=== PATIENT | female | born 1950 | race Caucasian/White ===

== ENCOUNTER → 2020-10-30 14:01 | Outpatient (BNVA) | payer MEDICARE, OTHER, SELFPAY | PROVIDERS: Visit Provider Internal Medicine | DX: R06.00 Dyspnea, unspecified (principal); J84.10 Pulmonary fibrosis, unspecified; J98.4 Other disorders of lung | CPT/HCPCS: 99212 ==

== ENCOUNTER 2020-11-07 09:49 | Outpatient (REF) | payer MEDICARE, OTHER, SELFPAY ==
[2020-11-07 10:28] LABS: MANUAL DIFF FLAG NO
[2020-11-07 10:44] LABS: Basophils Absolute Auto 0.1 X10*3/uL (0.0-0.2); Basophils Percent Auto 0.6 % (0-2); Eosinophils Absolute Auto 0.2 X10*3/uL (0.0-0.4); Eosinophils Percent Auto 2.1 % (0-4); Hematocrit 37.5 % (37-47); Hemoglobin 12.1 g/dl (12.0-16.0); Imm Gran Abs Auto 0.02 X10*3/uL (0.00-0.03); Imm Gran Pct Auto 0.3 % (0.0-0.4); Lymphocytes Absolute Auto 1.6 X10*3/uL (1.2-4.9); Lymphocytes Percent Auto 20.5 % (20-40); Mean Corpuscular HGB Conc 32.3 g/dl (31.0-35.0); Mean Corpuscular Hemoglobin 27.5 pg (27.0-33.0); Mean Corpuscular Volume 85.2 fL (80-98); Mean Platelet Volume 10.4 fL (9.4-12.3); Monocytes Absolute Auto 0.5 X10*3/uL (0.1-1.2); Neutrophils Absolute Auto 5.4 X10*3/uL (2.0-8.3); Neutrophils Percent Auto 69.5 % (45-73); Platelet Count 369 X10*3/uL (160-400); Red Cell Distribution Width 13.4 % (11.0-16.0); White Blood Count 7.8 X10*3/uL (4.8-10.8)
[2020-11-07 11:05] LABS: Estimated Average Glucose 137 mg/dL; Hemoglobin A1C 150.9302 umol/L; Hemoglobin A1c % 6.4 %
[2020-11-07 11:10] LABS: Alanine Aminotransferase 15 U/L (0-31); Albumin Level 4.3 g/dL (3.5-5.0); Alkaline Phosphatase 83 U/L (39-117); Anion Gap 18 (12-20); Aspartate Amino Transferase 23 U/L (5-31); Bilirubin Direct 0.3 mg/dL (0.0-0.5); Bilirubin Total 0.9 mg/dL (0.0-1.0); Blood Urea Nitrogen 11 mg/dL (9-16); Calcium 9.2 mg/dL (8.4-10.2); Carbon Dioxide 28 mmol/L (22-29); Chloride 98 mmol/L (96-108); Cholesterol 164 mg/dL; Estimated Glomerular Filt Rate 58; Glucose Fasting 177 mg/dL (60-99); HDL Cholesterol 41 mg/dL; LDL Cholesterol Calculated 92 mg/dl; Magnesium 1.7 mg/dL (1.6-2.6); Potassium 3.6 mmol/l (3.3-5.1); Sodium 140 mmol/L (135-145); Total Protein 7.9 g/dL (6.5-8.0); Triglycerides 155 mg/dL
[2020-11-07 11:20] LABS: Vitamin D 25-OH Total 31.3 ng/mL (>30)
== END 2020-11-07 09:50 | disposition home or self-care (01) ==
LOC: HO.LAB 09:49
DX: J44.9 Chronic obstructive pulmonary disease, unspecified (principal); I10 Essential (primary) hypertension; E11.9 Type 2 diabetes mellitus without complications; E78.5 Hyperlipidemia, unspecified
CPT/HCPCS: 36415; 80053; 80061; 80076; 82306; 83036; 83735; 85025

== ENCOUNTER 2021-04-22 13:05 | Outpatient (REF) | payer MEDICARE, OTHER, SELFPAY ==
--- NOTE | ~2021-04-22 | MM_ITS ---
EXAMINATION: BONE DENSITOMETRY CLINICAL INDICATION: Type 2 diabetes mellitus with hyperglycemia. Screening for osteoporosis. COMPARISON: Baseline BD dated 09/12/2009. CT chest 01/16/2020. TECHNIQUE: Using a [employer] DXA System (software version: 13.1) manufactured by [employer], dual-energy x-ray absorptiometry was performed of the lumbar spine and left hip. The images are of good technical quality. Summary results are attached. FINDINGS: AP SPINE L2-L4 (excluding L1): The data of L1-L4 has been changed to exclude the L1 vertebral body, because density from vertebral augmentation at this level may cause overestimation of lumbar spine density. Current: BMD 1.417 g/cm2, Z-score 2.6, T-score 1.8, normal, 18.9% increase from baseline (<5% change is not significant). Baseline: BMD 1.192 g/cm2. LEFT FEMUR, NECK: Current: BMD 0.856 g/cm2, Z-score -0.1, T-score -1.3, osteopenia. Baseline: BMD 0.891 g/cm2. LEFT FEMUR, TOTAL: Current: BMD 1.026 g/cm2, Z-score 1.1, T-score 0.1, normal, 2.1% decrease from baseline (<5% change is not significant). Baseline: BMD 1.048 g/cm2. IDENTIFIED RISK FACTORS: Height loss, history of fracture (adult), menopause. HISTORY OF FRACTURE: Spine, prior L1 vertebral augmentation. MEDICATIONS: None listed. MM/XR DEXA axial skeleton IMPRESSION: 1. DIAGNOSIS: Osteopenia based on the lowest T-score value of -1.3 in the femoral neck applying World Health Organization criteria. 2. 10-YEAR FRACTURE RISK PREDICTION, FRAX: Major osteoporotic fracture (clinical spine, forearm, hip or shoulder) 14.7%. Hip fracture 2.1%. 3. Treatment Recommendations: NOF guidelines recommend consideration for treatment in postmenopausal women and men age 50 and older presenting with the following: -A hip or vertebral (clinical or morphometric) fracture. -T-score less than or equal to -2.5 at the femoral neck or spine after appropriate evaluation to exclude secondary causes. -Low bone mass at the hip or spine and a 10-year fracture probability by FRAX of greater than or equal to 3% for hip fracture or greater than or equal to 20% for major osteoporotic fracture based on the [place] adapted WHO algorithm. 4. Other Recommendations: All treatment decisions require clinical judgment and consideration of individual patient factors, including patient preferences, comorbidities, previous drug use, risk factors not captured in the FRAX model (e.g. frailty, falls, vitamin D deficiency, increased bone turnover, interval significant decline in bone density) and possible under or overestimation of fracture risk by FRAX. Additional medical evaluation for secondary cause of low bone mineral density may be appropriate. FUTURE SCAN RECOMMENDATION: People with diagnosed cases of osteoporosis or at high risk for fracture should have regular bone mineral density tests. For patients eligible for Medicare, routine testing is allowed once every 2 years. The testing frequency can be increased to one year for patients who have rapidly progressing disease, those who are receiving or discontinuing medical therapy to restore bone mass, or have additional risk factors.
== END 2021-04-22 13:06 | disposition home or self-care (01) ==
LOC: HO.MAMMO 13:05
PROVIDERS: PCP Internal Medicine; Visit Provider Internal Medicine
DX: Z13.820 Encounter for screening for osteoporosis (principal); M81.0 Age-related osteoporosis without current pathological fracture; Z78.0 Asymptomatic menopausal state; Z87.81 Personal history of (healed) traumatic fracture
CPT/HCPCS: 77080

== ENCOUNTER 2021-06-11 07:17 | Outpatient (REF) | payer MEDICARE, OTHER, SELFPAY ==
[2021-06-11 07:53] LABS: MANUAL DIFF FLAG NO
[2021-06-11 07:56] LABS: Basophils Absolute Auto 0.1 X10*3/uL (0.0-0.2); Basophils Percent Auto 1.3 % (0-2); Eosinophils Absolute Auto 0.4 X10*3/uL (0.0-0.4); Eosinophils Percent Auto 5.7 % (0-4); Hematocrit 33.1 % (37-47); Hemoglobin 10.5 g/dl (12.0-16.0); Imm Gran Abs Auto 0.02 X10*3/uL (0.00-0.03); Imm Gran Pct Auto 0.3 % (0.0-0.4); Lymphocytes Percent Auto 25.9 % (20-40); Mean Corpuscular HGB Conc 31.7 g/dl (31.0-35.0); Mean Corpuscular Hemoglobin 26.3 pg (27.0-33.0); Monocytes Absolute Auto 0.7 X10*3/uL (0.1-1.2); Neutrophils Absolute Auto 4.3 X10*3/uL (2.0-8.3); Neutrophils Percent Auto 57.8 % (45-73); Platelet Count 336 X10*3/uL (160-400); Red Blood Count 3.99 X10*6/uL (4.20-5.50); White Blood Count 7.5 X10*3/uL (4.8-10.8)
[2021-06-11 08:15] LABS: Alanine Aminotransferase 9 U/L (0-31); Albumin Level 4.1 g/dL (3.5-5.0); Alkaline Phosphatase 79 U/L (39-117); Anion Gap 16 (12-20); Aspartate Amino Transferase 24 U/L (5-31); Bilirubin Total 0.6 mg/dL (0.0-1.0); Blood Urea Nitrogen 16 mg/dL (9-16); Calcium 8.7 mg/dL (8.4-10.2); Carbon Dioxide 28 mmol/L (22-29); Chloride 101 mmol/L (96-108); Estimated Glomerular Filt Rate 52; Glucose Random 114 mg/dL (60-115); Potassium 3.3 mmol/L (3.3-5.1); Sodium 142 mmol/L (135-145); Total Protein 7.6 g/dL (6.5-8.0)
[2021-06-11 08:36] LABS: Free T4 (Free Thyroxine) 0.92 ng/dL (0.71-1.85); Thyroid Stimulating Hormone 3.81 uIU/mL (0.32-4.0)
[2021-06-11 08:52] LABS: B Type Natriuretic Peptide 25 pg/mL (<100)
[2021-06-11 09:10] LABS: Microalbum/Creatinine Ratio Ur 9.8 ug/mg cr
== END 2021-06-11 07:18 | disposition home or self-care (01) ==
LOC: HO.LAB 07:17
PROVIDERS: PCP Internal Medicine; Visit Provider Internal Medicine
DX: D64.9 Anemia, unspecified (principal); E11.65 Type 2 diabetes mellitus with hyperglycemia
CPT/HCPCS: 36415; 80053; 82043; 83880; 84439; 84443; 85025

== ENCOUNTER 2021-06-16 09:36 | Day surgery (SDC) | payer MEDICARE, OTHER, SELFPAY ==
[2021-06-10 12:45] VITALS: BMI 33.1
--- NOTE | 2021-06-15 09:43 | HO.ANESPROP2 ---
Documented by User: Catina Toscano 06/15/21 09:45 HPI - Anesthesia Eval Consult details Narrative: 71yo F for Colonoscopy PMFSH Active Problems Active Problems: All Active Problems (Updated 06/11/21 @ 13:19 by Rocky Roman MD) Anemia (Acute) Osteopenia (Acute) Medicare annual wellness visit, initial (Acute) Anxiety and depression (Acute) Breast cancer screening by mammogram (Acute) Colon cancer screening (Acute) Hypercholesterolemia (Acute) Obesity (Acute) Type 2 diabetes mellitus with hyperglycemia (Acute) Restrictive lung disease (Acute) Pulmonary fibrosis (Acute) Dyspnea on exertion (Acute) Past Medical History Medical History Breast implant in situ Cataract Cholelithiasis Dyspnea on exertion Fatty liver Hypercholesterolemia Obesity Pelvic fracture Pulmonary fibrosis Restrictive lung disease Type 2 diabetes mellitus with hyperglycemia Family History Family History Mother Lung cancer Father Respiratory failure Sister Lung disease Brother Respiratory failure Son No problems noted. Surgical History Surgical History H/O left wrist surgery History of ankle surgery Social History Social History Alcohol intake: current Alcohol intake frequency: a few times a month Patient Tobacco Use Status: Former Tobacco user Years Smoked: stopped 48 years old Use of substances other than those prescribed or required for medical reasons: No Are you DNR?: No Advance Directives: No Advance Directives Information Provided: Yes Meds Allergies Allergy/AdvReac Type Severity Reaction Status Date / Time bacitracin [BACITRACIN] Allergy Intermediate RASH Verified 06/11/21 12:43 latex [LATEX] Allergy Intermediate FACIAL Verified 06/11/21 12:43 SWELLING; RASH nickel [NICKEL] Allergy Intermediate RASH Verified 06/11/21 12:43 Home Medications Medication Instructions Recorded Confirmed Last Taken Type fluoxetine 40 mg capsule 40 mg PO DAILY 10/30/20 06/11/21 Unknown History lorazepam 1 mg tablet 1 mg PO BEDTIME PRN 10/30/20 06/11/21 Unknown History naproxen sodium 220 mg capsule 220 mg PO BID PRN 03/05/21 06/11/21 Unknown History Exam Exam Date and Time: June 15, 2021 0943 Height,Weight and Vital Signs: Height 5 ft 5 in Weight 90.265 kg Pertinent Lab Results Pertinent Lab Results: Laboratory Tests 06/11/21 06/11/21 07:30 07:30 WBC 7.5 Hgb 10.5 L Hct 33.1 L Plt Count 336 Sodium 142 Potassium 3.3 Chloride 101 Carbon Dioxide 28 BUN 16 Creatinine 1.04 Assessment and Plan Assessment Anesthesia Assessment: Chart Reviewed Documented by User: Elena Mohan 06/16/21 10:17 [facility] Past Medical History Medical History Breast implant in situ Cataract Cholelithiasis Dyspnea on exertion Fatty liver Hypercholesterolemia Obesity Pelvic fracture Pulmonary fibrosis Restrictive lung disease Type 2 diabetes mellitus with hyperglycemia Family History Family History Mother Lung cancer Father Respiratory failure Sister Lung disease Brother Respiratory failure Son No problems noted. Surgical History Surgical History H/O left wrist surgery History of ankle surgery Social History Social History Alcohol intake: current Alcohol intake frequency: a few times a month Patient Tobacco Use Status: Former Tobacco user Years Smoked: stopped 48 years old Use of substances other than those prescribed or required for medical reasons: No Are you DNR?: No Advance Directives: No Advance Directives Information Provided: Yes Meds Allergies Allergy/AdvReac Type Severity Reaction Status Date / Time bacitracin [BACITRACIN] Allergy Intermediate RASH Verified 06/11/21 12:43 latex [LATEX] Allergy Intermediate FACIAL Verified 06/11/21 12:43 SWELLING; RASH nickel [NICKEL] Allergy Intermediate RASH Verified 06/11/21 12:43 Home Medications Medication Instructions Recorded Confirmed Last Taken Type fluoxetine 40 mg capsule 40 mg PO DAILY 10/30/20 06/11/21 Unknown History lorazepam 1 mg tablet 1 mg PO BEDTIME PRN 10/30/20 06/11/21 Unknown History naproxen sodium 220 mg capsule 220 mg PO BID PRN 03/05/21 06/11/21 Unknown History Exam Airway Mallampati Class: III TM Dist: >3cm Neck ROM: Full Loose/Missing/Broken Teeth: No Heart: RRR Lungs: CTA Assessment and Plan Assessment Anesthesia Assessment: Anesthesia Plan Discussed and Chart Reviewed Final Anesthetic Review NPO: Yes ASA Class: III Final Preanesthetic Review: Meds/Allgs Chart Reviewed, Consent Obtained/Reviewed and Anes Risks/Benef Reviewed Patient Risk: Intermediate Procedure Risk: Low Anesthetic Plan Anesthetic Plan: MAC: Disposition: Standard PACU
[2021-06-16 09:59] VITALS: BP 147/50; PULSE 85; RESP 16; TEMP 36.1; O2SAT 95
[2021-06-16 10:07] LABS: Glucose, Whole Blood 185 mg/dL (60-115)
[2021-06-16] MEDS: Sodium Phosphate,Mono-Dibasic 133 ML ENEMA PR (10:14)
--- NOTE | 2021-06-16 10:18 | MHC.SHP ---
Pre-Procedural Eval Section A Date of Service: 06/16/21 The patient is an INPATIENT: No Changes since office visit: No Cold of Flu in the past 2 weeks, No New Medical Problems, No Changes in Medication and No Patient answered all questions The History & Physical has been completed within 30 days and I have reviewed it.: Yes Section B Chief Complaint: Screening Allergies: Allergies Allergy/AdvReac Type Severity Reaction Status Date / Time bacitracin [BACITRACIN] Allergy Intermediate RASH Verified 06/11/21 12:43 latex [LATEX] Allergy Intermediate FACIAL Verified 06/11/21 12:43 SWELLING; RASH nickel [NICKEL] Allergy Intermediate RASH Verified 06/11/21 12:43 Plan I have reviewed the history and physical and performed a pertinent physical examination on my patient. No changes have occurred unless specified.
[2021-06-16] MEDS: Lactated Ringers 1,000 ML 100 ML IVCONT (10:20)
[2021-06-16 10:51] VITALS: BP 111/49; PULSE 74; RESP 18; TEMP 36.2; O2SAT 99
--- NOTE | 2021-06-16 10:58 | PM.OP ---
Brief Operative Note Date of Service: 06/16/21 Pre-op diagnosis: screening Procedure: colonoscopy Surgeon: Chandan Newberry Anesthesia: MAC Was an Chinese Instructor used for this Procedure?: No Estimated blood loss (mL): 2 Pathology: other (bx's 50 cm) Condition: stable Disposition: PACU
[2021-06-16 11:06] VITALS: BP 127/56; PULSE 74; RESP 18; O2SAT 99
--- NOTE | 2021-06-16 11:11 | OP_ITS ---
SURGEON: Chandan Newberry MD INDICATIONS: Colon cancer screening. PREOPERATIVE DIAGNOSIS: POSTOPERATIVE DIAGNOSIS: PROCEDURE PERFORMED: Colonoscopy to the terminal ileum with biopsy. ESTIMATED BLOOD LOSS: COMPLICATIONS: ANESTHESIA: ASSISTANTS: SPECIMENS: MEDICATIONS: Monitored anesthesia care. DESCRIPTION OF PROCEDURE: History and physical performed. The risks and benefits of the procedure were explained to the patient. Informed consent was obtained. The patient was placed in a left lateral decubitus position. A digital rectal exam was performed and was found to be normal. The Olympus pediatric video colonoscope was introduced into the rectum and advanced to the cecum without difficulty. The cecum was identified by transillumination, palpation, and identification of ileocecal valve. Examination was performed and the scope was removed. She tolerated the procedure well and was taken to recovery area in stable condition. FINDINGS: The terminal ileum was briefly examined and appeared normal. The visualized colonic mucosa was within normal limits without evidence of masses or ulcers. There appeared to be approximately 2 cm lipoma at 50 cm. This did show a pillow sign and biopsies were obtained from the mucosa. There was scattered diverticulosis in the sigmoid with a few diverticula throughout the remainder of the colon. Retroflexed examination showed internal hemorrhoids. IMPRESSION: 1. Diverticulosis. 2. Colonic lipoma. RECOMMENDATIONS: 1. Follow up the biopsy results. 2. Further colonoscopy screening is optional based on age. 10 year f/u exam is recommended. MD NISA Sprague/NICOLAS / [id number] MTDD
== END 2021-06-16 11:39 | disposition home or self-care (01) ==
PROVIDERS: PCP Internal Medicine; Visit Provider Internal Medicine Gastroenterology
PROC: 0DJD8ZZ Inspection of Lower Intestinal Tract, Via Natural or Artificial Opening Endoscopic (ICD-10-PCS; CPT 45378; principal; 2021-06-16 10:30)
DX: Z12.11 Encounter for screening for malignant neoplasm of colon (principal); K57.30 Diverticulosis of large intestine without perforation or abscess without bleeding; E11.65 Type 2 diabetes mellitus with hyperglycemia; J84.10 Pulmonary fibrosis, unspecified; J98.4 Other disorders of lung; Z79.84 Long term (current) use of oral hypoglycemic drugs; Z79.899 Other long term (current) drug therapy; Z91.040 Latex allergy status; Z88.1 Allergy status to other antibiotic agents; Z87.891 Personal history of nicotine dependence
CPT/HCPCS: 45380; 82947; 88305

== ENCOUNTER 2021-07-13 07:59 | Outpatient (REF) | payer MEDICARE, OTHER, SELFPAY ==
--- NOTE | ~2021-07-13 | MM_ITS ---
EXAMINATION: MM SCREENING DIGITAL BREAST TOMOSYNTHESIS, BILATERAL CLINICAL INFORMATION: Screening. Asymptomatic. The lifetime risk of breast cancer based on the Tyrer-Cuzick Model is 3%. COMPARISON: Mammography: 12/01/2018, 10/28/2017, 07/04/2015 TECHNIQUE: Digital mammography is performed in craniocaudal and mediolateral oblique views along with computer-aided detection (CAD). Digital breast tomosynthesis is performed in implant-displaced craniocaudal and implant-displaced mediolateral oblique views along with computer-aided detection (CAD). Synthesized 2D images are generated from the tomosynthesis. FINDINGS: There are scattered areas of fibroglandular density (ACR BI-RADS breast composition Category b). There are bilateral implants. The implant contours are similar to prior studies. The breast parenchymal pattern is similar to prior exams. There is no interval mass or architectural abnormality. No developing density or abnormal calcifications. No significant changes. MM/MM tomosynthesis screen imp BI IMPRESSION: No mammographic evidence of malignancy. ASSESSMENT: BI-RADS 1: Negative RECOMMENDATION: Routine annual mammography screening. This patient's information was entered into a reminder system with a target due date for their next mammogram.
== END 2021-07-13 08:00 | disposition home or self-care (01) ==
LOC: HO.MAMMO 07:59
PROVIDERS: Visit Provider Internal Medicine
DX: Z12.31 Encounter for screening mammogram for malignant neoplasm of breast (principal)
CPT/HCPCS: 77063; 77067

== ENCOUNTER 2021-09-03 08:42 | Emergency (ER) | payer MEDICARE, OTHER, SELFPAY ==
--- NOTE | 2021-09-03 08:49 | ED.PSYCH ---
HPI - Psych General Chief Complaint: Anxiety Stated Complaint: ANXIETY,PANIC ATTACK,RAN OUT OF MEDS Time Seen by Provider: 09/03/21 08:49 Source: patient and EMS Mode of arrival: EMS Limitations: no limitations History of Present Illness MD complaint: anxiety Onset (ago): day(s) (few days ago due to the sister having a stroke) Duration: getting worse History of same: Yes Relieving factors: medication Exacerbating factors: other (stress) Context: significant life stressor and other (ran out of her ativan 1mg should have refill now usually given 30 day suppy) Associated psychiatric symptoms: none Associated symptoms: denies other symptoms and other (did note she pulled her back while cleaning the house recently ) Treatments prior to arrival: none Related Data Home Medications Medication Instructions Recorded Confirmed fluoxetine 40 mg capsule 40 mg PO DAILY 10/30/20 09/03/21 lorazepam 1 mg tablet 1 mg PO BEDTIME PRN 10/30/20 09/03/21 naproxen sodium 220 mg capsule 220 mg PO BID PRN 03/05/21 09/03/21 (Aleve) ketorolac 0.5 % eye drops 1 drp QID 09/03/21 09/03/21 Previous Rx's Medication Instructions Recorded amlodipine 5 mg tablet 5 mg PO DAILY #90 tab 01/09/21 bumetanide 2 mg tablet 2 mg PO DAILY #90 tab 01/09/21 diabetic shoes #1 ea 03/05/21 glipizide 10 mg tablet 10 mg PO DAILY 90 Days #90 tab 04/15/21 atorvastatin 40 mg tablet 40 mg PO BEDTIME #90 cap 06/04/21 metoprolol succinate 50 mg 50 mg PO DAILY #90 tab 06/04/21 tablet,extended release 24 hr metformin 1,000 mg tablet 1,000 mg PO BID #180 cap 08/06/21 hydrocodone 5 mg-acetaminophen 325 1 tab PO Q6H PRN #8 tab 09/03/21 mg tablet lidocaine 4 % topical patch 1 patch TOPICAL DAILY PRN #10 ea 09/03/21 Allergies Allergy/AdvReac Type Severity Reaction Status Date / Time bacitracin [BACITRACIN] Allergy Intermediate RASH Verified 08/18/21 10:00 latex [LATEX] Allergy Intermediate FACIAL Verified 08/18/21 10:00 SWELLING; RASH nickel [NICKEL] Allergy Intermediate RASH Verified 08/18/21 10:00 Review of Systems Review of Systems: Constitutional : No Weight loss, No Fever, No Chills, ENT/Mouth : No Hearing loss, No Ear Pain, No Nasal Congestion, No Sinus Pain, No Hoarseness, No sore throat, No Rhinorrhea, No Swallowing Difficulty Cardiovascular : No Chest Pain, No SOB Respiratory : No Cough, No Dyspnea Gastrointestinal : No Nausea, No Vomiting, No Diarrhea, No abdominal Pain, No Hematochezia, No Melena Genitourinary : No Dysuria, No Urinary Frequency, No Hematuria, No Urinary Incontinence, Musculoskeletal : positive back pain Skin : No Skin Lesions, No rash Neuro : No Weakness, No Numbness, No Paresthesias, no loss of bowel or bladder incontinence, no saddle anesthesia Psych: pos anxiety, no SI/HI All other systems reviewed and are negative PMFSH Past Medical History Attestation statement: The following information was validated with the patient. Medical History Benign essential hypertension Breast implant in situ Cataract Cholelithiasis Dyspnea on exertion Fatty liver Hypercholesterolemia Normal colonoscopy (~06/16/21) Obesity Obesity (BMI 30-39.9) Pelvic fracture Pulmonary fibrosis Restrictive lung disease Type 2 diabetes mellitus with hyperglycemia Surgical History H/O left wrist surgery History of ankle surgery Family History Family History Mother Lung cancer Father Respiratory failure Sister Lung disease Brother Respiratory failure Son No problems noted. Other Mental health problem Social History Social History Housing: House Alcohol intake: current Alcohol intake frequency: a few times a month Patient Tobacco Use Status: Former Tobacco user Years Smoked: stopped 48 years old Second Hand Smoke Exposure: Yes Advance Directives: Yes Advance Directives Information Provided: No Advance Directives on File: No service: No Current occupational status: retired Physical Exam Vital Signs: Vital Signs: Last Vital Signs Temp 98.2 F 09/03/21 09:01 Pulse 66 09/03/21 12:17 Resp 18 09/03/21 09:01 BP 146/64 H 09/03/21 12:17 Pulse Ox 97 09/03/21 12:17 Body Mass Index 33.6 Appearance: Alert. Oriented X3. No acute distress. Eyes: Pupils equal, round and reactive to light. ENT: Pharynx normal. Neck: Normal inspection. Neck supple. CVS: Normal heart rate and rhythm. Pulses normal. Respiratory: No respiratory distress. Breath sounds normal. Abdomen: Soft and nontender. Back: some mild lower lateral ttp no step offs Skin: Skin warm and dry. Normal skin color. Normal skin turgor. Extremities: No lower extremity edema. No calf ttp Neuro: Oriented X 3. No motor deficit. No sensory deficit. Psych: pos anxiety, no SI/HI Course Course Course Narrative: I offered rehab but she refuses, PRN pain medications Patient placed in physician observation at 1130am . The indication for observation is that the patient needs more time for PT/CM for back pain and anxiet now notes she cannot care for herself. At this time the patient is well developed well nourished, lungs clear, CV RRR, abd nontender, neuro is intact. Physician observation ended at 1233pm. Patient refusing treatment or rehab now. Plan is to follow up as outpatient NAD, lungs clear, CV RRR, Abd nontender, Neuro intact. Disposition is for home. MDM - Psych MDM Narrative Medical decision making narrative: 71 yo female with hx of HTN, anemia, pulm fibrosis here with anxiety due to sister being ill - ran out of her ativan will give 1mg dose here no SI. She also c/o low back pain after cleaning her house no b/b incontinence, no saddle anesthesia no red flags - tylenol and lidocaine. anticipate DC home once she is feeling better Discharge Plan Discharge Clinical Impression: Anxiety Low back strain Qualifiers: Encounter type: initial encounter Qualified Code(s): S39.012A - Strain of muscle, fascia and tendon of lower back, initial encounter Patient Disposition: Home, Self-Care Instructions: Acute Low Back Pain (ED), Anxiety (ED) Additional Instructions: return to ED for any worsening symptoms or concerns Prescriptions: New lidocaine 4 % adhesive patch,medicated 1 patch topical DAILY PRN (Reason: pain) Qty: 10 RF: 0 hydrocodone-acetaminophen 5-325 mg tablet 1 tab PO Q6H PRN (Reason: pain) Qty: 8 RF: 0 No Action bumetanide 2 mg tablet 2 mg PO DAILY Qty: 90 RF: 1 amlodipine 5 mg tablet 5 mg PO DAILY Qty: 90 RF: 1 glipizide 10 mg tablet 10 mg PO DAILY 90 Days Qty: 90 RF: 1 metoprolol succinate 50 mg tablet extended release 24 hr 50 mg PO DAILY Qty: 90 RF: 1 atorvastatin 40 mg tablet 40 mg PO BEDTIME Qty: 90 RF: 1 metformin 1,000 mg tablet 1,000 mg PO BID Qty: 180 RF: 2 ketorolac 0.5 % drops 1 drp QID RF: 0 (DME) diabetic shoes See Rx Instructions .Route .MEDSUPPLY Qty: 1 RF: 0 naproxen sodium [Aleve] 220 mg capsule 220 mg PO BID PRN (Reason: Pain) RF: 0 fluoxetine 40 mg capsule 40 mg PO DAILY RF: 0 lorazepam 1 mg tablet 1 mg PO BEDTIME PRN (Reason: Anxiety) RF: 0 Referrals: Po,Rocky Okeefe MD [Primary Care Provider] - 2 days (if not better)
[2021-09-03 09:01] VITALS: BP 146/64; PULSE 66; RESP 18; TEMP 36.8; O2SAT 97; BMI 33.6
[2021-09-03] MEDS: LORazepam 1 MG TABLET PO (09:09)
[2021-09-03] MEDS: Lidocaine 4 % Patch ADH..PATCH 1 PATCH TRANSDERMA (09:09)
[2021-09-03] MEDS: Acetaminophen 325 MG TABLET 650 MG PO (09:09)
[2021-09-03] MEDS: oxyCODONE HCl Immed Release 5 MG TABLET PO (11:09)
--- NOTE | 2021-09-03 12:08 | PC.NURSE ---
UNABLE TO GET AHOLD OF PTS SON TO PICK HER UP, PT PROVIDED WITH TRANSPORTATION VOUCHER, PT INSISTED SHE WANTED TO CALL [facility], TO KNOCK ON THE DOOR TO WAKE HER SON UP. PT PROVIDED WITH A PHONE TO MAKE PHONE CALLS AND GIVEN THE NUMBER FOR [facility], PT NOW STATES SHE IS UNSURE IF HER SON CAN TAKE CARE OF HER OFFERED REHAB BY DR SWIFT
[2021-09-03 12:17] VITALS: BP 146/64; PULSE 66; O2SAT 97
--- NOTE | 2021-09-03 12:20 | PHA.MEDREC ---
Pharmacy Consult ? Medication Reconciliation Pharmacy has completed the medication reconciliation. There are no remarkable issues for provider's attention. Dana Leger, JohnnyD
--- NOTE | 2021-09-03 12:40 | MHC.CM.ED ---
Patient d/c'd home before she could be seen by case management.
[2021-09-03 12:54] LABS: COVID-19 Test Negative (Negative); IDNOW Serial# 08D9AD1C
== END 2021-09-03 12:38 | disposition home or self-care (01) ==
PROVIDERS: Emergency Provider Emergency Medicine; PCP Internal Medicine
DX: F41.9 Anxiety disorder, unspecified (principal); S39.012A Strain of muscle, fascia and tendon of lower back, initial encounter; I10 Essential (primary) hypertension; E11.9 Type 2 diabetes mellitus without complications; X58.XXXA Exposure to other specified factors, initial encounter; Y93.9 Activity, unspecified; Y92.9 Unspecified place or not applicable; Y99.9 Unspecified external cause status; Z20.822 Contact with and (suspected) exposure to COVID-19
CPT/HCPCS: 36415; 87635; 97161; 99283; 99284

== ENCOUNTER 2022-03-18 07:35 | Outpatient (REF) | payer MEDICARE, OTHER, SELFPAY ==
[2022-03-18 08:05] LABS: MANUAL DIFF FLAG NO
[2022-03-18 08:38] LABS: Basophils Absolute Auto 0.1 X10*3/uL (0.0-0.2); Basophils Percent Auto 0.7 % (0-2); Eosinophils Absolute Auto 0.6 X10*3/uL (0.0-0.4); Eosinophils Percent Auto 7.3 % (0-4); Hemoglobin 9.9 g/dl (12.0-16.0); Imm Gran Abs Auto 0.01 X10*3/uL (0.00-0.03); Imm Gran Pct Auto 0.1 % (0.0-0.4); Immature Retic Fraction 27.5 % (3.0-15.9); Lymphocytes Absolute Auto 1.6 X10*3/uL (1.2-4.9); Lymphocytes Percent Auto 21.5 % (20-40); Mean Corpuscular HGB Conc 30.9 g/dl (31.0-35.0); Mean Corpuscular Hemoglobin 25.3 pg (27.0-33.0); Mean Corpuscular Volume 81.6 fL (80.0-98.0); Monocytes Absolute Auto 0.6 X10*3/uL (0.1-1.2); Monocytes Percent Auto 8.3 % (2-11); Neutrophils Absolute Auto 4.7 x10*3/uL (2.0-8.3); Neutrophils Percent Auto 62.1 % (45-73); Platelet Count 318 X10*3/uL (160-400); Red Blood Count 3.92 X10*6/uL (4.20-5.50); Red Cell Distribution Width 14.9 % (11.0-16.0); Retic HGB Equivalent 26.8 pg (30.0-35.0); Reticulocyte Percent 1.5 % (0.5-1.8); White Blood Count 7.5 X10*3/uL (4.8-10.8)
[2022-03-18 08:54] LABS: Estimated Average Glucose 171 mg/dL; Hemoglobin A1c % 7.6 %
[2022-03-18 09:16] LABS: Alanine Aminotransferase 13 U/L (0-31); Albumin Level 3.8 g/dL (3.5-5.0); Alkaline Phosphatase 75 U/L (39-117); Anion Gap 15 (12-20); Aspartate Amino Transferase 20 U/L (5-31); Bilirubin Total 0.3 mg/dL (0.0-1.0); Blood Urea Nitrogen 15 mg/dL (9-16); Calcium 8.9 mg/dL (8.4-10.2); Carbon Dioxide 24 mmol/L (22-29); Chloride 103 mmol/L (96-108); Estimated Glomerular Filt Rate 54; Glucose Random 208 mg/dL (60-115); Iron 36 mcg/dL (30-160); Percent Iron Saturation 9 % (15-50); Potassium 4.6 mmol/L (3.3-5.1); Sodium 137 mmol/L (135-145); Total Iron Binding Capacity 388 mcg/dL (228-428); Total Protein 7.1 g/dL (6.5-8.0); Unsaturated Iron Binding 352 ug/dL
[2022-03-18 09:26] LABS: Ferritin 13 ng/mL (10-250); Free T4 (Free Thyroxine) 0.93 ng/dL (0.71-1.85); Thyroid Stimulating Hormone 2.27 uIU/mL (0.32-4.0)
[2022-03-18 10:06] LABS: Folate 8.7 ng/mL (> or = 4.0); Vitamin B12 431 pg/mL (200-900)
== END 2022-03-18 07:36 | disposition home or self-care (01) ==
LOC: HO.LAB 07:35
PROVIDERS: PCP Internal Medicine; Visit Provider Internal Medicine
DX: E11.65 Type 2 diabetes mellitus with hyperglycemia (principal); D64.9 Anemia, unspecified
CPT/HCPCS: 36415; 80053; 82607; 82728; 82746; 83036; 83540; 84439; 84443; 85025; 85045

== ENCOUNTER → 2022-03-25 14:08 | Outpatient (BNV) | payer MEDICARE, OTHER, SELFPAY | PROVIDERS: PCP Internal Medicine; Visit Provider Internal Medicine Medical Oncology | DX: D64.9 Anemia, unspecified (principal); D05.12 Intraductal carcinoma in situ of left breast | CPT/HCPCS: 99203; 99212; 99213; 99214 ==

== ENCOUNTER 2022-04-07 13:32 | Outpatient (REF) | payer MEDICARE, OTHER, SELFPAY | END 2022-04-07 13:33 | disposition home or self-care (01) | LOC: HO.MDS 13:32 | PROVIDERS: PCP Internal Medicine; Visit Provider Internal Medicine Medical Oncology | DX: D50.9 Iron deficiency anemia, unspecified (principal) | CPT/HCPCS: 96365; J2916 ==

== ENCOUNTER 2022-04-12 11:44 | Outpatient (REF) | payer MEDICARE, OTHER, SELFPAY | END 2022-04-12 11:45 | disposition home or self-care (01) | LOC: HO.MDS 11:44 | PROVIDERS: PCP Internal Medicine; Visit Provider Internal Medicine Medical Oncology | DX: D50.9 Iron deficiency anemia, unspecified (principal) | CPT/HCPCS: 96365; J2916 ==

== ENCOUNTER 2022-04-20 12:57 | Outpatient (REF) | payer MEDICARE, OTHER, SELFPAY | END 2022-04-20 12:58 | disposition home or self-care (01) | LOC: HO.MDS 12:57 | PROVIDERS: PCP Internal Medicine; Visit Provider Internal Medicine Medical Oncology | DX: D50.9 Iron deficiency anemia, unspecified (principal) | CPT/HCPCS: 96365; J2916 ==

== ENCOUNTER 2022-04-28 12:21 | Outpatient (REF) | payer MEDICARE, OTHER, SELFPAY ==
[2022-04-28 12:55] LABS: MANUAL DIFF FLAG NO
[2022-04-28 13:05] LABS: Basophils Absolute Auto 0.1 X10*3/uL (0.0-0.2); Basophils Percent Auto 0.8 % (0-2); Eosinophils Absolute Auto 0.4 X10*3/uL (0.0-0.4); Eosinophils Percent Auto 5.6 % (0-4); Hematocrit 32.9 % (37.0-47.0); Hemoglobin 10.2 g/dl (12.0-16.0); Imm Gran Abs Auto 0.02 X10*3/uL (0.00-0.03); Imm Gran Pct Auto 0.3 % (0.0-0.4); Lymphocytes Absolute Auto 1.4 X10*3/uL (1.2-4.9); Lymphocytes Percent Auto 21.5 % (20-40); Mean Corpuscular Hemoglobin 26.4 pg (27.0-33.0); Mean Corpuscular Volume 85.2 fL (80.0-98.0); Mean Platelet Volume 10.1 fL (9.4-12.3); Monocytes Absolute Auto 0.7 X10*3/uL (0.1-1.2); Monocytes Percent Auto 10.1 % (2-11); Neutrophils Absolute Auto 4.1 x10*3/uL (2.0-8.3); Neutrophils Percent Auto 61.7 % (45-73); Platelet Count 267 X10*3/uL (160-400); Red Blood Count 3.86 X10*6/uL (4.20-5.50); Red Cell Distribution Width 16.3 % (11.0-16.0); White Blood Count 6.7 X10*3/uL (4.8-10.8)
== END 2022-04-28 12:22 | disposition home or self-care (01) ==
LOC: HO.MDS 12:21
PROVIDERS: PCP Internal Medicine; Visit Provider Internal Medicine Medical Oncology
DX: D50.9 Iron deficiency anemia, unspecified (principal)
CPT/HCPCS: 36415; 85025; 96365; J2916

== ENCOUNTER 2022-05-03 10:21 | Outpatient (REF) | payer MEDICARE, OTHER, SELFPAY | END 2022-05-03 10:22 | disposition home or self-care (01) | LOC: HO.MDS 10:21 | PROVIDERS: PCP Internal Medicine; Visit Provider Internal Medicine Medical Oncology | DX: D50.9 Iron deficiency anemia, unspecified (principal) | CPT/HCPCS: 96365; J2916 ==

== ENCOUNTER 2022-05-10 09:53 | Outpatient (REF) | payer MEDICARE, OTHER, SELFPAY | END 2022-05-10 09:54 | disposition home or self-care (01) | LOC: HO.MDS 09:53 | PROVIDERS: PCP Internal Medicine; Visit Provider Internal Medicine Medical Oncology | DX: D50.9 Iron deficiency anemia, unspecified (principal) | CPT/HCPCS: 96365; J2916 ==

== ENCOUNTER 2022-05-18 11:56 | Outpatient (REF) | payer MEDICARE, OTHER, SELFPAY | END 2022-05-18 11:57 | disposition home or self-care (01) | LOC: HO.MDS 11:56 | PROVIDERS: PCP Internal Medicine; Visit Provider Internal Medicine Medical Oncology | DX: D50.9 Iron deficiency anemia, unspecified (principal) | CPT/HCPCS: 96365; J2916 ==

== ENCOUNTER 2022-06-04 16:59 | Emergency (ER) | payer MEDICARE, OTHER, SELFPAY ==
[2022-06-04 17:13] VITALS: BP 154/66; PULSE 70; RESP 18; TEMP 36.4; O2SAT 97; BMI 33.3
--- NOTE | 2022-06-04 17:41 | ED_ITS ---
HPI - Anxiety General Chief Complaint: Anxiety Stated Complaint: anxiety Time Seen by Provider: 06/04/22 17:36 History of Present Illness HPI narrative: Patient who takes Ativan as needed for anxiety is out of Ativan and feels like she has been having frequent anxiety attacks, she has no chest pain no shortness of breath no vomiting no dizziness no fainting but does feel tingling and anxious typical of many prior anxiety attacks, all symptoms are chronic for her She did call her doctor for a refill but he was not able to do it today and she will contact her doctor tomorrow Related Data Home Medications Medication Instructions Recorded Confirmed naproxen sodium 220 mg capsule 220 mg PO BID PRN Pain 03/05/21 03/25/22 (Aleve) diphenhydramine HCl 25 mg capsule 25 mg PO BEDTIME PRN Nasal 03/25/22 03/25/22 (Benadryl) Congestion Previous Rx's Medication Instructions Recorded diabetic shoes #1 ea 03/05/21 metformin 1,000 mg tablet 1,000 mg PO BID #180 caps 08/06/21 atorvastatin 40 mg tablet 40 mg PO BEDTIME #90 caps 10/02/21 metoprolol succinate 50 mg 50 mg PO DAILY #90 tabs 10/02/21 tablet,extended release 24 hr fluoxetine 40 mg capsule 40 mg PO DAILY 90 days #90 caps 10/05/21 blood sugar diagnostic (FreeStyle #100 ea 11/12/21 Lite Strips) amlodipine 5 mg tablet 5 mg PO DAILY #90 tabs 02/18/22 lorazepam 1 mg tablet 1 mg PO BEDTIME PRN Anxiety 30 05/17/22 days #30 tabs lorazepam 1 mg tablet 1 mg PO BEDTIME PRN Anxiety 30 06/04/22 days #30 tabs lorazepam 1 mg tablet (Ativan) 1 mg PO BID PRN anxiety #6 tabs 06/04/22 Allergies Allergy/AdvReac Type Severity Reaction Status Date / Time bacitracin [BACITRACIN] Allergy Intermediate RASH Verified 03/25/22 14:36 latex [LATEX] Allergy Intermediate FACIAL Verified 03/25/22 14:36 SWELLING; RASH nickel [NICKEL] Allergy Intermediate RASH Verified 03/25/22 14:36 adhesive tape AdvReac Irritable Verified 03/25/22 14:36 Review of Systems Review of Systems: Positive for anxiety Negatives are no fever no chills no dizziness or weakness no fainting no feeling faint no headache no neck pain no chest pain no shortness of breath no palpitations no abdominal pain no nausea or vomiting no numbness or weakness no loss of balance no confusion Yes all other systems are reviewed and are negative [facility] Past Medical History Source: nursing notes reviewed Medical History (Updated 06/05/22 @ 00:02 by Fortunato Lilly) Benign essential hypertension Breast cancer screening by mammogram Breast implant in situ Cataract Cholelithiasis Colon cancer screening Fatty liver Hypercholesterolemia Normal colonoscopy (~06/16/21) Obesity (BMI 30-39.9) Pelvic fracture Pulmonary fibrosis Restrictive lung disease Type 2 diabetes mellitus with hyperglycemia Surgical History (Updated 03/25/22 @ 16:28 by Ebonie Barbour MD) H/O left wrist surgery History of ankle surgery History of cataract surgery History of colonoscopy History of surgery on lower extremity Family History Family History Mother Lung cancer Father Respiratory failure Sister Lung disease Brother Respiratory failure Son No problems noted. 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 Do you presently have visiting nurse or other home services: No Alcohol intake: current Alcohol intake frequency: a few times a month Patient Tobacco Use Status: Never used Tobacco Years Smoked: stopped 48 years old e-Cigarette/Vaping Use: Never Used Second Hand Smoke Exposure: Yes Advance Directives: No Advance Directives Information Provided: No service: No Current occupational status: retired Cognitive needs: No Hearing needs: No Vision needs: Yes Physical Exam Vital Signs: Vital Signs: Last Vital Signs Temp 97.6 F 06/04/22 17:13 Pulse 70 06/04/22 17:13 Resp 18 06/04/22 17:13 BP 154/66 H 06/04/22 17:13 Pulse Ox 97 06/04/22 17:13 O2 Del Method 06/04/22 17:13 BMI result Body Mass Index 33.3 General appearance no acute distress comfortable cooperative Head is normocephalic atraumatic Pupils equal round reactive to light extraocular motions are intact Neck is supple Respiratory no distress Chest clear to auscultation bilateral Heart murmur Extremities full range of motion x4 Neuro gait and balance are normal, expression and comprehension are normal, motor is 5/5 x4 Course Course Course Narrative: Patient's only complaint is she feels like she has had anxiety attacks over the last 24 hours, typical for her and tried to call her doctor as she is out of Ativan and could not reach him so today I wrote her for 6 Ativan tablets and she will follow with her doctor Discharge Plan Discharge Clinical Impression: Anxiety Patient Disposition: Home, Self-Care Additional Instructions: I did couple a days worth of Ativan but you need to follow with your doctor for regular prescriptions Return any concerns Prescriptions: New lorazepam [Ativan] 1 mg tablet 1 mg PO BID PRN (Reason: anxiety) Qty: 6 0RF No Action metformin 1,000 mg tablet 1,000 mg PO BID Qty: 180 2RF metoprolol succinate 50 mg tablet extended release 24 hr 50 mg PO DAILY Qty: 90 2RF atorvastatin 40 mg tablet 40 mg PO BEDTIME Qty: 90 2RF fluoxetine 40 mg capsule 40 mg PO DAILY 90 Days Qty: 90 2RF (DME) FreeStyle Lite Strips Strip See Rx Instructions .ROUTE .MEDSUPPLY Qty: 100 3RF Rx Instructions: As directed check the BS QD amlodipine 5 mg tablet 5 mg PO DAILY Qty: 90 1RF lorazepam 1 mg tablet 1 mg PO BEDTIME PRN (Reason: Anxiety) 30 Days Qty: 30 1RF lorazepam 1 mg tablet 1 mg PO BEDTIME PRN (Reason: Anxiety) 30 Days Qty: 30 1RF diphenhydramine HCl [Benadryl] 25 mg Capsule 25 mg PO BEDTIME PRN (Reason: Nasal Congestion) (DME) diabetic shoes See Rx Instructions .Route .MEDSUPPLY Qty: 1 0RF Rx Instructions: As directed naproxen sodium [Aleve] 220 mg capsule 220 mg PO BID PRN (Reason: Pain) Interventions: ED Discharge Assessment Last Done: 06/04/22 18:06 Discharge Date/Time: 06/04/22 18:06
== END 2022-06-04 18:06 | disposition home or self-care (01) ==
PROVIDERS: Emergency Provider Internal Medicine; PCP Internal Medicine
DX: F41.9 Anxiety disorder, unspecified (principal); E11.9 Type 2 diabetes mellitus without complications; I10 Essential (primary) hypertension
CPT/HCPCS: 99282; 99283

== ENCOUNTER 2022-06-11 09:59 | Emergency (ER) | payer MEDICARE, OTHER, SELFPAY ==
--- NOTE | ~2022-06-11 | XR_ITS ---
EXAMINATION: XR TIBIA AND FIBULA, RIGHT CLINICAL INFORMATION: Right lower leg pain COMPARISON: Right ankle 02/20/2019 TECHNIQUE: AP and lateral views of the right tibia and fibula were obtained. FINDINGS: There is a lateral fibular plate and screws for an old healed fibular fracture. There are 2 medial malleolar screws through the old healed medial malleoli. There is loss of ankle mortise and subtalar joint space. No bony erosive changes. No visible acute fracture or dislocation. The soft tissues are normal. XR/XR tibia fibula RT 2V IMPRESSION: Old healed distal fibular and medial malleolar fractures with hardware in place. The hardware is unchanged to the previous exam from 3 05/23/2019. No recurrent fracture seen. Suspect mild secondary degenerative changes of the ankle mortise and subtalar joints
--- NOTE | ~2022-06-11 | US_ITS ---
EXAMINATION: US VENOUS ULTRASOUND WITH DOPPLER LOWER EXTREMITY, RIGHT CLINICAL INFORMATION: Atraumatic right lower extremity pain and swelling. COMPARISON: Right lower extremity venous ultrasound 12/08/2019 TECHNIQUE: Ultrasound of the deep veins is performed from the hip to the calf with compression sonography and color and pulse Doppler assessment. Spectral analysis with color-flow imaging is performed. FINDINGS: There is normal venous compression and respiratory variation and augmented flow. The visualized common femoral vein, superficial femoral vein, profunda femoral vein, popliteal vein, and the trifurcation region shows no evidence of deep venous thrombosis. US/US venous duplex LE RT IMPRESSION: No DVT demonstrated in the right lower extremity.
[2022-06-11 10:40] VITALS: BP 147/60; PULSE 61; RESP 18; TEMP 36.6; O2SAT 95; BMI 33.3
[2022-06-11 11:06] VITALS: BP 133/54; PULSE 59; RESP 16; TEMP 35.7; O2SAT 99
[2022-06-11] MEDS: oxyCODONE HCl Immed Release 5 MG TABLET PO (12:58)
--- NOTE | 2022-06-11 13:25 | ED_ITS ---
HPI - Extremity Problem General Chief complaint: Extremity Problem Stated complaint: R leg pain Time Seen by Provider: 06/11/22 10:51 Source: patient Mode of arrival: ambulatory Limitations: no limitations History of Present Illness HPI Narrative: 72-year-old female with a past medical history of hypertension, hypercholesterolemia, obesity, pulmonary fibrosis, restrictive lung disease and type 2 diabetes presenting to the ED with complaints of right lower leg pain radiating to her right ankle/foot since yesterday worse today. Reports that she has had surgery to the right ankle years ago. Reports that she recently went on a long walk with her family member and she believes it might be related to that. She denies any dizziness, headaches, change in vision, chest pain or shortness of breath, dyspnea on exertion, orthopnea, palpitations, paresthesias, abdominal pain, abdominal distension, weight gain, lower extremity edema, recent travel or sick contacts or recent immobilization or surgery, hx of DVT/PE. MD Complaint: extremity pain and extremity swelling Onset (ago): day(s) (2) Pain Consistency: constant Location: right and lower extremity Quality: aching Radiation: distal Relieving factors: elevation Exacerbating factors: range of motion, weight bearing, walking and palpation Associated symptoms: denies other symptoms Related Data Home Medications Medication Instructions Recorded Confirmed naproxen sodium 220 mg capsule 220 mg PO BID PRN Pain 03/05/21 03/25/22 (Aleve) diphenhydramine HCl 25 mg capsule 25 mg PO BEDTIME PRN Nasal 03/25/22 03/25/22 (Benadryl) Congestion Previous Rx's Medication Instructions Recorded diabetic shoes #1 ea 03/05/21 metformin 1,000 mg tablet 1,000 mg PO BID #180 caps 08/06/21 atorvastatin 40 mg tablet 40 mg PO BEDTIME #90 caps 10/02/21 metoprolol succinate 50 mg 50 mg PO DAILY #90 tabs 10/02/21 tablet,extended release 24 hr fluoxetine 40 mg capsule 40 mg PO DAILY 90 days #90 caps 10/05/21 blood sugar diagnostic (FreeStyle #100 ea 11/12/21 Lite Strips) amlodipine 5 mg tablet 5 mg PO DAILY #90 tabs 02/18/22 lorazepam 1 mg tablet 1 mg PO BEDTIME PRN Anxiety 30 05/17/22 days #30 tabs lorazepam 1 mg tablet 1 mg PO BEDTIME PRN Anxiety 30 06/04/22 days #30 tabs lorazepam 1 mg tablet (Ativan) 1 mg PO BID PRN anxiety #6 tabs 06/04/22 cyclobenzaprine 10 mg tablet 10 mg PO Q8H PRN Muscle spasm #8 06/11/22 tabs naproxen 500 mg tablet 500 mg PO BID PRN pain #8 tabs 06/11/22 oxycodone 5 mg tablet 5 mg PO Q6H PRN pain #8 tabs 06/11/22 Allergies Allergy/AdvReac Type Severity Reaction Status Date / Time bacitracin [BACITRACIN] Allergy Intermediate RASH Verified 06/11/22 10:44 latex [LATEX] Allergy Intermediate FACIAL Verified 06/11/22 10:44 SWELLING; RASH nickel [NICKEL] Allergy Intermediate RASH Verified 06/11/22 10:44 adhesive tape AdvReac Irritable Verified 06/11/22 10:44 Review of Systems Review of Systems: Constitutional : No Weight loss, No Fever, No Chills, No Night Sweats, No Fatigue, No Malaise ENT/Mouth : No Hearing loss, No Ear Pain, No Nasal Congestion, No Sinus Pain, No Hoarseness, No sore throat, No Rhinorrhea, No Swallowing Difficulty Eyes: No Eye Pain, No Swelling, No Redness, No Foreign Body, No Discharge, No Vision Changes Cardiovascular : No Chest Pain, No SOB, No Dyspnea on Exertion, No Orthopnea, No Edema, No Palpitations Respiratory : No Cough, No Sputum, No Wheezing, No Smoke Exposure, No Dyspnea Gastrointestinal : No Nausea, No Vomiting, No Diarrhea, No Constipation, No abdominal Pain, No Hematochezia, No Melena Genitourinary : no irregular bleeding, No Dysuria, No Urinary Frequency, No Hematuria, No Urinary Incontinence, No Urgency, No Flank Pain, No Urinary Flow Changes, No Hesitancy Musculoskeletal : + right lower extremity pain, No Myalgias, No Joint Swelling Skin : No Skin Lesions, No rash Neuro : No Weakness, No Numbness, No Paresthesias, No Loss of Consciousness, No Dizziness, No Headache Psych : No Anxiety/Panic, No Depression, No SI/HI/AH/VH, No Social Issues, Heme/Lymph: No Bruising, No Bleeding,No Lymphadenopathy Endocrine : No Polyuria, No Polydipsia, No Temperature Intolerance Yes all other systems are reviewed and are negative [facility] Past Medical History Attestation statement: The following information was validated with the patient. Source: old records reviewed and nursing notes reviewed Medical History Benign essential hypertension Breast cancer screening by mammogram Breast implant in situ Cataract Cholelithiasis Colon cancer screening Fatty liver Hypercholesterolemia Normal colonoscopy (~06/16/21) Obesity (BMI 30-39.9) Pelvic fracture Pulmonary fibrosis Restrictive lung disease Type 2 diabetes mellitus with hyperglycemia Surgical History H/O left wrist surgery History of ankle surgery History of cataract surgery History of colonoscopy History of surgery on lower extremity Family History Family History Mother Lung cancer Father Respiratory failure Sister Lung disease Brother Respiratory failure Son No problems noted. 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 Do you presently have visiting nurse or other home services: No Alcohol intake: current Alcohol intake frequency: a few times a month Patient Tobacco Use Status: Never used Tobacco Years Smoked: stopped 48 years old e-Cigarette/Vaping Use: Never Used Second Hand Smoke Exposure: Yes Advance Directives: Yes Advance Directives Information Provided: Yes Advance Directives on File: No service: No Current occupational status: retired Cognitive needs: No Hearing needs: No Vision needs: Yes Physical Exam Vital Signs: Vital Signs: Last Vital Signs Temp 96.2 F L 06/11/22 11:06 Pulse 59 06/11/22 11:06 Resp 16 06/11/22 11:06 BP 133/54 L 06/11/22 11:06 Pulse Ox 99 06/11/22 11:06 O2 Del Method 06/11/22 11:06 BMI result Body Mass Index 33.3 vital signs have been reviewed as normal and appeared to be correct. Blood pressure 147/60. Heart rate normal. Respiration rate normal. Temperature normal. Oxygen saturation normal. Appearance: Alert. Oriented X3. No acute distress. Head: Normal external exam. Normocephalic. Atraumatic. Eyes: PERRLA. EOMI. Conjunctiva and sclera normal. Eyelids normal. ENT: Pharynx normal. Uvula midline. Moist mucous membranes. No lesions/ulcerations or masses noted on the tongue. Normal voice. No trismus noted. No drooling noted. No muffled voice noted. Neck: Normal inspection. Neck supple. FROM. No adenopathy. Thyroid Normal. No meningeal signs. CVS: Normal heart rate and rhythm. Heart sound normal. Pulses normal throughout. No murmurs/rales/gallops. Respiratory: No respiratory distress. Painless inspiration. Breath sounds normal. No wheezes/rales/rhonchi noted. No accessory muscle usage noted or decreased air movement noted. Back: Full range of motion noted. Skin: Skin warm and dry. Normal skin color. Normal skin turgor. No rashes/lesions/lacerations noted. Extremities: + 1 lower extremity edema and right sided claf tenderness noted. No LLE edema or calf tenderness noted. Extremities exhibit normal range of motion and nontender. Neuro: Oriented X 3. No motor deficit. No sensory deficit. Reflexes normal. Normal steady gait. No focal neuro deficits noted. CN's II-XII intact bilat erally? Vascular: + radial pulses/+ 2 distal pedal pulses/+2 dorsalis pedis b/l. Normal cap refill. No cyanosis noted to upper extremity nails and lower extremity toes nails. Course Course Course Narrative: 12pm - 72-year-old female with a past medical history of hypertension, hypercholesterolemia, obesity, pulmonary fibrosis, restrictive lung disease and type 2 diabetes presenting to the ED with complaints of right lower leg pain radiating to her right ankle/foot since yesterday worse today. Reports that she has had surgery to the right ankle years ago. Reports that she recently went on a long walk with her family member and she believes it might be related to that. Plan: X-ray was ordered while the patient was in the waiting room. Will obtain ultrasound of right lower extremity provide naproxen and I explained to the patient MDM - Extremity (Nontraumatic) Medical Records Attestation: I reviewed the patient's medical records. Lab Data Attestation: I reviewed the patient's lab results. Imaging Data X-ray of right tibia/fibula: Attestation: I personally reviewed and interpreted this imaging study as follows: Radiologist's impression: FINDINGS: There is a lateral fibular plate and screws for an old healed fibular fracture. There are 2 medial malleolar screws through the old healed medial malleoli. There is loss of ankle mortise and subtalar joint space. No bony erosive changes. No visible acute fracture or dislocation. The soft tissues are normal.? XR/XR tibia fibula RT 2V IMPRESSION: Old healed distal fibular and medial malleolar fractures with hardware in place. The hardware is unchanged to the previous exam from 3 05/23/2019. No recurrent fracture seen. ? Suspect mild secondary degenerative changes of the ankle mortise and subtalar joints A venous duplex ultrasound of right lower extremity: Attestation: I personally reviewed and interpreted this imaging study as follows: Radiologist's impression: FINDINGS: There is normal venous compression and respiratory variation and augmented flow. The visualized common femoral vein, superficial femoral vein, profunda femoral vein, popliteal vein, and the trifurcation region shows no evidence of deep venous thrombosis. US/US venous duplex LE RT IMPRESSION: No DVT demonstrated in the right lower extremity. Discharge Plan Discharge Clinical Impression: Muscle strain of right lower extremity Patient Disposition: Home, Self-Care Instructions: Muscle Strain (ED) Additional Instructions: Your ultrasound is still pending we will call you if there is any abnormality such as a blood clot. Return if any new or worsening symptoms. Follow up with her primary care provider. Please do not drink and drive with any of the muscle relaxers or the oxycodone that you were given today. Prescriptions: New naproxen 500 mg tablet 500 mg PO BID PRN (Reason: pain) Qty: 8 0RF oxycodone 5 mg tablet 5 mg PO Q6H PRN (Reason: pain) Qty: 8 0RF Rx Instructions: Partial Fill upon patient request. cyclobenzaprine 10 mg tablet 10 mg PO Q8H PRN (Reason: Muscle spasm) Qty: 8 0RF No Action metformin 1,000 mg tablet 1,000 mg PO BID Qty: 180 2RF metoprolol succinate 50 mg tablet extended release 24 hr 50 mg PO DAILY Qty: 90 2RF atorvastatin 40 mg tablet 40 mg PO BEDTIME Qty: 90 2RF fluoxetine 40 mg capsule 40 mg PO DAILY 90 Days Qty: 90 2RF (DME) FreeStyle Lite Strips Strip See Rx Instructions .ROUTE .MEDSUPPLY Qty: 100 3RF Rx Instructions: As directed check the BS QD amlodipine 5 mg tablet 5 mg PO DAILY Qty: 90 1RF lorazepam 1 mg tablet 1 mg PO BEDTIME PRN (Reason: Anxiety) 30 Days Qty: 30 1RF lorazepam 1 mg tablet 1 mg PO BEDTIME PRN (Reason: Anxiety) 30 Days Qty: 30 1RF diphenhydramine HCl [Benadryl] 25 mg Capsule 25 mg PO BEDTIME PRN (Reason: Nasal Congestion) lorazepam [Ativan] 1 mg tablet 1 mg PO BID PRN (Reason: anxiety) Qty: 6 0RF (DME) diabetic shoes See Rx Instructions .Route .MEDSUPPLY Qty: 1 0RF Rx Instructions: As directed naproxen sodium [Aleve] 220 mg capsule 220 mg PO BID PRN (Reason: Pain) Referrals: Po,Rocky Okeefe MD [Primary Care Provider] - 1 week Interventions: ED Discharge Assessment Last Done: 06/11/22 14:13 Discharge Date/Time: 06/11/22 14:13
--- NOTE | 2022-06-11 14:12 | PC.NURSE ---
pt unable to wait for results of us. pt left with ride home from son. plan is for provider to call patient when results come back.
== END 2022-06-11 14:13 | disposition home or self-care (01) ==
PROVIDERS: Emergency Provider Emergency Medicine; PCP Internal Medicine
DX: S86.911A Strain of unspecified muscle(s) and tendon(s) at lower leg level, right leg, initial encounter (principal); X50.9XXA Other and unspecified overexertion or strenuous movements or postures, initial encounter; M79.604 Pain in right leg; I10 Essential (primary) hypertension; E78.00 Pure hypercholesterolemia, unspecified; E11.9 Type 2 diabetes mellitus without complications; E66.9 Obesity, unspecified; Z68.33 Body mass index [BMI] 33.0-33.9, adult; Y93.01 Activity, walking, marching and hiking; Y92.480 Sidewalk as the place of occurrence of the external cause; Y99.9 Unspecified external cause status
CPT/HCPCS: 73590; 93971; 99284

== ENCOUNTER 2023-01-24 07:00 | Outpatient (REF) | payer MEDICARE, OTHER, SELFPAY ==
[2023-01-24 07:48] LABS: Hemoglobin 12.9 g/dl (12.0-16.0); Mean Corpuscular HGB Conc 32.3 g/dl (31.0-35.0); Mean Corpuscular Hemoglobin 28.4 pg (27.0-33.0); Mean Corpuscular Volume 87.9 fL (80.0-98.0); Mean Platelet Volume 9.8 fL (9.4-12.3); Platelet Count 242 X10*3/uL (160-400); Red Blood Count 4.55 X10*6/uL (4.20-5.50); Red Cell Distribution Width 13.1 % (11.0-16.0); White Blood Count 6.6 X10*3/uL (4.8-10.8)
[2023-01-24 08:15] LABS: Creatinine Urine 218.61 mg/dL; Microalbum/Creatinine Ratio Ur 35.2 ug/mg cr
[2023-01-24 08:22] LABS: Alanine Aminotransferase 18 U/L (0-31); Albumin Level 4.1 g/dL (3.5-5.0); Alkaline Phosphatase 75 U/L (39-117); Anion Gap 14 (12-20); Aspartate Amino Transferase 25 U/L (5-31); Blood Urea Nitrogen 14 mg/dL (9-16); Calcium 9.2 mg/dL (8.4-10.2); Carbon Dioxide 27 mmol/L (22-29); Chloride 104 mmol/L (96-108); Cholesterol 155 mg/dL; Estimated Glomerular Filt Rate 55; Glucose Fasting 155 mg/dL (60-99); HDL Cholesterol 33 mg/dL; LDL Cholesterol Calculated 80 mg/dl; Potassium 4.6 mmol/L (3.3-5.1); Sodium 140 mmol/L (135-145); Total Protein 7.4 g/dL (6.5-8.0); Triglycerides 212 mg/dL
[2023-01-24 08:43] LABS: TSH reflex Free T4 2.87 uIU/mL (0.32-4.0)
== END 2023-01-24 07:01 | disposition home or self-care (01) ==
LOC: HO.LAB 07:00
PROVIDERS: PCP Internal Medicine; Visit Provider Nurse Practitioner Family
DX: D64.9 Anemia, unspecified (principal); E11.65 Type 2 diabetes mellitus with hyperglycemia; E78.00 Pure hypercholesterolemia, unspecified
CPT/HCPCS: 36415; 80053; 80061; 82043; 84443; 85027

== ENCOUNTER 2023-03-11 13:06 | Outpatient (REF) | payer MEDICARE, OTHER, SELFPAY ==
--- NOTE | ~2023-03-11 | MM_ITS ---
EXAMINATION: MM SCREENING DIGITAL BREAST TOMOSYNTHESIS, BILATERAL CLINICAL INFORMATION: Screening. Asymptomatic. The lifetime risk of breast cancer based on the Tyrer-Cuzick Model is 7%. COMPARISON: Mammography: 07/13/2021 and studies dating back to 09/12/2009. TECHNIQUE: Digital mammography is performed in craniocaudal and mediolateral oblique views along with computer-aided detection (CAD). Digital breast tomosynthesis is performed in implant-displaced craniocaudal and implant-displaced mediolateral oblique views along with computer-aided detection (CAD). Synthesized 2D images are generated from the tomosynthesis. FINDINGS: There are scattered areas of fibroglandular density (ACR BI-RADS breast composition Category b). Implant contours are smooth and unchanged. Within the medial aspect of the left breast there is a 4 x 3 mm circumscribed density not definitely seen previously for which spot compression view and possible ultrasound is recommended. About the deep lateral aspect of the right breast there is a 3 mm circumscribed density not seen previously measuring up to approximately 6.5 cm from the nipple. Spot compression view and possible ultrasound recommended. MM/MM tomosynthesis screen imp BI IMPRESSION: Bilateral densities for further evaluation. ASSESSMENT: BI-RADS 0: Incomplete - Need Additional Imaging Evaluation RECOMMENDATION: 1. Additional views of the bilateral breasts. 2. Targeted ultrasound if warranted after review of the additional views. 3. Radiology department staff will contact the patient for additional imaging.
== END 2023-03-11 13:07 | disposition home or self-care (01) ==
LOC: HO.MAMMO 13:06
PROVIDERS: PCP Internal Medicine; Visit Provider Nurse Practitioner Family
DX: Z12.31 Encounter for screening mammogram for malignant neoplasm of breast (principal)
CPT/HCPCS: 77063; 77067

== ENCOUNTER 2023-04-05 10:56 | Outpatient (REF) | payer MEDICARE, OTHER, SELFPAY ==
--- NOTE | ~2023-04-05 | MM_ITS ---
EXAMINATION: MM DIAGNOSTIC DIGITAL BREAST TOMOSYNTHESIS, BILATERAL US DIAGNOSTIC ULTRASOUND BREAST, BILATERAL CLINICAL INFORMATION: Recall from screening for tiny oval nodular asymmetry anterior medial left breast and posterior lateral right breast, on CC views. COMPARISON: Prior mammography exams, most recent 03/11/2023. TECHNIQUE: Digital breast tomosynthesis is performed. 2D images are generated from the tomosynthesis. The following views are obtained: Implant displaced spot left CC, implant displaced spot right CC x2. Ultrasound bilateral breasts is targeted to the areas of interest using grayscale imaging and color Doppler without and with harmonics. FINDINGS: There are scattered areas of fibroglandular density (ACR BI-RADS breast composition Category b). There is a tiny nodular asymmetry anterior medial left breast with circumscribed margins measuring under 5 mm. There is a tiny nodular asymmetry lateral right breast with circumscribed margins measuring under 5 mm. Ultrasound demonstrates a probable cyst 8:00 position left breast 2 cm from nipple measuring 3 mm in length. There is no associated color flow or solid component. There is no appreciable increased or decreased through transmission of sound, possibly due to the small size and proximity to underlying implant. Ultrasound demonstrates a probable cyst 9:00 position right breast 4 cm from nipple measuring 4 mm in length. There is no associated color flow or solid component. There is no appreciable increased or decreased through transmission of sound, possibly due to the small size and proximity to underlying implant. Results are discussed with the patient at time of visit. The bilateral benign-appearing tiny nodularity likely is related to tiny cysts. MM/MM tomosynthesis added view BI IMPRESSION: Probable bilateral tiny cyst corresponding to recent screening mammography. No well visualized increased through transmission of sound on ultrasound perhaps related to the small size and underlying implants. ASSESSMENT: BI-RADS 3: Probably Benign RECOMMENDATION: Diagnostic bilateral mammography in 6 months. This patient's information was entered into a reminder system with a target due date for their next mammogram.
== END 2023-04-05 10:57 | disposition home or self-care (01) ==
LOC: HO.MAMMO 10:56
PROVIDERS: PCP Nurse Practitioner Family; Visit Provider Nurse Practitioner Family
DX: R92.2 Inconclusive mammogram (principal)
CPT/HCPCS: 76642; 77062; 77066

== ENCOUNTER 2023-07-07 08:46 | Emergency (ER) | payer MEDICARE, OTHER, SELFPAY ==
--- NOTE | ~2023-07-07 | XR_ITS ---
EXAMINATION: XR LUMBOSACRAL SPINE CLINICAL INFORMATION: Worsening back pain COMPARISON: Lumbar spine CT 06/08/2012 TECHNIQUE: 3 films of the lumbosacral spine FINDINGS: Again seen are kyphoplasty changes with cement in the L1 vertebral body. There is a mild scoliosis convex to the right which has increased since 2012. Mild degenerative changes are seen at L1-L2 and L2-L3 which have increased slightly when compared to 2012. No acute fractures or bony destructive lesions. XR/XR lumbar spine 2-3V IMPRESSION: Mild scoliosis and degenerative changes, as described above. No acute finding.
[2023-07-07 08:56] VITALS: BP 154/55; PULSE 89; RESP 20; TEMP 36.4; O2SAT 98; BMI 31.6
--- OUTSIDE RECORDS SUMMARY | 2023-07-07 09:23 | XMS_ITS ---
Author Name Chandan Newberry Jr Address [address] [place] [address] Organization [facility] Address [address] [place] [address] Care Team Providers Care Sales Representative Aircraft Name Role Phone Rohith Stokes Chandan Unavailable PROBLEMS Type Condition ICD9-CM Code [id number] Code Onset Dates Condition Status SNOMED Code Problem Colon cancer screening Z12.11 Active [id number] Problem Diarrhea, unspecified type R19.7 Active [id number] ALLERGIES No Known Allergies ENCOUNTERS Encounter Location Date Diagnosis [facility] [address] [facility] [address] [place] [phone] May, [facility] [address]patient [address] [place], [place] [id number] May, Colon cancer screening Z12.11 [facility] [address] [facility] [address] [place] [phone] Apr, Colon cancer screening Z12.11 and Diarrhea, unspecified type R19.7 IMMUNIZATIONS Vaccine Route Administration Date Status Influenza Unknown Jul 29, 2020 Administered SOCIAL HISTORY Qualifiers Date Former Smoker REASON FOR REFERRAL FUNCTIONAL STATUS PLAN OF CARE Activity Details VITAL SIGNS Weight 206 lbs 2021-05-25 Height 62 in 2021-05-25 BMI 37.67 kg/m2 2021-05-25 Temperature 97.1 degrees Fahrenheit Blood pressure systolic 000 mm Hg Blood pressure diastolic 00 mm Hg 2021-04 MEDICATIONS Medication Instructions Dosage Frequency Start Date End Date Duration Status metFORMIN HCl 1000 MG TAKE ONE TABLET BY MOUTH TWICE A DAY 30 Active Prevacid Active Atorvastatin Calcium 40 MG TAKE ONE TABLET BY MOUTH AT BEDTIME 90 Active MiraLax (colon prep) 8.3 ounce ((238) grams orally begin at 5:00 p.m. the day before the procedure mixed with Gatorade or Crystal Light Apr, 1 day Active glipiZIDE 10 MG TAKE ONE TABLET BY MOUTH EVERY DAY 90 Active amLODIPine Besylate 5 MG TAKE 1 TABLET BY MOUTH DAILY 30 Active LORazepam 1 MG TAKE ONE TABLET BY MOUTH EVERY DAY NEEDED 30 Active FLUoxetine HCl 40 MG TAKE ONE CAPSULE BY MOUTH EVERY MORNING 30 Active Metoprolol Succinate ER 50 MG TAKE ONE TABLET BY MOUTH ONCE DAILY 90 Active Bumetanide 2 MG TAKE 1 TABLET BY MOUTH DAILY 30 Active Naproxen 220 MG Orally every 12 hrs 1 tablet with food or milk as needed 12h Active PROCEDURES Procedure Date Ordered Result Body Site DOC RSN FOR NOT SCREEN/REC F/U HBP May 25, 2021 Pt scrn tbco id as non user May 25, 2021 RCMND FLW-UP 10 YRS DOCD June 16, 2021 COLORECTAL CA SCREEN DOC REV May 25, 2021 INTRVL 3+YRS PTS CLNSCP DOCD June 16, 2021 COLONOSCOPY AND BIOPSY June 16, 2021 RESULTS Name Result Date Reference Range Glucose, Whole Blood 2021-06-16 Glucose, Whole Blood 185 60-115 Pathology 2021-06-16 REASON FOR VISIT pathology, screening, patient presents today for SCREENING COLON Insurance Providers Health Insurance Type Health Plan Insurance Address Health Plan Insurance Phone Health Plan Insurance Name Health Plan Coverage Dates Member ID Patient Relationship to Subscriber Patient Address Patient Phone Patient Name Patient Date of Subscriber ID Subscriber Name Subscriber Date of Group No MEDICARE OF [place] [address] [facility] [phone] [place] self SAMI FOX [id number] [facility]ONWEAL TH INDEMNITY [address] [facility] [phone] [facility] COMMONWEAL TH INDEMNITY self SAMI FOX [id number]
--- NOTE | 2023-07-07 10:05 | ED_ITS ---
HPI - General Adult General Chief complaint: Back Pain/Injury Stated complaint: lower back pain Time Seen by Provider: 07/07/23 10:05 Source: patient Mode of arrival: ambulatory Limitations: no limitations History of Present Illness HPI narrative: Patient is a 73 year old assigned female at with a history of chronic back and neck pain, PARTHA, DM, and HTN presenting to the emergency department today with back pain. Patient states that she usually has low back pain that radiates up and into her neck and tylenol helps but over the last couple of days, Tylenol has not helped. Patient denies any dizziness, lightheadedness, abdominal pain, nausea, vomiting, fever, chills, blurry vision, double vision, loss of vision, chest pain, difficulty breathing, shortness of breath, night sweats, pain with urination, increased urinary frequency, increased urinary urgency, blood in her urine or stool, syncope or a near syncopal episode, recent trauma or falls, bowel incontinence, bladder incontinence, bowel retention, bladder retention, or any other complaints at this time. Onset (ago): day(s) Location: neck and back Severity: mild Severity scale (1-10): 3 Quality: aching Pain Consistency: constant Relieving factors: none Exacerbating factors: none Associated symptoms: denies other symptoms Treatments prior to arrival: other (tylenol) Related Data Home Medications Medication Instructions Recorded Confirmed diphenhydramine HCl 25 mg capsule 25 mg PO BEDTIME PRN Nasal 03/25/22 05/03/23 (Benadryl) Congestion Previous Rx's Medication Instructions Recorded diabetic shoes #1 ea 03/05/21 blood sugar diagnostic (FreeStyle #100 ea 10/20/22 Lite Strips) blood-glucose meter (FreeStyle #1 ea 10/20/22 Lite Meter kit) amlodipine 5 mg tablet 5 mg PO DAILY #90 tabs 11/15/22 metformin 1,000 mg tablet 1,000 mg PO BID #180 caps 01/14/23 lisinopril 5 mg tablet 5 mg PO DAILY #30 tabs 01/24/23 meloxicam 7.5 mg tablet 7.5 mg PO DAILY #90 tabs 05/20/23 cyclobenzaprine 5 mg tablet 5 mg PO BEDTIME PRN muscle spasm 05/25/23 #20 tabs atorvastatin 40 mg tablet 40 mg PO BEDTIME #90 caps 06/13/23 fluoxetine 40 mg capsule 40 mg PO DAILY 90 days #90 caps 06/13/23 lorazepam 1 mg tablet 1 mg PO BEDTIME PRN Anxiety 30 06/13/23 days #30 tabs prednisone 20 mg tablet 20 mg PO DAILY 7 days #7 tabs 07/07/23 Allergies Allergy/AdvReac Type Severity Reaction Status Date / Time bacitracin [BACITRACIN] Allergy Intermediate RASH Verified 07/07/23 09:02 latex [LATEX] Allergy Intermediate FACIAL Verified 07/07/23 09:02 SWELLING; RASH nickel [NICKEL] Allergy Intermediate RASH Verified 07/07/23 09:02 adhesive tape AdvReac Irritable Verified 07/07/23 09:02 Review of Systems Constitutional: Constitutional: Reports no additional constitutional complaints, Denies chills, Denies fever(s) and Denies night sweats Eyes: Eyes: Reports no additional eye complaints, Denies blurry vision, Denies change in vision, Denies diplopia, Denies eye discharge, Denies loss of vision and Denies eye pain ENT: Denies dizziness Cardiovascular: Cardiovascular: Reports no additional cardiovascular complaints, Denies chest pain, Denies lightheadedness, Denies Loss of Consciousness and Denies dyspnea Respiratory: Respiratory: Reports no additional respiratory complaints and Denies dyspnea Gastrointestinal: Gastrointestinal: Reports no additional gastrointestinal complaints, Denies abdominal pain, Denies melena, Denies hematochezia, Denies change in bowel habits and Denies change in stool character Genitourinary: Genitourinary: Denies hematuria, Denies urinary frequency, Denies dysuria, Denies urinary incontinence, Denies urinary hesitancy and Denies urinary urgency Musculoskeletal: Musculoskeletal: Reports no additional musculoskeletal complaints, Denies numbness and Denies tingling Comments: back and neck pain Neurologic: Denies dizziness, Denies loss of vision, Denies numbness and Denies tingling Psychiatric: Psychiatric: Reports no additional psychiatric complaints Endocrine: Endocrine: Reports no additional endocrine complaints Hematologic/Lymphatic: Hematologic/Lymphatic: Reports no additional hematol ogic/lymphatic complaints Allergic/Immunologic: Allergic/Immunologic: Reports no additional allergic/immunologic complaints PMFSH Past Medical History Attestation statement: The following information was validated with the patient. Source: old records reviewed and nursing notes reviewed Medical History Benign essential hypertension Breast cancer screening by mammogram Breast implant in situ Cataract Cholelithiasis Colon cancer screening Fatty liver Hypercholesterolemia Medicare annual wellness visit, initial Normal colonoscopy (~06/16/21) Obesity (BMI 30-39.9) Pelvic fracture Pulmonary fibrosis Restrictive lung disease Right leg pain Type 2 diabetes mellitus with hyperglycemia Surgical History H/O left wrist surgery History of ankle surgery History of cataract surgery History of colonoscopy History of surgery on lower extremity Family History Family History Mother Lung cancer Father Respiratory failure Sister Lung disease Brother Respiratory failure Son No problems noted. 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 hearing healthcare practitioner to a significant other at home: Yes Do you presently have visiting nurse or other home services: No Alcohol intake: current Alcohol intake frequency: a few times a month Patient Tobacco Use Status: Never used Tobacco Years Smoked: stopped 48 years old e-Cigarette/Vaping Use: Never Used Second Hand Smoke Exposure: Yes Advance Directives: No Advance Directives Information Provided: Yes service: No Current occupational status: retired Cognitive needs: No Hearing needs: No Vision needs: Yes Physical Exam ED Vital Signs: Vital Signs - 24 hr 07/07/23 08:56 07/07/23 11:24 Temperature 97.6 F Pulse Rate 89 70 Respiratory Rate 20 16 Blood Pressure 154/55 H 138/55 L Pulse Oximetry 98 100 Oxygen Delivery Method Room Air Room Air BMI result Body Mass Index 31.6 Const General: cooperative, no acute distress, alert and awake Nutritional Appearance: well nourished Orientation/consciousness: patient oriented x3 Limitations: no limitations HENMT Head: Yes normal to inspection and Yes atraumatic Ears: hearing grossly normal bilaterally and external ears normal General nose exam: Normal external nose present, no nasal discharge noted and no epistaxis Face and sinus: Yes normal facial exam, No abrasion and No laceration Mouth: Normal oral and palatal mucosa present, no drooling and no muffled voice Eyes General: appearance normal, both eyes and all related structures Periorbital: periorbital findings normal Eyelids: Yes eyelids normal Conjunctivae: conjunctivae normal Pupils: Equal, round and reactive pupils present EOM: EOMs intact bilaterally Neck Neck: Yes normal visual inspection, Yes full ROM and Yes no lymphadenopathy Chest Chest palpation & inspection: normal inspection of the chest Resp Effort & Inspection: normal respiratory effort and able to speak in complete sentences GI Inspection: Yes normal to inspection General: Yes no CVA tenderness Back/Spine/Pelvis Back: no CVA tenderness Cervical Spine: normal cervical lordosis and cervical ROM normal Thoracic/Lumbar Spine: thoracic and lumbar spine normal to inspection and thoraco-lumbar ROM normal Pelvis: no pain with anterior-posterior compression Neuro General: patient oriented x3 and moves all extremities Cranial nerves: Yes Equal, round and reactive pupils present Cognition (Neuro): normal cognition Motor exam (neuro): 5/5 motor strength present throughout Sensory Exam: Normal double simultaneous stimulation for sensation Coordination: [id number] test normal Extrem General: Yes normal to inspection, Yes full ROM and Yes capillary refill normal Psych Appearance: grossly normal Mental Status: mental status grossly normal Affect: normal affect Attitude: cooperative Thought process: Normal thought process present Thought content: Normal thought content present Insight: Good insight present (Psych) Medications Administered Discontinued Medications Generic Name Dose Route Start Last Admin Trade Name Freq PRN Reason Stop Dose Admin Ketorolac Tromethamine 15 mg 07/07/23 11:17 07/07/23 11:24 Ketorolac Tromethamine 15 Mg/Ml Vial IM 07/07/23 11:18 15 mg ONCE ONE Administration Lorazepam 1 mg 07/07/23 13:10 07/07/23 13:17 Lorazepam 1 Mg Tablet PO 07/07/23 13:11 1 mg ONCE ONE Administration Oxycodone HCl 10 mg 07/07/23 12:19 07/07/23 12:27 Oxycodone Hcl Immed Release 5 Mg Tablet PO 07/07/23 12:20 10 mg ONCE ONE Administration Prednisone 20 mg 07/07/23 11:17 07/07/23 11:26 Prednisone 20 Mg Tablet PO 07/07/23 11:18 20 mg ONCE ONE Administration Medical Decision Making Medical Decision Making [facility] Narrative: Patient is a 73 year old assigned female at with a history of neck pain, back pain, HTN, and DM presenting to the emergency department today with back pain. Patient's physical exam was unremarkable. Patient's lumbar spine x-ray showed no acute process. I explained my physical exam findings as well as all test results to the patient. I answered all questions asked by the patient. Patient received IM Toradol, PO Prednisone, PO Oxycodone, and PO Ativan which she stated helped her pain significantly. I stressed the importance of the patie nt taking her medication as prescribed. I stressed the importance of the patient following up with her primary care provider and a visitor services specialist. I stressed the importance of the patient returning to the emergency department immediately if her symptoms were to worsen or if she were to develop any dizziness, shortness of breath, difficulty breathing, chest pain, blurry vision, loss of vision, nausea, vomiting, abdominal pain, fever, chills, back pain, or any other complaints. Patient verbalized agreement and understanding with this treatment plan and discharge. Differential Diagnosis Differential Diagnoses: The differential diagnosis associated with the presentation includes Chronic neck pain Chronic back pain Independent Interpretation I performed an independent interpretation of an: Plain X-Ray Interpretation: My interpretation is in agreement with the radiologist's impression of this imaging study. EXAMINATION: XR LUMBOSACRAL SPINE CLINICAL INFORMATION: Worsening back pain COMPARISON: Lumbar spine CT 06/08/2012 TECHNIQUE: 3 films of the lumbosacral spine FINDINGS: Again seen are kyphoplasty changes with cement in the L1 vertebral body. There is a mild scoliosis convex to the right which has increased since 2012. Mild degenerative changes are seen at L1-L2 and L2-L3 which have increased slightly when compared to 2012.? No acute fractures or bony destructive lesions. XR/XR lumbar spine 2-3V IMPRESSION: Mild scoliosis and degenerative changes, as described above. No acute finding. Dictated By: Naif Luong MD Signed By: Electronically signed by Naif Luong MD 07/07/23 1058 Radiology Impression Discussion of test interpretation with radiology: I have reviewed the radiologist's reading. Prescription Management I considered prescription management with: Other (patient prescribed an oral corticosteroid) Chronic Conditions Patient?s care impacted by: Diabetes and Hypertension Discharge Plan Discharge Clinical Impression: Chronic back pain Patient Disposition: Home, Self-Care Instructions: Back Pain (ED) Additional Instructions: Follow up with your primary care provider and a visitor services specialist. Return to the emergency department immediately if your symptoms worsen or if you develop any dizziness, shortness of breath, difficulty breathing, chest pain, blurry vision, loss of vision, nausea, vomiting, abdominal pain, fever, chills, back pain, or any other complaints. Prescriptions: New prednisone 20 mg tablet 20 mg PO DAILY 7 Days Qty: 7 0RF No Action amlodipine 5 mg tablet 5 mg PO DAILY Qty: 90 2RF metformin 1,000 mg tablet 1,000 mg PO BID Qty: 180 2RF meloxicam 7.5 mg tablet 7.5 mg PO DAILY Qty: 90 0RF cyclobenzaprine 5 mg tablet 5 mg PO BEDTIME PRN (Reason: muscle spasm) Qty: 20 0RF lorazepam 1 mg tablet 1 mg PO BEDTIME PRN (Reason: Anxiety) 30 Days Qty: 30 1RF atorvastatin 40 mg tablet 40 mg PO BEDTIME Qty: 90 2RF fluoxetine 40 mg capsule 40 mg PO DAILY 90 Days Qty: 90 2RF diphenhydramine HCl [Benadryl] 25 mg Capsule 25 mg PO BEDTIME PRN (Reason: Nasal Congestion) (DME) diabetic shoes See Rx Instructions .Route .MEDSUPPLY Qty: 1 0RF Rx Instructions: As directed (DME) FreeStyle Lite Strips Strip See Rx Instructions .ROUTE .MEDSUPPLY Qty: 100 3RF Rx Instructions: As directed check the BS QD (DME) blood-glucose meter [FreeStyle Lite Meter] Kit See Rx Instructions .ROUTE .MEDSUPPLY Qty: 1 0RF Rx Instructions: test daily lisinopril 5 mg tablet 5 mg PO DAILY Qty: 30 9RF Referrals: [facility] [Provider Group] (Call to establish and follow up with a visitor services specialist.) Rocky Roman MD [Primary Care Provider] - Print Language: Kyrgyz
[2023-07-07 11:24] VITALS: BP 138/55; PULSE 70; RESP 16; O2SAT 100
[2023-07-07] MEDS: Ketorolac Tromethamine 15 MG/ML VIAL IM (11:24)
[2023-07-07] MEDS: predniSONE 20 MG TABLET PO (11:26)
[2023-07-07] MEDS: oxyCODONE HCl Immed Release 5 MG TABLET 10 MG PO (12:27)
--- NOTE | 2023-07-07 12:28 | PC.NURSE ---
pt medicated per JAN for 09/06 neck/back pain
[2023-07-07] MEDS: LORazepam 1 MG TABLET PO (13:17)
--- NOTE | 2023-07-07 13:18 | PC.NURSE ---
patient medicated with ativan per MAR/provider for anxiety
== END 2023-07-07 15:55 | disposition home or self-care (01) ==
PROVIDERS: Emergency Provider Student in an Organized Health Care Education/Training Program; PCP Internal Medicine
DX: M54.50 Low back pain, unspecified (principal); M54.2 Cervicalgia; I10 Essential (primary) hypertension; Z79.899 Other long term (current) drug therapy
CPT/HCPCS: 72100; 96372; 99284; J1885

== ENCOUNTER 2023-08-12 13:17 | Outpatient (AMB) | payer MEDICARE, OTHER, SELFPAY ==
[2023-08-12 13:18] VITALS: BP 142/68; PULSE 103; O2SAT 97; BMI 31.5
--- NOTE | 2023-08-12 13:18 | A.OFFPC_ITS ---
Vital Signs 08/12/23 13:18 Height 5 ft 6 in Weight 195 lb BMI 31.5 BP 142/68 H Blood Pressure Location Lt brachial Position Sitting Pulse 103 H Pulse Source Pulse Oximeter Temp Source Skin Pulse Oximetry (%) 97 Oxygen Delivery Method Room Air Intake Visit Reasons: [facility] [place] 07/07 abd pain and hip joint pain Intake Note: Patient is here to follow-up after a visit the emergency department at [facility] [place] [facility] on 07/07 for abdominal pain and hip joint pain. Coding Compliance Auditor Required: No Allergies bacitracin [BACITRACIN] Allergy (Intermediate, Verified 08/12/23 13:33) RASH latex [LATEX] Allergy (Intermediate, Verified 08/12/23 13:33) FACIAL SWELLING; RASH nickel [NICKEL] Allergy (Intermediate, Verified 08/12/23 13:33) RASH adhesive tape Adverse Reaction (Verified 08/12/23 13:33) Irritable Medication List - Last Reconciled 08/12/23 by MARYBETH Wheeler amlodipine 5 mg PO DAILY atorvastatin 40 mg PO BEDTIME blood sugar diagnostic (FreeStyle Lite Strips) As directed check the QD blood-glucose meter (FreeStyle Lite Meter kit) test daily cyclobenzaprine 5 mg PO BEDTIME PRN [diabetic shoes As directed] diphenhydramine HCl (Benadryl) 25 mg PO BEDTIME PRN fluoxetine 40 mg PO DAILY 90 days lisinopril 5 mg PO DAILY lorazepam 1 mg PO BEDTIME PRN 30 days meloxicam 7.5 mg PO DAILY metformin 1,000 mg PO BID Tobacco use date assessed: 08/12/23 Fall risk assessment: No Falls in past year Last assessed Fall Risk: 08/12/23 Dental Screening Dental Screen Date: 08/12/23 Did you have a dental visit in the last 12 months?: No Did you have a dental problem in the last 6 months where you did not have access to dental care?: No Was dental information given to patient?: Patient has dentist HPI [facility] [place] 07/07 abd pain and hip joint pain HPI Details Patient is a 73-year-old female who presents today to follow-up after [facility] visit 07/07/2023 due to low back pain. Patient of Dr. Aguilar Per ED notes: Patient is a 73 year old assigned female at with a history of chronic back and neck pain, PARTHA, DM, and HTN presenting to the emergency department today with back pain. Patient states that she usually has low back pain that radiates up and into her neck and tylenol helps but over the last couple of days, Tylenol has not helped. Patient denies any dizziness, lightheadedness, abdominal pain, nausea, vomiting, fever, chills, blurry vision, double vision, loss of vision, chest pain, difficulty breathing, shortness of breath, night sweats, pain with urination, increased urinary frequency, increased urinary urgency, blood in her urine or stool, syncope or a near syncopal episode, recent trauma or falls, bowel incontinence, bladder incontinence, bowel retention, bladder retention, or any other complaints at this time. Patient is a 73 year old assigned female at with a history of neck pain, back pain, HTN, and DM presenting to the emergency department today with back pain. Patient's physical exam was unremarkable. Patient's lumbar spine x-ray showed no acute process. I explained my physical exam findings as well as all test results to the patient. I answered all questions asked by the patient. Patient received IM Toradol, PO Prednisone, PO Oxycodone, and PO Ativan which she stated helped her pain significantly. I stressed the importance of the patient taking her medication as prescribed. I stressed the importance of the patient following up with her primary care provider and a display specialist. I stressed the importance of the patient returning to the emergency department immediately if her symptoms were to worsen or if she were to develop any dizziness, shortness of breath, difficulty breathing, chest pain, blurry vision, loss of vision, nausea, vomiting, abdominal pain, fever, chills, back pain, or any other complaints. Patient verbalized agreement and understanding with this treatment plan and discharge. Today, patient reports that she has finished prednisone, when she was on prednisone her pain was better. She reports low back pain which is chronic for her, usually constant, currently 7/10 scale, pain is worse with prolonged standing, slightly better with sitting down. Pain sometimes radiate to bilateral shins areas and upper neck. She denies any injury. Reports that Flexeril slightly helps her. Meloxicam with no much help. Reports taking Tylenol with no much improvement as well. Reports chronic intermittent numbness and tingling in her arms. Denies changes in bladder. Reports intermittent diarrhea after certain foods. No shortness of breath or chest pain. Patient declined physical therapy referral. EXAMINATION: XR LUMBOSACRAL SPINE CLINICAL INFORMATION: Worsening back pain COMPARISON: Lumbar spine CT 06/08/2012 TECHNIQUE: 3 films of the lumbosacral spine FINDINGS: Again seen are kyphoplasty changes with cement in the L1 vertebral body. There is a mild scoliosis convex to the right which has increased since 2012. Mild degenerative changes are seen at L1-L2 and L2-L3 which have increased slightly when compared to 2012. No acute fractures or bony destructive lesions. XR/XR lumbar spine 2-3V IMPRESSION: Mild scoliosis and degenerative changes, as described above. No acute finding. [facility] Medical History Right leg pain Obesity (BMI 30-39.9) Benign essential hypertension Normal colonoscopy (~06/16/21) Medicare annual wellness visit, initial Breast implant in situ Breast cancer screening by mammogram Cataract Cholelithiasis Pelvic fracture Fatty liver Colon cancer screening Hypercholesterolemia Type 2 diabetes mellitus with hyperglycemia Restrictive lung disease Pulmonary fibrosis Surgical History History of colonoscopy History of cataract surgery History of surgery on lower extremity H/O left wrist surgery History of ankle surgery Family History Mother Lung cancer Father Respiratory failure Sister Lung disease Brother Respiratory failure Son No problems noted. 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 health care specialist to a significant other at home: Yes Do you presently have visiting nurse or other home services: No Alcohol intake: current Alcohol intake frequency: a few times a month Patient Tobacco Use Status: Never used Tobacco Years Smoked: stopped 48 years old e-Cigarette/Vaping Use: Never Used Second Hand Smoke Exposure: Yes service: No Current occupational status: retired Cognitive needs: No Hearing needs: No Vision needs: Yes Questionnaire Thrive Questionnaire Date Thrive assessed: 01/24/23 AUDIT C Alcohol Use Questionnaire (AUDIT-C) 1. How often do you have a drink containing alcohol?: Never Total Score: 0 Score Reviewed/Action Taken: No PARTHA-7 AMB Questionnaire PARTHA-7 Date PARTHA - 7 assessed: 01/24/23 Source: Developed by Drs. Angus Roe, Kelly Cade, Robe Hawley and colleagues, with an educational juliana from [employer]. Review of Systems Const Denies body aches, Denies chills, Denies fever(s) and Denies headache(s) Eyes Denies change in vision ENT Denies dizziness, Denies otalgia, Denies headache(s), Denies nasal discharge, Denies sinus pain and Denies sore throat Card Denies chest pain, Denies edema, Denies lightheadedness and Denies dyspnea Resp Denies cough, Denies dyspnea and Denies wheezing GI Denies abdominal pain, Denies constipation, Reports diarrhea (Intermittent), Denies nausea and Denies vomiting Denies dysuria Musc Reports as per HPI, Reports back pain, Denies myalgias, Reports numbness and Reports tingling Skin/Breast Denies rash Neuro Denies dizziness, Denies headache(s), Reports numbness and Reports tingling Aller/Immun Denies wheezing Physical exam (Primary Care) Vital Signs: Last Vital Signs Pulse 103 H 08/12/23 13:18 BP 142/68 H 08/12/23 13:18 Pulse Ox 97 08/12/23 13:18 Oxygen Delivery Method Room Air 08/12/23 13:18 BMI result Body Mass Index 31.5 Tobacco/Smoking Status: Tobacco use Status Tobacco use date assessed 08/12/23 08/12/23 13:23 Patient Tobacco Use Status Never used Tobacco 08/12/23 13:23 e-Cigarette/Vaping Use Never Used 08/12/23 13:23 Thrive Assessment: Date of Thrive Assessment Date Thrive assessed 01/24/23 08/12/23 13:23 Const General: cooperative and no acute distress Orientation/consciousness: patient oriented x3 HENMT Head: Yes normocephalic and Yes atraumatic Mouth: oropharynx normal and moist mucous membranes Throat: Yes posterior oropharynx normal Eyes General: appearance normal, both eyes and all related structures Neck Neck: Yes normal visual inspection, Yes full ROM and Yes no lymphadenopathy Resp Effort & Inspection: normal respiratory effort and able to speak in complete sentences Auscultation: clear to auscultation bilaterally, no crackles, no rales, no rhonchi and no wheezes Cardio Rate: regular rate Rhythm: regular rhythm Heart sounds: S1 normal heart sound present and S2 normal heart sound present GI Palpation (GI): Soft to palpation, not firm, nontender, no guarding, not rigid and no hepatosplenomegaly Auscultation: normal bowel sounds General: No CVA tenderness Back/Spine/Pelvis Back: No CVA tenderness Thoracic/Lumbar Spine: thoraco-lumbar ROM normal, No paraspinal muscle tenderness, No thoracic spinal tenderness and No lumbar spinal tenderness Skin General skin exam: no rashes or lesions noted Neuro General: patient oriented x3 Gait exam (Neuro): Normal gait present Extrem General: Yes full ROM and No edema Assessment and Plan Assessment & Plan (1) Low back pain: Code(s): M54.50 - Low back pain, unspecified Plan: See HPI for details. Physical exam with no acute findings. Patient declined physical therapy referral. Continue meloxicam daily, continue cyclobenzaprine at bedtime p.r.n., continue Tylenol 650 mg every 6 hours as needed. Start prednisone 20 mg daily for 5 days. Encouraged heat/cold packs p.r.n.. Patient declined prescription for lidocaine patch or diclofenac cream. Pain management referral for an evaluation and treatment. Signs and symptoms reviewed when to notify provider go to the emergency department. Patient agreed with the plan. Keep appointment with PCP as scheduled or follow-up sooner as needed. Orders: Referrals Pain Management Referral M54.50 - Low back pain, unspecified Medications: New prednisone 20 mg PO DAILY 5 tabs 0RF M54.50 - Low back pain, unspecified Refilled blood-glucose meter (FreeStyle Lite Meter kit) test daily 1 ea 0RF E11.65 - Type 2 diabetes mellitus with hyperglycemia Coding Level of Care Code Est Pt Level 3 (13415) Diagnoses Low back pain M54.50
== END 2023-08-12 14:27 | disposition home or self-care (01) ==
PROVIDERS: PCP Internal Medicine; Visit Provider Nurse Practitioner Family
DX: M54.50 Low back pain, unspecified (principal)
CPT/HCPCS: 99213

== ENCOUNTER 2023-08-17 14:58 | Outpatient (AMB) | payer MEDICARE, OTHER, SELFPAY ==
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
[2023-08-17 15:10] VITALS: BP 144/66; PULSE 105; RESP 16; O2SAT 95; BMI 31.3
== END 2023-08-17 15:49 | disposition home or self-care (01) ==
PROVIDERS: PCP Internal Medicine; Visit Provider Registered Nurse Emergency
DX: G89.29 Other chronic pain (principal); M54.6 Pain in thoracic spine; Z87.311 Personal history of (healed) other pathological fracture; M47.816 Spondylosis without myelopathy or radiculopathy, lumbar region
CPT/HCPCS: 99204

== ENCOUNTER → 2023-08-17 14:58 | Outpatient (BNVA) | payer MEDICARE, OTHER, SELFPAY | PROVIDERS: PCP Internal Medicine; Visit Provider Registered Nurse Emergency ==

== ENCOUNTER 2023-10-04 15:27 | Outpatient (AMB) | payer MEDICARE, OTHER, SELFPAY ==
--- NOTE | 2023-10-04 15:29 | A.OFFPC_ITS ---
Vital Signs 10/04/23 15:32 Height 5 ft 6 in Weight 192 lb 8 oz BMI 31.1 BP 140/62 H Blood Pressure Location Lt brachial Position Sitting Pulse 103 H Pulse Source Pulse Oximeter Pulse Oximetry (%) 97 Oxygen Delivery Method Room Air Intake Visit Reasons: pain in mouth Intake Note: Patient is here today for pain in mouth Truck Leasing Manager Required: No Military Personnel Specialist: Not Required per policy Accompanied by: Self / Same As Patient Allergies bacitracin [BACITRACIN] Allergy (Intermediate, Verified 10/04/23 15:42) RASH latex [LATEX] Allergy (Intermediate, Verified 10/04/23 15:42) FACIAL SWELLING; RASH nickel [NICKEL] Allergy (Intermediate, Verified 10/04/23 15:42) RASH adhesive tape Adverse Reaction (Verified 10/04/23 15:42) Irritable Medication List - Last Reconciled 10/04/23 by MARYBETH Wheeler amlodipine 5 mg PO DAILY atorvastatin 40 mg PO BEDTIME blood sugar diagnostic (FreeStyle Lite Strips) As directed check the QD blood-glucose meter (FreeStyle Lite Meter kit) test daily cyclobenzaprine 5 mg PO BEDTIME PRN [diabetic shoes As directed] diphenhydramine HCl (Benadryl) 25 mg PO BEDTIME PRN fluoxetine 40 mg PO DAILY 90 days lisinopril 5 mg PO DAILY lorazepam 1 mg PO BEDTIME PRN 30 days meloxicam 7.5 mg PO DAILY PRN metformin 1,000 mg PO BID Tobacco use date assessed: 10/04/23 Fall risk assessment: No Falls in past year Last assessed Fall Risk: 10/04/23 Dental Screening Dental Screen Date: 10/04/23 Did you have a dental visit in the last 12 months?: Yes Did you have a dental problem in the last 6 months where you did not have access to dental care?: No Was dental information given to patient?: Patient has dentist HPI pain in mouth HPI Details Patient is a 73-year-old female presents today for the same day visit due to pain in her mouth for the past couple days. Patient of Dr. Roman. Patient reports that her mouth and inside of gums feel irritated. Also reports mild sore throat which is not bad. Reports taking Aleve with no improvement. Denies this in the past. Reports drinking 4 cups of tea per day, does not drink water. [facility] Medical History Right leg pain Obesity (BMI 30-39.9) Benign essential hypertension Normal colonoscopy (~06/16/21) Medicare annual wellness visit, initial Breast implant in situ Breast cancer screening by mammogram Cataract Cholelithiasis Pelvic fracture Fatty liver Colon cancer screening Hypercholesterolemia Type 2 diabetes mellitus with hyperglycemia Restrictive lung disease Pulmonary fibrosis Surgical History History of colonoscopy History of cataract surgery History of surgery on lower extremity H/O left wrist surgery History of ankle surgery Family History Mother Lung cancer Father Respiratory failure Sister Lung disease Brother Respiratory failure Son No problems noted. 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 Angus Roe, Kelly Cade, Robe Hawley and colleagues, with an educational juliana from [employer]. Review of Systems Const Reports no additional complaints Eyes Reports no additional complaints ENT Reports as per HPI Card Reports no additional complaints Resp Reports no additional complaints GI Reports no additional complaints Skin/Breast Denies rash Physical exam (Primary Care) Vital Signs: Last Vital Signs Pulse 103 H 10/04/23 15:32 BP 140/62 H 10/04/23 15:32 Pulse Ox 97 10/04/23 15:32 Oxygen Delivery Method Room Air 10/04/23 15:32 BMI result Body Mass Index 31.1 Tobacco/Smoking Status: Tobacco use Status Tobacco use date assessed 10/04/23 10/04/23 15:39 Patient Tobacco Use Status Never used Tobacco 10/04/23 15:39 e-Cigarette/Vaping Use Never Used 10/04/23 15:39 Thrive Assessment: Date of Thrive Assessment Date Thrive assessed 01/24/23 10/04/23 15:39 Const General: cooperative and no acute distress Orientation/consciousness: patient oriented x3 HENMT Other: Oral mucosa seems to be dry, no lesions or open areas noted Head: Yes normocephalic and Yes atraumatic Mouth: oropharynx normal Throat: Yes posterior oropharynx normal Eyes General: appearance normal, both eyes and all related structures Neck Neck: Yes normal visual inspection, Yes full ROM and Yes no lymphadenopathy Resp Effort & Inspection: normal respiratory effort and able to speak in complete sentences Auscultation: clear to auscultation bilaterally, no crackles, no rales, no rhonchi and no wheezes Cardio Rate: regular rate Rhythm: regular rhythm Heart sounds: S1 normal heart sound present and S2 normal heart sound present GI Auscultation: normal bowel sounds Skin General skin exam: no rashes or lesions noted Neuro General: patient oriented x3 Extrem General: Yes full ROM Assessment and Plan Assessment & Plan (1) Irritation of oral cavity: Code(s): 

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
[2023-10-04 15:32] VITALS: BP 140/62; PULSE 103; O2SAT 97; BMI 31.1
== END 2023-10-04 15:54 | disposition home or self-care (01) ==
LOC: HO.HMGH 15:27
PROVIDERS: PCP Internal Medicine; Visit Provider Nurse Practitioner Family
DX: K13.6 Irritative hyperplasia of oral mucosa (principal)
CPT/HCPCS: 99213

== ENCOUNTER 2023-11-06 13:30 | Emergency (ER) | payer MEDICARE, OTHER, SELFPAY ==
--- NOTE | ~2023-11-06 | CT_ITS ---
EXAMINATION: CT SOFT TISSUE NECK WITH CONTRAST CLINICAL INFORMATION: Lymphadenopathy. Purulent drainage from the gums. COMPARISON: CT cervical spine from 01/02/2019. TECHNIQUE: Multidetector helical imaging was performed in the axial plane following the administration of 60 mL of Omnipaque 350 intravenous contrast. Multiple axial reformats and coronal/sagittal reconstructions were created the technologist workstation for review. This CT examination was performed using dose optimization techniques as appropriate, variously including the following: *Automated exposure control. *Adjustment of mA and/or kV according to patient size (this includes techniques or standardized protocols for targeted exams where dose is matched to indication/reason for exam; i.e. extremities or head). *Use of iterative reconstruction technique. DLP: 369 mGy-cm FINDINGS: There is extensive erosive change of the symphyseal and right greater than left parasymphyseal regions of the mandible with significant loss of the outer cortical table. There is extensive decay of the mandibular right 1st premolar. Lucency surrounding multiple mandibular teeth. Moderate soft tissue thickening surrounding the symphyseal and right greater than left parasymphyseal regions of the mandible. There is a 1.2 cm nodule in the left intrinsic tissues of the tongue. No additional focal lesion or abnormal enhancement within the intrinsic tissues of the tongue or floor of mouth. Left level Ib lymph nodes measure up to 1.1 cm. Bilateral level IIa lymph nodes measure up to 1.1 cm. No significant cutaneous thickening or subcutaneous inflammation. No discrete fluid collection within the deep tissues of the neck. The premaxillary, retromaxillary, pterygopalatine fossa, orbital apical, parapharyngeal, and prelaryngeal adipose tissue is maintained. Normal appearance of the parotid, submandibular, and thyroid glands. Scattered subcentimeter lymph nodes bilaterally, none of which are pathologically enlarged or abnormally enhancing. Normal mucosal contours of the pharynx and larynx without abnormal enhancement. Normal appearance of the hyoid bone, thyroid cartilage, or cartilaginous trachea. The airways remains widely patent. No radiopaque foreign bodies. The atlantooccipital and atlantoaxial articulations remain well aligned. Straightening of the normal cervical lordosis. Otherwise, there is anatomic alignment of the vertebral bodies and posterior elements. No evidence of acute fracture or subluxation of the cervical spine. The vertebral body heights are maintained. Moderate degenerative disc disease from C3-T1. Facet and uncovertebral joint arthropathy leads to osseous encroachment on the neural foramina from C3-C7. No evidence of epidural collection. There is no prevertebral soft tissue swelling. Normal opacification of the cervical arterial and venous structures. The visualized portion of the skull base is without significant abnormalities. Mild mucosal thickening of the paranasal sinuses. The mastoid air cells and middle ear cavities are clear. CT Upper Chest: The visualized lung apices and upper mediastinum are within normal limits. CT/CT soft tissue neck w IV con IMPRESSION: 1. Extensive erosive change of the symphyseal and right greater than left parasymphyseal regions of the mandible with significant loss of the outer cortical table. There is extensive decay of the mandibular right 1st premolar. Moderate soft tissue thickening surrounding the symphyseal and right greater than left parasymphyseal regions of the mandible. Findings are suggestive of extensive sequela of odontogenic infection (although other underlying lesions are not fully excluded). 2. There is a 1.2 cm nodule in the left intrinsic tissues of the tongue, suggestive of a lingual lymph node. Additional mildly prominent upper cervical chain lymphadenopathy, likely reactive in nature. 3. Moderate multilevel degenerative spondyloarthropathy of the cervical spine.
--- NOTE | 2023-11-06 14:06 | ED.GENADULT ---
HPI - General Adult General Chief complaint: Dental/Oral Stated complaint: mouth swelling Time Seen by Provider: 11/06/23 15:49 Source: patient Mode of arrival: ambulatory Limitations: no limitations History of Present Illness HPI narrative: Patient is a 73-year-old female with history of PARTHA, DM, HTN, chronic back/neck pain, depression presenting to the emergency department with complaint of purulent drainage from lower gums. States that she lose a tooth from her lower jaw but unable to specify when. States that she saw her primary care provider for similar symptoms but was not prescribed antibiotics, was given mouthwash. Unable to state specifically how long symptoms have been ongoing but estimates weeks. She denies fevers. She does complain of some neck pain. States that the swelling was more significant previously and has resolved but is still having drainage. Denies any difficulty swallowing. States she has not contacted her dentist. MD complaint: Jaw pain Onset (ago): week(s) Location: mouth Severity: moderate Quality: aching Pain Consistency: constant Relieving factors: none Exacerbating factors: none Associated symptoms: other (Purulence drainage) Treatments prior to arrival: none Related Data Home Medications Medication Instructions Recorded Confirmed diphenhydramine HCl 25 mg capsule 25 mg PO BEDTIME PRN Nasal 03/25/22 10/04/23 (Benadryl) Congestion Previous Rx's Medication Instructions Recorded diabetic shoes #1 ea 03/05/21 blood sugar diagnostic (FreeStyle #100 ea 10/20/22 Lite Strips) amlodipine 5 mg tablet 5 mg PO DAILY #90 tabs 11/15/22 metformin 1,000 mg tablet 1,000 mg PO BID #180 caps 01/14/23 lisinopril 5 mg tablet 5 mg PO DAILY #30 tabs 01/24/23 atorvastatin 40 mg tablet 40 mg PO BEDTIME #90 caps 06/13/23 fluoxetine 40 mg capsule 40 mg PO DAILY 90 days #90 caps 06/13/23 lorazepam 1 mg tablet 1 mg PO BEDTIME PRN Anxiety 30 08/03/23 days #30 tabs cyclobenzaprine 5 mg tablet 5 mg PO BEDTIME PRN muscle spasm 08/04/23 #20 tabs blood-glucose meter (FreeStyle #1 ea 08/12/23 Lite Meter kit) meloxicam 7.5 mg tablet 7.5 mg PO DAILY PRN pain #90 tabs 08/17/23 Magic Mouthwash 5 ml PO TID 14 days #240 mL 10/04/23 Diphen/Lido/Antacid 1:1:1 240 mL suspension clindamycin HCl 300 mg capsule 300 mg PO Q8H 7 days #21 caps 11/06/23 Allergies Allergy/AdvReac Type Severity Reaction Status Date / Time bacitracin [BACITRACIN] Allergy Intermediate RASH Verified 10/04/23 15:42 latex [LATEX] Allergy Intermediate FACIAL Verified 10/04/23 15:42 SWELLING; RASH nickel [NICKEL] Allergy Intermediate RASH Verified 10/04/23 15:42 adhesive tape AdvReac Irritable Verified 10/04/23 15:42 Review of Systems Review of Systems: As per HPI. Yes all other systems are reviewed and are negative Constitutional: Constitutional: Reports as per HPI PMFSH Past Medical History Medical History Right leg pain Obesity (BMI 30-39.9) Benign essential hypertension Normal colonoscopy (~06/16/21) Medicare annual wellness visit, initial Breast implant in situ Breast cancer screening by mammogram Cataract Cholelithiasis Pelvic fracture Fatty liver Colon cancer screening Hypercholesterolemia Type 2 diabetes mellitus with hyperglycemia Restrictive lung disease Pulmonary fibrosis Surgical History History of colonoscopy History of cataract surgery History of surgery on lower extremity H/O left wrist surgery History of ankle surgery Family History Family History Mother Lung cancer Father Respiratory failure Sister Lung disease Brother Respiratory failure Son No problems noted. 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 care team assistant to a significant other at home: Yes Do you presently have visiting nurse or other home services: No Alcohol intake: current Alcohol intake frequency: a few times a month Patient Tobacco Use Status: Never used Tobacco Years Smoked: stopped 48 years old e-Cigarette/Vaping Use: Never Used Second Hand Smoke Exposure: No Advance Directives: No Advance Directives Information Provided: No service: No Current occupational status: retired Cognitive needs: No Hearing needs: No Vision needs: Yes Physical Exam ED Vital Signs: Vital Signs - 24 hr 11/06/23 14:08 11/06/23 17:44 Temperature 98.8 F Pulse Rate 99 84 Respiratory Rate 20 16 Blood Pressure 106/58 L 128/55 L Pulse Oximetry 96 100 Oxygen Delivery Method Room Air Room Air BMI result Body Mass Index 28.9 Vital signs have been reviewed and appear to be correct. Blood pressure normal. Heart rate normal. Respiratory rate normal. Temperature normal. Oxygen saturation normal. Const General: cooperative and no acute distress Nutritional Appearance: average body habitus Orientation/consciousness: oriented to person, oriented to place, oriented to time and patient oriented x3 Limitations: no limitations HENMT Head: Yes normocephalic and Yes atraumatic Ears: external ears normal General nose exam: Normal external nose present Face and sinus: Yes face symmetric Mouth: oropharynx normal, moist mucous membranes and no trismus Teeth and gingiva: abnormal tooth and associated gingiva lower right with associated gingival edema, caries, multiple restorations and poor dentition Teeth image: 1. tooth missing, purulent drainage Throat: Yes posterior oropharynx normal, Yes uvula midline and No uvular edema Eyes Pupils: Equal, round and reactive pupils present Neck Neck: Yes normal visual inspection and Yes supple Lymphatic: lymphadenopathy bilateral submandibular Resp Effort & Inspection: normal respiratory effort and able to speak in complete sentences Auscultation: clear to auscultation bilaterally Cardio Rate: regular rate Rhythm: regular rhythm Heart sounds: S1 normal heart sound present and S2 normal heart sound present GI Palpation (GI): Soft to palpation and nontender Auscultation: normoactive bowel sounds General: Yes no CVA tenderness Back/Spine/Pelvis Back: no CVA tenderness Skin General skin exam: elasticity normal and turgor normal Neuro General: oriented to person, oriented to place, oriented to time, patient oriented x3, moves all extremities, no focal motor deficits and CN's II-XI intact bilaterally Cranial nerves: Yes Equal, round and reactive pupils present Cognition (Neuro): normal cognition Extrem General: Yes full ROM, Yes no pedal edema and Yes no calf tenderness Psych Mental Status: mental status grossly normal Affect: normal affect Thought process: Normal thought process present Course Course Course Narrative: This is a rapid medical exam. Deferred additional HPI, ROS, PE to primary provider. 73 yo female with history of PARTHA, DM, HTN, chronic back/neck pain, depression here with complaints of dental pain/oral pain for weeks, feeling generally weak/tired, decreased PO intake with weight loss. Has not seen the dentist. Patient has extensive caries on exam, purulence from lower gum line bilaterally, lymphadenopathy. Will need labs. May need advanced imaging. VSS Reevaluation(s) Reevaluation #1: 2100-Sign out to FARIBA ROD pending CT facial bones. This patient was signed out to me at [address] completion Reevaluation #2: Received sign-out with the patient in stable condition and CT pending. Likely discharge home with antibiotics. Time: 21:00 Reevaluation #3: CT results returned, extensive erosive changes of the mandible. This was reviewed with the patient who acknowledges that she is aware of her poor gingival disease. Upon reassessment, patient speaks full clear sentences. There is some left mandibular mild soft tissue swelling. There is no tongue elevation or edema. She is able to tolerate her secretions. Dose of clindamycin now, discharge home with home at follow-up. Reviewed imaging findings and plan with Dr. Kimball who agrees. Time: 22:14 Medications Administered Discontinued Medications Generic Name Dose Route Start Last Admin Trade Name Freq PRN Reason Stop Dose Admin Clindamycin HCl 300 mg 11/06/23 22:07 11/06/23 22:27 Clindamycin Hcl 300 Mg Capsule PO 11/06/23 22:08 300 mg ONCE ONE Administration Iohexol 100 ml 11/06/23 19:30 11/06/23 19:30 Iohexol 350 Mg/Ml 100 Ml Infus..Btl IV 11/06/23 19:31 60 ml ONCE ONE Administration Medical Decision Making Medical Decision Making [facility] Narrative: Patient is a 73-year-old female with history of PARTHA, DM, HTN, chronic back/neck pain, depression presenting to the emergency department with complaint of purulent drainage from lower gums. On exam patient is awake, A+Ox3, VS WNL, afebrile, normal neurological exam without focal deficits, physical exam findings as above. Given reported symptoms and physical exam findings, initial differential includes dental infection, dental abscess, submental or submandibular infection, osteomyelitis of jaw. Labs notable for no leukocytosis. Do not suspect sepsis. Patient signed out to JACKSON Shelton pending CT results. Differential Diagnosis Differential Diagnoses: The differential diagnosis associated with the presentation includes As per [facility]. Admission/Observation Consideration of admission/observation: Escalation of care including admission/observation considered Lab Data [facility] Lab Attestation statement: I reviewed the patient's lab results. As per [facility] 11/06/23 14:28 11/06/23 14:28 Labs: Lab Results 11/06/23 Range/Units 14:28 WBC 8.1 (4.8-10.8) X10*3/uL RBC 3.91 L (4.20-5.50) X10*6/uL Hgb 10.9 L (12.0-16.0) g/dl Hct 33.4 L (37.0-47.0) % MCV 85.4 (80.0-98.0) fL MCH 27.9 (27.0-33.0) pg MCHC 32.6 (31.0-35.0) g/dl RDW 13.4 (11.0-16.0) % Plt Count 484 H D (160-400) X10*3/uL MPV 8.6 L (9.4-12.3) fL Immature Gran % (Auto) 0.2 (0.0-0.4) % Neut % (Auto) 63.8 (45-73) % Lymph % (Auto) 21.2 (20-40) % [place] % (Auto) 9.9 (2-11) % Eos % (Auto) 4.4 H (0-4) % Baso % (Auto) 0.5 (0-2) % Lymph # (Auto) 1.7 (1.2-4.9) X10*3/uL [place] # (Auto) 0.8 (0.1-1.2) X10*3/uL Eos # (Auto) 0.4 (0.0-0.4) X10*3/uL Baso # (Auto) 0.0 (0.0-0.2) X10*3/uL Abs Immat Gran (auto) 0.02 (0.00-0.03) X10*3/uL Absolute Neuts (auto) 5.2 (2.0-8.3) x10*3/uL Absolute Nucleated RBC 0.000 (0.0-0.012) X10*3/uL Nucleated RBC % (auto) 0.0 (0.0-0.2) /100WBC Sodium 137 (135-145) mmol/L Potassium 4.0 (3.3-5.1) mmol/L Chloride 102 (96-108) mmol/L Carbon Dioxide 23 (22-29) mmol/L Anion Gap 16 (12-20) BUN 21 H (9-16) mg/dL Creatinine 1.28 (0.5-1.4) mg/dL Estim Creat Clear Calc 40.8 Estimated GFR 41 Random Glucose 131 H (60-115) mg/dL Calcium 9.9 D (8.4-10.2) mg/dL External Record Review External record reviewed: Inpatient record, Office record and Outpatient record Discharge Plan Discharge Clinical Impression: Dental infection Patient Disposition: Home, Self-Care Instructions: Dental Abscess (ED), Gingivostomatitis (ED) Additional Instructions: Clindamycin as directed. Finish all antibiotics. Follow-up with Aayush inman, oral surgeon. Follow-up with your primary care provider. Call this week to schedule a follow-up appointment. Return to the emergency department if you have any worsening of symptoms, or any concerns. Get well soon! Prescriptions: New clindamycin HCl 300 mg capsule 300 mg PO Q8H 7 Days Qty: 21 0RF No Action amlodipine 5 mg tablet 5 mg PO DAILY Qty: 90 2RF metformin 1,000 mg tablet 1,000 mg PO BID Qty: 180 2RF atorvastatin 40 mg tablet 40 mg PO BEDTIME Qty: 90 2RF fluoxetine 40 mg capsule 40 mg PO DAILY 90 Days Qty: 90 2RF lorazepam 1 mg tablet 1 mg PO BEDTIME PRN (Reason: Anxiety) 30 Days Qty: 30 1RF cyclobenzaprine 5 mg tablet 5 mg PO BEDTIME PRN (Reason: muscle spasm) Qty: 20 0RF diphenhydramine HCl [Benadryl] 25 mg Capsule 25 mg PO BEDTIME PRN (Reason: Nasal Congestion) (DME) diabetic shoes See Rx Instructions .Route .MEDSUPPLY Qty: 1 0RF Rx Instructions: As directed (DME) blood-glucose meter [FreeStyle Lite Meter] Kit See Rx Instructions .ROUTE .MEDSUPPLY Qty: 1 0RF Rx Instructions: test daily Magic Mouthwash Diphen/Lido/Antacid 1:1:1 240 mL suspension 5 ml PO TID 14 Days Qty: 240 0RF Rx Instructions: Lidocaine Viscous 2 % 80mL; diphenhydramine 12.5 mg/5 mL 80mL; aluminum-mag hydrox-simeth 325ar-[id number]/5mL 80mL swish and spit out (DME) FreeStyle Lite Strips Strip See Rx Instructions .ROUTE .MEDSUPPLY Qty: 100 3RF Rx Instructions: As directed check the BS QD lisinopril 5 mg tablet 5 mg PO DAILY Qty: 30 9RF meloxicam 7.5 mg tablet 7.5 mg PO DAILY PRN (Reason: pain) Qty: 90 0RF Referrals: Aayush Murphy [Provider Group] - 1 week Interventions: ED Discharge Assessment Last Done: 11/06/23 22:32 Discharge Date/Time: 11/06/23 22:32
[2023-11-06 14:08] VITALS: BP 106/58; PULSE 99; RESP 20; O2SAT 96; BMI 28.9
[2023-11-06 14:32] LABS: MANUAL DIFF FLAG NO
[2023-11-06 14:33] LABS: Basophils Percent Auto 0.5 % (0-2); Eosinophils Absolute Auto 0.4 X10*3/uL (0.0-0.4); Eosinophils Percent Auto 4.4 % (0-4); Hematocrit 33.4 % (37.0-47.0); Hemoglobin 10.9 g/dl (12.0-16.0); Imm Gran Abs Auto 0.02 X10*3/uL (0.00-0.03); Imm Gran Pct Auto 0.2 % (0.0-0.4); Lymphocytes Absolute Auto 1.7 X10*3/uL (1.2-4.9); Lymphocytes Percent Auto 21.2 % (20-40); Mean Corpuscular HGB Conc 32.6 g/dl (31.0-35.0); Mean Corpuscular Hemoglobin 27.9 pg (27.0-33.0); Mean Corpuscular Volume 85.4 fL (80.0-98.0); Mean Platelet Volume 8.6 fL (9.4-12.3); Monocytes Absolute Auto 0.8 X10*3/uL (0.1-1.2); Monocytes Percent Auto 9.9 % (2-11); Neutrophils Absolute Auto 5.2 x10*3/uL (2.0-8.3); Neutrophils Percent Auto 63.8 % (45-73); Platelet Count 484 X10*3/uL (160-400); Red Blood Count 3.91 X10*6/uL (4.20-5.50); Red Cell Distribution Width 13.4 % (11.0-16.0); White Blood Count 8.1 X10*3/uL (4.8-10.8)
[2023-11-06 14:47] LABS: Anion Gap 16 (12-20); Blood Urea Nitrogen 21 mg/dL (9-16); Calcium 9.9 mg/dL (8.4-10.2); Carbon Dioxide 23 mmol/L (22-29); Chloride 102 mmol/L (96-108); Creatinine Clr Calc Pharmacy 40.8; Estimated Glomerular Filt Rate 41; Glucose Random 131 mg/dL (60-115); Sodium 137 mmol/L (135-145)
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
[2023-11-06 17:44] VITALS: BP 128/55; PULSE 84; RESP 16; TEMP 37.1; O2SAT 100
--- NOTE | 2023-11-06 18:16 | PC.NURSE ---
this RN with multiple IV attempts, difficult stick.
[2023-11-06] MEDS: iohexoL 350 MG/ML 100 ML INFUS..BTL IV (19:30)
[2023-11-06] MEDS: Clindamycin HCL 300 MG CAPSULE PO (22:27)
[2023-11-06 22:30] VITALS: BP 140/60; PULSE 95; RESP 18; O2SAT 95
== END 2023-11-06 22:32 | disposition home or self-care (01) ==
PROVIDERS: Nurse Practitioner Family; Emergency Provider Emergency Medicine; PCP Nurse Practitioner Family
DX: K04.7 Periapical abscess without sinus (principal); R59.1 Generalized enlarged lymph nodes; E11.9 Type 2 diabetes mellitus without complications; I10 Essential (primary) hypertension; E78.00 Pure hypercholesterolemia, unspecified; Z87.891 Personal history of nicotine dependence; Z79.84 Long term (current) use of oral hypoglycemic drugs; Z79.02 Long term (current) use of antithrombotics/antiplatelets; Z79.899 Other long term (current) drug therapy
CPT/HCPCS: 36415; 70491; 80048; 85025; 99284; Q9967

== ENCOUNTER → 2023-12-22 11:30 | Outpatient (BNV) | payer MEDICARE, OTHER, SELFPAY | PROVIDERS: PCP Internal Medicine; Visit Provider Radiology Diagnostic Radiology | DX: N63.25 Unspecified lump in the left breast, overlapping quadrants (principal) | CPT/HCPCS: 76642; 77062; 77066 ==

== ENCOUNTER 2023-12-22 11:31 | Outpatient (REF) | payer MEDICARE, OTHER, SELFPAY ==
--- NOTE | ~2023-12-22 | US_ITS ---
EXAMINATION: MM DIAGNOSTIC DIGITAL BREAST TOMOSYNTHESIS, BILATERAL US BREAST LIMITED, LEFT CLINICAL INFORMATION: 6 month follow-up bilateral small subcentimeter cysts. Patient complaining of palpable abnormality in the left breast at the approximate 6:00 axis left breast. Patient has bilateral saline implants in place, x30 years. Patient also due for bilateral screening. COMPARISON: Mammography: 04/05/2023, 03/11/2023, 03/13/2021, and studies dating back to 2010. TECHNIQUE: Digital mammography is performed in craniocaudal and mediolateral oblique views. Digital breast tomosynthesis is performed in implant-displaced craniocaudal and implant-displaced mediolateral oblique views. Synthesized 2D images are generated from the tomosynthesis. Computer-aided detection (CAD) is performed for this exam. FINDINGS: There are scattered areas of fibroglandular density (ACR BI-RADS breast composition Category b). The tiny right breast 4 mm cyst is unchanged at the 9:00 axis, and benign. The tiny 3 mm cyst in the left breast at the 8:00 axis is unchanged, and benign. No further follow-up of either of these benign findings. In the 6:00 axis of the left breast, directly abutting the margin of the implant, there is a subtle distortion with a triangular focus of density, not definitively seen previously but may represent scarring. This will be interrogated by ultrasound. This appears to correlate with the palpable focus. Air bubbles are present within the left implant, suggesting implant rupture. Abnormal contour to the right implant suggests intracapsular rupture. These are saline implants. ULTRASOUND: CLINICAL INFORMATION: Evaluate palpable abnormality 6:00 axis left breast. COMPARISON: 04/05/2023 bilateral breast ultrasound, although no 6:00 imaging was performed at that time. TECHNIQUE: Targeted sonographic evaluation was performed using a high frequency linear transducer. Attention was given to the 6:00 axis left breast in the region of palpable concern. Selected archived documentation. FINDINGS: LEFT BREAST: -Within the 6:00 axis of the left breast, 3 cm from the nipple, directly abutting the capsule of the saline implant is an irregular mass lesion which is hypoechoic, with good through transmission, partially cystic, and partially solid. The solid portions have robust vascular flow on color Doppler interrogation. This measures in total 1.9 x 0.7 x 1.7 cm. It is surrounded by hyperechoic fat. Finding is indeterminate and suspicious. Ultrasound-guided biopsy is recommended. Findings and recommendations were discussed with the patient in detail, who is in agreement with the overall plan. US/US breast LT limited mamm only IMPRESSION: Suspicious partially cystic and solid mass in the 6:00 axis of the left breast as detailed above, for which ultrasound-guided biopsy is recommended. Findings consistent with bilateral intracapsular saline implant rupture. The small 4 mm and 3 mm cysts previously interrogated are stable, and benign. No further follow-up recommended. OVERALL ASSESSMENT: Mammography: BI-RADS 4 - Suspicious finding Ultrasound: BI-RADS 4 - Suspicious finding RECOMMENDATION: Biopsy recommended This patient's information was entered into a reminder system with a target due date for their next mammogram.
== END 2023-12-22 11:32 | disposition home or self-care (01) ==
LOC: HO.MAMMO 11:31
PROVIDERS: PCP Internal Medicine; Visit Provider Nurse Practitioner Family
DX: R92.2 Inconclusive mammogram (principal); N60.02 Solitary cyst of left breast; T85.49XA Other mechanical complication of breast prosthesis and implant, initial encounter; Z98.82 Breast implant status
CPT/HCPCS: 76642; 77062; 77066

== ENCOUNTER 2023-12-26 08:24 | Outpatient (AMB) | payer MEDICARE, OTHER, SELFPAY ==
--- NOTE | 2023-12-26 08:26 | MHC.OFFVIS ---
Intake Vital Signs 12/26/23 08:31 Height 5 ft 6 in Weight 179 lb BMI 28.9 BP 154/72 H Blood Pressure Location Rt brachial Position Sitting Pulse 100 Intake Visit Reasons: Lt breast U/S biopsy for 6 o'clock mass Intake Note: Patient referred for US guided Lt breast bx. Recent mammo and Lt breast US done on 12-22-23. Patient c/o: new growths on Lt breast. 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 Patient has palpated this for few months time. She is undergone surveillance and on recent follow-up mammogram ultrasound, current recommendation is for ultrasound-guided biopsy. Patient has no other breast issues or complaints. She denies any other skin changes, masses, or discharge. Her energy, weight, appetite are all stable. He has no constitutional symptoms. Family history question of mother for either breast or lung cancer. Patient is Chart was reviewed patient evaluated. [facility] Medical History Right leg pain Obesity (BMI 30-39.9) Benign essential hypertension Normal colonoscopy (~06/16/21) Medicare annual wellness visit, initial Breast implant in situ Breast cancer screening by mammogram Cataract Cholelithiasis Pelvic fracture Fatty liver Colon cancer screening Hypercholesterolemia Type 2 diabetes mellitus with hyperglycemia Restrictive lung disease Pulmonary fibrosis Surgical History History of colonoscopy History of cataract surgery History of surgery on lower extremity H/O left wrist surgery History of ankle surgery Family History Mother Lung cancer Father Respiratory failure Sister Lung disease Brother Respiratory failure Son No problems noted. 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 other at home: Yes Do you presently have visiting nurse or other home services: No Alcohol intake: current Alcohol intake frequency: a few times a month Patient Tobacco Use Status: Never used Tobacco Years Smoked: stopped 48 years old e-Cigarette/Vaping Use: Never Used Second Hand Smoke Exposure: No service: No Current occupational status: retired Cognitive needs: No Hearing needs: No Vision needs: Yes Physical Exam Vital Signs: Last Vital Signs Pulse 100 12/26/23 08:31 BP 154/72 H 12/26/23 08:31 BMI result Body Mass Index 28.9 Chest Other: No cervical, periclavicular, or axillary adenopathy bilaterally. Right breast exam negative. No mass, discharge, skin changes. Left breast demonstrates approximately 2 x 2 cm 6 o'clock position sub areola mass. Nontender. Well-circumscribed. No other skin changes or discharge demonstrated. Assessment & Plan Assessment & Plan (1) Left breast mass: Code(s): N63.20 - Unspecified lump in the left breast, unspecified quadrant Plan Patient is scheduled for ultrasound-guided biopsy of this left breast lesion. She will see me after the study or p.r.n.. All questions answered. Coding Level of Care Code New Pt Level 4 (88105) Diagnoses Left breast mass N63.20
[2023-12-26 08:31] VITALS: BP 154/72; PULSE 100; BMI 28.9
== END 2023-12-26 08:48 | disposition home or self-care (01) ==
PROVIDERS: PCP Internal Medicine; Visit Provider Surgery
DX: N63.20 Unspecified lump in the left breast, unspecified quadrant (principal)
CPT/HCPCS: 99204

== ENCOUNTER 2023-12-26 09:55 | Outpatient (REF) | payer MEDICARE, OTHER, SELFPAY ==
--- NOTE | ~2023-12-26 | MM_ITS ---
PROCEDURE: US GUIDED BREAST BIOPSY, LEFT CLINICAL INFORMATION: Irregular palpable mass 6:00 axis left breast, abutting inferior left saline implant, recommended for biopsy. COMPARISON: 12/22/2023 mammography and ultrasound. PROCEDURAL DETAILS: The details of the procedure, as well as the risks, benefits, and alternatives to the procedure were explained to the patient in detail and all of her questions were answered, after which written informed consent was obtained. Site and side were confirmed. Prior to the procedure, sonography revealed the partially cystic irregular 1.7 x 1.9 x 0.7 cm hypoechoic mass in the left breast at the 6:00 axis, and immediately abutting the inferior margin of the left saline implant. It should be noted, the left implant demonstrated both intra and extracapsular rupture prior to this procedure. A time-out was performed, the lesion intended for biopsy was targeted, and the skin of the left breast was then marked, prepped and draped in the usual sterile fashion. Using sonographic guidance, sterile technique, and 1% lidocaine without epinephrine for local anesthesia, multiple core biopsies were obtained through the targeted area with a 14G spring loaded [employer] core biopsy device. There was real-time confirmation of appropriate needle passage. Sampling was documented. At the completion of tissue sampling, a single barrel shaped metallic clip was deposited at the biopsy site. There was no evidence of immediate complication. SPECIMEN: 4 well formed core samples were obtained DIGITAL POST-PROCEDURE MAMMOGRAPHY: Breast density: The tissue contains scattered areas of fibroglandular density. BI-RADS version 5, category B. There are no new mammographic findings demonstrated. The postprocedure 2-view direct digital mammogram cannot visualize the biopsy clip in either the CC or ML post biopsy views, in either implant displaced or nondisplaced projections. The implant is obscuring both the mass and the clip. Localization will have to be done under ultrasound guidance. No hematoma or complication evident. The patient tolerated the procedure well and, after assuring adequate hemostasis, was discharged in good condition after reviewing postbiopsy breast care instructions. Final pathology results are pending. MM/MM tomosynthesis diag imp LT IMPRESSION: 1. No immediate complication from ultrasound-guided percutaneous biopsy left breast. 2. Ultrasound was used to localize and guide marker clip placement. 3. The 2-view direct digital postprocedure mammogram cannot visualize the biopsy clip in either projection, in either implant displaced or nondisplaced views. The implants is obscuring both the mass and the clip. Clip appears well placed and positioned under ultrasound. Localization will have to be performed under ultrasound guidance. 4. Final pathology results are pending. A separate report with final recommendations will be issued once these results are made available.
[2023-12-26] MEDS: Lidocaine HCl 1 % 20 ML VIAL 8 ML SUBCUT (11:22)
[2023-12-26] MEDS: Sodium Bicarbonate 8.4% 50 MEQ/50 ML VIAL SUBCUT (11:31)
== END 2023-12-26 09:56 | disposition home or self-care (01) ==
LOC: HO.MAMMO 09:55
PROVIDERS: PCP Internal Medicine; Visit Provider Internal Medicine
DX: C50.812 Malignant neoplasm of overlapping sites of left female breast (principal)
CPT/HCPCS: 19083; 77061; 77065; 88305; 88341; 88342; 88360; 99202; A4648; C1894

== ENCOUNTER → 2023-12-26 10:00 | Outpatient (BNV) | payer MEDICARE, OTHER, SELFPAY | PROVIDERS: PCP Internal Medicine; Visit Provider Radiology Diagnostic Radiology | DX: N63.25 Unspecified lump in the left breast, overlapping quadrants (principal) | CPT/HCPCS: 19083; 77065 ==

== ENCOUNTER 2024-01-03 14:39 | Outpatient (AMB) | payer MEDICARE, OTHER, SELFPAY ==
[2024-01-03 14:43] VITALS: BP 128/62; PULSE 110; BMI 27.9
--- NOTE | 2024-01-03 14:43 | A.OFFVIS_ITS ---
Intake Vital Signs 01/03/24 14:43 Height 5 ft 6 in Weight 173 lb BMI 27.9 BP 128/62 Blood Pressure Location Rt brachial Position Sitting Pulse 110 H Intake Visit Reasons: S/p Lt breast U/S biopsy for 6 o'clock mass Intake Note: Patient is seen in office for ultrasound biopsy results left breast 6 o'clock mass. Pt c/o: tenderness. Denies bleeding, itch. Manager [place] Required: No Accompanied by: Self / Same As Patient Allergies bacitracin [BACITRACIN] Allergy (Intermediate, Verified 01/03/24 14:45) RASH latex [LATEX] Allergy (Intermediate, Verified 01/03/24 14:45) FACIAL SWELLING; RASH nickel [NICKEL] Allergy (Intermediate, Verified 01/03/24 14:45) RASH adhesive tape Adverse Reaction (Verified 01/03/24 14:45) Irritable HPI HPI Comments History of Present Illness Details Patient presents for follow-up status post left breast biopsy. 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 Patient also has this process abutting her left breast implant. [facility] Medical History Right leg pain Obesity (BMI 30-39.9) Benign essential hypertension Normal colonoscopy (~06/16/21) Medicare annual wellness visit, initial Breast implant in situ Breast cancer screening by mammogram Cataract Cholelithiasis Pelvic fracture Fatty liver Colon cancer screening Hypercholesterolemia Type 2 diabetes mellitus with hyperglycemia Restrictive lung disease Pulmonary fibrosis Surgical History History of colonoscopy History of cataract surgery History of surgery on lower extremity H/O left wrist surgery History of ankle surgery Family History Mother Lung cancer Father Respiratory failure Sister Lung disease Brother Respiratory failure Son No problems noted. 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 home: Yes Do you presently have visiting nurse or other home services: No Alcohol intake: current Alcohol intake frequency: a few times a month Patient Tobacco Use Status: Never used Tobacco Years Smoked: stopped 48 years old e-Cigarette/Vaping Use: Never Used Second Hand Smoke Exposure: No service: No Current occupational status: retired Cognitive needs: No Hearing needs: No Vision needs: Yes Physical Exam Vital Signs: Last Vital Signs Pulse 110 H 01/03/24 14:43 BP 128/62 01/03/24 14:43 BMI result Body Mass Index 27.9 Chest Other: Left breast biopsy site clean dry and intact with resolving ecchymosis. Assessment & Plan Assessment & Plan (1) Breast cancer, left: Comment: Novemberreast, 6 o'clock, biopsy: Invasive ductal carcinoma, MSBR grade 2 Code(s): C50.912 - Malignant neoplasm of unspecified site of left female breast Plan Discussed the pathology results and therapeutic options with the patient. My current recommendations for lumpectomy and sentinel lymph node biopsy. Patient in the meantime will have an MRI of her left breast to help delineate whether a lumpectomy or lumpectomy with implant will be required. Risks, benefits, alternatives of the procedure include but not limited to bleeding, infection, recurrence, numbness, pain, scarring the patient wished to proceed. All questions answered. Arrangements will be made for the above. Patient will also need a localizer placement prior to the lumpectomy. Coding Level of Care Code Est Pt Level 5 (54066) Diagnoses Breast cancer, left C50.912
== END 2024-01-03 14:57 | disposition home or self-care (01) ==
PROVIDERS: PCP Internal Medicine; Visit Provider Surgery
DX: C50.912 Malignant neoplasm of unspecified site of left female breast (principal)
CPT/HCPCS: 99214

== ENCOUNTER → 2024-01-03 14:39 | Outpatient (BNVA) | payer MEDICARE, OTHER, SELFPAY | PROVIDERS: PCP Internal Medicine; Visit Provider Surgery | DX: C50.812 Malignant neoplasm of overlapping sites of left female breast (principal) | CPT/HCPCS: 99212 ==

== ENCOUNTER 2024-01-12 13:00 | Outpatient (REF) | payer MEDICARE, OTHER, SELFPAY ==
[2024-01-12 14:04] LABS: Appearance Urine Cloudy; Color Urine Yellow; Glucose Urine UA Negative (Negative); Leukocyte Esterase Urine Trace (Negative); Nitrite Urine Negative (Negative); Specific Gravity - Urine 1.025 (1.005-1.025); UMIC TRIGGER UACC YES; Urine Blood Negative (Negative); Urine Ketones Trace mg/dL (Negative); Urine Protein 30 (1+) mg/dL (Neg-Trace)
[2024-01-12 14:13] LABS: Bacteria Urine None Seen (None Seen); RBC Urine 0-2 /HPF (0-2); WBC Urine 0-5 /HPF (0-5)
== END 2024-01-12 13:01 | disposition home or self-care (01) ==
LOC: HO.LAB 13:00
PROVIDERS: Visit Provider Internal Medicine
DX: R30.0 Dysuria (principal); R41.89 Other symptoms and signs involving cognitive functions and awareness
CPT/HCPCS: 81001; 81003

== ENCOUNTER 2024-01-18 12:29 | Outpatient (AMB) | payer MEDICARE, OTHER, SELFPAY ==
[2024-01-18 12:36] VITALS: BP 170/90; PULSE 92; O2SAT 97; BMI 27.8
--- NOTE | 2024-01-18 12:36 | A.OFFPC_ITS ---
Vital Signs 01/18/24 12:36 Height 5 ft 6 in Weight 172 lb BMI 27.8 BP 170/90 H Blood Pressure Location Lt brachial Position Sitting Pulse 92 Pulse Source Pulse Oximeter Pulse Oximetry (%) 97 Oxygen Delivery Method Room Air Intake Visit Reasons: Clearance Allergies bacitracin [BACITRACIN] Allergy (Intermediate, Verified 01/18/24 12:36) RASH latex [LATEX] Allergy (Intermediate, Verified 01/18/24 12:36) FACIAL SWELLING; RASH nickel [NICKEL] Allergy (Intermediate, Verified 01/18/24 12:36) RASH adhesive tape Adverse Reaction (Verified 01/18/24 12:36) Irritable Medication List - Last Reconciled 01/18/24 by Rocky Roman MD amlodipine 5 mg PO DAILY atorvastatin 40 mg PO BEDTIME blood sugar diagnostic (FreeStyle Lite Strips) As directed check the QD blood-glucose meter (FreeStyle Lite Meter kit) test daily cyclobenzaprine 5 mg PO BEDTIME PRN [diabetic shoes As directed] diphenhydramine HCl (Benadryl) 25 mg PO BEDTIME PRN fluoxetine 40 mg PO DAILY 90 days lisinopril 5 mg PO DAILY lorazepam 1 mg PO BEDTIME PRN 30 days meloxicam 7.5 mg PO DAILY PRN metformin 1,000 mg PO BID Tobacco use date assessed: 01/18/24 Fall risk assessment: 1 Fall in past year Last assessed Fall Risk: 01/18/24 Dental Screening Dental Screen Date: 01/18/24 Did you have a dental visit in the last 12 months?: Yes Did you have a dental problem in the last 6 months where you did not have access to dental care?: No Was dental information given to patient?: Patient has dentist HPI Clearance HPI Details 73-year-old overweight female with diabe cullen mellitus hypertension hypercholesterolemia generalized anxiety disorder and left breast cancer last seen April 2023. Patient is here for preop evaluation. Noted ER visit for dental pain with swelling of the right chin CT scan done showing severe bony destruction of the mandible with soft tissue collection with a nondisplaced pathologic fracture of the right anterior mandible. Patient was referred to the maxillofacial surgeon in [facility] states osteomyelitis unlikely as the patient does not have any symptoms discharged on antibiotics. Patient has been follow-up with the surgeon for the left breast mass with the findings of ductal carcinoma abutting her left breast implant. Advised to have lumpectomy done and sentinel node biopsy. Patient was also seen by the nurse practitioner in September 2023 for mouth pain has complained about gums feeling irritated.. Also follows up with pain management for the back pain history of kyphoplasty at L1 diagnosis of lumbar spondylosis had an ER visit also in June 2023 and x-ray done showing mild scoliosis and degenerative changes lumbar. depressed, cONCERN ABOUT CONFUSION [facility] spoke to the surgeon lumpectomy will proceed. Will have to get the results of the biopsy done on the jaw. [facility] Medical History (Updated 01/18/24 @ 12:50 by Rocky Roman MD) Right leg pain Obesity (BMI 30-39.9) Benign essential hypertension Normal colonoscopy (~06/16/21) Medicare annual wellness visit, initial Breast implant in situ Breast cancer screening by mammogram Cataract Cholelithiasis Pelvic fracture Fatty liver Colon cancer screening Hypercholesterolemia Type 2 diabetes mellitus with hyperglycemia Restrictive lung disease Pulmonary fibrosis Surgical History (Updated 01/18/24 @ 12:47 by Rocky Roman MD) Left breast mass History of colonoscopy History of cataract surgery History of surgery on lower extremity H/O left wrist surgery History of ankle surgery Family History Mother Lung cancer Father Respiratory failure Sister Lung disease Brother Respiratory failure Son No problems noted. Other Mental health problem Social History (Updated 01/18/24 @ 13:14 by Rocky Roman MD) Household Members: Family Housing: House Are you a primary client care consultant to a significant other at home: Yes Do you presently have visiting nurse or other home services: No Alcohol intake: current Alcohol intake frequency: a few times a month Comment: once a year 1 glass Patient Tobacco Use Status: Never used Tobacco Years Smoked: stopped 48 years old e-Cigarette/Vaping Use: Never Used Second Hand Smoke Exposure: No service: No Current occupational status: retired Cognitive needs: Yes Hearing needs: No Vision needs: Yes Questionnaire PHQ-9 Over the last 2 weeks, how often have you been bothered by any of the following problems? 1. Little interest or pleasure in doing things: nearly every day 2. Feeling down, depressed, or hopeless: nearly every day 3. Trouble falling or staying asleep, or sleeping too much: several days 4. Feeling tired or having little energy: several days 5. Poor appetite or overeating: several days 6. Feeling bad about yourself - or that you are a failure or have let yourself or your family down: several days 7. Trouble concentrating on things, such as reading the newspaper or watching television: not at all 8. Moving or speaking so slowly that other people could have noticed. Or the opposite - being so fidgety or restless that you have been moving around a lot more than usual: not at all 9. Thoughts that you would be better off or of hurting yourself in some way: not at all Total score: 10 Depression Screening Interpretation: Positive Depression Screening Done: Yes 31522 - PHQ-9 Billing: Yes Source: Developed by Drs. Angus Roe, Kelly Cade, Robe Hawley and colleagues, with an educational juliana from [employer]. Thrive Questionnaire Date Thrive assessed: 01/18/24 I am a: Patient What is your living situation today?: I have a steady place to live Within the past 12 months, did the food you bought not last and you didn't have the money to get more?: Never true Within the past 12 months, did you worry whether your food would run out before you got money to buy more?: Never true Do you have trouble paying for medicines?: No Do you have trouble getting transportation to medical appointments?: No Do you have trouble paying your heating and electricity bill?: No Do you have trouble taking care of your child, family member or friend?: No Do you have trouble with day-to-day activities such as bathing, preparing meals, shopping, managing finances, etc.?: No Are you currently unemployed and looking for a job?: No Are you interested in more education?: No Currently or been in a relationship where the following occur: no concerns reported THRIVE Score: 0 AUDIT C Alcohol Use Questionnaire (AUDIT-C) 1. How often do you have a drink containing alcohol?: Never 3. How often do you have six or more drinks on one occasion?: Never Total Score: 0 PARTHA-7 AMB Questionnaire PARTHA-7 Date PARTHA - 7 assessed: 01/18/24 Feeling nervous, anxious, or on edge: 1 = Several days Not being able to stop or control worryin = Several days Worrying too much about different things: 1 = Several days Trouble relaxin = Not at all Being so restless that it is hard to sit still: 0 = Not at all Becoming easily annoyed or irritable: 1 = Several days Feeling afraid as if something awful might happen: 1 = Several days Total PARTHA-7 score (0-4 normal; 5-9 mild; 10-14 moderate; 15-21 severe): 5 Source: Developed by Drs. Angus Roe, Kelly Cade, Robe Hawley and colleagues, with an educational juliana from [employer]. PARTHA-7 Assessment Billing PARTHA-7 Assessment Tool: PARTHA-7 Assessment 84211 Review of Systems Const Denies poor appetite and Denies weakness Eyes Denies no additional complaints ENT Reports Normal hearing present, Denies dizziness, Denies nasal congestion, Denies tinnitus and Denies sore throat Card Denies chest pain, Denies syncope, Denies rapid heart rate and Denies dyspnea Resp Denies cough and Denies dyspnea GI Denies change in stool character, Reports constipation, Denies diarrhea, Denies nausea and Denies vomiting Denies urinary frequency, Denies difficulty voiding and Denies dysuria Neuro Reports Normal hearing present, Denies confusion, Denies dizziness, Denies syncope and Denies weakness Psych Denies confusion Physical exam (Primary Care) Vital Signs: Last Vital Signs Pulse 92 01/18/24 12:36 BP 170/90 H 01/18/24 12:36 Pulse Ox 97 01/18/24 12:36 Oxygen Delivery Method Room Air 01/18/24 12:36 BMI result Body Mass Index 27.8 Tobacco/Smoking Status: Tobacco use Status Tobacco use date assessed 01/18/24 01/18/24 12:38 Patient Tobacco Use Status Never used Tobacco 01/18/24 13:14 e-Cigarette/Vaping Use Never Used 01/18/24 13:14 PHQ-9: PHQ-9 Score PHQ-9: Total score 10 01/18/24 12:52 [place] mild swelling with Band-Aid over the right angle. Depression Screening Interpretation: Positive Thrive Assessment: Date of Thrive Assessment Date Thrive assessed 01/18/24 01/18/24 12:38 Currently or been in a relationship where the following occur: no concerns reported Const General: No confusion Orientation/consciousness: No confusion Eyes Conjunctivae: conjunctivae normal Resp Auscultation: clear to auscultation bilaterally Cardio Rate: regular rate Rhythm: regular rhythm GI Inspection: Yes normal to inspection Neuro General: No confusion Cranial nerves: Yes Normal hearing present Extrem General: Yes normal to inspection and No edema Results AMB Hemoglobin A1c AMB Hemoglobin A1c 6.1 % Last Edit by Daniella Olivera CMA on 01/18/24 12 :53 Results Reviewed Results Reviewed: Laboratory Last Values Hgb A1c (Clinic) 6.1 % (4.0-6.0) H 01/18/24 12:38 Assessment and Plan Assessment & Plan (1) Preop exam for internal medicine: Code(s): Z01.818 - Encounter for other preprocedural examination Plan: Blood work and EKG and chest x-ray requested. Discussed about aspirin and anti- inflammatories that are advised to be discontinued 1 week before the procedure as they can thin the blood. (2) Breast cancer, left: Comment: [place], 6 o'clock, biopsy: Invasive ductal carcinoma, MSBR grade 2 Code(s): C50.912 - Malignant neoplasm of unspecified site of left female breast Plan: Patient has a planned left breast lumpectomy with sentinel node biopsyMArch 2023 Dr. Barnes (3) Lumbar spondylosis: Code(s): M47.816 - Spondylosis without myelopathy or radiculopathy, lumbar region Plan: Patient follows up with pain management on muscle relaxants and anti- inflammatory (4) Type 2 diabetes mellitus with hyperglycemia: Comment: Dr. Wiggins Code(s): E11.65 - Type 2 diabetes mellitus with hyperglycemia Qualifiers: Diabetes mellitus senior living insulin use: without long term care phlebotomist use Qualified Code(s): E11.65 - Type 2 diabetes mellitus with hyperglycemia Plan: Decrease the amount of carbohydrate intake, pasta, bread, rice and potatoes are all sugar and that is aside from all the sweet stuff, remember that fruits are good but they are Sweet also. Hemoglobin A1c goal of less than 7.0 patient is on metformin a 1000 mg twice a day (5) Benign essential hypertension: Code(s): I10 - Essential (primary) hypertension Plan: Continue with blood pressure medication. Decrease salt intake and exercise amlodipine 5 mg once a day and lisinopril 5 mg once a day. Patient admits to have not taken the blood pressure medication today and concern that if the blood pressure is high the surgery is not going to proceed. Advised to follow-up in 1 week and check blood pressure (6) Hypercholesterolemia: Code(s): E78.00 - Pure hypercholesterolemia, unspecified Plan: Avoid fried foods, chicken skin, eggs, butter margarine, pastries and meat. Be it pork or beef they have a lot of cholesterol LDL goal of less than 100 and triglyceride of less than 150 on atorvastatin 40 mg once a day (7) Generalized anxiety disorder: Comment: CHD counseling weekly Code(s): F41.1 - Generalized anxiety disorder Plan: Continue with counseling and therapy (8) Anemia: Code(s): D64.9 - Anemia, unspecified Plan: Chronic and stable (9) Fracture of right mandibular angle: Code(s): S02.651A - Fracture of angle of right mandible, initial encounter for closed fracture Orders: Orders XR chest 2V Today C50.912 - Malignant neoplasm of unspecified site of left female breast AMB Hemoglobin A1c Today Z13.9 - Encounter for screening, unspecified ECG 12 lead EKG Today Z01.818 - Encounter for other preprocedural examination Complete Blood Count Auto Diff Today Z01.818 - Encounter for other preprocedural examination Comprehensive Met. Panel Today Z01.818 - Encounter for other preprocedural examination Medications: Refilled lorazepam 1 mg PO BEDTIME 30 days PRN 30 tabs 1RF Anxiety Coding Level of Care Code Est Pt Level 4 (85410) Diagnoses Preop exam for internal medicine Z01.818 Breast cancer, left C50.912 Lumbar spondylosis M47.816 Type 2 diabetes mellitus with hyperglycemia, without long-term current use of insulin E11.65 Diabetes mellitus long term care phlebotomist insulin use: without senior living use Benign essential hypertension I10 Hypercholesterolemia E78.00 Generalized anxiety disorder F41.1 Anemia D64.9 Fracture of right mandibular angle S02.651A Additional Codes PARTHA-7 Assessment Billing - PARTHA-7 Assessment Tool: PARTHA-7 Assessment 83221 ([id number])
== END 2024-01-18 13:38 | disposition home or self-care (01) ==
PROVIDERS: PCP Internal Medicine; Visit Provider Internal Medicine
DX: E11.65 Type 2 diabetes mellitus with hyperglycemia (principal); C50.912 Malignant neoplasm of unspecified site of left female breast; S02.651A Fracture of angle of right mandible, initial encounter for closed fracture; Z01.818 Encounter for other preprocedural examination; M47.816 Spondylosis without myelopathy or radiculopathy, lumbar region; I10 Essential (primary) hypertension; E78.00 Pure hypercholesterolemia, unspecified; F41.1 Generalized anxiety disorder; D64.9 Anemia, unspecified
CPT/HCPCS: 83036; 99214

== ENCOUNTER → 2024-01-19 11:41 | Outpatient (BNV) | payer MEDICARE, OTHER, SELFPAY | PROVIDERS: PCP Internal Medicine; Visit Provider Internal Medicine Cardiovascular Disease | DX: Z01.818 Encounter for other preprocedural examination (principal); C50.912 Malignant neoplasm of unspecified site of left female breast | CPT/HCPCS: 93010 ==

== ENCOUNTER 2024-01-19 12:11 | Outpatient (REF) | payer MEDICARE, OTHER, SELFPAY ==
--- NOTE | ~2024-01-19 | XR_ITS ---
EXAMINATION: XR CHEST CLINICAL INFORMATION: Malignant neoplasm of unspecified site of left female breast. COMPARISON: 01/16/2020 CT chest and 07/26/2019 chest radiograph. TECHNIQUE: 2 views of the chest were obtained. FINDINGS: S-shaped thoracolumbar scoliosis with multilevel degenerative changes. Cardiac silhouette enlarged. Redemonstration of vertebroplasty imaged upper lumbar vertebral body. Interval increase of diffuse interstitial opacities with [id number] lung airspace opacities, left greater than right. There is no gross pneumothorax. No gross pleural effusion. XR/XR chest 2V IMPRESSION: Interval increase of diffuse interstitial opacities with [id number] lung airspace opacities, left greater than right. Differential considerations include infectious/inflammatory process, edema and/or chronic lung process. Correlation with clinical exam recommended to determine further management. Recommend follow up imaging in 4-6 weeks to confirm resolution and exclude underlying pathology. This study was presented today January 24, 2024 for interpretation. PSA staff will provide results to referring provider at this time.
== END 2024-01-19 12:12 | disposition home or self-care (01) ==
LOC: HO.XRAY 12:11
PROVIDERS: PCP Internal Medicine; Visit Provider Internal Medicine
DX: C50.912 Malignant neoplasm of unspecified site of left female breast (principal)
CPT/HCPCS: 71046

== ENCOUNTER 2024-01-25 07:57 | Outpatient (REF) | payer MEDICARE, OTHER, SELFPAY ==
--- NOTE | ~2024-01-25 | US_ITS ---
PROCEDURE: US GUIDED RFID LOCALIZATION, LEFT CLINICAL INFORMATION: Localization of mass with pathology yielding invasive ductal carcinoma in the left breast at the 6:00 axis with RFID chip. COMPARISON: 12/26/2023 ultrasound core biopsy left breast, 12/22/2023 diagnostic left breast ultrasound, and diagnostic bilateral mammography. TECHNIQUE/FINDINGS: After the details of the procedure, as well as the risks, benefits and alternatives to the procedure, were explained to the patient in detail, and all of her questions were answered, informed written consent was obtained and preprocedure sonography of the left breast 6:00 axis was performed. The targeted hypoechoic mass was identified at the 6:00 axis, with estimated size by ultrasound of 1.7 x 1.9 x 0.7 cm. It again directly abuts the left implant capsule. The skin of the overlying left breast was then marked, prepped and draped in the usual sterile fashion. Using sonographic guidance, sterile technique and 1% lidocaine for local anesthesia, a tiny 1 mm skin nuria was made with a #11 scalpel, and a 7 cm RFID needle was advanced into the breast into the targeted lesion. The RFID chip was deployed. Adequate placement was confirmed in the sagittal and transverse planes. RFID #[id number] A postprocedure mammogram was not performed, as previously, the biopsy clip within the lesion was obscured by the flaccid implant in both CC and ML projections. RF tag placement appears in adequate position directly abutting the mass and barrel-shaped biopsy clip under direct ultrasound visualization. Refer to the final image of the localization (US 1, image 4/). Patient tolerated the procedure well, with no immediate complication. [place] node is planned. US/US breast needle loc LT IMPRESSION: Uncomplicated sonographically guided preoperative RFID localization of the mass in the 6:00 left breast. RFID Chip placement appears adequate by ultrasound verification. Specimen radiography will be reported separately at the time of surgery.
[2024-01-25] MEDS: Lidocaine HCl 1 % 20 ML VIAL 9 ML SUBCUT (09:25)
[2024-01-25] MEDS: Sodium Bicarbonate 8.4% 50 MEQ/50 ML VIAL SUBCUT (09:26)
== END 2024-01-25 07:58 | disposition home or self-care (01) ==
LOC: HO.MAMMO 07:57
PROVIDERS: PCP Internal Medicine; Visit Provider Surgery
DX: C50.812 Malignant neoplasm of overlapping sites of left female breast (principal)
CPT/HCPCS: 19285; C1819

== ENCOUNTER → 2024-01-25 08:00 | Outpatient (BNV) | payer MEDICARE, OTHER, SELFPAY | PROVIDERS: PCP Internal Medicine; Visit Provider Radiology Diagnostic Radiology | DX: C50.912 Malignant neoplasm of unspecified site of left female breast (principal) | CPT/HCPCS: 19285 ==

== ENCOUNTER → 2024-02-01 13:35 | Outpatient (REF) | payer MEDICARE, OTHER, SELFPAY ==
--- NOTE | ~2024-02-01 | NM_ITS ---
EXAMINATION: NM LYMPH SCINTIGRAPHY CLINICAL INFORMATION: Left breast IDC 6:00 axis. COMPARISON: None available. TECHNIQUE: 0.25 mCi technetium 99m sulfur colloid injected subcutaneously surrounding the nipple at the 12:00, 3:00, 6:00, and 9:00 axes (total dose 1.0 mCi technetium 99m sulfur colloid). Images taken at 20 minutes and 60 minutes. FINDINGS: 20 minute images demonstrate expected activity surrounding the nipple. 60 minute images demonstrate faint uptake in the left axilla suggesting the sentinel node best visualized on the KHMER projection. NM/NM sentinel node w imaging IMPRESSION: 60 minute images demonstrate activity within the left sentinel node in the KHMER position.
== END ==
LOC: HO.NUCMED 13:35
PROVIDERS: PCP Internal Medicine; Visit Provider Surgery
DX: C50.912 Malignant neoplasm of unspecified site of left female breast (principal)
CPT/HCPCS: 78195; A9541

== ENCOUNTER 2024-02-02 09:36 | Day surgery (SDC) | payer MEDICARE, OTHER, SELFPAY ==
--- NOTE | 2024-01-19 11:41 | ECG_ITS ---
Test Reason : Z01.818 PreOp Blood Pressure : / mmHG Vent. Rate : 095 BPM Atrial Rate : 095 BPM P-R Int : 168 ms QRS Dur : 070 ms QT Int : 344 ms P-R-T Axes : 024 016 033 degrees QTc Int : 432 ms Normal sinus rhythm Normal ECG When compared with ECG of 26-JUL-2019 13:50, No significant change was found Referred By: Rocky Roman Electronically Signed By:CHANO CAMPO MD
[2024-01-19 11:58] LABS: MANUAL DIFF FLAG NO
[2024-01-19 12:25] LABS: Basophils Absolute Auto 0.1 X10*3/uL (0.0-0.2); Basophils Percent Auto 0.6 % (0-2); Eosinophils Absolute Auto 0.2 X10*3/uL (0.0-0.4); Eosinophils Percent Auto 1.8 % (0-4); Hematocrit 37.3 % (37.0-47.0); Hemoglobin 11.8 g/dl (12.0-16.0); Imm Gran Abs Auto 0.04 X10*3/uL (0.00-0.03); Imm Gran Pct Auto 0.5 % (0.0-0.4); Lymphocytes Absolute Auto 1.4 X10*3/uL (1.2-4.9); Mean Corpuscular HGB Conc 31.6 g/dl (31.0-35.0); Mean Corpuscular Hemoglobin 27.1 pg (27.0-33.0); Mean Corpuscular Volume 85.6 fL (80.0-98.0); Mean Platelet Volume 9.1 fL (9.4-12.3); Monocytes Absolute Auto 0.5 X10*3/uL (0.1-1.2); Monocytes Percent Auto 6.1 % (2-11); Neutrophils Absolute Auto 6.6 x10*3/uL (2.0-8.3); Platelet Count 441 X10*3/uL (160-400); Red Blood Count 4.36 X10*6/uL (4.20-5.50); Red Cell Distribution Width 14.1 % (11.0-16.0); White Blood Count 8.8 X10*3/uL (4.8-10.8)
[2024-01-19 12:41] LABS: Alanine Aminotransferase 9 U/L (0-31); Albumin Level 4.2 g/dL (3.5-5.0); Alkaline Phosphatase 84 U/L (39-117); Anion Gap 16 (12-20); Aspartate Amino Transferase 18 U/L (5-31); Bilirubin Total 0.5 mg/dL (0.0-1.0); Blood Urea Nitrogen 12 mg/dL (9-16); Calcium 9.6 mg/dL (8.4-10.2); Carbon Dioxide 25 mmol/L (22-29); Chloride 104 mmol/L (96-108); Estimated Glomerular Filt Rate 60; Glucose Random 97 mg/dL (60-115); Potassium 3.7 mmol/L (3.3-5.1); Sodium 141 mmol/L (135-145); Total Protein 8.5 g/dL (6.5-8.0)
[2024-01-19 13:38] LABS: Appearance Urine Cloudy; Color Urine Yellow; Glucose Urine UA Negative (Negative); Leukocyte Esterase Urine Moderate (2+) (Negative); Nitrite Urine Negative (Negative); Specific Gravity - Urine 1.015 (1.005-1.025); UMIC TRIGGER UACC YES; Urine Blood Negative (Negative); Urine Ketones Negative (Negative); Urine Protein Negative (Neg-Trace)
[2024-01-19 13:46] LABS: Bacteria Urine Trace (None Seen); RBC Urine 0-2 /HPF (0-2); UACC Culture Trigger YES; WBC Urine 21-50 /HPF (0-5)
[2024-01-31 09:29] VITALS: BMI 27.9
--- NOTE | 2024-01-31 12:08 | HO.ANESPROP2 ---
Documented by User: Catina Toscano NP 01/31/24 12:09 HPI - Anesthesia Eval Consult details Narrative: 73yo F for Left Breast Lumpectomy w/LOCalizer,Magtrace Medically cleared by PCP RLD/Pulmonary fibrosis PMFSH Active Problems Active Problems: All Active Problems (Updated 01/18/24 @ 12:50 by Rocky Roman MD) Fracture of right mandibular angle (Acute) Preop exam for internal medicine (Acute) Cognitive changes (Acute) Breast cancer, left (Acute) Irritation of oral cavity (Acute) Lumbar facet arthropathy (Acute) Lumbar spondylosis (Acute) H/O kyphoplasty (Acute) Thoracic back pain (Chronic) Cholelithiasis (Acute) Fatty liver (Acute) Neck pain (Acute) Diabetic nephropathy (Acute) Osteopenia (Acute) Anemia (Acute) Cataract, left eye (Acute) Generalized anxiety disorder (Acute) Low back pain (Acute) Benign essential hypertension (Acute) Hypercholesterolemia (Acute) Type 2 diabetes mellitus with hyperglycemia (Acute) Restrictive lung disease (Acute) Pulmonary fibrosis (Acute) Past Medical History Medical History Arrhythmia Right leg pain Obesity (BMI 30-39.9) Benign essential hypertension Normal colonoscopy (~06/16/21) Medicare annual wellness visit, initial Breast implant in situ Breast cancer screening by mammogram Cataract Cholelithiasis Pelvic fracture Fatty liver Colon cancer screening Hypercholesterolemia Type 2 diabetes mellitus with hyperglycemia Restrictive lung disease Pulmonary fibrosis Family History Family History Mother Lung cancer Father Respiratory failure Sister Lung disease Brother Respiratory failure Son No problems noted. Other Mental health problem Surgical History Surgical History Left breast mass History of colonoscopy History of cataract surgery History of surgery on lower extremity H/O left wrist surgery History of ankle surgery Social History Social History Household Members: Family Housing: House Are you a primary director of healthcare systems to a significant other at home: Yes Do you presently have visiting nurse or other home services: No Alcohol intake: current Alcohol intake frequency: holidays/special occasions only Comment: once a year 1 glass Patient Tobacco Use Status: Former Tobacco user Years Smoked: stopped 48 years old e-Cigarette/Vaping Use: Never Used Second Hand Smoke Exposure: No Use of substances other than those prescribed or required for medical reasons: No Are you DNR?: No Advance Directives: No Advance Directives Information Provided: Yes Advance Directives Date on File: 02/01/24 service: No Current occupational status: retired Cognitive needs: Yes Hearing needs: No Vision needs: Yes Meds Allergies Allergy/AdvReac Type Severity Reaction Status Date / Time bacitracin [BACITRACIN] Allergy Intermediate RASH Verified 01/18/24 12:36 latex [LATEX] Allergy Intermediate FACIAL Verified 01/18/24 12:36 SWELLING; RASH nickel [NICKEL] Allergy Intermediate RASH Verified 01/18/24 12:36 adhesive tape AdvReac Irritable Verified 01/18/24 12:36 Home Medications Medication Instructions Recorded Confirmed Last Taken Type diphenhydramine HCl 25 mg capsule 25 mg PO BEDTIME PRN Nasal 03/25/22 02/02/24 Unknown History (Benadryl) Congestion Exam Height,Weight and Vital Signs: Height 5 ft 6 in Weight 78.471 kg Pertinent Lab Results Pertinent Lab Results: Laboratory Tests 01/19/24 01/19/24 11:50 11:57 WBC 8.8 RBC 4.36 Hgb 11.8 L Hct 37.3 MCV 85.6 MCH 27.1 MCHC 31.6 RDW 14.1 Plt Count 441 H MPV 9.1 L Immature Gran % (Auto) 0.5 H Neut % (Auto) 75.0 H Lymph % (Auto) 16.0 L [place] % (Auto) 6.1 Eos % (Auto) 1.8 Baso % (Auto) 0.6 Lymph # (Auto) 1.4 [place] # (Auto) 0.5 Eos # (Auto) 0.2 Baso # (Auto) 0.1 Abs Immat Gran (auto) 0.04 H Absolute Neuts (auto) 6.6 Absolute Nucleated RBC 0.000 Nucleated RBC % (auto) 0.0 Sodium 141 Potassium 3.7 Chloride 104 Carbon Dioxide 25 Anion Gap 16 BUN 12 Creatinine 0.92 Estim Creat Clear Calc TNP Estimated GFR 60 Random Glucose 97 Calcium 9.6 Total Bilirubin 0.5 AST 18 ALT 9 Alkaline Phosphatase 84 Total Protein 8.5 H Albumin 4.2 Urine Color Yellow Urine Appearance Cloudy Urine pH 5.0 Ur Specific [place] 1.015 Urine Protein Negative Urine Glucose (UA) Negative Urine Ketones Negative Urine Blood Negative Urine Nitrite Negative Ur Leukocyte Esterase Moderate (2+) H Urine RBC 0-2 Urine WBC 21-50 H Ur Squamous Epith Cells 11-20 Urine Bacteria Trace Hyaline Casts 3-5 Narrative Narrative: EKG 12/2023 Vent. Rate : 095 BPM Atrial Rate : 095 BPM P-R Int : 168 ms QRS Dur : 070 ms QT Int : 344 ms P-R-T Axes : 024 016 033 degrees QTc Int : 432 ms Normal sinus rhythm Normal ECG When compared with ECG of 26-JUL-2019 13:50, No significant change was found Assessment and Plan Assessment Anesthesia Assessment: Chart Reviewed Documented by User: Lori Bettencourt MD 02/02/24 10:53 PMFSH Past Medical History Medical History Arrhythmia Right leg pain Obesity (BMI 30-39.9) Benign essential hypertension Normal colonoscopy (~06/16/21) Medicare annual wellness visit, initial Breast implant in situ Breast cancer screening by mammogram Cataract Cholelithiasis Pelvic fracture Fatty liver Colon cancer screening Hypercholesterolemia Type 2 diabetes mellitus with hyperglycemia Restrictive lung disease Pulmonary fibrosis Family History Family History Mother Lung cancer Father Respiratory failure Sister Lung disease Brother Respiratory failure Son No problems noted. Other Mental health problem Family history of problems with anesthesia: No Surgical History Surgical History Left breast mass History of colonoscopy History of cataract surgery History of surgery on lower extremity H/O left wrist surgery History of ankle surgery History of Problems with Anesthesia: Yes Social History Social History Household Members: Family Housing: House Are you a primary director of healthcare systems to a significant other at home: Yes Do you presently have visiting nurse or other home services: No Alcohol intake: current Alcohol intake frequency: holidays/special occasions only Comment: once a year 1 glass Patient Tobacco Use Status: Former Tobacco user Years Smoked: stopped 48 years old e-Cigarette/Vaping Use: Never Used Second Hand Smoke Exposure: No Use of substances other than those prescribed or required for medical reasons: No Are you DNR?: No Advance Directives: No Advance Directives Information Provided: Yes Advance Directives Date on File: 02/01/24 service: No Current occupational status: retired Cognitive needs: Yes Hearing needs: No Vision needs: Yes Meds Allergies Allergy/AdvReac Type Severity Reaction Status Date / Time bacitracin [BACITRACIN] Allergy Intermediate RASH Verified 01/18/24 12:36 latex [LATEX] Allergy Intermediate FACIAL Verified 01/18/24 12:36 SWELLING; RASH nickel [NICKEL] Allergy Intermediate RASH Verified 01/18/24 12:36 adhesive tape AdvReac Irritable Verified 01/18/24 12:36 Home Medications Medication Instructions Recorded Confirmed Last Taken Type diphenhydramine HCl 25 mg capsule 25 mg PO BEDTIME PRN Nasal 03/25/22 02/02/24 Unknown History (Benadryl) Congestion Exam Airway Mallampati Class: II TM Dist: >3cm Neck ROM: Limited (rash around lower lip and chin) Heart: rrr Lungs: cta Assessment and Plan Assessment Anesthesia Assessment: Anesthesia Plan Discussed Final Anesthetic Review Family History of Problems with Anesthesia: No History of Problems with Anesthesia: Yes NPO: Yes ASA Class: III Final Preanesthetic Review: No Changes in Pt Med Stat, Meds/Allgs Chart Reviewed, Consent Obtained/Reviewed and Anes Risks/Benef Reviewed Patient Risk: Intermediate Procedure Risk: Intermediate Anesthetic Plan Anesthetic Plan: GA Disposition: Standard PACU
--- NOTE | 2024-02-01 10:43 | MHC.SHP ---
Pre-Procedural Eval Section A - 24 Hr Update-Section A only Date of Service: 02/01/24 The patient is an INPATIENT: No Changes since office visit: No Cold of Flu in the past 2 weeks, No New Medical Problems, No Changes in Medication and No Patient answered all questions The patient has been examined within 24 hours of the surgical procedure. The History & Physical has been completed within 30 days and I have reviewed it.: Yes Section B - Complete if H&P > 30 days Chief Complaint: Malignant neoplasm of unspecified site of left fem Allergies: Allergies Allergy/AdvReac Type Severity Reaction Status Date / Time bacitracin [BACITRACIN] Allergy Intermediate RASH Verified 01/18/24 12:36 latex [LATEX] Allergy Intermediate FACIAL Verified 01/18/24 12:36 SWELLING; RASH nickel [NICKEL] Allergy Intermediate RASH Verified 01/18/24 12:36 adhesive tape AdvReac Irritable Verified 01/18/24 12:36 Plan I have reviewed the history and physical and performed a pertinent physical examination on my patient. No changes have occurred unless specified. Time Spent With Patient Time: Total time managing care of this patient today ____ minutes.
[2024-02-02] VITALS (7 sets, daily range): BP systolic 125–149; BP diastolic 57–73; PULSE 79–86; RESP 16–17; TEMP 36.1–36.6; O2SAT 94–100; BMI 30.2
--- NOTE | ~2024-02-02 | MM_ITS ---
EXAMINATION: RFID LOCALIZATION SPECIMEN FROM THE LEFT BREAST CLINICAL INFORMATION: IDC, 6:00 axis, abutting inferior aspect of breast implant. COMPARISON: 05/03/2024 similar amount, 01/25/2024 localization left breast, 12/26/2023 left breast ultrasound and clip placement with post ultrasound diagnostic mammography. Diagnostic left breast ultrasound 04/05/2023. TECHNIQUE: Single view of the surgical specimen was obtained. FINDINGS: The radiograph of the excised surgical specimen demonstrates the presence of the barrel-shaped biopsy clip, RF ID chip, and the mass with several residual central calcifications located centrally within the specimen. As per phone conversation, the left implant was also removed, which has been compromised for quite some time. Axillary sentinel node specimen radiograph was not provided. MM/MM surgical specimen IMPRESSION: Satisfactory excision of the targeted lesion, clip, and RFID chip. These findings were communicated to the surgeon in the OR at the time of specimen radiography.
[2024-02-02 10:35] LABS: Glucose, Whole Blood 100 mg/dL (60-115)
[2024-02-02] MEDS: Lactated Ringers 1,000 ML 100 ML IVCONT (10:38)
--- NOTE | 2024-02-02 13:11 | P.CONAN_ITS ---
HPI - Anesthesia Eval Consult details Narrative: 73 yo female patient for Left breast lumpectomy with LOCalizer, Left axilla sentinel node biopsy PMFSH Active Problems Active Problems: All Active Problems (Updated 02/02/24 @ 13:14 by Federica Oconnell MD) Fracture of right mandibular angle (Acute) Preop exam for internal medicine (Acute) Cognitive changes (Acute) Breast cancer, left (Acute) Irritation of oral cavity (Acute) Lumbar facet arthropathy (Acute) Lumbar spondylosis (Acute) H/O kyphoplasty (Acute) Thoracic back pain (Chronic) Neck pain (Acute) Diabetic nephropathy (Acute) Low back pain (Acute) Generalized anxiety disorder (Acute) Cataract, left eye (Acute) Anemia (Acute) Osteopenia (Acute) Cholelithiasis (Acute) Fatty liver (Acute) Benign essential hypertension (Acute) Hypercholesterolemia (Acute) Type 2 diabetes mellitus with hyperglycemia (Acute) Restrictive lung disease (Acute) Pulmonary fibrosis (Acute) Past Medical History Medical History Arrhythmia Right leg pain Obesity (BMI 30-39.9) Benign essential hypertension Normal colonoscopy (~06/16/21) Medicare annual wellness visit, initial Breast implant in situ Breast cancer screening by mammogram Cataract Cholelithiasis Pelvic fracture Fatty liver Colon cancer screening Hypercholesterolemia Type 2 diabetes mellitus with hyperglycemia Restrictive lung disease Pulmonary fibrosis Family History Family History Mother Lung cancer Father Respiratory failure Sister Lung disease Brother Respiratory failure Son No problems noted. Other Mental health problem Family history of problems with anesthesia: No Surgical History Surgical History Left breast mass History of colonoscopy History of cataract surgery History of surgery on lower extremity H/O left wrist surgery History of ankle surgery History of Problems with Anesthesia: Yes Social History Social History Household Members: Family Housing: House Are you a primary critical care cns to a significant other at home: Yes Do you presently have visiting nurse or other home services: No Alcohol intake: current Alcohol intake frequency: holidays/special occasions only Comment: once a year 1 glass Patient Tobacco Use Status: Former Tobacco user Years Smoked: stopped 48 years old e-Cigarette/Vaping Use: Never Used Second Hand Smoke Exposure: No Use of substances other than those prescribed or required for medical reasons: No Are you DNR?: No Advance Directives: No Advance Directives Information Provided: Yes Advance Directives Date on File: 02/01/24 service: No Current occupational status: retired Cognitive needs: Yes Hearing needs: No Vision needs: Yes Meds Allergies Allergy/AdvReac Type Severity Reaction Status Date / Time bacitracin [BACITRACIN] Allergy Intermediate RASH Verified 01/18/24 12:36 latex [LATEX] Allergy Intermediate FACIAL Verified 01/18/24 12:36 SWELLING; RASH nickel [NICKEL] Allergy Intermediate RASH Verified 01/18/24 12:36 adhesive tape AdvReac Irritable Verified 01/18/24 12:36 Active Medications: Current Medications Fentanyl (Fentanyl Citrate/Pf 100 Mcg/2 Ml Vial) 25 mcg IVPUSH Q5M PRN; Protocol PRN Reason: Pain, Moderate(Pain Scale 4-6) Lactated Ringer's (Lr) 1,000 mls @ 100 mls/hr IVCONT .Q10H ZAID Last Admin: 02/02/24 10:38 Dose: 100 mls/hr Ondansetron HCl (Ondansetron Hcl 4 Mg/2 Ml Vial) 4 mg IVPUSH ONCE PRN PRN Reason: Nausea and Vomiting Home Medications Medication Instructions Recorded Confirmed Last Taken Type diphenhydramine HCl 25 mg capsule 25 mg PO BEDTIME PRN Nasal 03/25/22 02/02/24 Unknown History (Benadryl) Congestion Exam Height,Weight and Vital Signs: Height 5 ft 4 in Weight 79.946 kg Last Vital Signs Temp 97.8 F 02/02/24 10:25 Pulse 79 02/02/24 10:25 Resp 16 02/02/24 10:25 BP 125/64 02/02/24 10:25 Pulse Ox 95 02/02/24 10:25 O2 Del Method Room Air 02/02/24 10:25 Pertinent Lab Results Pertinent Lab Results: Laboratory Tests 01/19/24 01/19/24 02/02/24 11:50 11:57 10:32 WBC 8.8 RBC 4.36 Hgb 11.8 L Hct 37.3 MCV 85.6 MCH 27.1 MCHC 31.6 RDW 14.1 Plt Count 441 H MPV 9.1 L Immature Gran % (Auto) 0.5 H Neut % (Auto) 75.0 H Lymph % (Auto) 16.0 L [place] % (Auto) 6.1 Eos % (Auto) 1.8 Baso % (Auto) 0.6 Lymph # (Auto) 1.4 [place] # (Auto) 0.5 Eos # (Auto) 0.2 Baso # (Auto) 0.1 Abs Immat Gran (auto) 0.04 H Absolute Neuts (auto) 6.6 Absolute Nucleated RBC 0.000 Nucleated RBC % (auto) 0.0 Sodium 141 Potassium 3.7 Chloride 104 Carbon Dioxide 25 Anion Gap 16 BUN 12 Creatinine 0.92 Estim Creat Clear Calc TNP Estimated GFR 60 POC Glucose 100 Random Glucose 97 Calcium 9.6 Total Bilirubin 0.5 AST 18 ALT 9 Alkaline Phosphatase 84 Total Protein 8.5 H Albumin 4.2 Urine Color Yellow Urine Appearance Cloudy Urine pH 5.0 Ur Specific [place] 1.015 Urine Protein Negative Urine Glucose (UA) Negative Urine Ketones Negative Urine Blood Negative Urine Nitrite Negative Ur Leukocyte Esterase Moderate (2+) H Urine RBC 0-2 Urine WBC 21-50 H Ur Squamous Epith Cells 11-20 Urine Bacteria Trace Hyaline Casts 3-5 Airway Mallampati Class: III TM Dist: >3cm Neck ROM: Limited Loose/Missing/Broken Teeth: Yes (Many missing. 1 tooth bottom front loose. Only few teeth in mouth) Heart: RRR Lungs: CTAB Assessment and Plan Assessment Anesthesia Assessment: Anesthesia Plan Discussed and Chart Reviewed Final Anesthetic Review Family History of Problems with Anesthesia: No History of Problems with Anesthesia: Yes NPO: Yes ASA Class: III Final Preanesthetic Review: No Changes in Pt Med Stat, Meds/Allgs Chart Reviewed, Consent Obtained/Reviewed and Anes Risks/Benef Reviewed Patient Risk: Intermediate Procedure Risk: Intermediate Assessment/Block/Sedation in SS: Assess/Block/Sedation-SS Anesthetic Plan Anesthetic Plan: GA Disposition: Standard PACU
[2024-02-02 13:49] LABS: Glucose, Whole Blood 84 mg/dL (60-115)
--- NOTE | 2024-02-02 14:10 | PC.NURSE ---
called son twice to let him know his mothers plan of care. just called jay her son to let him know she is going into surgery shortly.
--- NOTE | 2024-02-02 15:37 | P.OP_ITS ---
Operative Note Operative Note Date of Service: 02/02/24 Narrative: preoperative diagnosis: [] Left breast carcinoma Postop diagnosis; same Procedure; left breast lumpectomy with localizer, sentinel lymph node with IV dye and isotope Surgeon: [] Cameron Line Haul Owner Operator: [] Ko Type of Anesthesia: [] General Indication for surgery: [] Patient has a 6 o'clock position left breast carcinoma very close to if not adherent to her underlying breast implant. Patient understood the in order to get clear margins, this implant may need to be entered and removed. This was is exactly the case go to get clear margins. Patient also had nuclear study as well as methylene blue to help identify sentinel lymph nodes left axilla. Findings: [] Patient brought to the operating room, placed on the operating table in supine position, axillary roll was placed, and after an adequate level of general anesthesia was induced, the patient's left breast and axilla were prepped and draped in usual sterile fashion. Using localized device in conjunction with the patient's preoperative radiographic studies, a curvilinear incision was made in the 6 o'clock position and carried down through skin, subcutaneous tissue, were superior and inferior skin flaps were developed using Bovie. Using localizer device, the area in question was dissected right down to the breast implant capsule and the specimen was undermined along the capsule of the implant. Specimen was tagged sent to pathology as specimen taken. Implant was entered and this was uneventfully removed. The specimen was confirmed radiographically. Wound was irrigated, secured hemostasis, and closed using interrupted inverted dermal 3-0 Vicryl sutures followed by Steri-Strips and sterile dressings. Next axilla was approached using a in for axillary curvilinear incision and carried down through skin, subcutaneous tissue, where superior and inferior skin flaps were developed and using combination of [place] counter probe and methylene blue, several axillary lymph nodes were identified uneventfully excised using combination of blunt, sharp, and Bovie dissection. Specimen sent to pathology. Wound was irrigated, secured hemostasis, and closed using interrupted inverted dermal 3-0 Vicryl sutures followed by Steri-Strips and sterile dressings. Wound was were infiltrated at the beginning and at the end of the case with 0.5% Marcaine/1% lidocaine. Sponge, needle, and instrument counts reported correct. Patient tolerated the procedure well and emerged from anesthesia stable condition. EBL minimal
--- NOTE | 2024-02-06 13:34 | P.OP_ITS ---
Operative Note Operative Note Date of Service: 02/02/24 Breast [place] Node Biopsy Substrate(s) used for sentinel node biopsy in the non-neoadjuvant setting: Dye and Radiotracer Substrate(s) used for sentinel node biopsy in the neoadjuvant setting: Dye and Radiotracer All colored nodes or non-colored nodes present at the end of a dye filled lymphatic channel were removed, if dye was used as the substrate for localization: Yes All significantly radioactive nodes were removed, if radionuclide was used as the substrate for localization: Yes All palpably suspicious nodes were removed, if present: N/A If clips were placed in pathology-involved nodes, those nodes were identified and removed: N/A General Surg. - Synoptic Notes Breast [place] Node Biopsy Substrate(s) used for sentinel node biopsy in the non-neoadjuvant setting: Dye and Radiotracer Substrate(s) used for sentinel node biopsy in the neoadjuvant setting: Dye and Radiotracer All colored nodes or non-colored nodes present at the end of a dye filled lymphatic channel were removed, if dye was used as the substrate for localization: Yes All significantly radioactive nodes were removed, if radionuclide was used as the substrate for localization: Yes All palpably suspicious nodes were removed, if present: N/A If clips were placed in pathology-involved nodes, those nodes were identified and removed: N/A
== END 2024-02-02 17:04 | disposition home or self-care (01) ==
PROVIDERS: PCP Internal Medicine; Visit Provider Surgery
PROC: (CPT 19301; principal; 2024-02-02 11:50)
PROC: (CPT 19301; 2024-02-02 11:50)
DX: C50.812 Malignant neoplasm of overlapping sites of left female breast (principal); Z98.82 Breast implant status; I10 Essential (primary) hypertension; E78.00 Pure hypercholesterolemia, unspecified; J84.10 Pulmonary fibrosis, unspecified; Z87.891 Personal history of nicotine dependence; K76.0 Fatty (change of) liver, not elsewhere classified; E11.65 Type 2 diabetes mellitus with hyperglycemia; Z79.84 Long term (current) use of oral hypoglycemic drugs; Z79.899 Other long term (current) drug therapy; Z91.040 Latex allergy status; Z88.1 Allergy status to other antibiotic agents; L23.1 Allergic contact dermatitis due to adhesives; Z98.890 Other specified postprocedural states
CPT/HCPCS: 19301; 38525; 38900; 38792; 36415; 80053; 81001; 82947; 85025; 87086; 88307; 88329; 88341; 88342; 88360; 93005; J0690; J1100; J2405; J2704; J2795; J3010; Q9968

== ENCOUNTER → 2024-02-02 09:36 | Outpatient (BNV) | payer MEDICARE, OTHER, SELFPAY | PROVIDERS: PCP Internal Medicine; Visit Provider Surgery | DX: C50.912 Malignant neoplasm of unspecified site of left female breast (principal) | CPT/HCPCS: 19301; 38525; 38900 ==

== ENCOUNTER 2024-02-13 09:53 | Outpatient (AMB) | payer MEDICARE, OTHER, SELFPAY ==
[2024-02-13 09:59] VITALS: BP 125/60; PULSE 99
--- NOTE | 2024-02-13 09:59 | A.OFFVIS_ITS ---
Intake Vital Signs 02/13/24 09:59 Weight 170 lb BP 125/60 Blood Pressure Location Rt brachial Position Sitting Pulse 99 Intake Visit Reasons: S/P Lt. breast lumpectomy w/localizer Intake Note: Patient here s/p Lt br lumpectomy. Reports incisions healing well. Patient c/o: redness, mild itch. SX: 02-02-24. Top Cleaner Required: No Accompanied by: Son Allergies bacitracin [BACITRACIN] Allergy (Intermediate, Verified 02/13/24 10:00) RASH latex [LATEX] Allergy (Intermediate, Verified 02/13/24 10:00) FACIAL SWELLING; RASH nickel [NICKEL] Allergy (Intermediate, Verified 02/13/24 10:00) RASH adhesive tape Adverse Reaction (Verified 02/13/24 10:00) Irritable HPI HPI Comments History of Present Illness0 Details Patient presents with her son. She has no wound or incisional issues or complaints. Pathology results were extensively reviewed. Patient will require oncologic follow-up. COUNT INCLUDES THE [facility] Medical History Arrhythmia Right leg pain Obesity (BMI 30-39.9) Benign essential hypertension Normal colonoscopy (~06/16/21) Medicare annual wellness visit, initial Breast implant in situ Breast cancer screening by mammogram Cataract Cholelithiasis Pelvic fracture Fatty liver Colon cancer screening Hypercholesterolemia Type 2 diabetes mellitus with hyperglycemia Restrictive lung disease Pulmonary fibrosis Surgical History History of lumpectomy of left breast (02/02/24) Left breast mass History of colonoscopy History of cataract surgery History of surgery on lower extremity H/O left wrist surgery History of ankle surgery Family History Mother Lung cancer Father Respiratory failure Sister Lung disease Brother Respiratory failure Son No problems noted. 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 career coordinator to a significant other at home: Yes Do you presently have visiting nurse or other home services: No Alcohol intake: current Alcohol intake frequency: holidays/special occasions only Comment: COUNTS CORRECT Patient Tobacco Use Status: Former Tobacco user Years Smoked: stopped 48 years old e-Cigarette/Vaping Use: Never Used Second Hand Smoke Exposure: No Advance Directives Date on File: 02/01/24 service: No Current occupational status: retired Cognitive needs: Yes Hearing needs: No Vision needs: Yes Physical Exam Vital Signs: Last Vital Signs Pulse 99 02/13/24 09:59 BP 125/60 02/13/24 09:59 Chest Other: Both lumpectomy and sentinel lymph node incisions were clean dry and intact healing very well. Assessment & Plan Assessment & Plan (1) Breast cancer, left: Comment: Novemberreast, 6 o'clock, biopsy: Invasive ductal carcinoma, MSBR grade 2 Code(s): C50.912 - Malignant neoplasm of unspecified site of left female breast (2) Status post left breast lumpectomy: Code(s): Z98.890 - Other specified postprocedural states Plan Current plan is to arrange for oncologic follow-up/consult regarding adjuvant therapy . Once her surgical wounds have healed in 5-6 more weeks, she will also require radiation therapy to her breast. This all reviewed with the patient and her son. Arrangements were made for the above. Patient otherwise follow-up p.r.n.. Once she has completed the above- mentioned, patient will require continued surveillance mammograms. Coding Level of Care Code Global (08522) Diagnoses Breast cancer, left C50.912 Status post left breast lumpectomy Z98.890
== END 2024-02-13 10:07 | disposition home or self-care (01) ==
PROVIDERS: PCP Internal Medicine; Visit Provider Surgery
DX: C50.912 Malignant neoplasm of unspecified site of left female breast (principal); Z98.890 Other specified postprocedural states
CPT/HCPCS: 99024

== ENCOUNTER → 2024-02-13 09:53 | Outpatient (BNVA) | payer MEDICARE, OTHER, SELFPAY | PROVIDERS: PCP Internal Medicine; Visit Provider Surgery | DX: C50.912 Malignant neoplasm of unspecified site of left female breast (principal); Z98.890 Other specified postprocedural states | CPT/HCPCS: 99212 ==

== ENCOUNTER 2024-02-21 11:13 | Outpatient (AMB) | payer MEDICARE, OTHER, SELFPAY ==
--- NOTE | 2024-02-21 11:14 | A.OFFVIS_ITS ---
Intake Vital Signs 02/21/24 11:24 Height 5 ft 4 in Weight 168 lb BMI 28.8 BP 140/65 H Blood Pressure Location Rt brachial Position Sitting Pulse 84 Intake Visit Reasons: Follow up visit Intake Note: Patient last office visit 02-13-24. Dx: Lt br invasive ductal carcinoma. Lt br lumpectomy on 02-02-24. Patient c/o: Lt axilla pain ? seroma. Seen by Dr. Barbour on 02-16-24. Individualized Education Plan Aide Required: No Accompanied by: Son Allergies bacitracin [BACITRACIN] Allergy (Intermediate, Verified 02/21/24 11:25) RASH latex [LATEX] Allergy (Intermediate, Verified 02/21/24 11:25) FACIAL SWELLING; RASH nickel [NICKEL] Allergy (Intermediate, Verified 02/21/24 11:25) RASH adhesive tape Adverse Reaction (Verified 02/21/24 11:25) Irritable HPI HPI Comments History of Present Illness Details Patient presents with her son for follow-up. She has no incisional discomfort. She had a small seroma of the axillary incision which he says is improving. Otherwise doing well. Patient met with Oncology as well. [facility] Medical History Arrhythmia Right leg pain Obesity (BMI 30-39.9) Benign essential hypertension Normal colonoscopy (~06/16/21) Medicare annual wellness visit, initial Breast implant in situ Breast cancer screening by mammogram Cataract Cholelithiasis Pelvic fracture Fatty liver Colon cancer screening Hypercholesterolemia Type 2 diabetes mellitus with hyperglycemia Restrictive lung disease Pulmonary fibrosis Surgical History History of lumpectomy of left breast (02/02/24) Left breast mass History of colonoscopy History of cataract surgery History of surgery on lower extremity H/O left wrist surgery History of ankle surgery Family History Mother Lung cancer Father Respiratory failure Sister Lung disease Brother Respiratory failure Son No problems noted. 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 child care specialist to a significant other at home: Yes Do you presently have visiting nurse or other home services: No Alcohol intake: current Alcohol intake frequency: holidays/special occasions only Comment: COUNTS CORRECT Patient Tobacco Use Status: Former Tobacco user Years Smoked: stopped 48 years old e-Cigarette/Vaping Use: Never Used Second Hand Smoke Exposure: No Advance Directives Date on File: 02/01/24 service: No Current occupational status: retired Cognitive needs: Yes Hearing needs: No Vision needs: Yes Physical Exam Vital Signs: Last Vital Signs Pulse 84 02/21/24 11:24 BP 140/65 H 02/21/24 11:24 BMI result Body Mass Index 28.8 Chest Other: Wounds clean dry and intact healing very well. Very small left axillary seroma. Assessment & Plan Assessment & Plan (1) Breast cancer, left: Comment: Novemberreast, 6 o'clock, biopsy: Invasive ductal carcinoma, MSBR grade 2 Code(s): C50.912 - Malignant neoplasm of unspecified site of left female breast (2) Postop check: Code(s): Z09 - Encounter for follow-up examination after completed treatment for conditions other than malignant neoplasm Plan Present, no acute surgical issues. Patient will continue to follow up with Oncology and will eventually need radiation therapy once her surgical wounds are healed as well as adjuvant therapy as directed per Oncology. Patient will need a six-month follow-up mammography once or therapy is completed. This was explained to her and her son. All questions answered. They will see me as directed or p.r.n. once she has completed her radiation therapy. Coding Level of Care Code Global (38459) Diagnoses Breast cancer, left C50.912 Postop check Z09
[2024-02-21 11:24] VITALS: BP 140/65; PULSE 84; BMI 28.8
== END 2024-02-21 11:25 | disposition home or self-care (01) ==
PROVIDERS: PCP Internal Medicine; Visit Provider Surgery
DX: C50.912 Malignant neoplasm of unspecified site of left female breast (principal); Z09 Encounter for follow-up examination after completed treatment for conditions other than malignant neoplasm
CPT/HCPCS: 99024

== ENCOUNTER → 2024-02-21 11:13 | Outpatient (BNVA) | payer MEDICARE, OTHER, SELFPAY | PROVIDERS: PCP Internal Medicine; Visit Provider Surgery | DX: Z09 Encounter for follow-up examination after completed treatment for conditions other than malignant neoplasm (principal); L76.34 Postprocedural seroma of skin and subcutaneous tissue following other procedure; C50.912 Malignant neoplasm of unspecified site of left female breast; Z98.890 Other specified postprocedural states | CPT/HCPCS: 99212 ==

== ENCOUNTER 2024-02-22 12:53 | Outpatient (REF) | payer MEDICARE, OTHER, SELFPAY ==
--- NOTE | ~2024-02-22 | MM_ITS ---
EXAMINATION: BONE DENSITOMETRY CLINICAL INDICATION: Osteoporosis. COMPARISON: Previous BD dated 04/22/2021 and baseline BD dated 09/12/2009. TECHNIQUE: Using a meets DXA System (software version: 13.1) manufactured by [employer], dual-energy x-ray absorptiometry was performed of the lumbar spine and left hip. The images are of good technical quality. Summary results are attached. FINDINGS: LEFT FEMUR, NECK: Current: BMD 0.880 g/cm2, Z-score 0.7, T-score -1.1, osteopenia. Prior: BMD 0.856 g/cm2. Baseline: BMD 0.891 g/cm2. LEFT FEMUR, TOTAL: Current: BMD 1.000 g/cm2, Z-score 1.6, T-score -0.1, normal, 2.5% decrease from previous, 4.6% decrease from baseline (<5% change is not significant). Prior: BMD 1.026 g/cm2. Baseline: BMD 1.048 g/cm2. AP SPINE L2-L3 (excluding L1 and L4): The data of L1-L4 has been changed to exclude the L1 and L4 vertebral bodies, because metallic artifact and degenerative sclerosis at these levels may cause overestimation of lumbar spine density. Current: BMD 1.404 g/cm2, Z-score 3.3, T-score 1.7, normal, 2.9% increase from previous, 18.2% increase from baseline (<5% change is not significant). Prior: BMD 1.364 g/cm2. Baseline: BMD 1.188 g/cm2. IDENTIFIED RISK FACTORS: Menopause, history of fracture (adult). HISTORY OF FRACTURE: Wrist, spine. Other. MEDICATIONS: Vitamin D. MM/XR DEXA axial skeleton IMPRESSION: 1. DIAGNOSIS: Osteopenia based on the lowest T-score value of -1.1 in the femoral neck applying World Health Organization criteria. 2. 10-YEAR FRACTURE RISK PREDICTION, FRAX: Major osteoporotic fracture (clinical spine, forearm, hip or shoulder) 16.0%. Hip fracture 2.5%. 3. Treatment Recommendations: NOF guidelines recommend consideration for treatment in postmenopausal women and men age 50 and older presenting with the following: -A hip or vertebral (clinical or morphometric) fracture. -T-score less than or equal to -2.5 at the femoral neck or spine after appropriate evaluation to exclude secondary causes. -Low bone mass at the hip or spine and a 10-year fracture probability by FRAX of greater than or equal to 3% for hip fracture or greater than or equal to 20% for major osteoporotic fracture based on the [place] adapted WHO algorithm. 4. Other Recommendations: All treatment decisions require clinical judgment and consideration of individual patient factors, including patient preferences, comorbidities, previous drug use, risk factors not captured in the FRAX model (e.g. frailty, falls, vitamin D deficiency, increased bone turnover, interval significant decline in bone density) and possible under or overestimation of fracture risk by FRAX. Additional medical evaluation for secondary cause of low bone mineral density may be appropriate. FUTURE SCAN RECOMMENDATION: People with diagnosed cases of osteoporosis or at high risk for fracture should have regular bone mineral density tests. For patients eligible for Medicare, routine testing is allowed once every 2 years. The testing frequency can be increased to one year for patients who have rapidly progressing disease, those who are receiving or discontinuing medical therapy to restore bone mass, or have additional risk factors.
== END 2024-02-22 12:54 | disposition home or self-care (01) ==
LOC: HO.MAMMO 12:53
PROVIDERS: PCP Internal Medicine; Visit Provider Internal Medicine Medical Oncology
DX: Z13.820 Encounter for screening for osteoporosis (principal); M81.0 Age-related osteoporosis without current pathological fracture; Z78.0 Asymptomatic menopausal state
CPT/HCPCS: 77080

== ENCOUNTER 2024-02-24 11:43 | Outpatient (AMB) | payer MEDICARE, OTHER, SELFPAY ==
[2024-02-24 11:44] VITALS: BP 118/62; PULSE 84; O2SAT 97; BMI 28.7
--- NOTE | 2024-02-24 11:44 | MHC.PC.OV ---
Vital Signs 02/24/24 11:44 Height 5 ft 4 in Weight 167 lb BMI 28.7 BP 118/62 Blood Pressure Location Lt brachial Position Sitting Pulse 84 Pulse Source Pulse Oximeter Pulse Oximetry (%) 97 Oxygen Delivery Method Room Air Intake Visit Reasons: Hypertension Intake Note: Patient is here to follow up on hypertension Roper Operator Required: No Allergies bacitracin [BACITRACIN] Allergy (Intermediate, Verified 02/24/24 13:30) RASH latex [LATEX] Allergy (Intermediate, Verified 02/24/24 13:30) FACIAL SWELLING; RASH nickel [NICKEL] Allergy (Intermediate, Verified 02/24/24 13:30) RASH adhesive tape Adverse Reaction (Verified 02/24/24 13:30) Irritable Tobacco use date assessed: 02/24/24 Fall risk assessment: No Falls in past year Last assessed Fall Risk: 02/24/24 Dental Screening Dental Screen Date: 01/18/24 Did you have a dental visit in the last 12 months?: Yes Did you have a dental problem in the last 6 months where you did not have access to dental care?: No Was dental information given to patient?: Patient has dentist HPI Hypertension HPI Details 74-year-old overweight female with a history of left breast cancer diabetes mellitus hypertension hypercholesterolemia generalized anxiety disorder anemia lumbar spondylosis coming in for follow-up. Patient had fracture of the right mandibular angle and had necrosis and has had biopsies of it with no malignancy. Patient is here for follow-up. Patient had a bone density done in 02/22/2024 showing osteopenia. Patient did see the surgeon and has advised follow-up with Hematology-Oncology for radiation therapy after the wound has healed recommend six-month follow-up mammography patient also has seen the Hematology-Oncology in 12/17/2023 continue to monitor the blood count diagnosis of anemia of chronic disease as for the breast cancer workup for Oncotype diagnosis testing. Patient was also seen February 10 in [place] regarding the mandible mass had incisional biopsy of the right mandible placed on [place] [facility] Medical History Arrhythmia Right leg pain Obesity (BMI 30-39.9) Benign essential hypertension Normal colonoscopy (~06/16/21) Medicare annual wellness visit, initial Breast implant in situ Breast cancer screening by mammogram Cataract Cholelithiasis Pelvic fracture Fatty liver Colon cancer screening Hypercholesterolemia Type 2 diabetes mellitus with hyperglycemia Restrictive lung disease Pulmonary fibrosis Surgical History History of lumpectomy of left breast (02/02/24) Left breast mass History of colonoscopy History of cataract surgery History of surgery on lower extremity H/O left wrist surgery History of ankle surgery Family History Mother Lung cancer Father Respiratory failure Sister Lung disease Brother Respiratory failure Son No problems noted. 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 hospice spiritual care coordinator to a significant other at home: Yes Do you presently have visiting nurse or other home services: No Alcohol intake: current Alcohol intake frequency: holidays/special occasions only Comment: COUNTS CORRECT Patient Tobacco Use Status: Former Tobacco user Years Smoked: stopped 48 years old e-Cigarette/Vaping Use: Never Used Second Hand Smoke Exposure: No Advance Directives Date on File: 02/01/24 service: No Current occupational status: retired Cognitive needs: Yes Hearing needs: No Vision needs: Yes Questionnaire Thrive Questionnaire Date Thrive assessed: 01/18/24 AUDIT C Alcohol Use Questionnaire (AUDIT-C) 1. How often do you have a drink containing alcohol?: Never 3. How often do you have six or more drinks on one occasion?: Never Total Score: 0 PARTHA-7 AMB Questionnaire PARTHA-7 Date PARTHA - 7 assessed: 01/18/24 Source: Developed by Drs. Angus Roe, Kelly Cade, Robe Hawley and colleagues, with an educational juliana from [employer]. Physical exam (Primary Care) Vital Signs: Last Vital Signs Pulse 84 02/24/24 11:44 BP 118/62 02/24/24 11:44 Pulse Ox 97 02/24/24 11:44 Oxygen Delivery Method Room Air 02/24/24 11:44 BMI result Body Mass Index 28.7 Tobacco/Smoking Status: Tobacco use Status Tobacco use date assessed 02/24/24 02/24/24 11:51 Patient Tobacco Use Status Former Tobacco user 02/24/24 11:51 e-Cigarette/Vaping Use Never Used 02/24/24 11:51 Thrive Assessment: Date of Thrive Assessment Date Thrive assessed 01/18/24 02/24/24 11:51 Const General: alert; No acute distress Eyes Conjunctivae: conjunctivae normal Resp Auscultation: clear to auscultation bilaterally Cardio Rate: regular rate Rhythm: regular rhythm GI Inspection: Yes normal to inspection Extrem General: Yes normal to inspection and No edema Assessment and Plan Assessment & Plan (1) Breast cancer, left: Comment: Novemberreast, 6 o'clock, biopsy: Invasive ductal carcinoma, MSBR grade 2 Code(s): C50.912 - Malignant neoplasm of unspecified site of left female breast Plan: Patient being followed up by the surgeon and the Hematology-Oncology status post lumpectomy scar planned radiation (2) Type 2 diabetes mellitus with hyperglycemia: Comment: Dr. Wiggins Code(s): E11.65 - Type 2 diabetes mellitus with hyperglycemia Qualifiers: Diabetes mellitus residential insulin use: without long term care phlebotomist use Qualified Code(s): E11.65 - Type 2 diabetes mellitus with hyperglycemia Plan: Decrease the amount of carbohydrate intake, pasta, bread, rice and potatoes are all sugar and that is aside from all the sweet stuff, remember that fruits are good but they are Sweet also. Hemoglobin A1c goal of less than 7.December A1c of 6.1 (3) Benign essential hypertension: Code(s): I10 - Essential (primary) hypertension Plan: Continue with blood pressure medication. Decrease salt intake and exercise takes lisinopril 5 mg once a day and amlodipine 5 mg once a day (4) Hypercholesterolemia: Code(s): E78.00 - Pure hypercholesterolemia, unspecified Plan: Avoid fried foods, chicken skin, eggs, butter margarine, pastries and meat. Be it pork or beef they have a lot of cholesterol atorvastatin 40 mg once a day December 2022 80 LDL goal of less than 100 (5) Generalized anxiety disorder: Comment: CHD counseling weekly Code(s): F41.1 - Generalized anxiety disorder Plan: Continue with present medication (6) Fracture of right mandibular angle: Code(s): S02.651A - Fracture of angle of right mandible, initial encounter for closed fracture Plan: no cnacer Orders: Orders Complete Blood Count Auto Diff Today E11.65 - Type 2 diabetes mellitus with hyperglycemia Hemoglobin A1c Today E11.65 - Type 2 diabetes mellitus with hyperglycemia Free T4 (Free Thyroxine) Today E11.65 - Type 2 diabetes mellitus with hyperglycemia Creatinine Urine Today E11.65 - Type 2 diabetes mellitus with hyperglycemia Microalbumin, Random (w Creat) Today E11.65 - Type 2 diabetes mellitus with hyperglycemia Comprehensive Met. Panel Today E11.65 - Type 2 diabetes mellitus with hyperglycemia Lipid Panel Today E11.65 - Type 2 diabetes mellitus with hyperglycemia, E78.00 - Pure hypercholesterolemia, unspecified Thyroid Stimulating Hormone Today E11.65 - Type 2 diabetes mellitus with hyperglycemia Vitamin B12 and Folate Today E11.65 - Type 2 diabetes mellitus with hyperglycemia Medications: Refilled metformin 1,000 mg PO BID 180 caps 2RF lisinopril 5 mg PO DAILY 90 tabs 3RF E11.21 - Type 2 diabetes mellitus with diabetic nephropathy atorvastatin 40 mg PO BEDTIME 90 caps 2RF amlodipine 5 mg PO DAILY 90 tabs 2RF Coding Level of Care Code Est Pt Level 4 (97615) Diagnoses Breast cancer, left C50.912 Type 2 diabetes mellitus with hyperglycemia, without long-term current use of insulin E11.65 Diabetes mellitus long term care phlebotomist insulin use: without long term care phlebotomist use Benign essential hypertension I10 Hypercholesterolemia E78.00 Generalized anxiety disorder F41.1 Fracture of right mandibular angle S02.651A
== END 2024-02-24 12:12 | disposition home or self-care (01) ==
PROVIDERS: PCP Internal Medicine; Visit Provider Internal Medicine
DX: E11.65 Type 2 diabetes mellitus with hyperglycemia (principal); C50.912 Malignant neoplasm of unspecified site of left female breast; S02.651A Fracture of angle of right mandible, initial encounter for closed fracture; I10 Essential (primary) hypertension; E78.00 Pure hypercholesterolemia, unspecified; F41.1 Generalized anxiety disorder
CPT/HCPCS: 99214

== ENCOUNTER 2024-02-24 13:22 | Outpatient (AMB) | payer MEDICARE, OTHER, SELFPAY ==
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
== END 2024-02-24 14:55 | disposition home or self-care (01) ==
PROVIDERS: Absent Provider Nurse Practitioner Family; PCP Internal Medicine; Visit Provider Nurse Practitioner Family
DX: R41.89 Other symptoms and signs involving cognitive functions and awareness (principal); F41.1 Generalized anxiety disorder
CPT/HCPCS: 99204; 99214

== ENCOUNTER → 2024-02-24 13:22 | Outpatient (BNVA) | payer MEDICARE, OTHER, SELFPAY | PROVIDERS: Absent Provider Nurse Practitioner Family; PCP Internal Medicine; Visit Provider Nurse Practitioner Family | DX: F41.1 Generalized anxiety disorder (principal); R68.84 Jaw pain; C50.912 Malignant neoplasm of unspecified site of left female breast; D64.9 Anemia, unspecified; E11.21 Type 2 diabetes mellitus with diabetic nephropathy | CPT/HCPCS: 99202 ==

== ENCOUNTER 2024-02-29 14:45 | Outpatient (REF) | payer MEDICARE, OTHER, SELFPAY ==
[2024-02-29 16:07] LABS: Rheumatoid Factor < 13.0 IU/mL (<15.0)
[2024-02-29 16:27] LABS: Erythrocyte Sedimentation Rate 59 MM/HR (0-20)
[2024-02-29 16:29] LABS: TSH reflex Free T4 1.13 uIU/mL (0.32-4.0)
[2024-03-01 07:16] LABS: Syphilis Screen Nonreactive (Nonreactive)
[2024-03-01 16:54] LABS: CRP High Sensitivity >10.0 mg/L
[2024-03-01 17:58] LABS: Homocysteine 22.1 umol/L (<10.4)
[2024-03-04 09:23] LABS: Anti Nuclear Antibody Screen NEGATIVE (NEGATIVE)
[2024-03-04 15:08] LABS: Methylmalonic Acid 319 nmol/L (87-318)
== END 2024-02-29 14:46 | disposition home or self-care (01) ==
LOC: HO.LAB 14:45
PROVIDERS: PCP Internal Medicine; Visit Provider Nurse Practitioner Family
DX: F09 Unspecified mental disorder due to known physiological condition (principal); D64.9 Anemia, unspecified; E11.21 Type 2 diabetes mellitus with diabetic nephropathy
CPT/HCPCS: 36415; 83090; 83921; 84443; 85652; 86038; 86141; 86431; 86780

== ENCOUNTER 2024-04-06 15:06 | Outpatient (REF) | payer MEDICARE, OTHER, SELFPAY ==
--- NOTE | ~2024-04-06 | MR_ITS ---
EXAMINATION: MR BRAIN WITH AND WITHOUT CONTRAST CLINICAL INFORMATION: Breast cancer COMPARISON: Maxillofacial CT 04/04/[address] neck 04/10/2024 TECHNIQUE: MRI of the brain was obtained using routine sequences before and following administration of intravenous contrast. A total of 7.5 mL of Gadavist was administered intravenously. FINDINGS: No acute infarct. The GRE sequence is without susceptibility artifact to suggest acute or chronic blood products. No extra-axial fluid collection. Mild global cerebral volume loss. Patchy T2 FLAIR hyperintense foci in the subcortical and periventricular white matter, nonspecific but presumably mild chronic microangiopathy. No abnormal intraparenchymal or leptomeningeal enhancement. No significant mass effect or herniation pattern. The intracranial dural venous sinus and arterial flow voids are preserved. Normal appearance of the midline structures. Lens replacements. Rightward nasal septal deviation with bony spur impinging on the base of the right inferior nasal turbinate. The paranasal sinuses and mastoids are well aerated. Partially imaged cervical spondylosis with severe hypertrophic facet arthropathy. Advanced bilateral TMJ osteoarthrosis. Marrow signal abnormality within the parasymphyseal mandible and infiltration of the submental soft tissues, better characterized on the subsequently performed CT dated 04/10/2024. Otherwise, no suspicious osseous lesions. MR/MR head/brain wo/w con IMPRESSION: No evidence of intracranial metastatic disease.
== END 2024-04-06 15:07 | disposition home or self-care (01) ==
LOC: HO.MRI 15:06
PROVIDERS: PCP Internal Medicine; Visit Provider Nurse Practitioner Family
DX: F09 Unspecified mental disorder due to known physiological condition (principal); C50.912 Malignant neoplasm of unspecified site of left female breast
CPT/HCPCS: 70553

== ENCOUNTER 2024-04-10 09:49 | Emergency (ER) | payer MEDICARE, OTHER, SELFPAY ==
--- NOTE | ~2024-04-10 | CT_ITS ---
CT SOFT TISSUE NECK WITH CONTRAST CLINICAL INFORMATION: Swelling. Difficulty swallowing. COMPARISON: Neck CT 11/06/[address] 04/14/2024. TECHNIQUE: Following the intravenous administration of 100 mL of Omnipaque 350 intravenous contrast, helical imaging was performed in the axial plane with generation of coronal and sagittal reformatted images. This CT examination was performed using dose optimization techniques as appropriate, variously including the following: *Automated exposure control *Adjustment of mA and/or kV according to patient size (this includes techniques or standardized protocols for targeted exams where dose is matched to indication/reason for exam; i.e. extremities or head) *Use of iterative reconstruction technique FINDINGS: Redemonstrated postoperative changes following perimandibular debridement and abscess drainage. When compared to the 04/04/[address], there is new extensive cellulitis effacing the fat planes within the floor of mouth with associated expansion, that should be correlated for clinical signs of Thierry's angina. There is new cellulitis involving the paraglottic fat planes, the epiglottis, and the periphery of the right piriform sinus including the right aryepiglottic fold. There is new cellulitis involving the submental soft tissues and the right submandibular soft tissues as well as worsening cellulitis and phlegmon involving the perimandibular soft tissues. Cellulitis tracks along the right carotid space into the right visceral space of the infrahyoid neck. Lytic change involving the mandibular symphysis and right greater than left mandibular parasymphaseal regions with interval nonbridging bone formation at these sites following treated osteomyelitis. Stable fragmentation of the right parasymphyseal region is again noted at the site of the previously identified mandibular fracture. The parotid glands and the thyroid gland are unremarkable. Likely reactive lymph nodes within the suprahyoid and infrahyoid neck bilaterally. There is a nonspecific 0.8 cm enhancing nodule within the anterior left floor of mouth within the left sublingual space. Fibrotic changes and bullae within the periphery of the lungs. A stable 2 mm infundibulum versus aneurysm projects superiorly from the anterior communicating artery. Remainder of the intracranial compartment is unremarkable. There is multilevel cervical spondylosis. The paranasal sinuses and the mastoid air cells are clear. Degenerative changes involving the TMJs bilaterally. Periapical disease involving the dentition as discussed on the prior maxillofacial CT. CT/CT soft tissue neck w IV con IMPRESSION: - When compared to the 04/04/[address], there is new extensive cellulitis/edema effacing the fat planes within the floor of mouth with associated expansion, that should be correlated for clinical signs of Thierry's angina. There is new cellulitis/edema involving the paraglottic fat planes, the epiglottis, and the periphery of the right piriform sinus including the right aryepiglottic fold. There is new cellulitis/edema involving the submental soft tissues and the right submandibular soft tissues as well as worsening cellulitis and phlegmon involving the perimandibular soft tissues. Cellulitis/edema tracks along the right carotid space into the right visceral space of the infrahyoid neck. Findings are most likely infectious in etiology however reactive angioedema could appear similar. - Redemonstrated postoperative changes following perimandibular debridement and abscess drainage. Lytic change involving the mandibular symphysis and right greater than left mandibular parasymphaseal regions with interval nonbridging bone formation at these sites following treated osteomyelitis. Stable fragmentation of the right parasymphyseal region is again noted at the site of the previously identified mandibular fracture. - There is a nonspecific 0.8 cm enhancing nodule within the anterior left floor of mouth within the left sublingual space. - A stable 2 mm infundibulum versus aneurysm projects superiorly from the anterior communicating artery.
[2024-04-10 09:59] VITALS: BP 112/48; PULSE 99; RESP 18; TEMP 36.9; O2SAT 99; BMI 26.6
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
--- NOTE | 2024-04-10 10:29 | ECG_ITS ---
Test Reason : angioedema Blood Pressure : / mmHG Vent. Rate : 082 BPM Atrial Rate : 082 BPM P-R Int : 174 ms QRS Dur : 076 ms QT Int : 368 ms P-R-T Axes : 020 -04 -05 degrees QTc Int : 429 ms Normal sinus rhythm Minimal voltage criteria for LVH, may be normal variant ( R in aVL ) Borderline ECG When compared with ECG of 19-JAN-2024 11:47, No significant change was found Referred By: April Martini Electronically Signed By:CHANO CAMPO MD
--- NOTE | 2024-04-10 10:45 | ED_ITS ---
HPI - General Adult General Chief complaint: General Medical Stated complaint: Swollen Throat Time Seen by Provider: 04/10/24 10:19 Source: patient, RN notes reviewed and old records reviewed Mode of arrival: ambulatory Limitations: no limitations History of Present Illness HPI narrative: 74-year-old female with history of recently diagnosed left-sided breast cancer, hypertension on lisinopril, DM, HLD, pulmonary fibrosis, anemia, anxiety, right- sided mandibular necrosis s/p multiple courses of abx who arrives to the ER from home for evaluation of neck swelling and difficulty swallowing that started this morning when she woke up around 08:00. She states she went to bed last night with no swelling. She woke up this morning with a muffled voice, swelling in the glands of her neck and difficulty swallowing. Patient reports about 2 months ago (02/10) she had fracture of the right mandibular angle and had necrosis with incisional biopsies that showed no malignancy. She has been on multiple rounds of antibiotics. She denies any mandibular pain. No dental pain. She has been taking benadryl 2-3 times per day for the last week for generalized itching, without any notable rashes. MD complaint: Neck swelling, difficulty swallowing Onset (ago): hour(s) Location: mouth and neck Severity: moderate Quality: aching Pain Consistency: constant Relieving factors: none Exacerbating factors: other (Swallowing and palpation) Associated symptoms: shortness of breath and other (Anxiety) Treatments prior to arrival: none Related Data Home Medications ?Medication ?Instructions ?Recorded ?Confirmed diphenhydramine HCl 25 mg capsule 25 mg PO BEDTIME PRN Nasal 03/25/22 03/09/24 (Benadryl) Congestion Previous Rx's ?Medication ?Instructions ?Recorded diabetic shoes #1 ea 03/05/21 blood sugar diagnostic (FreeStyle #100 ea 10/20/22 Lite Strips) fluoxetine 40 mg capsule 40 mg PO DAILY 90 days #90 caps 06/13/23 cyclobenzaprine 5 mg tablet 5 mg PO BEDTIME PRN muscle spasm 08/04/23 #20 tabs blood-glucose meter (FreeStyle #1 ea 08/12/23 Lite Meter kit) lorazepam 1 mg tablet 1 mg PO BEDTIME PRN Anxiety 30 01/18/24 days #30 tabs hydrocodone 5 mg-acetaminophen 325 1 tab PO Q4-6H PRN pain #30 tabs 02/02/24 mg tablet cholecalciferol (vitamin D3) 125 125 mcg PO DAILY #90 tabs 02/16/24 mcg (5,000 unit) tablet (Vitamin D3) amlodipine 5 mg tablet 5 mg PO DAILY #90 tabs 02/24/24 atorvastatin 40 mg tablet 40 mg PO BEDTIME #90 caps 02/24/24 lisinopril 5 mg tablet 5 mg PO DAILY #90 tabs 02/24/24 memantine 7 mg capsule 7 mg PO DAILY 30 days #30 ea 02/24/24 sprinkle,extended release 24hr metformin 1,000 mg tablet 1,000 mg PO BID #180 caps 02/24/24 cyanocobalamin (vitamin B-12) 500 500 mcg PO DAILY 30 days #30 tabs 03/05/24 mcg tablet folic acid 400 mcg tablet 0.4 mg PO DAILY 30 days #30 tabs 03/05/24 letrozole 2.5 mg tablet 2.5 mg PO DAILY #90 tabs 03/09/24 meloxicam 7.5 mg tablet 7.5 mg PO DAILY PRN pain #90 tabs 03/09/24 Allergies Allergy/AdvReac Type Severity Reaction Status Date / Time bacitracin [BACITRACIN] Allergy Intermediate RASH Verified 04/10/24 10:06 latex [LATEX] Allergy Intermediate FACIAL Verified 04/10/24 10:06 SWELLING; RASH nickel [NICKEL] Allergy Intermediate RASH Verified 04/10/24 10:06 adhesive tape AdvReac Irritable Verified 04/10/24 10:06 Review of Systems 2 Review of Systems: Yes all other systems are reviewed and are negative [facility] Past Medical History Medical History Arrhythmia Right leg pain Obesity (BMI 30-39.9) Benign essential hypertension Normal colonoscopy (~06/16/21) Medicare annual wellness visit, initial Breast implant in situ Breast cancer screening by mammogram Cataract Cholelithiasis Pelvic fracture Fatty liver Colon cancer screening Hypercholesterolemia Type 2 diabetes mellitus with hyperglycemia Restrictive lung disease Pulmonary fibrosis Surgical History History of lumpectomy of left breast (02/02/24) Left breast mass History of colonoscopy History of cataract surgery History of surgery on lower extremity H/O left wrist surgery History of ankle surgery Family History Family History Mother Lung cancer Father Respiratory failure Sister Lung disease Brother Respiratory failure Son No problems noted. 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 residential child care counselor to a significant other at home: Yes Do you presently have visiting nurse or other home services: No Alcohol intake: current Alcohol intake frequency: holidays/special occasions only Comment: COUNTS CORRECT Patient Tobacco Use Status: Former Tobacco user Years Smoked: stopped 48 years old Smoked in Last 30 Days: No e-Cigarette/Vaping Use: Never Used Second Hand Smoke Exposure: No Use of substances other than those prescribed or required for medical reasons: No Advance Directives: Yes Advance Directives on File: Yes Advance Directives Date on File: 02/01/24 Do you have a plan to hurt others: No Plan service: No Current occupational status: retired Cognitive needs: Yes Hearing needs: No Vision needs: Yes Physical Exam ED Vital Signs: Vital Signs - 24 hr 04/10/24 09:59 04/10/24 12:00 04/10/24 13:45 Temperature 98.4 F 97.7 F 97.9 F Pulse Rate 99 72 70 Respiratory Rate 18 16 15 Blood Pressure 112/48 L 120/56 L 116/53 L Pulse Oximetry 99 97 96 Oxygen Delivery Method Room Air Room Air Room Air 04/10/24 15:53 Temperature 98.2 F Pulse Rate 85 Respiratory Rate 16 Blood Pressure 134/69 Pulse Oximetry 97 Oxygen Delivery Method Room Air BMI result Body Mass Index 26.6 Appearance: Alert elderly female. Oriented X3. No acute distress. Head: normocephalic, atraumatic. Eyes: Pupils equal, round and reactive to light. ENT: Normal inspection of the ears and nose. Normal inspection of the lips, no swelling. Patient has subungual edema with a firm proximally 1 cm x 1.5 cm mass. Unable to visualize the posterior oropharynx. Neck: Neck with bilateral anterior swelling of the submandibular region. Neck supple with some mild tenderness bilaterally, no erythema, trachea midline. CVS: Normal heart rate and rhythm. Pulses normal. Respiratory: No respiratory distress. Breath sounds normal. Abdomen: Soft and nontender. +BS x4 Skin: Skin warm and dry. Normal skin color. Normal skin turgor. No rashes. Extremities: No lower extremity edema. No joint swelling. Neuro/psych: Oriented X 3. No motor deficit. No sensory deficit. CN II-XII intact. Normal speech and cognition. Course Reevaluation(s) Reevaluation #1: Concern for possible angioedema. IV established and patient was given IV steroids, antihistamines. Dr. Riley evaluated the patient at the bedside. handling secretions normally at this time. will monitor very closely. Time: 10:59 Reevaluation #2: On re-evaluation patient is feeling slightly better. Her voice is a little more clear. Continuing to monitor very closely. Time: 11:20 Reevaluation #3: patient sleeping between care. symptoms overall continue to improve. some mild pain w/ swallowing persist. voice much clearer and swelling improved after steroids and Benadryl. Lab workup was unremarkable. Time: 14:40 Additional Reevaluation(s): 16:10 - Medications Administered Discontinued Medications Generic Name Dose Route Start Last Admin Trade Name Freq PRN Reason Stop Dose Admin Diphenhydramine HCl 50 mg 04/10/24 10:29 04/10/24 10:49 Diphenhydramine Hcl 50 Mg/Ml Vial IVPUSH 04/10/24 10:30 50 mg ONCE ONE Administration Famotidine 20 mg 04/10/24 10:29 04/10/24 10:49 Famotidine/Pf 20 Mg/2 Ml Vial IVPUSH 04/10/24 10:30 20 mg ONCE ONE Administration Sodium Chloride 1,000 mls @ 999 mls/hr 04/10/24 10:45 04/10/24 12:39 Ns IVCONT 04/10/24 11:45 Infused .Q1H1M ZAID Infusion Magnesium Sulfate 2 gm in 50 mls @ 150 mls/hr 04/10/24 13:09 04/10/24 14:28 Magnesium Sulfate/H2o IV 04/10/24 13:28 Infused ONCE ONE Infusion Iohexol 60 ml 04/10/24 13:31 04/10/24 13:31 Iohexol 350 Mg/Ml 100 Ml Infus..Btl IV 04/10/24 13:32 60 ml ONCE ONE Administration Methylprednisolone Sodium Succinate 125 mg 04/10/24 10:29 04/10/24 10:49 Methylprednisolone Sod Succ 125 Mg/2 Ml Vial IVPUSH 04/10/24 10:30 125 mg ONCE ONE Administration Medical Decision Making Medical Decision Making [facility] Narrative: 74-year-old female with history of hypertension on lisinopril as well as a history of right mandibular necrosis s/p multiple rounds of antibiotics who presents to the ER for evaluation of acute onset of anterior neck swelling, tongue swelling, difficulty swallowing and a muffled voice that started 2 hours ago. At this time she is starting to have difficulty handling her secretions, using emesis bag to spit her saliva. She reports pain with swallowing. She is maintaining her airway and reports her symptoms have been stable, no worsening since awakening. Patient counseled on concern for angioedema vs Lugwig's angina, IV medications administered. Will monitor closely. CT soft tissue of the neck also ordered with her history to better analyze the structures in the neck and pharynx. CT scan with new findings compared to 8 days ago. Patient had a reported abscess I&D per the radiologist who read the exam 8 days ago. He compared these images to today's with significant new cellulitic changes. Patient has responded well to medications in her airway remains patent. Given her complex medical history, patient will require transfer to [facility] where she can be managed by her O[facility]/ENT provider. Patient reportedly follows with Dr. Abel per her son Ricky ([phone]). Ricky was called and updated on results of imaging and plan for transfer to [place]. Patient has been accepted to [facility] Emergency Department under Dr. Lopez Differential Diagnosis Differential Diagnoses: The differential diagnosis associated with the presentation includes Angioedema, Thierry's angina, supraglottitis, epiglottitis, invasive oral cancer with airway involvement Admission/Observation Consideration of admission/observation: Escalation of care including admission/observation considered Lab Data [facility] Lab Attestation statement: I reviewed the patient's lab results. No leukocytosis 04/10/24 10:40 04/10/24 10:40 Labs: Lab Results 04/10/24 Range/Units 10:40 WBC 7.7 (4.8-10.8) X10*3/uL RBC 4.60 (4.20-5.50) X10*6/uL Hgb 12.7 (12.0-16.0) g/dl Hct 38.4 (37.0-47.0) % MCV 83.5 (80.0-98.0) fL MCH 27.6 (27.0-33.0) pg MCHC 33.1 (31.0-35.0) g/dl RDW 13.9 (11.0-16.0) % Plt Count 323 (160-400) X10*3/uL MPV 9.4 (9.4-12.3) fL Immature Gran % (Auto) 0.3 (0.0-0.4) % Neut % (Auto) 71.9 (45-73) % Lymph % (Auto) 15.7 L (20-40) % [place] % (Auto) 7.3 (2-11) % Eos % (Auto) 4.2 H (0-4) % Baso % (Auto) 0.6 (0-2) % Lymph # (Auto) 1.2 (1.2-4.9) X10*3/uL [place] # (Auto) 0.6 (0.1-1.2) X10*3/uL Eos # (Auto) 0.3 (0.0-0.4) X10*3/uL Baso # (Auto) 0.1 (0.0-0.2) X10*3/uL Abs Immat Gran (auto) 0.02 (0.00-0.03) X10*3/uL Absolute Neuts (auto) 5.6 (2.0-8.3) x10*3/uL Absolute Nucleated RBC 0.000 (0.0-0.012) X10*3/uL Nucleated RBC % (auto) 0.0 (0.0-0.2) /100WBC Sodium 138 (135-145) mmol/L Potassium 4.0 (3.3-5.1) mmol/L Chloride 103 (96-108) mmol/L Carbon Dioxide 18 L (22-29) mmol/L Anion Gap 21 H (12-20) BUN 16 (9-16) mg/dL Creatinine 0.98 (0.5-1.4) mg/dL Estim Creat Clear Calc 48.7 Estimated GFR 55 Random Glucose 116 H (60-115) mg/dL Calcium 9.9 D (8.4-10.2) mg/dL Magnesium 1.4 L* (1.6-2.6) mg/dL Total Bilirubin 0.6 (0.0-1.0) mg/dL Direct Bilirubin 0.2 (0.0-0.5) mg/dL AST 25 (5-31) U/L ALT 13 (0-31) U/L Alkaline Phosphatase 74 (39-117) U/L C-Reactive Protein 0.11 (< or = 0.50) mg/dL B-Natriuretic Peptide < 10 (<100) pg/mL Total Protein 8.1 H (6.5-8.0) g/dL Albumin 4.3 (3.5-5.0) g/dL Independent Interpretation I performed an independent interpretation of an: CT Scan Interpretation: Significant soft tissue swelling, right worse than left Radiology Impression Discussion of test interpretation with radiology: I discussed test interpretation with the radiologist and I have reviewed the radiologist's reading. Radiologist Impression: Spoke with radiologist about new findings compared to CT scan from 8 days ago. Findings concerning for Thierry's angina. CT SOFT TISSUE NECK WITH CONTRAST CLINICAL INFORMATION: Swelling. Difficulty swallowing. COMPARISON: Neck CT 11/06/[address] 04/14/2024. TECHNIQUE: Following the intravenous administration of 100 mL of Omnipaque 350 intravenous contrast, helical imaging was performed in the axial plane with generation of coronal and sagittal reformatted images. This CT examination was performed using dose optimization techniques as appropriate, variously including the following: *Automated exposure control *Adjustment of mA and/or kV according to patient size (this includes techniques or standardized protocols for targeted exams where dose is matched to indication/reason for exam; i.e. extremities or head) *Use of iterative reconstruction technique FINDINGS: Redemonstrated postoperative changes following perimandibular debridement and abscess drainage. When compared to the 04/04/[address], there is new extensive cellulitis effacing the fat planes within the floor of mouth with associated expansion, that should be correlated for clinical signs of Thierry's angina. There is new cellulitis involving the paraglottic fat planes, the epiglottis, and the periphery of the right piriform sinus including the right aryepiglottic fold. There is new cellulitis involving the submental soft tissues and the right submandibular soft tissues as well as worsening cellulitis and phlegmon involving the perimandibular soft tissues. Cellulitis tracks along the right carotid space into the right visceral space of the infrahyoid neck. Lytic change involving the mandibular symphysis and right greater than left mandibular parasymphaseal regions with interval nonbridging bone formation at these sites following treated osteomyelitis. Stable fragmentation of the right parasymphyseal region is again noted at the site of the previously identified mandibular fracture. The parotid glands and the thyroid gland are unremarkable. Likely reactive lymph nodes within the suprahyoid and infrahyoid neck bilaterally. There is a nonspecific 0.8 cm enhancing nodule within the anterior left floor of mouth within the left sublingual space. Fibrotic changes and bullae within the periphery of the lungs. A stable 2 mm infundibulum versus aneurysm projects superiorly from the anterior communicating artery. Remainder of the intracranial compartment is unremarkable. There is multilevel cervical spondylosis. The paranasal sinuses and the mastoid air cells are clear. Degenerative changes involving the TMJs bilaterally. Periapical disease involving the dentition as discussed on the prior maxillofacial CT. CT/CT soft tissue neck w IV con IMPRESSION: - When compared to the 04/04/[address], there is new extensive cellulitis/edema effacing the fat planes within the floor of mouth with associated expansion, that should be correlated for clinical signs of Thierry's angina. There is new cellulitis/edema involving the paraglottic fat planes, the epiglottis, and the periphery of the right piriform sinus including the right aryepiglottic fold. There is new cellulitis/edema involving the submental soft tissues and the right submandibular soft tissues as well as worsening cellulitis and phlegmon involving the perimandibular soft tissues. Cellulitis/edema tracks along the right carotid space into the right visceral space of the infrahyoid neck. Findings are most likely infectious in etiology however reactive angioedema could appear similar. - Redemonstrated postoperative changes following perimandibular debridement and abscess drainage. Lytic change involving the mandibular symphysis and right greater than left mandibular parasymphaseal regions with interval nonbridging bone formation at these sites following treated osteomyelitis. Stable fragmentation of the right parasymphyseal region is again noted at the site of the previously identified mandibular fracture. - There is a nonspecific 0.8 cm enhancing nodule within the anterior left floor of mouth within the left sublingual space. - A stable 2 mm infundibulum versus aneurysm projects superiorly from the anterior communicating artery. Independent Historian Clinical information obtained from an independent historian. History obtained from or confirmed by: Other External Record Review External record reviewed: Outpatient record, Prior outpatient labs and Prior outpatient radiology Prescription Management I considered prescription management with: Pain Medication, Antibiotic and Other (Steroids, antihistamines) Chronic Conditions Patient?s care impacted by: Hypertension Critical Care Time Critical Care Time Critical Care Time: Yes Total Critical Care Time: 68 Attestation: I have personally provided critical care time exclusive of time spent on separately billable procedures. Time includes review of lab data, radiology results, discussion with consultants, and monitoring for potential decompensation. Intervention performed as documented. Discharge Plan Discharge Clinical Impression: Thierry's angina Patient Disposition: [facility] Transfer Details: [facility] Prescriptions: No Action fluoxetine 40 mg capsule 40 mg PO DAILY 90 Days Qty: 90 2RF cyclobenzaprine 5 mg tablet 5 mg PO BEDTIME PRN (Reason: muscle spasm) Qty: 20 0RF cholecalciferol (vitamin D3) [Vitamin D3] 125 mcg (5,000 unit) Tablet 125 mcg PO DAILY Qty: 90 3RF cyanocobalamin (vitamin B-12) 500 mcg tablet 500 mcg PO DAILY 30 Days Qty: 30 6RF folic acid 400 mcg tablet 0.4 mg PO DAILY 30 Days Qty: 30 6RF meloxicam 7.5 mg tablet 7.5 mg PO DAILY PRN (Reason: pain) Qty: 90 0RF diphenhydramine HCl [Benadryl] 25 mg Capsule 25 mg PO BEDTIME PRN (Reason: Nasal Congestion) letrozole 2.5 mg Tablet 2.5 mg PO DAILY Qty: 90 3RF hydrocodone-acetaminophen 5-325 mg tablet 1 tab PO Q4-6H PRN (Reason: pain) Qty: 30 0RF Rx Instructions: Partial Fill upon patient request. (DME) diabetic shoes See Rx Instructions .Route .MEDSUPPLY Qty: 1 0RF Rx Instructions: As directed (DME) blood-glucose meter [FreeStyle Lite Meter] Kit See Rx Instructions .ROUTE .MEDSUPPLY Qty: 1 0RF Rx Instructions: test daily (DME) FreeStyle Lite Strips Strip See Rx Instructions .ROUTE .MEDSUPPLY Qty: 100 3RF Rx Instructions: As directed check the BS QD lorazepam 1 mg tablet 1 mg PO BEDTIME PRN (Reason: Anxiety) 30 Days Qty: 30 1RF metformin 1,000 mg tablet 1,000 mg PO BID Qty: 180 2RF lisinopril 5 mg tablet 5 mg PO DAILY Qty: 90 3RF atorvastatin 40 mg tablet 40 mg PO BEDTIME Qty: 90 2RF amlodipine 5 mg tablet 5 mg PO DAILY Qty: 90 2RF memantine 7 mg capsule,sprinkle,ER 24hr 7 mg PO DAILY 30 Days Qty: 30 1RF Print Language: [place]
[2024-04-10 10:46] LABS: Basophils Absolute Auto 0.1 X10*3/uL (0.0-0.2); Basophils Percent Auto 0.6 % (0-2); Eosinophils Absolute Auto 0.3 X10*3/uL (0.0-0.4); Eosinophils Percent Auto 4.2 % (0-4); Hematocrit 38.4 % (37.0-47.0); Hemoglobin 12.7 g/dl (12.0-16.0); Imm Gran Abs Auto 0.02 X10*3/uL (0.00-0.03); Imm Gran Pct Auto 0.3 % (0.0-0.4); Lymphocytes Absolute Auto 1.2 X10*3/uL (1.2-4.9); Lymphocytes Percent Auto 15.7 % (20-40); MANUAL DIFF FLAG NO; Mean Corpuscular HGB Conc 33.1 g/dl (31.0-35.0); Mean Corpuscular Hemoglobin 27.6 pg (27.0-33.0); Mean Corpuscular Volume 83.5 fL (80.0-98.0); Mean Platelet Volume 9.4 fL (9.4-12.3); Monocytes Absolute Auto 0.6 X10*3/uL (0.1-1.2); Monocytes Percent Auto 7.3 % (2-11); Neutrophils Absolute Auto 5.6 x10*3/uL (2.0-8.3); Neutrophils Percent Auto 71.9 % (45-73); Platelet Count 323 X10*3/uL (160-400); Red Cell Distribution Width 13.9 % (11.0-16.0); White Blood Count 7.7 X10*3/uL (4.8-10.8)
[2024-04-10] MEDS: methylPREDNISolone Sod Succ 125 MG/2 ML VIAL IVPUSH (10:49)
[2024-04-10] MEDS: diphenhydrAMINE HCL 50 MG/ML VIAL IVPUSH (10:49)
[2024-04-10] MEDS: Famotidine/PF 20 MG/2 ML VIAL IVPUSH (10:49)
[2024-04-10] MEDS: 0.9 % Sodium Chloride 1,000 ML 999 ML IVCONT (10:49)
--- NOTE | 2024-04-10 11:00 | PC.NURSE ---
22g iv inserted R hand, fluids and meds given as documented. pt denies sob, no throat tightness/difficulty swallowing. vss. pt's is at her bedside.
[2024-04-10 11:12] LABS: B Type Natriuretic Peptide < 10 pg/mL (<100)
[2024-04-10 11:34] LABS: C Reactive Protein 0.11 mg/dL (< or = 0.50)
[2024-04-10 12:00] VITALS: BP 120/56; PULSE 72; RESP 16; TEMP 36.5; O2SAT 97
[2024-04-10 12:59] LABS: Alanine Aminotransferase 13 U/L (0-31); Albumin Level 4.3 g/dL (3.5-5.0); Alkaline Phosphatase 74 U/L (39-117); Anion Gap 21 (12-20); Aspartate Amino Transferase 25 U/L (5-31); Bilirubin Direct 0.2 mg/dL (0.0-0.5); Bilirubin Total 0.6 mg/dL (0.0-1.0); Blood Urea Nitrogen 16 mg/dL (9-16); Calcium 9.9 mg/dL (8.4-10.2); Carbon Dioxide 18 mmol/L (22-29); Chloride 103 mmol/L (96-108); Creatinine Clr Calc Pharmacy 48.7; Estimated Glomerular Filt Rate 55; Glucose Random 116 mg/dL (60-115); Magnesium 1.4 mg/dL (1.6-2.6); Sodium 138 mmol/L (135-145); Total Protein 8.1 g/dL (6.5-8.0)
[2024-04-10] MEDS: iohexoL 350 MG/ML 100 ML INFUS..BTL 60 ML IV (13:31)
[2024-04-10] MEDS: Magnesium Sulfate/H2O 2 GM/50 ML PIGGYBACK IV (13:37)
[2024-04-10 13:45] VITALS: BP 116/53; PULSE 70; RESP 15; TEMP 36.6; O2SAT 96
--- NOTE | 2024-04-10 14:47 | PC.NURSE ---
per pt her iv came out. iv replaced by 22g LAC. pt tolerated well. her sons remains at her bedside.
[2024-04-10 15:53] VITALS: BP 134/69; PULSE 85; RESP 16; TEMP 36.8; O2SAT 97
== END 2024-04-10 17:39 | disposition short-term general hospital (02) ==
PROVIDERS: Physician Assistant; Emergency Provider Emergency Medicine; PCP Internal Medicine
DX: K12.2 Cellulitis and abscess of mouth (principal); I10 Essential (primary) hypertension; E11.9 Type 2 diabetes mellitus without complications; R13.10 Dysphagia, unspecified; R22.1 Localized swelling, mass and lump, neck; Z79.899 Other long term (current) drug therapy
CPT/HCPCS: 36415; 70491; 80048; 80076; 83605; 83735; 83880; 85025; 86140; 87040; 93005; 99284; 99285; J1200; J2919; J3475; Q9967

== ENCOUNTER → 2024-04-10 10:29 | Outpatient (BNV) | payer MEDICARE, OTHER, SELFPAY | PROVIDERS: Emergency Provider Emergency Medicine; PCP Internal Medicine; Visit Provider Internal Medicine Cardiovascular Disease | DX: T78.3XXA Angioneurotic edema, initial encounter (principal) | CPT/HCPCS: 93010 ==

== ENCOUNTER 2024-04-20 14:34 | Outpatient (REF) | payer MEDICARE, OTHER, SELFPAY ==
[2024-04-20 14:54] LABS: MANUAL DIFF FLAG NO
[2024-04-20 14:58] LABS: Basophils Absolute Auto 0.1 X10*3/uL (0.0-0.2); Basophils Percent Auto 0.9 % (0-2); Eosinophils Absolute Auto 0.5 X10*3/uL (0.0-0.4); Eosinophils Percent Auto 6.6 % (0-4); Hematocrit 35.1 % (37.0-47.0); Hemoglobin 11.5 g/dl (12.0-16.0); Imm Gran Abs Auto 0.02 X10*3/uL (0.00-0.03); Imm Gran Pct Auto 0.3 % (0.0-0.4); Lymphocytes Absolute Auto 1.7 X10*3/uL (1.2-4.9); Lymphocytes Percent Auto 21.9 % (20-40); Mean Corpuscular HGB Conc 32.8 g/dl (31.0-35.0); Mean Corpuscular Volume 85.6 fL (80.0-98.0); Mean Platelet Volume 9.8 fL (9.4-12.3); Monocytes Absolute Auto 0.7 X10*3/uL (0.1-1.2); Monocytes Percent Auto 9.2 % (2-11); Neutrophils Absolute Auto 4.9 x10*3/uL (2.0-8.3); Neutrophils Percent Auto 61.1 % (45-73); Platelet Count 319 X10*3/uL (160-400); White Blood Count 7.9 X10*3/uL (4.8-10.8)
[2024-04-20 15:18] LABS: Alanine Aminotransferase 15 U/L (0-31); Albumin Level 4.2 g/dL (3.5-5.0); Alkaline Phosphatase 68 U/L (39-117); Anion Gap 14 (12-20); Aspartate Amino Transferase 22 U/L (5-31); Bilirubin Total 0.3 mg/dL (0.0-1.0); Blood Urea Nitrogen 14 mg/dL (9-16); Calcium 9.7 mg/dL (8.4-10.2); Carbon Dioxide 26 mmol/L (22-29); Chloride 104 mmol/L (96-108); Estimated Glomerular Filt Rate 41; Glucose Random 96 mg/dL (60-115); Potassium 4.4 mmol/L (3.3-5.1); Sodium 140 mmol/L (135-145); Total Protein 7.4 g/dL (6.5-8.0)
[2024-04-20 15:33] LABS: Ferritin 113 ng/mL (10-250)
== END 2024-04-20 14:35 | disposition home or self-care (01) ==
LOC: HO.LAB 14:34
PROVIDERS: PCP Internal Medicine; Visit Provider Internal Medicine Medical Oncology
DX: C50.912 Malignant neoplasm of unspecified site of left female breast (principal)
CPT/HCPCS: 36415; 80053; 82728; 85025

== ENCOUNTER 2024-06-27 09:09 | Emergency (ER) | payer MEDICARE, OTHER, SELFPAY ==
[2024-06-27 09:28] VITALS: BP 140/56; PULSE 71; RESP 18; TEMP 36.4; O2SAT 97; BMI 26.3
[2024-06-27] MEDS: diphenhydrAMINE HCL 50 MG/ML VIAL IVPUSH (09:35)
[2024-06-27] MEDS: methylPREDNISolone Sod Succ 125 MG/2 ML VIAL IVPUSH (09:35)
[2024-06-27 09:39] VITALS: O2SAT 100
--- NOTE | 2024-06-27 09:52 | PC.NURSE ---
Arrived from home with complaints of sudden onset throat/tongue swelling that started 10 minutes prior to arrival to ED. Patient with swelling to tongue, able to manage secretions, sating 99% on RA. Provider at bedside, medicated per jan. Patient alert and oriented, reports feeling as though swelling as decreased. VSS, son at bedside aware of plan of care.
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
[2024-06-27 10:44] VITALS: BP 125/61; PULSE 69; RESP 18; O2SAT 97
--- NOTE | 2024-06-27 10:44 | PC.NURSE ---
Patient with decreased tongue swelling , reports feeling better
--- NOTE | 2024-06-27 11:27 | ED_ITS ---
HPI - General Adult General Chief complaint: Allergic Reaction Stated complaint: neck swelling diff breathing Time Seen by Provider: 06/27/24 09:14 Source: patient and family Mode of arrival: ambulatory Limitations: no limitations History of Present Illness ED Provider: Dr Candelaria HPI narrative: 20 minutes of sudden right tongue and neck swelling with some voice changes Onset (ago): minute(s) Severity: severe Related Data Home Medications ?Medication ?Instructions ?Recorded ?Confirmed diphenhydramine HCl 25 mg capsule 25 mg PO BEDTIME PRN Nasal 03/25/22 04/20/24 (Benadryl) Congestion Previous Rx's ?Medication ?Instructions ?Recorded diabetic shoes #1 ea 03/05/21 fluoxetine 40 mg capsule 40 mg PO DAILY 90 days #90 caps 06/13/23 cyclobenzaprine 5 mg tablet 5 mg PO BEDTIME PRN muscle spasm 08/04/23 #20 tabs hydrocodone 5 mg-acetaminophen 325 1 tab PO Q4-6H PRN pain #30 tabs 02/02/24 mg tablet cholecalciferol (vitamin D3) 125 125 mcg PO DAILY #90 tabs 02/16/24 mcg (5,000 unit) tablet (Vitamin D3) amlodipine 5 mg tablet 5 mg PO DAILY #90 tabs 02/24/24 atorvastatin 40 mg tablet 40 mg PO BEDTIME #90 caps 02/24/24 lisinopril 5 mg tablet 5 mg PO DAILY #90 tabs 02/24/24 metformin 1,000 mg tablet 1,000 mg PO BID #180 caps 02/24/24 cyanocobalamin (vitamin B-12) 500 500 mcg PO DAILY 30 days #30 tabs 03/05/24 mcg tablet folic acid 400 mcg tablet 0.4 mg PO DAILY 30 days #30 tabs 03/05/24 letrozole 2.5 mg tablet 2.5 mg PO DAILY #90 tabs 03/09/24 meloxicam 7.5 mg tablet 7.5 mg PO DAILY PRN pain #90 tabs 03/09/24 blood sugar diagnostic (FreeStyle #100 ea 04/16/24 Lite Strips) blood-glucose meter (FreeStyle #1 ea 04/16/24 Lite Meter kit) memantine 7 mg capsule 7 mg PO DAILY 30 days #30 ea 05/04/24 sprinkle,extended release 24hr lorazepam 1 mg tablet 1 mg PO BEDTIME PRN Anxiety 30 05/07/24 days #30 tabs diphenhydramine HCl 25 mg capsule 25 mg PO TID PRN swelling #20 caps 06/27/24 (Benadryl) prednisone 20 mg tablet 60 mg (3 x 20 mg) PO DAILY #12 tabs 06/27/24 Allergies Allergy/AdvReac Type Severity Reaction Status Date / Time bacitracin [BACITRACIN] Allergy Intermediate RASH Verified 06/27/24 09:29 latex [LATEX] Allergy Intermediate FACIAL Verified 06/27/24 09:29 SWELLING; RASH nickel [NICKEL] Allergy Intermediate RASH Verified 06/27/24 09:29 adhesive tape AdvReac Irritable Verified 06/27/24 09:29 Review of Systems Review of Systems: Yes all other systems are reviewed and are negative Neurologic: Denies Sensory deficit (Neuro) [facility] Past Medical History Medical History Arrhythmia Right leg pain Obesity (BMI 30-39.9) Benign essential hypertension Normal colonoscopy (~06/16/21) Medicare annual wellness visit, initial Breast implant in situ Breast cancer screening by mammogram Cataract Cholelithiasis Pelvic fracture Fatty liver Colon cancer screening Hypercholesterolemia Type 2 diabetes mellitus with hyperglycemia Restrictive lung disease Pulmonary fibrosis Surgical History History of lumpectomy of left breast (02/02/24) Left breast mass History of colonoscopy History of cataract surgery History of surgery on lower extremity H/O left wrist surgery History of ankle surgery Family History Family History Mother Lung cancer Father Respiratory failure Sister Lung disease Brother Respiratory failure Son No problems noted. 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 other at home: Yes Do you presently have visiting nurse or other home services: No Alcohol intake: former Comment: COUNTS CORRECT Patient Tobacco Use Status: Former Tobacco user Years Smoked: stopped 48 years old Smoked in Last 30 Days: No e-Cigarette/Vaping Use: Never Used Second Hand Smoke Exposure: No Use of substances other than those prescribed or required for medical reasons: No Advance Directives: Yes Advance Directives on File: Yes Advance Directives Date on File: 02/01/24 service: No Current occupational status: retired Cognitive needs: Yes Hearing needs: No Vision needs: Yes Physical Exam ED Vital Signs: Vital Signs - 24 hr 06/27/24 09:28 06/27/24 09:39 06/27/24 10:44 Temperature 97.6 F Pulse Rate 71 69 Respiratory Rate 18 18 Blood Pressure 140/56 H 125/61 Pulse Oximetry 97 100 97 Oxygen Delivery Method Room Air Room Air 06/27/24 12:42 Temperature 97.8 F Pulse Rate 72 Respiratory Rate 15 Blood Pressure 133/68 Pulse Oximetry 94 Oxygen Delivery Method Room Air BMI result Body Mass Index 26.3 Const Other: female looking anxious Nutritional Appearance: average body habitus Orientation/consciousness: oriented to person and patient oriented x3 Limitations: no limitations HENMT Other: right side of tongue with severe swelling unable to completely visualize oral pharynx, slight right lip swelling Head: Yes normal to inspection Ears: external ears normal General nose exam: Normal external nose present Throat: Yes posterior oropharynx normal Eyes General: appearance normal, both eyes and all related structures Neck Other: right swollen submandibular area Chest Chest palpation & inspection: normal inspection of the chest Resp Auscultation: clear to auscultation bilaterally Cardio Jugular venous distension: no JVD Rate: regular rate Rhythm: regular rhythm Heart sounds: S1 normal heart sound present and S2 normal heart sound present GI Inspection: Yes normal to inspection Palpation (GI): Soft to palpation, nontender and No hepatosplenomegaly present Auscultation: normal bowel sounds General: Yes no CVA tenderness Back/Spine/Pelvis Back: no CVA tenderness Skin General skin exam: no rashes or lesions noted Neuro General: oriented to person and patient oriented x3 Cranial nerves: Yes CN's II-XII intact bilaterally Motor exam (neuro): 5/5 motor strength present throughout Sensory Exam: No Sensory deficit (Neuro) Extrem General: Yes normal to inspection Psych Appearance: grossly normal Course Reevaluation(s) Reevaluation #1: I spent 75 minutes of critical care, with interventions, assessments, speaking to patient, consultants, and family. Time: 11:28 Reevaluation #2: tongue and neck looking so much better will dc home Time: 14:19 Medications Administered Discontinued Medications Generic Name Dose Route Start Last Admin Trade Name Freq PRN Reason Stop Dose Admin Diphenhydramine HCl 50 mg 06/27/24 09:16 06/27/24 09:35 Diphenhydramine Hcl 50 Mg/Ml Vial IVPUSH 06/27/24 09:17 50 mg ONCE ONE Administration Methylprednisolone Sodium Succinate 125 mg 06/27/24 09:16 06/27/24 09:35 Methylprednisolone Sod Succ 125 Mg/2 Ml Vial IVPUSH 06/27/24 09:17 125 mg ONCE ONE Administration Medical Decision Making Differential Diagnosis Differential Diagnoses: The differential diagnosis associated with the presentation includes (angioedema, allergic reaction) Admission/Observation Consideration of admission/observation: Escalation of care including admission/observation considered (upon arrival patient considered for admission) Independent Historian Clinical information obtained from an independent historian. History obtained from or confirmed by: Other (son) Chronic Conditions Patient?s care impacted by: Hypertension (on lisinopril) Discharge Plan Discharge Clinical Impression: Angioedema, Adverse reaction to drug Patient Disposition: Home, Self-Care Instructions: Angioedema (ED) Prescriptions: New prednisone 20 mg tablet 60 mg PO DAILY Qty: 12 0RF diphenhydramine HCl [Benadryl] 25 mg capsule 25 mg PO TID PRN (Reason: swelling) Qty: 20 0RF No Action fluoxetine 40 mg capsule 40 mg PO DAILY 90 Days Qty: 90 2RF cyclobenzaprine 5 mg tablet 5 mg PO BEDTIME PRN (Reason: muscle spasm) Qty: 20 0RF cholecalciferol (vitamin D3) [Vitamin D3] 125 mcg (5,000 unit) Tablet 125 mcg PO DAILY Qty: 90 3RF cyanocobalamin (vitamin B-12) 500 mcg tablet 500 mcg PO DAILY 30 Days Qty: 30 6RF folic acid 400 mcg tablet 0.4 mg PO DAILY 30 Days Qty: 30 6RF meloxicam 7.5 mg tablet 7.5 mg PO DAILY PRN (Reason: pain) Qty: 90 0RF (DME) FreeStyle Lite Strips Strip See Rx Instructions .ROUTE .MEDSUPPLY Qty: 100 3RF Rx Instructions: As directed check the BS QD (DME) blood-glucose meter [FreeStyle Lite Meter] Kit See Rx Instructions .ROUTE .MEDSUPPLY Qty: 1 0RF Rx Instructions: test daily memantine 7 mg capsule,sprinkle,ER 24hr 7 mg PO DAILY 30 Days Qty: 30 1RF lorazepam 1 mg tablet 1 mg PO BEDTIME PRN (Reason: Anxiety) 30 Days Qty: 30 1RF diphenhydramine HCl [Benadryl] 25 mg Capsule 25 mg PO BEDTIME PRN (Reason: Nasal Congestion) letrozole 2.5 mg Tablet 2.5 mg PO DAILY Qty: 90 3RF hydrocodone-acetaminophen 5-325 mg tablet 1 tab PO Q4-6H PRN (Reason: pain) Qty: 30 0RF Rx Instructions: Partial Fill upon patient request. (DME) diabetic shoes See Rx Instructions .Route .MEDSUPPLY Qty: 1 0RF Rx Instructions: As directed metformin 1,000 mg tablet 1,000 mg PO BID Qty: 180 2RF lisinopril 5 mg tablet 5 mg PO DAILY Qty: 90 3RF atorvastatin 40 mg tablet 40 mg PO BEDTIME Qty: 90 2RF amlodipine 5 mg tablet 5 mg PO DAILY Qty: 90 2RF Referrals: Abel,Rocky Okeefe MD [Primary Care Provider] - 3 days Print Language: Romanian
[2024-06-27 12:42] VITALS: BP 133/68; PULSE 72; RESP 15; TEMP 36.6; O2SAT 94
[2024-06-27 14:51] VITALS: BP 116/70; PULSE 70; RESP 18; TEMP 36.6; O2SAT 98
== END 2024-06-27 14:52 | disposition home or self-care (01) ==
PROVIDERS: Emergency Provider Emergency Medicine; PCP Internal Medicine
DX: R22.1 Localized swelling, mass and lump, neck (principal); R06.02 Shortness of breath; T50.905A Adverse effect of unspecified drugs, medicaments and biological substances, initial encounter; Y92.89 Other specified places as the place of occurrence of the external cause
CPT/HCPCS: 96374; 96375; 99284; J1200; J2919

== ENCOUNTER 2024-06-29 14:14 | Outpatient (REF) | payer MEDICARE, OTHER, SELFPAY ==
--- NOTE | ~2024-06-29 | CT_ITS ---
EXAMINATION: CT CHEST WITH CONTRAST CLINICAL INFORMATION: Solitary pulmonary nodule. COMPARISON: CT chest 01/16/2020. TECHNIQUE: Multidetector volumetric CT imaging of the chest was obtained after the administration of 50 mL of Omnipaque 350 intravenous contrast without immediate adverse reactions. Axial MIP volume rendering provided. Sagittal and coronal reformatted images were obtained. This CT examination was performed using dose optimization techniques as appropriate, variously including the following: *Automated exposure control *Adjustment of mA and/or kV according to patient size (this includes techniques or standardized protocols for targeted exams where dose is matched to indication/reason for exam; i.e. 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 LUNGS: Diffuse centrilobular and paraseptal emphysema. There is diffuse chronic peripheral interstitial thickening throughout both lungs with mild traction bronchiectasis with no intraluminal debris or soft tissue lesion. There are no pulmonary nodules, mass or consolidation. The findings have progressed since the last exam 01/16/2020. MEDIASTINUM: The thyroid lobes are symmetrical and normal. Central trachea and the bronchi are widely patent. Heart size is borderline normal with mild coronary artery calcification. No pericardial effusion seen. Thoracic aorta and pulmonary artery are of normal caliber. No pericardial effusion seen. PLEURA: Nonspecific minimal bilateral dependent posterior pleural thickening. No effusion, calcified plaques or pneumothorax. AXILLA: No abnormal axillary lymph nodes seen. There is a right breast prosthesis and unchanged. The left breast prosthesis is not visualized; however, there is a small collection with surrounding capsule in place of prosthesis. UPPER ABDOMEN: Liver, spleen, pancreas and bilateral adrenal glands are unremarkable. OSSEOUS STRUCTURES: No aggressive lytic or sclerotic process seen. There is mild ventral spondylosis mid and lower dorsal spine. There is cement augmentation of L1 vertebra. CT/CT chest w IV con IMPRESSION: 1. Centrilobular and paraseptal emphysema with chronic interstitial lung changes with traction bronchiectasis. The findings have progressed since the last exam 01/16/2020. 2. No pulmonary nodules, mass or consolidation seen. 3. No abnormal mediastinal or axillary lymph nodes seen. 4. Right breast prosthesis is stable. The left breast prosthesis is not visualized; however, there is a small collection with surrounding capsule in place of left breast prosthesis. Fleischner guidelines were followed.
[2024-06-29 14:42] LABS: MANUAL DIFF FLAG NO
[2024-06-29 14:59] LABS: Basophils Percent Auto 0.1 % (0-2); Hematocrit 31.6 % (37.0-47.0); Hemoglobin 10.5 g/dl (12.0-16.0); Imm Gran Abs Auto 0.05 X10*3/uL (0.00-0.03); Imm Gran Pct Auto 0.5 % (0.0-0.4); Lymphocytes Absolute Auto 0.8 X10*3/uL (1.2-4.9); Lymphocytes Percent Auto 7.2 % (20-40); Mean Corpuscular HGB Conc 33.2 g/dl (31.0-35.0); Mean Corpuscular Hemoglobin 27.6 pg (27.0-33.0); Mean Corpuscular Volume 82.9 fL (80.0-98.0); Mean Platelet Volume 10.2 fL (9.4-12.3); Monocytes Absolute Auto 0.4 X10*3/uL (0.1-1.2); Monocytes Percent Auto 3.7 % (2-11); Neutrophils Absolute Auto 9.7 x10*3/uL (2.0-8.3); Neutrophils Percent Auto 88.5 % (45-73); Platelet Count 290 X10*3/uL (160-400); Red Blood Count 3.81 X10*6/uL (4.20-5.50); Red Cell Distribution Width 13.3 % (11.0-16.0); White Blood Count 10.9 X10*3/uL (4.8-10.8)
[2024-06-29 15:05] LABS: Prothrombin Time 11.6 SEC (11.1-13.3)
[2024-06-29 15:10] LABS: Partial Thromboplastin Time 23.1 SEC (26.0-36.8)
[2024-06-29 15:18] LABS: Alanine Aminotransferase 14 U/L (0-31); Albumin Level 4.1 g/dL (3.5-5.0); Alkaline Phosphatase 70 U/L (39-117); Anion Gap 13 (12-20); Aspartate Amino Transferase 23 U/L (5-31); Bilirubin Total 0.3 mg/dL (0.0-1.0); Blood Urea Nitrogen 27 mg/dL (9-16); Calcium 9.4 mg/dL (8.4-10.2); Carbon Dioxide 25 mmol/L (22-29); Chloride 103 mmol/L (96-108); Cholesterol 148 mg/dL (<200); Estimated Glomerular Filt Rate 59; Glucose Random 156 mg/dL (60-115); HDL Cholesterol 57 mg/dL (>40); LDL Cholesterol Calculated 79 mg/dL (<100); Potassium 4.1 mmol/L (3.3-5.1); Sodium 137 mmol/L (135-145); Total Protein 7.2 g/dL (6.5-8.0); Triglycerides 64 mg/dL (<150)
[2024-06-29 15:26] LABS: Estimated Average Glucose 120 mg/dL; Hemoglobin A1c % 5.8 % (<6.0)
[2024-06-29 15:31] LABS: Free T4 (Free Thyroxine) 0.91 ng/dL (0.71-1.85); Thyroid Stimulating Hormone 0.41 uIU/mL (0.32-4.0)
[2024-06-29] MEDS: iohexoL 350 MG/ML 100 ML INFUS..BTL 65 ML IV (16:58)
[2024-06-29 19:20] LABS: Appearance Urine Cloudy; Color Urine Yellow; Glucose Urine UA Negative (Negative); Leukocyte Esterase Urine Large (3+) (Negative); Nitrite Urine Negative (Negative); PH 6.5 (5.0-9.0); Specific Gravity - Urine 1.025 (1.005-1.025); UMIC TRIGGER UACC YES; Urine Blood Negative (Negative); Urine Ketones Trace mg/dL (Negative); Urine Protein 30 (1+) mg/dL (Neg-Trace)
[2024-06-29 19:33] LABS: Creatinine Urine 142.77 mg/dL; Microalbum/Creatinine Ratio Ur 32.9 ug/mg cr (<30)
[2024-06-29 20:00] LABS: Bacteria Urine None Seen (None Seen); Other Crystals Urine Present; RBC Urine 0-2 /HPF (0-2); Squamous Epithelial Cell Urine 0-2 /HPF (0-2); UACC Culture Trigger YES; WBC Urine >50 /HPF (0-5)
[2024-06-30 05:45] LABS: Folate 4.4 ng/mL (> or = 4.0); Vitamin B12 1215 pg/mL (200-900)
== END 2024-06-29 14:15 | disposition home or self-care (01) ==
LOC: HO.CT 14:14
PROVIDERS: PCP Internal Medicine; Visit Provider Internal Medicine
DX: R91.1 Solitary pulmonary nodule (principal); S02.651A Fracture of angle of right mandible, initial encounter for closed fracture; E11.65 Type 2 diabetes mellitus with hyperglycemia; E78.00 Pure hypercholesterolemia, unspecified; R30.0 Dysuria; R41.89 Other symptoms and signs involving cognitive functions and awareness
CPT/HCPCS: 36415; 71260; 80053; 80061; 81001; 82043; 82570; 82607; 82746; 83036; 84439; 84443; 85025; 85610; 85730; 87086; Q9967

== ENCOUNTER 2024-07-13 15:21 | Outpatient (AMB) | payer MEDICARE, OTHER, SELFPAY ==
--- NOTE | 2024-07-13 15:26 | MHC.PC.OV ---
Vital Signs 07/13/24 15:27 Height 5 ft 6 in Weight 162 lb 0.4 oz BMI 26.1 BP 114/62 Blood Pressure Location Lt brachial Position Sitting Pulse 78 Pulse Source Pulse Oximeter Oxygen Delivery Method Room Air Intake Visit Reasons: DM Sales Service Representative Required: No Allergies bacitracin [BACITRACIN] Allergy (Intermediate, Verified 06/27/24 09:29) RASH latex [LATEX] Allergy (Intermediate, Verified 06/27/24 09:29) FACIAL SWELLING; RASH nickel [NICKEL] Allergy (Intermediate, Verified 06/27/24 09:29) RASH lisinopril Adverse Reaction (Intermediate, Verified 07/13/24 15:36) Swelling adhesive tape Adverse Reaction (Verified 06/27/24 09:29) Irritable Tobacco use date assessed: 02/24/24 Fall risk assessment: No Falls in past year Last assessed Fall Risk: 07/13/24 Dental Screening Dental Screen Date: 01/18/24 HPI DM HPI Details 74-year-old female with left breast cancer, diabetes mellitus controlled hypercholesterolemia hypertension generalized anxiety disorder with a history of right mandibular angle fracture coming in for follow-up. Last seen in 02/15/2024. Patient is up-to-date with colonoscopy . Patient had the pulmonary nodule and had a CT scan done in 07/17/2024 results came up as COPD with traction bronchiectasis no pulmonary nodule seen has the right breast prosthesis capsule in place of the left breast prosthesis. Note received regarding mandibular osteomyelitis having had local debridement and antimicrobial treatment intermittently antibiotic treatment from 09/16/2023 has been recommended surgery with possible reconstruction diagnosis of cellulitis and osteomyelitis interested in hyperbaric oxygen therapy Hematology-Oncology notes appreciated also for the left breast cancer on letrozole continuing to monitor blood count. Patient also has seen Neurology and diagnosis of cognitive dysfunction advised to do the brain MRI which was negative started on memantine [facility] Medical History Arrhythmia Right leg pain Obesity (BMI 30-39.9) Benign essential hypertension Normal colonoscopy (~06/16/21) Medicare annual wellness visit, initial Breast implant in situ Breast cancer screening by mammogram Cataract Cholelithiasis Pelvic fracture Fatty liver Colon cancer screening Hypercholesterolemia Type 2 diabetes mellitus with hyperglycemia Restrictive lung disease Pulmonary fibrosis Surgical History History of lumpectomy of left breast (02/02/24) Left breast mass History of colonoscopy History of cataract surgery History of surgery on lower extremity H/O left wrist surgery History of ankle surgery Family History Mother Lung cancer Father Respiratory failure Sister Lung disease Brother Respiratory failure Son No problems noted. 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 child care giver to a significant other at home: Yes Do you presently have visiting nurse or other home services: No Alcohol intake: former Comment: COUNTS CORRECT Patient Tobacco Use Status: Former Tobacco user Years Smoked: stopped 48 years old e-Cigarette/Vaping Use: Never Used Second Hand Smoke Exposure: No Advance Directives Date on File: 02/01/24 service: No Current occupational status: retired Cognitive needs: Yes Hearing needs: No Vision needs: Yes Questionnaire Thrive Questionnaire Date Thrive assessed: 01/18/24 AUDIT C Alcohol Use Questionnaire (AUDIT-C) 1. How often do you have a drink containing alcohol?: Never 3. How often do you have six or more drinks on one occasion?: Never Total Score: 0 PARTHA-7 AMB Questionnaire PARTHA-7 Date PARTHA - 7 assessed: 01/18/24 Source: Developed by Drs. Angus Roe, Kelly Cade, Robe Hawley and colleagues, with an educational juliana from [employer]. Physical exam (Primary Care) Vital Signs: Last Vital Signs Pulse 78 07/13/24 15:27 BP 114/62 07/13/24 15:27 Oxygen Delivery Method Room Air 07/13/24 15:27 BMI result Body Mass Index 26.1 Tobacco/Smoking Status: Tobacco use Status Tobacco use date assessed 02/24/24 07/13/24 15:32 Patient Tobacco Use Status Former Tobacco user 07/13/24 15:32 e-Cigarette/Vaping Use Never Used 07/13/24 15:32 Thrive Assessment: Date of Thrive Assessment Date Thrive assessed 01/18/24 07/13/24 15:32 Const General: alert; No acute distress Eyes Conjunctivae: conjunctivae normal Resp Auscultation: clear to auscultation bilaterally Cardio Rate: regular rate Rhythm: regular rhythm GI Inspection: Yes normal to inspection Extrem General: Yes normal to inspection and No edema Assessment and Plan Assessment & Plan (1) Pulmonary nodule: Comment: 11/16/2024 chest x-ray showing multiple nodules in the left lung question of a single nodule in the right lung Code(s): R91.1 - Solitary pulmonary nodule Plan: Repeat CT scan in July 17- (2) Cognitive dysfunction: Comment: MMSE 26. Code(s): F09 - Unspecified mental disorder due to known physiological condition Plan: Patient has been followed up by Neurology. Started on memantine (3) Breast cancer, left: Comment: Novemberreast, 6 o'clock, biopsy: Invasive ductal carcinoma, MSBR grade 2 Code(s): C50.912 - Malignant neoplasm of unspecified site of left female breast Plan: Continue to follow-up with Hematology-Oncology on letrozole (4) Anemia: Code(s): D64.9 - Anemia, unspecified Plan: Continuing to monitor bike Hematology-Oncology (5) Type 2 diabetes mellitus with hyperglycemia: Comment: Dr. Wiggins Code(s): E11.65 - Type 2 diabetes mellitus with hyperglycemia Qualifiers: Diabetes mellitus terminologist insulin use: without terminologist use Qualified Code(s): E11.65 - Type 2 diabetes mellitus with hyperglycemia Plan: Decrease the amount of carbohydrate intake, pasta, bread, rice and potatoes are all sugar and that is aside from all the sweet stuff, remember that fruits are good but they are Sweet also. Hemoglobin A1c goal of less than 7.0 on metformin a 1000 mg twice a day (6) Benign essential hypertension: Code(s): I10 - Essential (primary) hypertension Plan: Continue with blood pressure medication. Decrease salt intake and exercise takes amlodipine 5 mg once a day (7) Hypercholesterolemia: Code(s): E78.00 - Pure hypercholesterolemia, unspecified Plan: Avoid fried foods, chicken skin, eggs, butter margarine, pastries and meat. Be it pork or beef they have a lot of cholesterol on atorvastatin 40 mg once a day (8) Osteomyelitis: Code(s): M86.9 - Osteomyelitis, unspecified Plan: Patient is being followed up by the surgeon (9) COPD (chronic obstructive pulmonary disease): Code(s): J44.9 - Chronic obstructive pulmonary disease, unspecified Medications: New albuterol sulfate 90 mcg/actuation (Ventolin HFA) 2 puffs inhalation Q6H PRN 8.5 grams 0RF shortness of breath or wheezing J44.9 - Chronic obstructive pulmonary disease, unspecified Coding Level of Care Code Est Pt Level 4 (23461) Diagnoses Pulmonary nodule R91.1 Cognitive dysfunction F09 Breast cancer, left C50.912 Anemia D64.9 Type 2 diabetes mellitus with hyperglycemia, without long-term current use of insulin E11.65 Diabetes mellitus snf insulin use: without terminologist use Benign essential hypertension I10 Hypercholesterolemia E78.00 Osteomyelitis M86.9 COPD (chronic obstructive pulmonary disease) J44.9
[2024-07-13 15:27] VITALS: BP 114/62; PULSE 78; BMI 26.1
== END 2024-07-13 16:33 | disposition home or self-care (01) ==
PROVIDERS: PCP Internal Medicine; Visit Provider Internal Medicine
DX: E11.65 Type 2 diabetes mellitus with hyperglycemia (principal); C50.912 Malignant neoplasm of unspecified site of left female breast; M86.9 Osteomyelitis, unspecified; J44.9 Chronic obstructive pulmonary disease, unspecified; R91.1 Solitary pulmonary nodule; F09 Unspecified mental disorder due to known physiological condition; D64.9 Anemia, unspecified; I10 Essential (primary) hypertension; E78.00 Pure hypercholesterolemia, unspecified
CPT/HCPCS: 99214

== ENCOUNTER 2024-07-20 14:07 | Emergency (ER) | payer MEDICARE, OTHER, SELFPAY ==
[2024-07-20 14:23] VITALS: BP 142/68; BP 155/70; PULSE 104; PULSE 96; RESP 16; TEMP 36.1; O2SAT 95; O2SAT 98; BMI 25.8
--- NOTE | 2024-07-20 14:43 | ED_ITS ---
HPI - Psych General Chief Complaint: Psychiatric Symptoms Stated Complaint: SI WITH PLAN Time Seen by Provider: 07/20/24 14:16 Source: patient Mode of arrival: ambulatory Limitations: no limitations History of Present Illness ED Provider: Maria Teresa GERARDO HPI Narrative: This is a 74-year-old female hx anxiety, depression, copd. cognitive dysfunction, breast cancer (s/p left lumpectomy), diabetes, anemia, HTN, restrictive lung disease presenting from [facility] with concerns of suicidal ideation with a vague plan of overdose, attributes this to increasing life stressors. She was seen at [facility] today where they sent her in for further evaluation and treatment. She is also complaining of chronic right hip pain, she states this is chronic pain and she is in need of a hip replacement. No recent falls or trauma. Denies drugs, alcohol and tobacco. No hallucinations. No numbness, tingling, urinary or bowel incontinence or retention, saddle paresthesias, fevers, chills, chest pain, shortness of breath, nausea, vomiting, abdominal pain. Related Data Home Medications ?Medication ?Instructions ?Recorded ?Confirmed diphenhydramine HCl 25 mg capsule 25 mg PO BEDTIME PRN Nasal 03/25/22 04/20/24 (Benadryl) Congestion Previous Rx's ?Medication ?Instructions ?Recorded diabetic shoes #1 ea 03/05/21 fluoxetine 40 mg capsule 40 mg PO DAILY 90 days #90 caps 06/13/23 cyclobenzaprine 5 mg tablet 5 mg PO BEDTIME PRN muscle spasm 08/04/23 #20 tabs hydrocodone 5 mg-acetaminophen 325 1 tab PO Q4-6H PRN pain #30 tabs 02/02/24 mg tablet cholecalciferol (vitamin D3) 125 125 mcg PO DAILY #90 tabs 02/16/24 mcg (5,000 unit) tablet (Vitamin D3) amlodipine 5 mg tablet 5 mg PO DAILY #90 tabs 02/24/24 atorvastatin 40 mg tablet 40 mg PO BEDTIME #90 caps 02/24/24 metformin 1,000 mg tablet 1,000 mg PO BID #180 caps 02/24/24 cyanocobalamin (vitamin B-12) 500 500 mcg PO DAILY 30 days #30 tabs 03/05/24 mcg tablet folic acid 400 mcg tablet 0.4 mg PO DAILY 30 days #30 tabs 03/05/24 letrozole 2.5 mg tablet 2.5 mg PO DAILY #90 tabs 03/09/24 meloxicam 7.5 mg tablet 7.5 mg PO DAILY PRN pain #90 tabs 03/09/24 blood sugar diagnostic (FreeStyle #100 ea 04/16/24 Lite Strips) blood-glucose meter (FreeStyle #1 ea 04/16/24 Lite Meter kit) memantine 7 mg capsule 7 mg PO DAILY 30 days #30 ea 05/04/24 sprinkle,extended release 24hr diphenhydramine HCl 25 mg capsule 25 mg PO TID PRN swelling #20 caps 06/27/24 (Benadryl) prednisone 20 mg tablet 60 mg (3 x 20 mg) PO DAILY #12 tabs 06/27/24 sulfamethoxazole 800 1 tab PO BID 3 days #6 tabs 07/02/24 mg-trimethoprim 160 mg tablet (Bactrim DS) lorazepam 1 mg tablet 1 mg PO BEDTIME PRN anxiety 30 07/05/24 days #30 tabs albuterol sulfate 90 mcg/actuation 2 puff inhalation Q6H PRN 07/13/24 aerosol inhaler (Ventolin HFA) shortness of breath or wheezing #8.5 grams Allergies Allergy/AdvReac Type Severity Reaction Status Date / Time bacitracin [BACITRACIN] Allergy Intermediate RASH Verified 07/20/24 14:29 latex [LATEX] Allergy Intermediate FACIAL Verified 07/20/24 14:29 SWELLING; RASH nickel [NICKEL] Allergy Intermediate RASH Verified 07/20/24 14:29 lisinopril AdvReac Intermediate Swelling Verified 07/20/24 14:29 adhesive tape AdvReac Irritable Verified 07/20/24 14:29 Review of Systems 2 Review of Systems: Yes all other systems are reviewed and are negative PMFSH Past Medical History Attestation statement: The following information was validated with the patient. Source: old records reviewed and nursing notes reviewed Medical History Arrhythmia Right leg pain Obesity (BMI 30-39.9) Benign essential hypertension Normal colonoscopy (~06/16/21) Medicare annual wellness visit, initial Breast implant in situ Breast cancer screening by mammogram Cataract Cholelithiasis Pelvic fracture Fatty liver Colon cancer screening Hypercholesterolemia Type 2 diabetes mellitus with hyperglycemia Restrictive lung disease Pulmonary fibrosis Surgical History History of lumpectomy of left breast (02/02/24) Left breast mass History of colonoscopy History of cataract surgery History of surgery on lower extremity H/O left wrist surgery History of ankle surgery Family History Family History Mother Lung cancer Father Respiratory failure Sister Lung disease Brother Respiratory failure Son No problems noted. 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 home health care provider to a significant other at home: Yes Do you presently have visiting nurse or other home services: No Alcohol intake: former Comment: COUNTS CORRECT Patient Tobacco Use Status: Former Tobacco user Years Smoked: stopped 48 years old e-Cigarette/Vaping Use: Never Used Second Hand Smoke Exposure: No Advance Directives: Yes Advance Directives on File: Yes Advance Directives Date on File: 01/18/24 Do you have a plan to hurt others: No Plan service: No Current occupational status: retired Cognitive needs: Yes Hearing needs: No Vision needs: Yes Physical Exam 2 Vital Signs: Vital Signs: Last Vital Signs Temp 96.9 F 07/20/24 14:23 Pulse 104 H 07/20/24 14:23 Resp 16 07/20/24 14:23 BP 155/70 H 07/20/24 14:23 Pulse Ox 98 07/20/24 14:23 O2 Del Method Room Air 07/20/24 14:23 BMI result Body Mass Index 25.8 vss Appearance: Alert.? Oriented X3.? No acute distress.? Head: Normocephalic, atraumatic, no step-offs or deformities Eyes: Pupils equal, round and reactive to light.? ENT: Pharynx normal.? Neck: Normal inspection.? Neck supple.? CVS: Normal heart rate and rhythm.? Pulses normal.? Respiratory: No respiratory distress.? Breath sounds normal.? Abdomen: Soft and nontender.? Skin: Skin warm and dry.? Normal skin color.? Normal skin turgor.? Extremities: No lower extremity edema.? No calf ttp. 5/5 strength to bilateral upper and lower extremities Neuro: Oriented X 3.? No motor deficit.? No sensory deficit. CN 2-12 intact . Ambulating w/ normal gait. Course Reevaluation(s) Reevaluation #1: CBC with slight leukocytosis this appears to be around patient's baseline. Chemistry no acute findings needing intervention. Acetaminophen, salicylates pending. Urine still pending. At this time patient to be placed into observation to allow more time to be evaluated by behavioral health team. At time observation started patient common cooperative no acute distress will continue to monitor Time: 15:50 Medical Decision Making Medical Decision Making [facility] Narrative: 74 year old female presents with suicidal ideation with plan to overdose coming from [facility]. Also reporting chronic right hip pain. Physical exam benign. Ambulatory. History and physical exam concerning for right hip pain that is chronic in nature likely osteoarthritis. Unlikely septic joint, bursitis, neurovascular compromise, arterial or venous occlusion. Suicidal ideation likely secondary to depression. Unlikely bipolar, schizophrenia. Unlikely metabolic derangements however will rule out. Will also rule out UTI. Plan labs, urine, care team consult - 16:50: Care team evaluated the patient, patient is adamant that she will drive her car in town and by fentanyl and overdose. Patient on a Section 12, inpatient bed search. Patient has not provided a urine sample yet Differential Diagnosis Differential Diagnoses: The differential diagnosis associated with the presentation includes History and physical exam concerning for right hip pain that is chronic in nature likely osteoarthritis. Unlikely septic joint, bursitis, neurovascular compromise, arterial or venous occlusion. Suicidal ideation likely secondary to depression. Unlikely bipolar, schizophrenia. Unlikely metabolic derangements however will rule out. Will also rule out UTI. Admission/Observation Consideration of admission/observation: Escalation of care including admission/observation considered possible Lab Data [facility] Lab Attestation statement: I reviewed the patient's lab results. 07/20/24 15:12 07/20/24 15:12 Labs: Lab Results 07/20/24 Range/Units 15:12 WBC 10.9 H (4.8-10.8) X10*3/uL RBC 4.10 L (4.20-5.50) X10*6/uL Hgb 11.3 L (12.0-16.0) g/dl Hct 34.1 L (37.0-47.0) % MCV 83.2 (80.0-98.0) fL MCH 27.6 (27.0-33.0) pg MCHC 33.1 (31.0-35.0) g/dl RDW 13.4 (11.0-16.0) % Plt Count 267 (160-400) X10*3/uL MPV 9.5 (9.4-12.3) fL Immature Gran % (Auto) 0.5 H (0.0-0.4) % Neut % (Auto) 79.4 H (45-73) % Lymph % (Auto) 11.5 L (20-40) % [place] % (Auto) 6.5 (2-11) % Eos % (Auto) 1.6 (0-4) % Baso % (Auto) 0.5 (0-2) % Lymph # (Auto) 1.3 (1.2-4.9) X10*3/uL [place] # (Auto) 0.7 (0.1-1.2) X10*3/uL Eos # (Auto) 0.2 (0.0-0.4) X10*3/uL Baso # (Auto) 0.1 (0.0-0.2) X10*3/uL Abs Immat Gran (auto) 0.05 H (0.00-0.03) X10*3/uL Absolute Neuts (auto) 8.7 H (2.0-8.3) x10*3/uL Absolute Nucleated RBC 0.000 (0.0-0.012) X10*3/uL Nucleated RBC % (auto) 0.0 (0.0-0.2) /100WBC PT 12.4 (11.1-13.3) SEC INR 1.0 (0.9-1.1) Sodium 140 (135-145) mmol/L Potassium 4.4 (3.3-5.1) mmol/L Chloride 101 (96-108) mmol/L Carbon Dioxide 29 (22-29) mmol/L Anion Gap 14 (12-20) BUN 14 (9-16) mg/dL Creatinine 1.03 (0.5-1.4) mg/dL Estim Creat Clear Calc 47.3 Estimated GFR 52 Random Glucose 100 (60-115) mg/dL Calcium 10.2 D (8.4-10.2) mg/dL Magnesium 1.7 (1.6-2.6) mg/dL Total Bilirubin 0.4 (0.0-1.0) mg/dL AST 19 (5-31) U/L ALT 11 (0-31) U/L Alkaline Phosphatase 68 (39-117) U/L Total Protein 7.4 (6.5-8.0) g/dL Albumin 4.2 (3.5-5.0) g/dL Salicylates < 5.0 L (15-30) mg/dL Acetaminophen < 3 (<30) mcg/mL Discharge Plan Discharge Clinical Impression: Anxiety, Depressed, Suicide ideation, Chronic hip pain Patient Disposition: Still a Patient Prescriptions: No Action fluoxetine 40 mg capsule 40 mg PO DAILY 90 Days Qty: 90 2RF cyclobenzaprine 5 mg tablet 5 mg PO BEDTIME PRN (Reason: muscle spasm) Qty: 20 0RF cholecalciferol (vitamin D3) [Vitamin D3] 125 mcg (5,000 unit) Tablet 125 mcg PO DAILY Qty: 90 3RF cyanocobalamin (vitamin B-12) 500 mcg tablet 500 mcg PO DAILY 30 Days Qty: 30 6RF folic acid 400 mcg tablet 0.4 mg PO DAILY 30 Days Qty: 30 6RF meloxicam 7.5 mg tablet 7.5 mg PO DAILY PRN (Reason: pain) Qty: 90 0RF (DME) FreeStyle Lite Strips Strip See Rx Instructions .ROUTE .MEDSUPPLY Qty: 100 3RF Rx Instructions: As directed check the BS QD (DME) blood-glucose meter [FreeStyle Lite Meter] Kit See Rx Instructions .ROUTE .MEDSUPPLY Qty: 1 0RF Rx Instructions: test daily memantine 7 mg capsule,sprinkle,ER 24hr 7 mg PO DAILY 30 Days Qty: 30 1RF sulfamethoxazole-trimethoprim [Bactrim DS] 800-160 mg tablet 1 tab PO BID 3 Days Qty: 6 0RF lorazepam 1 mg tablet 1 mg PO BEDTIME PRN (Reason: anxiety) 30 Days Qty: 30 0RF diphenhydramine HCl [Benadryl] 25 mg Capsule 25 mg PO BEDTIME PRN (Reason: Nasal Congestion) letrozole 2.5 mg Tablet 2.5 mg PO DAILY Qty: 90 3RF prednisone 20 mg tablet 60 mg PO DAILY Qty: 12 0RF diphenhydramine HCl [Benadryl] 25 mg capsule 25 mg PO TID PRN (Reason: swelling) Qty: 20 0RF hydrocodone-acetaminophen 5-325 mg tablet 1 tab PO Q4-6H PRN (Reason: pain) Qty: 30 0RF Rx Instructions: Partial Fill upon patient request. (DME) diabetic shoes See Rx Instructions .Route .MEDSUPPLY Qty: 1 0RF Rx Instructions: As directed albuterol sulfate [Ventolin HFA] 90 mcg/actuation HFA aerosol inhaler 2 puff inhalation Q6H PRN (Reason: shortness of breath or wheezing) Qty: 8.5 0RF metformin 1,000 mg tablet 1,000 mg PO BID Qty: 180 2RF atorvastatin 40 mg tablet 40 mg PO BEDTIME Qty: 90 2RF amlodipine 5 mg tablet 5 mg PO DAILY Qty: 90 2RF Interventions: [place]-Suicide Risk Severity Scale Last Done: 07/20/24 14:41 Print Language: Persian
[2024-07-20 15:16] LABS: MANUAL DIFF FLAG NO
[2024-07-20 15:19] LABS: Basophils Absolute Auto 0.1 X10*3/uL (0.0-0.2); Basophils Percent Auto 0.5 % (0-2); Eosinophils Absolute Auto 0.2 X10*3/uL (0.0-0.4); Eosinophils Percent Auto 1.6 % (0-4); Hematocrit 34.1 % (37.0-47.0); Hemoglobin 11.3 g/dl (12.0-16.0); Imm Gran Abs Auto 0.05 X10*3/uL (0.00-0.03); Imm Gran Pct Auto 0.5 % (0.0-0.4); Lymphocytes Absolute Auto 1.3 X10*3/uL (1.2-4.9); Lymphocytes Percent Auto 11.5 % (20-40); Mean Corpuscular HGB Conc 33.1 g/dl (31.0-35.0); Mean Corpuscular Hemoglobin 27.6 pg (27.0-33.0); Mean Corpuscular Volume 83.2 fL (80.0-98.0); Mean Platelet Volume 9.5 fL (9.4-12.3); Monocytes Absolute Auto 0.7 X10*3/uL (0.1-1.2); Monocytes Percent Auto 6.5 % (2-11); Neutrophils Absolute Auto 8.7 x10*3/uL (2.0-8.3); Neutrophils Percent Auto 79.4 % (45-73); Platelet Count 267 X10*3/uL (160-400); Red Cell Distribution Width 13.4 % (11.0-16.0); White Blood Count 10.9 X10*3/uL (4.8-10.8)
[2024-07-20 15:23] LABS: Prothrombin Time 12.4 SEC (11.1-13.3)
--- NOTE | 2024-07-20 15:30 | PC.NURSE ---
Given one 4oz cup of orange juice. CARE team staff member Eufemia & иван García at bedside.
[2024-07-20 15:33] LABS: Alanine Aminotransferase 11 U/L (0-31); Albumin Level 4.2 g/dL (3.5-5.0); Alkaline Phosphatase 68 U/L (39-117); Anion Gap 14 (12-20); Aspartate Amino Transferase 19 U/L (5-31); Bilirubin Total 0.4 mg/dL (0.0-1.0); Blood Urea Nitrogen 14 mg/dL (9-16); Calcium 10.2 mg/dL (8.4-10.2); Carbon Dioxide 29 mmol/L (22-29); Chloride 101 mmol/L (96-108); Creatinine Clr Calc Pharmacy 47.3; Estimated Glomerular Filt Rate 52; Glucose Random 100 mg/dL (60-115); Magnesium 1.7 mg/dL (1.6-2.6); Potassium 4.4 mmol/L (3.3-5.1); Sodium 140 mmol/L (135-145); Total Protein 7.4 g/dL (6.5-8.0)
--- NOTE | 2024-07-20 15:33 | PC.NURSE ---
Eufemia from CARE Team at bedside speaking with patient and her son (Ricky Cox). Ricky approached this RN reporting concerns about her overall mental health. Stated that she said she was taking a walk, and I was going to come back to pick her up for her 1pm appointment today, and she wasn't home. Then I got a call from [facility] saying that they have some concerns about her. Her psychiatrist moved away and some of her medications have run out and we've been trying to get refills on them because she becomes more anxious and isn't herself . Per triage and RN to RN report, pt made vague SI statements to [facility] (which she walked to from her home). Voluntary. Labs drawn and sent for analysis, awaiting results. Urine specimen was attempted to be collected, but the patient missed when trying to urinate into the specimen cup. Plan for xray to right hip due to pain. Allegedly is supposed to have a hip replacement, but hasn't scheduled anything yet. Plan for xray after speaking with CARE team. Pt is calm/cooperative at this time. Care ongoing.
[2024-07-20 16:13] LABS: Acetaminophen LAB < 3 mcg/mL (<30); Salicylate < 5.0 mg/dL (15-30)
--- NOTE | 2024-07-20 18:02 | PC.NURSE ---
Patient requested and given additional warm blanket and pillow. Given Eamon tea with fat free milk & 1 sugar packet to drink. Awaiting dinner tray.
--- NOTE | 2024-07-20 18:06 | PC.NURSE ---
Spoke with Sam in pharmacy to complete medication reconciliation with the patient.
[2024-07-20 18:35] LABS: Glucose, Whole Blood 99 mg/dL (60-115)
[2024-07-20 20:37] LABS: Appearance Urine Clear; Color Urine Yellow; Glucose Urine UA Negative (Negative); Leukocyte Esterase Urine Trace (Negative); Nitrite Urine Negative (Negative); PH 7.5 (5.0-9.0); Specific Gravity - Urine 1.015 (1.005-1.025); UMIC TRIGGER UACC YES; Urine Blood Negative (Negative); Urine Ketones Negative (Negative); Urine Protein Trace mg/dL (Neg-Trace)
[2024-07-20 20:42] LABS: Bacteria Urine None Seen (None Seen); Hyaline Casts Urine 0-2 /LPF (0-2); RBC Urine 0-2 /HPF (0-2); Squamous Epithelial Cell Urine 0-2 /HPF (0-2); WBC Urine 0-5 /HPF (0-5)
[2024-07-20 20:53] LABS: Amphetamine Screen Urine Not Detected (Not Detect); Barbiturates, Urine Not Detected (Not Detect); Benzodiazepines Screen Urine Not Detected (Not Detect); Buprenorphine Scr Not Detected (Not Detect); Cannabinoid Screen Urine Not Detected (Not Detect); Cocaine Screen Urine Not Detected (Not Detect); Fentanyl, urine Not Detected (Not Detect); Methadone Screen, Urine Not Detected (Not Detect); Opiate Screen Urine Not Detected (Not Detect); Oxycodone Screen Urine Not Detected (Not Detect); Phencyclidine Screen Urine Not Detected (Not Detect)
--- NOTE | 2024-07-20 21:22 | PC.NURSE ---
completed med rec to the best of my ability, apparently there is a new script from 06/25 for lisinopril which is on her allergy list, perhaps this can be researched at inpatient setting.
[2024-07-20] MEDS: Acetaminophen 325 MG TABLET 650 MG PO (21:31)
--- NOTE | 2024-07-20 21:45 | PC.NURSE ---
pharmacy asks for family to bring namenda which is no formulary- will relay to oncoming staff, [facility] pharmacy.
[2024-07-20] MEDS: metFORMIN HCl 1,000 MG TABLET 1000 MG PO (21:54)
[2024-07-20] MEDS: diphenhydrAMINE HCL 25 MG CAPSULE PO (22:09)
--- NOTE | 2024-07-21 03:44 | PC.NURSE ---
received report Sushma LIMON, pt came from the pod, and is now in the hallway, pt has sa sitter with her
[2024-07-21 07:36] VITALS: BP 132/61; PULSE 84; RESP 14; TEMP 37.2; O2SAT 96
--- NOTE | 2024-07-21 07:39 | PC.NURSE ---
Assumed care of patient at 0645, patient appears to be in no apparent distress this am, sitting upright in chair watching TV and eating breakfast. This RN entered room to take vitals, patient calm and cooperative, denies pain, offers no complaints to this RN, making appropriate small talk. patient aware of continue plan of care for inpatient bedsearch at this time
[2024-07-21] MEDS: Cholecalciferol (Vitamin D3) 25 MCG TABLET 125 MCG PO (08:56)
[2024-07-21] MEDS: amLODIPine Besylate 5 MG TABLET PO (08:56)
[2024-07-21] MEDS: FLUoxetine HCl 20 MG CAPSULE 40 MG PO (08:56)
[2024-07-21] MEDS: metFORMIN HCl 1,000 MG TABLET 1000 MG PO ×2 (08:56→18:17)
--- NOTE | 2024-07-21 09:39 | PC.NURSE ---
pharmacy called for remaining morning medications
[2024-07-21] MEDS: Letrozole 2.5 MG TABLET PO (10:25)
[2024-07-21] MEDS: Cyanocobalamin (Vitamin B-12) 500 MCG TABLET PO (10:25)
--- NOTE | 2024-07-21 10:28 | MHC.CARE ---
[employer] called son Ricky to provide update on patient status. Detailed voicemail left with updated infromation. Bedsearch exhausted today. Patient will remain in Phys Obs while [facility] bedsearch is conducted.
[2024-07-21 14:31] VITALS: RESP 14
[2024-07-21] MEDS: LORazepam 1 MG TABLET PO (18:17)
[2024-07-21 20:00] VITALS: BP 128/49; PULSE 77; RESP 18; TEMP 36.2; O2SAT 99
[2024-07-21] MEDS: Atorvastatin Calcium 40 MG TABLET PO (20:03)
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
--- NOTE | 2024-07-22 06:05 | PC.NURSE ---
Patient slept through the night, no distress observed/reported, no behavior and safety concerns at this time, meds and meals compliant, disposition per care team is section 12 avel-inpatient bed search, VSS, will continue to monitor
[2024-07-22 06:23] VITALS: BP 135/67; PULSE 78; RESP 16; TEMP 36.4; O2SAT 97
--- NOTE | 2024-07-22 07:00 | PC.NURSE ---
Assumed care of patient at 0645, patient appears to be sleeping, respirations even and unlabored, no apparent distress noted. Continue plan of care for inpatient bedsearch
[2024-07-22] MEDS: LORazepam 1 MG TABLET PO (08:01)
[2024-07-22] MEDS: FLUoxetine HCl 20 MG CAPSULE 40 MG PO (08:01)
[2024-07-22] MEDS: amLODIPine Besylate 5 MG TABLET PO (08:02)
[2024-07-22] MEDS: Cholecalciferol (Vitamin D3) 25 MCG TABLET 125 MCG PO (08:02)
[2024-07-22] MEDS: metFORMIN HCl 1,000 MG TABLET 1000 MG PO (08:02)
[2024-07-22] MEDS: Cyanocobalamin (Vitamin B-12) 500 MCG TABLET PO (09:08)
[2024-07-22] MEDS: Letrozole 2.5 MG TABLET PO (09:08)
--- NOTE | 2024-07-22 12:31 | HO.PSYCHPN ---
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 [facility] sent patient to the hospital. On getting to the ED, she did acknowledge that she had been depressed recently and for the 1st time in her life, felt suicidal; she reports chronic depression however this SI surprised her so she self presented. On approach, patient is calm, friendly and pleasant. Speech and behavior both fully organized; thought process logical and linear. Patient now says she is feeling better and all suicidally is gone. She denies any history ever of SI or self-harm; takes her medications regularly which he says is mostly helpful. Patient has some psychosocial stressors which includes her son who has been living with her for the past 6 months after he moved here from [place]. She says I know he would like me to go to a skilled nursing... It is my house, I pay all the bills, and even some of his bills.. Patient denies any substance use history; no AVH. She is aware and alert and oriented (to self, place, situation, month, day, date, year, president; 3/3 word recall). Patient has outpatient providers; takes her medications regularly. Is asking for discharge home; initially she considered inpatient admission but says she would just rather go home and continue outpatient treatment; she misses her dog, wants to be outside and reiterates that she is feeling fine now. Mental Status Exam Mental Status Exam Narrative: Pt is alert and oriented; behavior is cooperative, friendly and calm; patient is not in distress; dressed in hospital attire with unkempt hair but adequate hygiene; mood is described as good and affect congruent; eye contact appropriate; Speech is normal rate, volume and prosody and not pressured; no psychomotor agitation/retardation present; thought process is organized and goal directed; Thought content is on tx; otherwise pertinent to relevant topics and without any delusional content, paranoid ideations or grandiosity; denies any SI/HI. There is no evidence of perceptual disturbance. Patients insight and judgment appear intact. Diagnostics Vital Signs (24Hr): Vital Signs - 24 hr 07/21/24 14:31 07/21/24 20:00 07/22/24 06:23 Temperature 97.2 F 97.6 F Pulse Rate 77 78 Respiratory Rate 14 18 16 Blood Pressure 128/49 L 135/67 Pulse Oximetry 99 97 Oxygen Delivery Method Room Air Room Air BMI result Body Mass Index 25.8 Labs 07/20/24 15:12 07/20/24 15:12 Labs: Laboratory Results - last 48 hr 07/20/24 07/20/24 07/20/24 15:12 18:31 20:28 WBC 10.9 H RBC 4.10 L Hgb 11.3 L Hct 34.1 L MCV 83.2 MCH 27.6 MCHC 33.1 RDW 13.4 Plt Count 267 MPV 9.5 Immature Gran % (Auto) 0.5 H Neut % (Auto) 79.4 H Lymph % (Auto) 11.5 L [place] % (Auto) 6.5 Eos % (Auto) 1.6 Baso % (Auto) 0.5 Lymph # (Auto) 1.3 [place] # (Auto) 0.7 Eos # (Auto) 0.2 Baso # (Auto) 0.1 Abs Immat Gran (auto) 0.05 H Absolute Neuts (auto) 8.7 H Absolute Nucleated RBC 0.000 Nucleated RBC % (auto) 0.0 PT 12.4 INR 1.0 Sodium 140 Potassium 4.4 Chloride 101 Carbon Dioxide 29 Anion Gap 14 BUN 14 Creatinine 1.03 Estim Creat Clear Calc 47.3 Estimated GFR 52 POC Glucose 99 Random Glucose 100 Calcium 10.2 D Magnesium 1.7 Total Bilirubin 0.4 AST 19 ALT 11 Alkaline Phosphatase 68 Total Protein 7.4 Albumin 4.2 Urine Color Yellow Urine Appearance Clear Urine pH 7.5 Ur Specific [place] 1.015 Urine Protein Trace Urine Glucose (UA) Negative Urine Ketones Negative Urine Blood Negative Urine Nitrite Negative Ur Leukocyte Esterase Trace H Urine RBC 0-2 Urine WBC 0-5 Ur Squamous Epith Cells 0-2 Urine Bacteria None Seen Hyaline Casts 0-2 Salicylates < 5.0 L Urine Opiates Screen Not Detected Ur Buprenorphine Scrn Not Detected Ur Oxycodone Screen Not Detected Urine Methadone Screen Not Detected Urine Fentanyl Screen Not Detected Acetaminophen < 3 Ur Barbiturates Screen Not Detected Ur Phencyclidine Scrn Not Detected Ur Amphetamines Screen Not Detected U Benzodiazepines Scrn Not Detected Urine Cocaine Screen Not Detected U Marijuana (THC) Screen Not Detected Medications Medications Current Medications Albuterol Sulfate (Albuterol Sulfate 90 Mcg 8 Gm Inhaler) 2 puff INHALE Q6H PRN PRN Reason: shortness of breath or wheezing Amlodipine Besylate (Amlodipine Besylate 5 Mg Tablet) 5 mg PO DAILY [facility]; Protocol Last Admin: 07/22/24 08:02 Dose: 5 mg Atorvastatin Calcium (Atorvastatin Calcium 40 Mg Tablet) 40 mg PO BEDTIME ZAID Last Admin: 07/21/24 20:03 Dose: 40 mg Cyanocobalamin (Cyanocobalamin (Vitamin B-12) 500 Mcg Tablet) 500 mcg PO DAILY [facility] Last Admin: 07/22/24 09:08 Dose: 500 mcg Fluoxetine HCl (Fluoxetine Hcl 20 Mg Capsule) 40 mg PO DAILY [facility] Last Admin: 07/22/24 08:01 Dose: 40 mg Letrozole (Letrozole 2.5 Mg Tablet) 2.5 mg PO DAILY [facility] Last Admin: 07/22/24 09:08 Dose: 2.5 mg Lorazepam (Lorazepam 1 Mg Tablet) 1 mg PO BID PRN PRN Reason: anxiety Last Admin: 07/22/24 08:01 Dose: 1 mg Metformin HCl (Metformin Hcl 1,000 Mg Tablet) 1,000 mg PO BIDWM [facility] Last Admin: 07/22/24 08:02 Dose: 1,000 mg Non-Formulary Medication (Memantine) 7 mg PO DAILY [facility] Vitamin D (Cholecalciferol (Vitamin D3) 25 Mcg Tablet) 125 mcg PO DAILY [facility] Last Admin: 07/22/24 08:02 Dose: 125 mcg Allergies Allergies Allergy/AdvReac Type Severity Reaction Status Date / Time bacitracin [BACITRACIN] Allergy Intermediate RASH Verified 07/20/24 14:29 latex [LATEX] Allergy Intermediate FACIAL Verified 07/20/24 14:29 SWELLING; RASH nickel [NICKEL] Allergy Intermediate RASH Verified 07/20/24 14:29 lisinopril AdvReac Intermediate Swelling Verified 07/20/24 14:29 adhesive tape AdvReac Irritable Verified 07/20/24 14:29 Assessment & Plan Assessment & Plan (1) MDD (major depressive disorder), recurrent episode, moderate: Status: Acute Code(s): F33.1 - Major depressive disorder, recurrent, moderate Plan 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 [facility] sent patient to the hospital. On getting to the ED, she did acknowledge that she had been depressed recently and for the 1st time in her life, felt suicidal; she reports chronic depression however this SI surprised her so she self presented. On approach, patient is calm, friendly and pleasant. Speech and behavior both fully organized; thought process logical and linear. Patient now says she is feeling better and all suicidally is gone. She denies any history ever of SI or self-harm; takes her medications regularly which he says is mostly helpful. Patient has some psychosocial stressors which includes her son who has been living with her for the past 6 months after he moved here from [place]. She says I know he would like me to go to a skilled nursing... It is my house, I pay all the bills, and even some of his bills.. Patient denies any substance use history; no AVH. She is aware and alert and oriented (to self, place, situation, month, day, date, year, president; /3 word recall). Patient has outpatient providers; takes her medications regularly. Is asking for discharge home; initially she considered inpatient admission but says she would just rather go home and continue outpatient treatment; she misses her dog, wants to be outside and reiterates that she is feeling fine now. Impression: Patient does not meet criteria for involuntary admission. Okay for discharge. Patient denies any SI and is asking for discharge. Patient demonstrates good judgment and insight as she self presented on her own because she was feeling suicidal for the 1st time and it worried her. Otherwise She reports this is the 1st time ever she had such a thought and that it is now fully resolved. She fully alert and oriented; she is organized in speech behavior and her thought processes is both logical and linear. She is already on medication and has outpatient providers; she lives in her own home, takes care of herself, pays the bills and even supports her adult son who is now living there. Patient drives herself without problem and denies any recent accidents. Care team talked with her son who did not provide any evidence that she is unable to care for self in the community or is a danger to herself or others. Care team is alerting [facility] services to do an assessment to rule out any concern for patient being exploited. Perhaps she would benefit from a short inpatient admission to review medication management; however She is not in imminent risk for harm to self or others and request for discharge honored. Patient educated on: diagnosis, medication risk/benefits and therapeutic strategies Informed Consent: understands Reason for continued inpatient stay Substantial Risk for: stable for discharge Time Spent With Patient Time: Total time managing care of this patient today ____ minutes.
== END 2024-07-22 13:51 | disposition home or self-care (01) ==
PROVIDERS: Physician Assistant; Emergency Provider Emergency Medicine; PCP Internal Medicine
DX: F33.1 Major depressive disorder, recurrent, moderate (principal); F41.9 Anxiety disorder, unspecified; R45.851 Suicidal ideations; G89.29 Other chronic pain; M25.551 Pain in right hip; E11.9 Type 2 diabetes mellitus without complications; I10 Essential (primary) hypertension; E78.00 Pure hypercholesterolemia, unspecified; D64.9 Anemia, unspecified; I49.9 Cardiac arrhythmia, unspecified; J44.9 Chronic obstructive pulmonary disease, unspecified; Z87.891 Personal history of nicotine dependence; Z79.899 Other long term (current) drug therapy; Z79.02 Long term (current) use of antithrombotics/antiplatelets; Z79.84 Long term (current) use of oral hypoglycemic drugs
CPT/HCPCS: 36415; 80053; 80143; 80179; 80307; 81001; 82947; 83735; 85025; 85610; 99285; S9485

== ENCOUNTER → 2024-07-20 14:47 | Outpatient (BNV) | payer MEDICARE, OTHER, SELFPAY | PROVIDERS: Emergency Provider Emergency Medicine; PCP Internal Medicine; Visit Provider Psychiatry & Neurology Psychiatry | DX: F33.1 Major depressive disorder, recurrent, moderate (principal) | CPT/HCPCS: 99283 ==

== ENCOUNTER 2024-08-03 13:03 | Outpatient (AMB) | payer MEDICARE, OTHER, SELFPAY ==
--- NOTE | 2024-08-03 13:04 | MHC.OFFVIS ---
Vital Signs 08/03/24 13:09 Height 5 ft 6 in Weight 167 lb BMI 27.0 Pulse 82 Pulse Source Pulse Oximeter Pulse Oximetry (%) 97 Oxygen Delivery Method Room Air Intake Visit Reasons: 6 mo f/u Intake Note: .Patient presents for 6 month follow up. Allergies bacitracin [BACITRACIN] Allergy (Intermediate, Verified 08/03/24 13:11) RASH latex [LATEX] Allergy (Intermediate, Verified 08/03/24 13:11) FACIAL SWELLING; RASH nickel [NICKEL] Allergy (Intermediate, Verified 08/03/24 13:11) RASH lisinopril Adverse Reaction (Intermediate, Verified 08/03/24 13:11) Swelling adhesive tape Adverse Reaction (Verified 08/03/24 13:11) Irritable Medication List - Last Reconciled 08/03/24 by MARYBETH Mackenzie albuterol sulfate 90 mcg/actuation (Ventolin HFA) 2 puffs inhalation Q6H PRN amlodipine 5 mg PO DAILY cholecalciferol (vitamin D3) (Vitamin D3) 125 mcg PO DAILY fluoxetine 40 mg PO DAILY 90 days letrozole 2.5 mg PO DAILY lorazepam 1 mg PO BID PRN memantine 7 mg PO DAILY 30 days metformin 1,000 mg PO BID HPI Comments Details: 74-yr-old female presents for f/u visit, accompanied by her son. 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 States she was to do hyperbaric oxygen tx, but the tx is too cumbersome. They plan to f/u w/ surgeon to discuss alternate tx options. Pt reports her memory is better. She is living with her son. Ind w/ ADLs. She can make simple heat-up meals- her son may bring her a meal. She manages her medications on a day to day basis, and her son picks them up or manages an issue when it arises. Most are on auto-refill. She started on Memantine ER 7mg- she feels it gives her nausea but is not sure. Hesitant to increase dose. She does continue on Lorazepam 1mg bid and Fluoxetine- managed by psych. They are wary to try gradual dose reduction to see if this improves cognition. Brain MRI 04/06/24: No acute infarct. The GRE sequence is without susceptibility artifact to suggest acute or chronic blood products. No extra-axial fluid collection. Mild global cerebral volume loss. Patchy T2 FLAIR hyperintense foci in the subcortical and periventricular white matter, nonspecific but presumably mild chronic microangiopathy. No abnormal intraparenchymal or leptomeningeal enhancement. No significant mass effect or herniation pattern. The intracranial dural venous sinus and arterial flow voids are preserved. Normal appearance of the midline structures. Lens replacements. Rightward nasal septal deviation with bony spur impinging on the base of the right inferior nasal turbinate. The paranasal sinuses and mastoids are well aerated. Partially imaged cervical spondylosis with severe hypertrophic facet arthropathy. Advanced bilateral TMJ osteoarthrosis. Marrow signal abnormality within the parasymphyseal mandible and infiltration of the submental soft tissues, better characterized on the subsequently performed CT dated 04/10/2024. Otherwise, no suspicious osseous lesions. [facility] Medical History (Updated 07/23/24 @ 00:01 by Fortunato Lilyl) MDD (major depressive disorder), recurrent episode, moderate Arrhythmia Right leg pain Obesity (BMI 30-39.9) Benign essential hypertension Normal colonoscopy (~06/16/21) Medicare annual wellness visit, initial Breast implant in situ Breast cancer screening by mammogram Cataract Cholelithiasis Pelvic fracture Fatty liver Colon cancer screening Hypercholesterolemia Type 2 diabetes mellitus with hyperglycemia Restrictive lung disease Pulmonary fibrosis Surgical History History of lumpectomy of left breast (02/02/24) Left breast mass History of colonoscopy History of cataract surgery History of surgery on lower extremity H/O left wrist surgery History of ankle surgery Family History Mother Lung cancer Father Respiratory failure Sister Lung disease Brother Respiratory failure Son No problems noted. 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 at home: Yes Do you presently have visiting nurse or other home services: No Alcohol intake: former Comment: COUNTS CORRECT Patient Tobacco Use Status: Former Tobacco user Years Smoked: stopped 48 years old e-Cigarette/Vaping Use: Never Used Second Hand Smoke Exposure: No Advance Directives Date on File: 01/18/24 service: No Current occupational status: retired Cognitive needs: Yes Hearing needs: No Vision needs: Yes Physical Exam Vital Signs: Last Vital Signs Pulse 82 08/03/24 13:09 Pulse Ox 97 08/03/24 13:09 Oxygen Delivery Method Room Air 08/03/24 13:09 BMI result Body Mass Index 27.0 Const General: cooperative and no acute distress Orientation/consciousness: patient oriented x3 Resp Effort & Inspection: normal respiratory effort and able to speak in complete sentences Neuro Other: A&O w/ mild STM lapses Person: to self and family Orientation: Tuesday, Aug 03, 2024, going into Fall Location: 's office, [facility], main floor. Items- Pen and computer. World backwards- DLROW General: patient oriented x3 and moves all extremities Psych Appearance: grossly normal Speech and movement: Normal speech and movement present Affect: normal affect Attitude: cooperative Assessment & Plan Assessment & Plan (1) Cognitive dysfunction: Comment: MMSE 26. Code(s): F09 - Unspecified mental disorder due to known physiological condition Category: Medical (2) MDD (major depressive disorder), recurrent episode, moderate: Code(s): F33.1 - Major depressive disorder, recurrent, moderate Category: Medical Plan Reviewed Brain MRI w/wo- mild chronic microangiopathy, advanced bilateral TMJ osteoarthrosis, Known Marrow signal abnormality within the parasymphyseal mandible and infiltration of the submental soft tissues, better characterized on the subsequently performed CT dated04/10/2024. Pt to f/u w/ oral surgeon as planned. Continue memantine ER 7 mg q.d.- pt does not want to increase at this time. Son asked to monitor pt's c/o nausea. Discussed that Lorazepam can worsen cognition Patient will require increased assistance, at this point especially with IADLs. Patient's son will be living with her to help with these issues. Patient does currently have meals on wheels. Future considerations neuropsychiatric evaluation. Coding Level of Care Code Est Pt Level 4 (50810) Diagnoses Cognitive dysfunction F09 MDD (major depressive disorder), recurrent episode, moderate F33.1
[2024-08-03 13:09] VITALS: PULSE 82; O2SAT 97; BMI 27.0
== END 2024-08-03 14:00 | disposition home or self-care (01) ==
PROVIDERS: PCP Internal Medicine; Visit Provider Nurse Practitioner Family
DX: F33.1 Major depressive disorder, recurrent, moderate (principal); R41.89 Other symptoms and signs involving cognitive functions and awareness
CPT/HCPCS: 99214

== ENCOUNTER → 2024-08-03 13:03 | Outpatient (BNVA) | payer MEDICARE, OTHER, SELFPAY | PROVIDERS: PCP Internal Medicine; Visit Provider Nurse Practitioner Family | DX: F33.1 Major depressive disorder, recurrent, moderate (principal); F09 Unspecified mental disorder due to known physiological condition | CPT/HCPCS: 99212 ==

== ENCOUNTER 2024-10-08 16:17 | Outpatient (AMB) | payer MEDICARE, OTHER, SELFPAY ==
--- NOTE | 2024-10-08 16:20 | MHC.PC.OV ---
Vital Signs 10/08/24 16:21 Height 5 ft 4 in Weight 173 lb 4 oz BMI 29.7 BP 138/60 Blood Pressure Location Lt brachial Position Sitting Pulse 72 Pulse Source Pulse Oximeter Pulse Oximetry (%) 96 Oxygen Delivery Method Room Air Intake Visit Reasons: [facility], Pain in back and extremities Allergies bacitracin [BACITRACIN] Allergy (Intermediate, Verified 10/08/24 16:26) RASH latex [LATEX] Allergy (Intermediate, Verified 10/08/24 16:26) FACIAL SWELLING; RASH nickel [NICKEL] Allergy (Intermediate, Verified 10/08/24 16:26) RASH lisinopril Adverse Reaction (Intermediate, Verified 10/08/24 16:26) Swelling adhesive tape Adverse Reaction (Verified 10/08/24 16:26) Irritable Tobacco use date assessed: 10/08/24 Fall risk assessment: No Falls in past year Last assessed Fall Risk: 10/08/24 Dental Screening Dental Screen Date: 10/08/24 Did you have a dental visit in the last 12 months?: Yes Did you have a dental problem in the last 6 months where you did not have access to dental care?: No Was dental information given to patient?: Patient has dentist HPI [facility], Pain in back and extremities HPI Details 74-year-old overweight female with a history of left breast cancer controlled diabetes mellitus hypertension hypercholesterolemia history of osteomyelitis COPD coming in for follow-up. Last seen in 07/17/2024. Patient's colonoscopy is up-to-date 2020, bone density done in 04/16/2021. Patient follows up with Hematology-Oncology normochromic normocytic anemia and continue to monitor with anemia. For the last breast cancer letrozole for 5 years and mammogram is in November. Neurology seen with concerns about cognitive impairment. Started on memantine 7 mg once a day further considerations about neuropsychiatric evaluation. Patient was seen by the psychiatrist in the ER depression with suicidal ideation patient complains of thoracic back pain radiating to the cervical area denies any fall or trauma. Will do some x-rays. Concern also on the breast cancer. [facility] Medical History MDD (major depressive disorder), recurrent episode, moderate Arrhythmia Right leg pain Obesity (BMI 30-39.9) Benign essential hypertension Normal colonoscopy (~06/16/21) Medicare annual wellness visit, initial Breast implant in situ Breast cancer screening by mammogram Cataract Cholelithiasis Pelvic fracture Fatty liver Colon cancer screening Hypercholesterolemia Type 2 diabetes mellitus with hyperglycemia Restrictive lung disease Pulmonary fibrosis Surgical History History of lumpectomy of left breast (02/02/24) Left breast mass History of colonoscopy History of cataract surgery History of surgery on lower extremity H/O left wrist surgery History of ankle surgery Family History Mother Lung cancer Father Respiratory failure Sister Lung disease Brother Respiratory failure Son No problems noted. 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 1. Little interest or pleasure in doing things: nearly every day 2. Feeling down, depressed, or hopeless: nearly every day 3. Trouble falling or staying asleep, or sleeping too much: several days 4. Feeling tired or having little energy: several days 5. Poor appetite or overeating: several days 6. Feeling bad about yourself - or that you are a failure or have let yourself or your family down: several days 7. Trouble concentrating on things, such as reading the newspaper or watching television: not at all 8. Moving or speaking so slowly that other people could have noticed. Or the opposite - being so fidgety or restless that you have been moving around a lot more than usual: not at all 9. Thoughts that you would be better off or of hurting yourself in some way: not at all Total score: 10 Depression Screening Interpretation: Positive Depression Screening Done: Yes 36030 - PHQ-9 Billing: Yes Source: Developed by Drs. Angus Roe, Robe De Los Santos and colleagues, with an educational juliana from [employer]. Thrive Questionnaire Date Thrive assessed: 10/08/24 I am a: Patient What is your living situation today?: I have a steady place to live Within the past 12 months, did the food you bought not last and you didn't have the money to get more?: Never true Within the past 12 months, did you worry whether your food would run out before you got money to buy more?: Never true Do you have trouble paying for medicines?: No Do you have trouble getting transportation to medical appointments?: No Do you have trouble paying your heating and electricity bill?: No Do you have trouble taking care of your child, family member or friend?: No Do you have trouble with day-to-day activities such as bathing, preparing meals, shopping, managing finances, etc.?: No Are you currently unemployed and looking for a job?: No Are you interested in more education?: No THRIVE Score: 0 AUDIT C Alcohol Use Questionnaire (AUDIT-C) 1. How often do you have a drink containing alcohol?: Monthly or less 2. How many drinks containing alcohol do you have on a typical day when you are drinking?: 1 or 2 3. How often do you have six or more drinks on one occasion?: Never Total Score: 1 PARTHA-7 AMB Questionnaire PARTHA-7 Date PARTHA - 7 assessed: 10/08/24 Feeling nervous, anxious, or on edge: 1 = Several days Not being able to stop or control worryin = Several days Worrying too much about different things: 1 = Several days Trouble relaxin = Not at all Being so restless that it is hard to sit still: 0 = Not at all Becoming easily annoyed or irritable: 1 = Several days Feeling afraid as if something awful might happen: 1 = Several days Total PARTHA-7 score (0-4 normal; 5-9 mild; 10-14 moderate; 15-21 severe): 5 Source: Developed by Drs. Angus Roe, Robe De Los Santos and colleagues, with an educational juliana from [employer]. PARTHA-7 Assessment Billing PARTHA-7 Assessment Tool: PARTHA-7 Assessment 67948 Physical exam (Primary Care) Vital Signs: Last Vital Signs Pulse 72 10/08/24 16:21 BP 138/60 10/08/24 16:21 Pulse Ox 96 10/08/24 16:21 Oxygen Delivery Method Room Air 10/08/24 16:21 BMI result Body Mass Index 29.7 Tobacco/Smoking Status: Tobacco use Status Tobacco use date assessed 10/08/24 10/08/24 16:29 Patient Tobacco Use Status Former Tobacco user 10/08/24 16:20 e-Cigarette/Vaping Use Never Used 10/08/24 16:20 PHQ-9: PHQ-9 Score PHQ-9: Total score 10 10/08/24 16:29 Depression Screening Interpretation: Positive Thrive Assessment: Date of Thrive Assessment Date Thrive assessed 10/08/24 10/08/24 16:29 Const General: alert; No acute distress Eyes Conjunctivae: conjunctivae normal Resp Auscultation: clear to auscultation bilaterally Cardio Rate: regular rate Rhythm: regular rhythm GI Inspection: Yes normal to inspection Back/Spine/Pelvis Other: Tender on the thoracic and cervical spine area no redness or swelling. Extrem General: Yes normal to inspection and No edema Results AMB Hemoglobin A1c AMB Hemoglobin A1c 5.8 % Last Edit by Za Rea CMA on 10/08/24 16:31 Results Reviewed Results Reviewed: Laboratory Last Values Hgb A1c (Clinic) 5.8 % (4.0-6.0) 10/08/24 16:30 Coding Level of Care Code Est Pt Level 4 (75484) Diagnoses Breast cancer, left C50.912 Type 2 diabetes mellitus with hyperglycemia, without long-term current use of insulin E11.65 Diabetes mellitus [employer] insulin use: without [employer] use Hypercholesterolemia E78.00 Benign essential hypertension I10 Cognitive dysfunction F09 COPD (chronic obstructive pulmonary disease) J44.9 MDD (major depressive disorder), recurrent episode, moderate F33.1 Chronic midline thoracic back pain M54.6; G89.29 Chronicity: chronic Back pain laterality: midline Cervical spine pain M54.2 Additional Codes PARTHA-7 Assessment Billing - PARTHA-7 Assessment Tool: PARTHA-7 Assessment [id number] ([id number]) PHQ-9 - 14500 - PHQ-9 Billing: Yes ([id number]) Assessment & Plan Assessment & Plan (1) Breast cancer, left: Comment: Novemberreast, 6 o'clock, biopsy: Invasive ductal carcinoma, MSBR grade 2, left breast lumpectomy Code(s): C50.912 - Malignant neoplasm of unspecified site of left female breast Category: Surgical Plan: Patient is being followed by hematology oncology (2) Type 2 diabetes mellitus with hyperglycemia: Comment: Dr. Wiggins Code(s): E11.65 - Type 2 diabetes mellitus with hyperglycemia Category: Medical Qualifiers: Diabetes mellitus [employer] insulin use: without detention use Qualified Code(s): E11.65 - Type 2 diabetes mellitus with hyperglycemia Plan: Decrease the amount of carbohydrate intake, pasta, bread, rice and potatoes are all sugar and that is aside from all the sweet stuff, remember that fruits are good but they are Sweet also. Hemoglobin A1c goal of less than 7.0 on metformin a 1000 mg twice a day (3) Hypercholesterolemia: Code(s): E78.00 - Pure hypercholesterolemia, unspecified Category: Medical Plan: Avoid fried foods, chicken skin, eggs, butter margarine, pastries and meat. Be it pork or beef they have a lot of cholesterol continuing to monitor June 2024 last blood work (4) Benign essential hypertension: Code(s): I10 - Essential (primary) hypertension Category: Medical Plan: Continue with blood pressure medication. Decrease salt intake and exercise amlodipine 5 mg once a day had swelling with lisinopril. (5) Cognitive dysfunction: Comment: MMSE 26. Code(s): F09 - Unspecified mental disorder due to known physiological condition Category: Medical Plan: Patient has seen Neurology and has been started on memantine (6) COPD (chronic obstructive pulmonary disease): Code(s): J44.9 - Chronic obstructive pulmonary disease, unspecified Category: Medical Plan: Continue with the albuterol inhaler. (7) MDD (major depressive disorder), recurrent episode, moderate: Code(s): F33.1 - Major depressive disorder, recurrent, moderate Category: Medical Plan: Continue with present medication and discussed about counseling. (8) Thoracic back pain: Comment: Midline Code(s): M54.6 - Pain in thoracic spine Category: Medical Qualifiers: Chronicity: chronic Back pain laterality: midline Qualified Code(s): M54.6 - Pain in thoracic spine; G89.29 - Other chronic pain Plan: Ordered x-ray. Patient has taken NSAIDs already with no help. Prescription for tramadol given. (9) Cervical spine pain: Code(s): M54.2 - Cervicalgia Category: Medical Plan: X-ray requested tramadol prescription sent in discussed about side effects. (10) Thoracic back pain: Code(s): M54.6 - Pain in thoracic spine Category: Medical Qualifiers: Back pain laterality: midline Chronicity: acute Qualified Code(s): M54.6 - Pain in thoracic spine Plan: X-ray requested and tramadol prescription sent in. Discussed about side effects. Orders: Orders XR cervical spine 2V Today M54.2 - Cervicalgia XR thoracic spine 2V Today M54.6 - Pain in thoracic spine AMB Hemoglobin A1c Today Z13.9 - Encounter for screening, unspecified Medications: New tramadol 50 mg PO BID 14 tabs 0RF M54.6 - Pain in thoracic spine
[2024-10-08 16:21] VITALS: BP 138/60; PULSE 72; O2SAT 96; BMI 29.7
== END 2024-10-08 17:07 | disposition home or self-care (01) ==
PROVIDERS: PCP Internal Medicine; Visit Provider Internal Medicine
DX: E11.65 Type 2 diabetes mellitus with hyperglycemia (principal); C50.912 Malignant neoplasm of unspecified site of left female breast; J44.9 Chronic obstructive pulmonary disease, unspecified; F33.1 Major depressive disorder, recurrent, moderate; E78.00 Pure hypercholesterolemia, unspecified; I10 Essential (primary) hypertension; F09 Unspecified mental disorder due to known physiological condition; M54.6 Pain in thoracic spine; G89.29 Other chronic pain; M54.2 Cervicalgia

== ENCOUNTER → 2024-10-08 16:17 | Outpatient (BNVA) | payer MEDICARE, OTHER, SELFPAY | PROVIDERS: PCP Internal Medicine; Visit Provider Internal Medicine | DX: C50.912 Malignant neoplasm of unspecified site of left female breast (principal); E11.65 Type 2 diabetes mellitus with hyperglycemia; E78.00 Pure hypercholesterolemia, unspecified; I10 Essential (primary) hypertension; F09 Unspecified mental disorder due to known physiological condition; J44.9 Chronic obstructive pulmonary disease, unspecified; F33.1 Major depressive disorder, recurrent, moderate; M54.6 Pain in thoracic spine; G89.29 Other chronic pain; M54.2 Cervicalgia | CPT/HCPCS: 83036; 96127; 99212 ==

== ENCOUNTER 2024-10-17 15:28 | Outpatient (REF) | payer MEDICARE, OTHER, SELFPAY | END 2024-10-17 15:29 | disposition home or self-care (01) | LOC: HO.XRAY 15:28 | PROVIDERS: PCP Internal Medicine; Visit Provider Internal Medicine | DX: M54.6 Pain in thoracic spine (principal); M54.2 Cervicalgia | CPT/HCPCS: 72040; 72070 ==

== ENCOUNTER 2024-12-03 13:47 | Outpatient (AMB) | payer MEDICARE, OTHER, SELFPAY ==
--- NOTE | 2024-12-03 14:13 | AM.OFFVISMDC ---
Intake Vital Signs 12/03/24 14:14 Height 5 ft 4 in Weight 185 lb BMI 31.8 BP 138/72 Blood Pressure Location Lt brachial Position Sitting Pulse 83 Pulse Source Pulse Oximeter Pulse Oximetry (%) 97 Oxygen Delivery Method Room Air Intake Visit Reasons: AWV G0438 Allergies bacitracin [BACITRACIN] Allergy (Intermediate, Verified 12/03/24 14:14) RASH latex [LATEX] Allergy (Intermediate, Verified 12/03/24 14:14) FACIAL SWELLING; RASH nickel [NICKEL] Allergy (Intermediate, Verified 12/03/24 14:14) RASH lisinopril Adverse Reaction (Intermediate, Verified 12/03/24 14:14) Swelling adhesive tape Adverse Reaction (Verified 12/03/24 14:14) Irritable Medication List - Last Reconciled 12/03/24 by Rocky Roman MD albuterol sulfate 90 mcg/actuation (Ventolin HFA) 2 puffs inhalation Q6H PRN amlodipine 5 mg PO DAILY cholecalciferol (vitamin D3) (Vitamin D3) 125 mcg PO DAILY fluoxetine 20 mg PO DAILY 90 days letrozole 2.5 mg PO DAILY lorazepam 1 mg PO BID PRN memantine 7 mg PO DAILY 30 days metformin 1,000 mg PO BID tramadol 50 mg PO BID HPI AWV G0438 HPI Details The patient is a 74-year-old female presenting for an annual wellness visit and medication management. She has a history of hypertension, managed with amlodipine. Her cholesterol levels were last checked in June, and she has a history of hypercholesterolemia. The patient underwent a bone density test in January, which indicated osteoporosis with no significant changes since the last assessment. She has a history of breast cancer, for which she is on letrazole. She reports unresolved back pain which occurs with physical exertion and resolves with rest. The patient also reports depression, historically managed with fluoxetine. She noted significant weight gain correlated with the usage of fluoxetine. She expresses a desire to discontinue fluoxetine and reports difficulty adhering to her medication regimen, including her diabetes management with metformin. She has experienced memory issues, evident by forgetfulness in medication refilling and adherence. Past management strategies include a history of flumazenil for anxiety and memantine for memory support. - Last cholesterol check: June - Last colonoscopy: 2020 - Mammogram due this month; scheduling discussed - Bone density test: January (Osteoporosis noted) - Encouraged routine follow-up for breast cancer care - Recommending regular eye exams for diabetes management - Lives independently and prefers to manage her own healthcare appointments - Son is supportive but she desires less dependency on him - No current alcohol or tobacco use - Previously smoked, quit 20-30 years ago - General: Denies recent weight change until last few months - Cardiovascular: Reports episodic chest pain alleviated by rest - Neurological: Reports dizziness occasionally; memory problems discussed - Psychological: Reports constant feeling of anger and depression PFSH Medical History MDD (major depressive disorder), recurrent episode, moderate Arrhythmia Right leg pain Obesity (BMI 30-39.9) Benign essential hypertension Normal colonoscopy (~06/16/21) Medicare annual wellness visit, initial Breast implant in situ Breast cancer screening by mammogram Cataract Cholelithiasis Pelvic fracture Fatty liver Colon cancer screening Hypercholesterolemia Type 2 diabetes mellitus with hyperglycemia Restrictive lung disease Pulmonary fibrosis Surgical History History of lumpectomy of left breast (02/02/24) Left breast mass History of colonoscopy History of cataract surgery History of surgery on lower extremity H/O left wrist surgery History of ankle surgery Family History Mother Lung cancer Father Respiratory failure Sister Lung disease Brother Respiratory failure Son No problems noted. 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 foster care therapist to a significant other at home: Yes Do you presently have visiting nurse or other home services: No Alcohol intake: former Comment: COUNTS CORRECT Patient Tobacco Use Status: Former Tobacco user Years Smoked: stopped 48 years old e-Cigarette/Vaping Use: Never Used Second Hand Smoke Exposure: No Advance Directives Date on File: 01/18/24 service: No Current occupational status: retired Cognitive needs: Yes Hearing needs: No Vision needs: Yes Questionnaire Medicare Wellness Checkup [age] What gender do you identify with?: female During the past 4 weeks, how much have you been bothered by emotional problems such as feeling anxious, depressed, irritable, sad or downhearted, and blue?: extremely During the past 4 weeks, has your physical & emotional health limited your social activities with family, friends, neighbors, or groups?: moderately During the past 4 weeks, how much bodily pain have you generally had?: moderate pain During the past 4 weeks, was someone available to help you if you needed & wanted help?: yes, some During the past 4 weeks, what was the hardest physical activity you could do for at least 2 minutes?: heavy Can you get to places out of walking distance without help? (For eg., can you travel alone on buses, taxis or drive your car?): Yes Can you go shopping for groceries or clothes without someone's help?: Yes Can you prepare your own meals?: Yes Can you do your housework without help?: No Because of any health problems, do you need the help of another person with your personal care needs such as eating, bathing, dressing or getting around the house?: No During the past 4 weeks, how would you rate your health in general?: good During the past 4 weeks how have things been going for you?: pretty well Are you having difficulties driving your car?: no Do you always fasten your seat belt when you are in a car?: yes, usually During past 4 weeks, have you been bothered by the following: never: Sexual problems?, Trouble eating well?, Teeth or denture problems? and Problems using the telephone? and sometimes: Falling or dizzy when standing up and Tiredness or fatigue? Have you fallen 2 or more times in the past year?: No Are you afraid of falling?: Yes Are you a smoker?: no During the past 4 weeks, how many drinks of wine, beer, or other alcoholic beverages did you have?: no alcohol at all Do you exercise for about 20 minutes 3 or more times a week?: yes, some of the time Have you been given information to help with the following?: yes: Hazards in your house that might hurt you? How often do you have trouble taking medicines the way you have been told to take them?: sometimes I take medicine as prescribed How confident are you that you can control & manage most of your health problems?: very confident What is your race?: White PHQ-9 Over the last 2 weeks, how often have you been bothered by any of the following problems? 1. Little interest or pleasure in doing things: nearly every day 2. Feeling down, depressed, or hopeless: nearly every day 3. Trouble falling or staying asleep, or sleeping too much: not at all 4. Feeling tired or having little energy: more than half the days 5. Poor appetite or overeating: not at all 6. Feeling bad about yourself - or that you are a failure or have let yourself or your family down: nearly every day 7. Trouble concentrating on things, such as reading the newspaper or watching television: several days 8. Moving or speaking so slowly that other people could have noticed. Or the opposite - being so fidgety or restless that you have been moving around a lot more than usual: not at all 9. Thoughts that you would be better off or of hurting yourself in some way: several days Total score: 13 Depression Screening Interpretation: Positive Depression Screening Done: Yes [id number] - PHQ-9 Billing: Yes Source: Developed by Drs. Angus Roe, Kelly Cade, Robe Hawley and colleagues, with an educational juliana from [employer]. PARTHA-7 AMB Questionnaire PARTHA-7 Date PARTHA - 7 assessed: 12/03/24 Feeling nervous, anxious, or on edge: 3 = Nearly every day Not being able to stop or control worryin = Several days Worrying too much about different things: 1 = Several days Trouble relaxin = Not at all Being so restless that it is hard to sit still: 0 = Not at all Becoming easily annoyed or irritable: 3 = Nearly every day Feeling afraid as if something awful might happen: 1 = Several days Total PARTHA-7 score (0-4 normal; 5-9 mild; 10-14 moderate; 15-21 severe): 9 Source: Developed by Drs. Angus Roe, Robe De Los Santos and colleagues, with an educational juliana from [employer]. PARTHA-7 Assessment Billing PARTHA-7 Assessment Tool: PARTHA-7 Assessment 77563 Thrive Questionnaire Date Thrive assessed: 12/03/24 I am a: Patient What is your living situation today?: I have a steady place to live Within the past 12 months, did the food you bought not last and you didn't have the money to get more?: Never true Within the past 12 months, did you worry whether your food would run out before you got money to buy more?: Never true Do you have trouble paying for medicines?: No Do you have trouble getting transportation to medical appointments?: No Do you have trouble paying your heating and electricity bill?: No Do you have trouble taking care of your child, family member or friend?: No Do you have trouble with day-to-day activities such as bathing, preparing meals, shopping, managing finances, etc.?: No Are you currently unemployed and looking for a job?: No Are you interested in more education?: No Currently or been in a relationship where the following occur: No concerns reported THRIVE Score: 0 Review of Systems Const Denies poor appetite and Denies weakness Eyes Denies no additional complaints ENT Reports Normal hearing present, Denies dizziness, Denies nasal congestion, Denies tinnitus and Denies sore throat Card Denies chest pain, Denies syncope, Denies rapid heart rate and Denies dyspnea Resp Denies cough and Denies dyspnea GI Denies change in stool character, Reports constipation, Denies diarrhea, Denies nausea and Denies vomiting Denies urinary frequency, Denies difficulty voiding and Denies dysuria Neuro Reports Normal hearing present, Denies confusion, Denies dizziness, Denies syncope and Denies weakness Psych Denies confusion Physical Exam Vital Signs: Last Vital Signs Pulse 83 12/03/24 14:14 BP 138/72 12/03/24 14:14 Pulse Ox 97 12/03/24 14:14 Oxygen Delivery Method Room Air 12/03/24 14:14 BMI result Body Mass Index 31.8 Const General: No confusion Orientation/consciousness: No confusion HEENT Head: Yes normocephalic Ears: external ears normal and TM's normal bilaterally Face and sinus: Yes normal facial exam Mouth: moist mucous membranes Throat: Yes tonsils normal Eyes Conjunctivae: conjunctivae normal Pupils: Equal, round and reactive pupils present and Pupil accommodation reflex normal Direct Ophthalmoscopy: normal light reflex Neck Neck: No lymphadenopathy Thyroid: Thyroid normal Chest Chest palpation & inspection: normal inspection of the chest Resp Other: basal crackles Auscultation: crackles, no wheezes and lung sounds not diminished Cardio Rate: regular rate Rhythm: regular rhythm Peripheral pulses: radial pulses present and dorsalis pedis present GI Palpation (GI): no masses Auscultation: normal bowel sounds and normoactive bowel sounds Rectal Exam - Female: deferred Skin General skin exam: no rashes or lesions noted Rashes: no rashes Neuro General: No confusion Cranial nerves: Yes Equal, round and reactive pupils present and Yes Normal hearing present Cognition (Neuro): normal cognition Gait exam (Neuro): Normal gait present Motor exam (neuro): 5/5 motor strength present throughout Deep tendon reflexes (DTR's): Right brachioradialis reflex intensity grade: 2+, Left brachioradialis reflex intensity grade: 2+, Right patellar reflex intensity grade: 2+ and Left patellar reflex intensity grade: 2+ Extrem General: No edema Assessment & Plan Assessment & Plan (1) Medicare annual wellness visit, subsequent: Code(s): Z00.00 - Encounter for general adult medical examination without abnormal findings (2) Type 2 diabetes mellitus with hyperglycemia: Comment: Dr. 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 scan of chest in 2020 is reviewed again , Has minimal degree of peripheral fibrosis in the basilar areas . Not significant . at this time and is not progressive Code(s): J84.10 - Pulmonary fibrosis, unspecified (4) Hypercholesterolemia: Code(s): E78.00 - Pure hypercholesterolemia, unspecified (5) Benign essential hypertension: Code(s): I10 - Essential (primary) hypertension (6) Generalized anxiety disorder: Comment: CHD counseling weekly Code(s): F41.1 - Generalized anxiety disorder (7) Lumbar spondylosis: Code(s): M47.816 - Spondylosis without myelopathy or radiculopathy, lumbar region (8) Chest pain on exertion: Code(s): R07.9 - Chest pain, unspecified Plan - Labs: None discussed - Tests: Bone density showed stable osteoporosis - Imaging: Chest X-ray recommended - Discussed gradual tapering of fluoxetine due to concern over weight gain and patient desire to discontinue - Initiated plan to reduce fluoxetine from 40 mg to 20 mg, then reassess - Prescribed tramadol for breakthrough pain management - Encourage continuous use of antihypertensive and statin therapy - Order stress test and chest X-ray to evaluate potential cardiac issues - Refer to human resources benefits specialist for diabetic retinopathy screening - Consider VNA support for medication adherence - Emphasize importance of follow-up care for breast cancer including mammogram We thoroughly reviewed the patient's historical diagnoses and current health management. We discussed the patient's reluctance with fluoxetine due to weight concerns and the process of tapering it to prevent withdrawal symptoms. Although her son is supportive, the patient desires more independence, which may lead to non-adherence in her medication regimen. I advised gradual reduction of fluoxetine and initiating support for medication adherence. We discussed potential weight correlation with fluoxetine and the importance of consistent management of hypertension and hypercholesterolemia. We agreed on further cardiac evaluation with a stress test and chest X-ray to address episodic chest pain. - Continue taking all prescribed medications as directed - Gradually reduce fluoxetine dosage as discussed - Attend scheduled mammogram appointment - Follow up with human resources benefits specialist for diabetes management - Monitor and record any episodes of chest pain; seek immediate medical attention if pain persists - Engage VNA services to assist with medication adherence as needed - Maintain a healthy lifestyle; monitor weight and record any significant changes Orders: Orders CA stress test Today R07.9 - Chest pain, unspecified XR chest 2V Today R07.9 - Chest pain, unspecified MM tomosynthesis screening RT Today Z12.31 - Encounter for screening mammogram for malignant neoplasm of breast, Z98.890 - Other specified postprocedural states Referrals Psychiatry Referral F41.1 - Generalized anxiety disorder Medications: Changed From fluoxetine 40 mg PO DAILY 90 days 90 caps 2RF To fluoxetine 20 mg PO DAILY 90 caps 0RF 90 days Refilled tramadol 50 mg PO BID 14 tabs 0RF M54.6 - Pain in thoracic spine Quality Reporting (2019) Depression/Bipolar (159/160/161/177) PHQ-9: Total score: 13 Coding Level of Care Code Medicare Subsequent (G0439) Diagnoses Medicare annual wellness visit, subsequent Z00.00 Type 2 diabetes mellitus with hyperglycemia, without long-term current use of insulin E11.65 Diabetes mellitus intermediate insulin use: without intermediate use Pulmonary fibrosis J84.10 Hypercholesterolemia E78.00 Benign essential hypertension I10 Generalized anxiety disorder F41.1 Lumbar spondylosis M47.816 Chest pain on exertion R07.9 Additional Codes PARTHA-7 Assessment Billing - PARTHA-7 Assessment Tool: PARTHA-7 Assessment 22518 ([id number]) PHQ-9 - 57488 - PHQ-9 Billing: Yes ([id number])
[2024-12-03 14:14] VITALS: BP 138/72; PULSE 83; O2SAT 97; BMI 31.8
--- OUTSIDE RECORDS SUMMARY | 2024-12-03 16:12 | XMS_ITS ---
[facility] Name [facility] Results Test Name/Text Value Interpretation Date Range Source Magnesium SerPl-mCnc 1.9mg/dL Normal [id number] 1.6 - 2.7 [facility] Calcium SerPl-mCnc 9.2mg/dL Normal [id number] 8.7 - 10 .5 [facility] BUN SerPl-mCnc 20mg/dL Normal [id number] 8 - 21 HH CCT Creat SerPl-mCnc 0.9mg/dL Normal [id number] 0.4 - 1.1 [facility] GFR/BSA.pred SerPlBld [id number] 66 Normal [id number] 59 - [facility] Chloride SerPl-sCnc 101mmol/L Normal [id number] 98 - 10 7 [facility] BUN/Creat SerPl 22Ratio Normal [id number] 10 - 25 H [facility] CO2 SerPl-sCnc 23mmol/L Normal [id number] 22 - 33 HH CCT Anion Gap Bld-sCnc 12 Normal [id number] 7 - 17 [facility] Potassium SerPl-sCnc 4.4mmol/L Normal [id number] 3.4 - 5.3 [facility] Glucose SerPl-mCnc 144mg/dL Above high normal [id number] 65 - 99 [facility] Sodium SerPl-sCnc 136mmol/L Normal [id number] 136 - 145 [facility] Neutrophils num Bld Auto 7.96Thou/uL Above high normal [id number] 2 - 7.5 [facility] Monocytes num Bld Auto 0.12Thou/uL Below low normal [id number] 0.2 - 1.5 [facility] Eosinophil num Bld Auto 0Thou/uL Normal [id number] 0 - 0.7 [facility] WBC num Bld Auto 8.9Thou/uL Normal [id number] 4 - 11 [facility] MCHC RBC Auto-mCnc 33.1g/dL Normal [id number] 30 - 36 [facility] Monocytes/leuk NFr Bld Auto 1.4% Normal [id number] [facility] Hct VFr Bld Auto 35.4% Normal [id number] 35 - 47 [facility] RBC num Bld Auto 4.25Mil/uL Normal [id number] 4 - 5.4 [facility] RDW RBC Auto-Rto 13.8% Normal [id number] 11.5 - 14. 5 [facility] PMV Bld Auto 9.6fL Normal [id number] 7.5 - 12.[address] Eosinophil/leuk NFr Bld Auto 0% Normal [id number] [facility] MCH RBC Qn Auto 27.5pg Normal [id number] 27 - 31 H [facility] Basophils/leuk NFr Bld Auto 0.1% Normal [id number] [facility] Basophils num Bld Auto 0.01Thou/uL Normal [id number] 0 - 0.2 [facility] Platelet num Bld Auto 325Thou/uL Normal [id number] 150 - 450 [facility] Neutrophils/leuk NFr Bld Auto 89.8% Normal [id number] [facility] MCV RBC Auto 83fL Normal [id number] 80 - 100 [facility] T Lymphocytes/leuk NFr Bld Auto 8.4% Normal [id number] [facility] Lymphocytes num Bld Auto 0.74Thou/uL Below low normal [id number] 1.5 - 4.5 [facility] Imm Granulocytes/leuk NFr Bld Auto 0.3% Normal [id number] [facility] Hgb Bld-mCnc 11.7g/dL Normal [id number] 11.7 - 15.7 HH CCT Imm Granulocytes num Bld Auto 0.03Thou/uL Normal [id number] 0 - 0.1 [facility] Calcium SerPl-mCnc 9mg/dL Normal [id number] 8.7 - 10 .5 [facility] BUN SerPl-mCnc 18mg/dL Normal [id number] 8 - 21 HH CCT Creat SerPl-mCnc 0.9mg/dL Normal [id number] 0.4 - 1.1 [facility] GFR/BSA.pred SerPlBld [id number] 66 Normal [id number] 59 - [facility] Chloride SerPl-sCnc 101mmol/L Normal [id number] 98 - 10 7 [facility] BUN/Creat SerPl 20Ratio Normal [id number] 10 - 25 H [facility] CO2 SerPl-sCnc 22mmol/L Normal [id number] 22 - 33 HH CCT Anion Gap Bld-sCnc 13 Normal [id number] 7 - 17 [facility] Potassium SerPl-sCnc 4mmol/L Normal [id number] 3.4 - 5.3 [facility] Glucose SerPl-mCnc 151mg/dL Above high normal [id number] 65 - 99 [facility] Sodium SerPl-sCnc 136mmol/L Normal [id number] 136 - 145 [facility] Neutrophils num Bld Auto 8.06Thou/uL Above high normal [id number] 2 - 7.5 [facility] Monocytes num Bld Auto 0.05Thou/uL Below low normal [id number] 0.2 - 1.5 [facility] Eosinophil num Bld Auto 0Thou/uL Normal [id number] 0 - 0.7 [facility] WBC num Bld Auto 8.8Thou/uL Normal [id number] 4 - 11 [facility] MCHC RBC Auto-mCnc 33g/dL Normal [id number] 30 - 36 [facility] Monocytes/leuk NFr Bld Auto 0.6% Normal [id number] [facility] Hct VFr Bld Auto 33.6% Below low normal [id number] 35 - 47 [facility] RBC num Bld Auto 4.08Mil/uL Normal [id number] 4 - 5.4 [facility] RDW RBC Auto-Rto 13.9% Normal [id number] 11.5 - 14. 5 [facility] PMV Bld Auto 10.2fL Normal [id number] 7.5 - 12.[address] Eosinophil/leuk NFr Bld Auto 0% Normal [id number] [facility] MCH RBC Qn Auto 27.2pg Normal [id number] 27 - 31 H [facility] Basophils/leuk NFr Bld Auto 0.2% Normal [id number] [facility] Basophils num Bld Auto 0.02Thou/uL Normal [id number] 0 - 0.2 [facility] Platelet num Bld Auto 350Thou/uL Normal [id number] 150 - 450 [facility] Neutrophils/leuk NFr Bld Auto 91.7% Normal [id number] [facility] MCV RBC Auto 82fL Normal [id number] 80 - 100 HH[facility] T Lymphocytes/leuk NFr Bld Auto 7.2% Normal [id number] [facility] Lymphocytes num Bld Auto 0.63Thou/uL Below low normal [id number] 1.5 - 4.5 [facility] Imm Granulocytes/leuk NFr Bld Auto 0.3% Normal [id number] [facility] Hgb Bld-mCnc 11.1g/dL Below low normal [id number] 11.7 - 15.7 [facility] Imm Granulocytes num Bld Auto 0.03Thou/uL Normal [id number] 0 - 0.1 [facility] POC Glucose 164mg/dL Above high normal [id number] 65 - 99 [facility] History of Medication Use Medication Directions Dispensed Refills Start Date End Date Stat us LORazepam (ATIVAN) 1 MG tablet Take 1 tablet (1 mg total) by mouth 3 times daily (every 8 hours) as needed for anxiety. 04/06/2024 active atorvastatin (LIPITOR) 40 MG tablet Take 1 tablet (40 mg total) by mouth nightly. 04/06/2024 active amLODIPine (NORVASC) 5 MG tablet Take 1 tablet (5 mg total) by mouth every morning. 04/06/2024 active FLUoxetine (PROzac) 40 MG capsule Take 1 capsule (40 mg total) by mouth every morning. 

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
== END 2024-12-03 15:16 | disposition home or self-care (01) ==
PROVIDERS: PCP Internal Medicine; Visit Provider Internal Medicine
DX: Z00.00 Encounter for general adult medical examination without abnormal findings (principal); E11.65 Type 2 diabetes mellitus with hyperglycemia; J84.10 Pulmonary fibrosis, unspecified; E78.00 Pure hypercholesterolemia, unspecified; I10 Essential (primary) hypertension; F41.1 Generalized anxiety disorder; M47.816 Spondylosis without myelopathy or radiculopathy, lumbar region; R07.9 Chest pain, unspecified

== ENCOUNTER → 2024-12-03 13:47 | Outpatient (BNVA) | payer MEDICARE, OTHER, SELFPAY | PROVIDERS: PCP Internal Medicine; Visit Provider Internal Medicine | DX: Z00.00 Encounter for general adult medical examination without abnormal findings (principal); I10 Essential (primary) hypertension; E11.65 Type 2 diabetes mellitus with hyperglycemia; E78.00 Pure hypercholesterolemia, unspecified; J84.10 Pulmonary fibrosis, unspecified; F41.1 Generalized anxiety disorder; M47.816 Spondylosis without myelopathy or radiculopathy, lumbar region; R07.9 Chest pain, unspecified; Z98.890 Other specified postprocedural states | CPT/HCPCS: 96127 ==

== ENCOUNTER 2024-12-06 12:22 | Outpatient (AMB) | payer MEDICARE, SELFPAY ==
[2024-12-06 12:36] VITALS: BP 138/74; PULSE 83; O2SAT 93; BMI 31.6
--- NOTE | 2024-12-06 12:36 | A.OFFVIS_ITS ---
Vital Signs 12/06/24 12:36 Height 5 ft 4 in Weight 184 lb BMI 31.6 BP 138/74 Blood Pressure Location Lt brachial Position Sitting Pulse 83 Pulse Source Pulse Oximeter Pulse Oximetry (%) 93 Oxygen Delivery Method Room Air Intake Visit Reasons: Follow up Director Of Rehabilitative Services Required: No Accompanied by: Son Allergies bacitracin [BACITRACIN] Allergy (Intermediate, Verified 12/06/24 12:40) RASH latex [LATEX] Allergy (Intermediate, Verified 12/06/24 12:40) FACIAL SWELLING; RASH nickel [NICKEL] Allergy (Intermediate, Verified 12/06/24 12:40) RASH lisinopril Adverse Reaction (Intermediate, Verified 12/06/24 12:40) Swelling adhesive tape Adverse Reaction (Verified 12/06/24 12:40) Irritable Medication List - Last Reconciled 12/06/24 by MARYBETH Mackenzie albuterol sulfate 90 mcg/actuation (Ventolin HFA) 2 puffs inhalation Q6H PRN amlodipine 5 mg PO DAILY cholecalciferol (vitamin D3) (Vitamin D3) 125 mcg PO DAILY fluoxetine 20 mg PO DAILY 90 days letrozole 2.5 mg PO DAILY lorazepam 1 mg PO BID PRN memantine 7 mg PO DAILY 30 days metformin 1,000 mg PO BID tramadol 50 mg PO BID HPI Comments Details: 74-yr-old female presents for f/u visit of cognitive difficulties, accompanied by her son. Pt reports her memory is still better. Ind w/ ADLs. Patient's son continues to live patient to provide assistance. Patient would like to be less dependent on her son, she feels he is to worried about her. She would prefer to be able to go grocery shopping by herself. However, the trip itself causes discomfort, and she often needs to take a tramadol in order to do this. Her son is concerned about her decision-making process in the grocery store, states much more food is purchase thing can easily fit into the refrigerator etcetera. Patient's son is now managing the finances. She manages her medications on a day to day basis, and her son picks them up or manages an issue when it arises. Most are on auto-refill. However, patient states that she takes the medication she needs to take every day every day, but the 1 she feels that her as needed she may not take daily, such as her fluoxetine. She was also concerned that her fluoxetine could cause weight gain. She continues to feel the Memantine ER 7mg- is helpful for her memory. she feels it gives her nausea but is not sure. Hesitant to increase dose. After recent visit, Dr Roman recently reduced her dose of Fluoxetine to 20mg qd She does continue on Lorazepam 1mg bid- per son is now managed by PCP again as her psych provider has left. Son verbalizes he is struggling with caregiver burden, especially as patient is resistive to assistance, however is worried that without assistance patient would have adverse effects from medications or make financial errors. He would like increased help especially with medication management. Brain MRI 04/06/24: No acute infarct. The GRE sequence is without susceptibility artifact to suggest acute or chronic blood products. No extra-axial fluid collection. Mild global cerebral volume loss. Patchy T2 FLAIR hyperintense foci in the subcortical and periventricular white matter, nonspecific but presumably mild chronic microangiopathy. No abnormal intraparenchymal or leptomeningeal enhancement. No significant mass effect or herniation pattern. The intracranial dural venous sinus and arterial flow voids are preserved. Normal appearance of the midline structures. Lens replacements. Rightward nasal septal deviation with bony spur impinging on the base of the right inferior nasal turbinate. The paranasal sinuses and mastoids are well aerated. Partially imaged cervical spondylosis with severe hypertrophic facet arthropathy. Advanced bilateral TMJ osteoarthrosis. Marrow signal abnormality within the parasymphyseal mandible and infiltration of the submental soft tissues, better characterized on the subsequently performed CT dated 04/10/2024. Otherwise, no suspicious osseous lesions. [facility] Medical History MDD (major depressive disorder), recurrent episode, moderate Arrhythmia Right leg pain Obesity (BMI 30-39.9) Benign essential hypertension Normal colonoscopy (~06/16/21) Medicare annual wellness visit, initial Breast implant in situ Breast cancer screening by mammogram Cataract Cholelithiasis Pelvic fracture Fatty liver Colon cancer screening Hypercholesterolemia Type 2 diabetes mellitus with hyperglycemia Restrictive lung disease Pulmonary fibrosis Surgical History History of lumpectomy of left breast (02/02/24) Left breast mass History of colonoscopy History of cataract surgery History of surgery on lower extremity H/O left wrist surgery History of ankle surgery Family History Mother Lung cancer Father Respiratory failure Sister Lung disease Brother Respiratory failure Son No problems noted. 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 skin care therapist to a significant other at home: Yes Do you presently have visiting nurse or other home services: No Alcohol intake: former Comment: COUNTS CORRECT Patient Tobacco Use Status: Former Tobacco user Years Smoked: stopped 48 years old e-Cigarette/Vaping Use: Never Used Second Hand Smoke Exposure: No Advance Directives Date on File: 01/18/24 service: No Current occupational status: retired Cognitive needs: Yes Hearing needs: No Vision needs: Yes Physical Exam Vital Signs: Last Vital Signs Pulse 83 12/06/24 12:36 BP 138/74 12/06/24 12:36 Pulse Ox 93 12/06/24 12:36 Oxygen Delivery Method Room Air 12/06/24 12:36 BMI result Body Mass Index 31.6 Const General: cooperative and no acute distress Resp Effort & Inspection: normal respiratory effort and able to speak in complete sentences Neuro Other: A&O w/ mild STM lapses. Overall patient responding appropriately. At times, patient has difficulty following conversation, and responses not in line with current conversation. General: moves all extremities Psych Appearance: well kempt Speech and movement: Normal speech and movement present Affect: normal affect Attitude: cooperative Assessment & Plan Assessment & Plan (1) Generalized anxiety disorder: Comment: [facility]D counseling weekly Code(s): F41.1 - Generalized anxiety disorder Category: Medical (2) Cognitive dysfunction: Comment: MMSE 26. Code(s): F09 - Unspecified mental disorder due to known physiological condition Category: Medical (3) MDD (major depressive disorder), recurrent episode, moderate: Code(s): F33.1 - Major depressive disorder, recurrent, moderate Category: Medical Plan Continue memantine ER 7 mg q.d. for now. Encourage patient to accept increased assistance especially with medication management, as medication mismanagement of her current medications could lead to serious adverse effects. Patient agrees at this time. We will request home nursing and coroner/medical examiner, as patient is homebound due to requires assist to 1 to safely leave home duty cognitive difficulties, STM lapses, chronic pain. * NSG- for home safety, IADLs, medication safety eval & tx. * PRODUCTION HONING MACHINE OPERATOR- home safety, medication safety, assess for community resources. Patient does currently have meals on wheels. Patient also advised to undergo comprehensive neuropsychiatric evaluation, to identify her strengths and weaknesses. Will follow-up upon review of above and patient to follow-up in clinic in 6 months or sooner prn. Orders: Referrals Neuropsychiatry Referral F09 - Unspecified mental disorder due to known physiological condition, F33.1 - Major depressive disorder, recurrent, moderate, F41.1 - Generalized anxiety disorder [facility]osp[facility] Referral F09 - Unspecified mental disorder due to known physiological condition, F33.1 - Major depressive disorder, recurrent, moderate, F41.1 - Generalized anxiety disorder Coding Level of Care Code Est Pt Level 4 (76635) Diagnoses Generalized anxiety disorder F41.1 Cognitive dysfunction F09 MDD (major depressive disorder), recurrent episode, moderate F33.1
== END 2024-12-06 13:28 | disposition home or self-care (01) ==
PROVIDERS: PCP Internal Medicine; Visit Provider Nurse Practitioner Family
DX: F33.1 Major depressive disorder, recurrent, moderate (principal); F41.1 Generalized anxiety disorder; R41.89 Other symptoms and signs involving cognitive functions and awareness
CPT/HCPCS: 99214

== ENCOUNTER → 2024-12-06 12:22 | Outpatient (BNVA) | payer MEDICARE, SELFPAY | PROVIDERS: PCP Internal Medicine; Visit Provider Nurse Practitioner Family | DX: F41.1 Generalized anxiety disorder (principal); F33.1 Major depressive disorder, recurrent, moderate; F09 Unspecified mental disorder due to known physiological condition | CPT/HCPCS: 99212 ==

== ENCOUNTER → 2024-12-11 09:01 | Outpatient (REF) | payer MEDICARE, SELFPAY ==
--- NOTE | 2024-12-11 09:03 | CA_ITS ---
Acquisition Time: 2024-12-11 09:19:48 Total Exercise Time: 00:01:36 Test Indications: CP Medications: SEE H&P Protocol: EMILIA Max HR: 129 BPM 89% of Pred: 144 BPM Max BP: 160/60 mmHG Max Work Load: 3.1 METS Exercise Stress test with exercise 1 min 36 secs of Emilia Protocol, after 15 secs of Stage 1, requested to lower the speed to 1.5mph but requested to stop due to thigh tightness, achieving 83% MPHR, without any anginal symptoms, without any arrythmias, with normotensive response to exercise. No EKG changes noted at the achieved workload. Test inconclusive overall. Recommend Pharmacologic Nuclear Stress Test with Lexiscan. Test reviewed with Dr. Turner. Referred By: Rocky Roman Electronically Signed By: Nazario Maldonado
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
== END ==
LOC: HO.CARD 09:01
PROVIDERS: PCP Internal Medicine; Visit Provider Internal Medicine
DX: R07.9 Chest pain, unspecified (principal)
CPT/HCPCS: 93017

== ENCOUNTER → 2024-12-11 09:03 | Outpatient (BNV) | payer MEDICARE, SELFPAY | PROVIDERS: PCP Internal Medicine | DX: R07.9 Chest pain, unspecified (principal) | CPT/HCPCS: 93016; 93018 ==

== ENCOUNTER 2024-12-11 09:54 | Outpatient (REF) | payer MEDICARE, SELFPAY ==
--- NOTE | ~2024-12-11 | XR_ITS ---
EXAMINATION: XR CHEST CLINICAL INFORMATION: R07.9 - Chest pain, unspecified COMPARISON: 01/19/2024. Correlation made with CT chest 06/29/2024. TECHNIQUE: 2 views of the chest were obtained. FINDINGS: There is mild cardiac enlargement. The aorta is calcified but normal in contour. Mildly prominent vascular structures in the hilar regions. The lungs again demonstrate diffuse changes of interstitial lung disease. No definite superimposed consolidation, effusion, or pneumothorax when compared with 01/19/2024. There is no focal osseous or soft tissue abnormality. Degenerative changes throughout the spine with L1 vertebroplasty, and kyphoscoliosis. XR/XR chest 2V IMPRESSION: 1. Interstitial pulmonary disease without definite acute superimposed disease. 2. Mild cardiac enlargement. 3. Vertebroplasty changes L1. Electronically signed by: Kennedy Salgado MD 12/11/2024 10:42 AM LISETH
== END 2024-12-11 09:55 | disposition home or self-care (01) ==
LOC: HO.XRAY 09:54
PROVIDERS: PCP Internal Medicine; Visit Provider Internal Medicine
DX: R07.9 Chest pain, unspecified (principal)
CPT/HCPCS: 71046

== ENCOUNTER → 2024-12-11 10:03 | Outpatient (BNV) | payer MEDICARE, SELFPAY | PROVIDERS: PCP Internal Medicine; Visit Provider Radiology Diagnostic Radiology | DX: I70.0 Atherosclerosis of aorta (principal); I51.7 Cardiomegaly; S32.019A Unspecified fracture of first lumbar vertebra, initial encounter for closed fracture | CPT/HCPCS: 71046 ==

== ENCOUNTER 2025-01-30 14:17 | Outpatient (REF) | payer MEDICARE, SELFPAY ==
--- NOTE | ~2025-01-30 | MM_ITS ---
EXAMINATION: MM DIAGNOSTIC DIGITAL BREAST TOMOSYNTHESIS, BILATERAL CLINICAL INFORMATION: Stricture of left breast cancer in 2023 status post lumpectomy. COMPARISON: Mammography: Comparison is made with relevant prior exams. TECHNIQUE: Digital breast mammography with tomosynthesis is performed in both the craniocaudal and mediolateral oblique views along with computer-aided detection (CAD). FINDINGS: The breasts are heterogeneously dense, which may obscure small masses (ACR BI-RADS breast composition Category c). Right: Retropectoral implant is stable appearing. No suspicious masses calcifications or other abnormal findings. Left: Status post left lumpectomy and explantation changes. No suspicious masses calcifications or other abnormal findings. Results are provided to the patient at time of visit by the technologist. MM/MM tomosynthesis diag imp BI IMPRESSION: Left: Status post left lumpectomy and explantation changes. Right: Benign. ASSESSMENT: BI-RADS BI-RADS 2 - Benign Findings RECOMMENDATION: 1 year F/U This patient's information was entered into a reminder system with a target due date for their next mammogram. Electronically signed by: Alanis Lagunas DO 01/30/2025 05:47 PM LISETH
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
--- OUTSIDE RECORDS SUMMARY | 2025-01-30 17:16 | XMS_ITS | Data Portability ---
Author Organization [facility], Main Office Address [address] [place] [address] Care Team Providers Care Sales Consulting Director Name Role Phone MADELEINE HENRIQUEZ 1ST FLOOR OTHER Assessment No assessment recorded. Plan of Treatment Reminders Order Date Submit Date Provider Last Modified By Organization Details Last Modified Time Details Appointments None record ed. Lab None record ed. Referral None record ed. Procedures None record ed. Surgeries None record ed. Imaging None record ed. Medication Orders None record ed. Patient TargetsNo targets recorded. Patient Instructions Encounter Date Encounter Id Patient Instructions Last Modified By Organization Details Last Modified Time 02/23/2019 [id number] d/c home with meds and services f/u with pcp in 2 weeks f/u with Dr. Mouna loredo Not available 02/23/2019 09:49:54 Reason for Referral None Reported. Problems Name Problem SNOMED Code Status Onset Date Resolution Date Notes Provider Name and Address Organization Details Recorded Time Open reduction of fracture with internal fixation Completed 201801/07/2019 [facility] 20:[facility]22 Hypertens edilia disorder 27452085 Active 2018 Ne Swanson [facility] 9 20:21:42 Type 2 diabetes mellitus 18992603 Active 2018 Ne Swanson [facility] 9 20:22:04 Open reduction of fracture with internal fixation Active 2018 [facility] 20:31:22 Falls 914621548 Active 2018 [facility] 9 20:31:39 Anxiety 11506735 Active 2018 [facility] 9 20:37:17 Essential hypertens ion 98955586 Active 2018 Yina Vidal MD [address], [address], [place], [address], [facility] [employer] [facility] 9 11:49:48 Hyperlipi ludmila 86263949 Active 2018 Yina Vidal MD [address], [address], [place], [address], [facility] [employer] [facility] 9 11:50:41 Closed trimalleo lar fracture of right ankle 995900865888 10382 Active 2018 Yina Vidal MD [address], [address], [place], [address], [facility] [employer] [facility] 9 12:01:53 Problem Notes None recorded. Medical Equipment None Reported. Allergies Allergen ID Allergen Name Allergen Category Reaction Reaction Severity Criticality Documentation Date Start Date Code Code System Note Provider Name and Address Organization Details Recorded Time 14643 bacitraci n medicatio n Not available Not available Not available 01/07/2019 1291 RxNorm Not Available Not Available Not Available 17122 nickel environme nt Not available Not available Not available 01/07/2019 86741 29 RxNorm Not Available Not Available Not Available 70208 latex environme nt,medica tion Not available Not available Not available 01/07/2019 51485 91 RxNorm Not Available Not Available Not Available Vitals None Recorded Social History Question Answer Notes LastModified by Organizat ion Details LastModified Time Tobacco Smoking Status Former Smoker quit in 1998 Not Available [facility] 09/23/2020 03:13:23 Do You Have An Advance Directive? Yes Full Code [id number] Information not available 09/23/2020 What Is Your Level Of Alcohol Consumption? Occasional [id number] Information not available 09/23/2020 How Much Tobacco Do You Chew? None [id number] Information not available 09/23/2020 Do You Have A Medical Power Of Retail Administrative Assistant? Yes [id number] Information not available 09/23/2020 What Was The Date Of Your Most Recent Tobacco Screening? 01/09/2019 [id number] Information not available 09/23/2020 Has Tobacco Cessation Counseling Been Provided? No [id number] Information not available 09/23/2020 Sex: Unknown Functional Status None recorded. Mental Status None recorded. Family History Nothing Reported. Medical History No medical history recorded. Gynecological HistoryNo gynecological history recorded. Obstetrics History GPAL:G 0 P 0 0 0 0 Past Encounters Encounter ID Performer Location Encounter Start Date Encounter Closed Date Diagnosis/Indication Diagnosis SNOMED-CT Code Diagnosis ICD10 Code Diagnosis Note [id number] Anca HENRIQUEZ [address] [facility] [place] [address] 01/07/2019 20:06:08 01/18/2019 09:32:29 Essential hypertension 10674989 I10 controlled on amlodipine 5mg, coreg vitals stable continue to monitor Hyperlipidemia 32007222 E78.5 cont atorvastat in cardiac/ad a diet Dyspnea 016515077 R06.00 secondary to hypervolem ia, was initiated at hospital will increase lasix for 3 days bmp/mag in morning daily weights, low na diet if dyspnea does not improve will check xray Type 2 ines betes mellitus 77062223 E11.69 continue home meds glimepirid e/januvia/ metformin fs qid, ada/cardia c diet no concentrat ed sweets Falls 677195256 R29.6 s/p fall complicate d by right ankle fracture s/p ORIF non weight bearing right extremity 6 weeks, keep splint clean/dry no showering elevate extremity when in bed f/u ortho 2 weeks fall precaution s pt/ot pain management Anxiety 69847286 F41.9 mood stable provide supportive [facility], continue duloxetine [id number] Yina Vidal MD [address] [place] [address] 01/09/2019 10:10:31 01/18/2019 09:39:57 Essential hypertension 42253174 I10 Increased today, possibly due to increased pain or increased CHF. Will continue amlodipine 5 mg and carvedilol 6.25 mg, as well as lasix as above. Monitor and adjust as needed. Hyperlipidemia 27110215 E78.2 Continue atorvastat in 40 mg qd and monitor as outpt. Type 2 ines betes mellitus 52317892 E11.69 BS stable on glimepirid e 4 mg qd, januvia 100 mg qd and metformin 1000 mg BID. Currently only getting fingerstic ks 2x/week, will increase to BID due to immobility . Can d/c if stable. Continue CCD. Monitor HgA1C as outpt. Falls 940437489 R29.6 Will need continued PT/OT after ankle heals to work on balance and gait training to help prevent future falls. Anxiety 11929829 F41.1 With moderate baseline anxiety. Continue lorazepam 1 mg qd prn and duloxetine 60 mg qd. Monitor mood and consult NEG prn. Closed tri malleolar fracture of right ankle [id number] 7748629 S82.851D S/P ORIF, pain well controlled with oxycodone 5 mg q 4 hrs prn. Not on anything for DVT prophylaxi s, discussed with ortho PA and told that they don't usually do AC unless pt. is bedridden. Continue PT/OT for function as tolerated with NWB on right leg. F/U with ortho in 2 weeks. Congestive heart failure 77301631 I50.43 Pt. informs me she has hx of CHF. Had cardiac w/u at [facility] a few months ago . Including echo and possible a medication stimulated stress test. Had been off lasix for a month prior to admission, because sxs had improved. Had lasix increased on admission here, from 20 mg qd to 40 mg BID for 3 days. Labs stable on this dose. SOB worsening. WIll get CXR stat today. Will get records from [facility] on previous testing. [id number] Mery SALVADOR MARTINEZ [address] [place] [address] 01/15/2019 11:00:43 01/18/2019 11:54:03 Essential hypertension 73313605 I10 controlled on amlodipine 5mg, coreg vitals stable continue to monitor Hyperlipidemia 76657847 E78.5 cont atorvastat in cardiac/ad a diet Type 2 ines betes mellitus 20272501 E11.69 continue home meds glimepirid e/januvia/ metformin fs qid, ada/cardia c diet no concentrat ed sweets Falls 188987870 R29.6 s/p fall complicate d by right ankle fracture s/p ORIF non weight bearing right extremity 6 weeks, keep splint clean/dry no showering elevate extremity when in bed f/u ortho 2 weeks fall precaution s pt/ot pain management Anxiety 71017273 F41.9 mood stable provide supportive care ativan qhs prn, continue duloxetine Anemia 773121847 D64.9 ? d/t blood loss.hgb stable at 9 range.cont inue to monitor. [id number] Mery HENRIQUEZ [address] [place] [address] 01/24/2019 11:01:04 01/31/2019 13:55:43 Falls 309075592 R29.6 s/p fall complicate d by right ankle fracture s/p ORIF non weight bearing right extremity 6 weeks, keep cast clean/dry f/u ortho pt/ot pain controlled Essential hypertension 83020478 I10 controlled on amlodipine 5mg, coreg vitals stable continue to monitor Hyperlipidemia 63188679 E78.5 cont atorvastat in cardiac/ad a diet Type 2 ines betes mellitus 34538471 E11.69 continue home meds glimepirid e/januvia/ metformin fs qid, ada/cardia c diet no concentrat ed sweets Anxiety 23583603 F41.9 mood stable provide supportive care ativan qhs prn, continue duloxetine Anemia 143851090 D64.9 ? d/t blood loss.hgb stable at 9 range.cont inue to monitor. [id number] Mery HENRIQUEZ [address] [facility] [place] [address] 01/31/2019 14:58:48 02/05/2019 16:09:48 Falls 227831728 R29.6 s/p fall complicate d by right ankle fracture s/p ORIF non weight bearing right extremity 6 weeks, keep cast clean/dry f/u ortho pt/ot pain controlled Essential hypertension 62720814 I10 controlled on amlodipine 5mg, coreg vitals stable continue to monitor Hyperlipidemia 28593437 E78.5 cont atorvastat in cardiac/ad a diet Type 2 ines betes mellitus 89156944 E11.69 continue home meds glimepirid e/januvia/ metformin ada/cardia c diet Anxiety 42158561 F41.9 mood stable provide supportive care ativan qhs prn, continue duloxetine Anemia 033773215 D64.9 ? d/t blood loss.hgb stable at 9 range.cont inue to monitor. [id number] Mery HENRIQUEZ [address] [facility] [place] [address] 02/06/2019 12:16:47 02/09/2019 15:45:58 Falls 072826748 R29.6 s/p fall complicate d by right ankle fracture s/p ORIF, pain controlled non weight bearing right extremity 6 weeks, keep cast clean/dry f/u ortho pt/ot- Patient has R trimalleol ar fx with cast in place. NWB status requires assist for all functional mobility including wheeled walker for transfers and wheelchair for mobility. She is unable to safely hop and remains dependent on wheelchair for safe mobility. [id number] Mery [facility] [place] [address] 02/08/2019 10:07:17 02/13/2019 15:27:37 Falls 013340492 R29.6 s/p fall complicate d by right ankle fracture s/p ORIF, pain controlled non weight bearing right extremity 6 weeks, keep cast clean/dry f/u ortho Essential hypertension 49802320 I10 controlled on amlodipine 5mg, coreg vitals stable continue to monitor Hyperlipidemia 27173337 E78.5 cont atorvastat in cardiac/ad a diet Type 2 ines betes mellitus 10816431 E11.69 continue home meds glimepirid e/januvia/ metformin ada/cardia c diet Anxiety 19461709 F41.9 mood stable provide supportive care [facility], continue duloxetine Anemia 706578938 D64.9 ? d/t blood loss.hgb stable at 9 range.cont inue to monitor. [id number] Mery HENRIQUEZ [address] [place] [address] 02/23/2019 09:38:45 02/27/2019 09:10:22 Falls 719108315 R29.6 s/p fall complicate d by right ankle fracture s/p ORIF, pain controlled -WBAT with boot in place. f/u with Dr. Freire in 3 weeks. Essential hypertension 54851595 I10 controlled on amlodipine 5mg, coreg vitals stable continue to monitor Hyperlipidemia 64136377 E78.5 cont atorvastat in cardiac/ad a diet Type 2 ines betes mellitus 71495215 E11.69 continue home meds glimepirid e/januvia/ metformin ada/cardia c diet Anxiety 80450965 F41.9 mood stable provide supportive care ativan qhs prn, continue duloxetine Anemia 777328955 D64.9 hgb improvedco ntinue to monitor. Health Concerns Section Related Observation LastModified by Organization Detai ls LastModified Time None Recorded Concern Status LastModified by Organization Details LastModified Time None Recorded Advance Directives Directive Y: full code Payers Encounter Date Sequence Insurance Name Policy Number Policy Moore Covered Member ID Moore Member ID Guarantor Name 01/24/2019 1 [place] [employer] Bambi L Cox [id number] Bambi Cox 01/31/2019 1 [place] [employer] Bambi L Cox [id number] Bambi Cox 02/06/2019 1 [place] [employer] Bambi L Cox [id number] Bambi Cox 02/08/2019 1 [place] [employer] Bambi Betty Cox [id number] Bambi Cox 02/23/2019 1 [place] [employer] Bambi Betty Cox [id number] Bambi Cox Notes Date Note Type Note Provider Name and Address Organization Details Recorded Time 01/24/2019 text/html 68yo female who is admitted for rehab after she fell and sustained right trimalleolar fracture of right ankle and s/p successful ORIF of ankle. She feels anxious and is worried about falling. Feels fatigued after PT. No other issues. Pain controlled. pmhx dm, anxiety, depression, arrhythmia, htn, hld Mery meyer [employer] 01/24/2019 17:23:45 01/31/2019 text/html 68yo female who is admitted for rehab after she fell and sustained right trimalleolar fracture of right ankle and s/p successful ORIF of ankle. Has cast in place and is NWB. No c/o today. Anxiety improved. No pain. Doing well with PT/OT. pmhx dm, anxiety, depression, arrhythmia, htn, hld Mery meyer [facility] 01/31/2019 15:02:03 02/06/2019 text/html 68yo female who is admitted for rehab after she fell and sustained right trimalleolar fracture of right ankle and s/p successful ORIF of ankle. Has cast in place and is NWB. No c/o today. Anxiety improved. No pain. Doing well with PT/OT. Seen for eval and rx for ww, wheelchair today. pmhx dm, anxiety, depression, arrhythmia, htn, hld Mery meyer [facility] [employer] [facility] 02/06/2019 12:20:17 02/08/2019 text/html 68yo female who is admitted for rehab after she fell and sustained right trimalleolar fracture of right ankle and s/p successful ORIF of ankle. Has cast in place and is NWB. No c/o today. Anxiety improved, asking to change lorazepam to bid as sometimes uses in am instead of pm. No pain. Doing well with PT/OT. pmhx dm, anxiety, depression, arrhythmia, htn, hld Mery meyer, [facility] [employer] [facility] 02/08/2019 15:45:36 02/23/2019 text/html 68yo female who is admitted for rehab after she fell and sustained right trimalleolar fracture of right ankle and s/p successful ORIF of ankle. Has been seeing ortho and cast has been removed, she is now WBAT with boot and NWB for ROM/strengthening. She has completed therapy to a level where she can function at home with services and will be going home today. Has been medically stable here without any issues. pmhx dm, anxiety, depression, arrhythmia, htn, hld Mery meyer [facility] [employer] [facility] 03/20/2019 22:06:17 OBGyn Episode No OBEpisode recorded.
--- OUTSIDE RECORDS SUMMARY | 2025-01-30 17:16 | XMS_ITS ---
Author Organization [facility] Address Unknown Allergies, Adverse Reactions, Alerts Substance Reaction Status Noted Date Resolved Date nickel active 01/06/2019 Latex active 01/06/2019 Bacitracin active 01/06/2019 Problems Problem Status Start Date End Date DISPLACED TRIMALLEOLAR FRACT URE OF RIGHT LOWER LEG, SUBSEQUENT ENCOUNTER FOR CLOSED FRACTURE WITH ROUTINE HEALING (Primary) (S82.851D - ICD-10-CM) ACTIVE 01/06/2019 AFTERCARE FOLLOWING JOINT RE PLACEMENT SURGERY (Z47.1 - ICD-10-CM) ACTIVE 01/06/2019 MUSCLE WEAKNESS (GENERALIZED) (M62.81 - ICD-10-CM) ACT SVETLANA 01/06/2019 OTHER ABNORMALITIES OF GAIT AND MOBILITY (R26.89 - ICD-10-CM) ACTIVE 01/06/2019 OTHER LACK OF COORDINATION (R27.8 - ICD-10-CM) ACTIVE 01/06/2019 WEAKNESS (R53.1 - ICD-10-CM) ACTIVE 01/06/2019 UNSPECIFIED FALL, SUBSEQUENT ENCOUNTER (W19.XXXD - ICD-10-CM) ACTIVE 01/06/2019 TYPE 2 DIABETES MELLITUS WIT HOUT COMPLICATIONS (E11.9 - ICD-10-CM) ACTIVE 01/06/2019 RHEUMATOID ARTHRITIS, UNSPECIFIED (M06.9 - ICD-10-CM) ACTIVE 01/06/2019 GENERALIZED ANXIETY DISORDER (F41.1 - ICD-10-CM) ACTIV E 01/06/2019 ESSENTIAL (PRIMARY) HYPERTENSION (I10 - ICD-10-CM) ACT SVETLANA 01/06/2019 OTHER HYPERLIPIDEMIA (E78.49 - ICD-10-CM) ACTIVE 01/06/2019 Encounters Encounter Performer Performer Role Encounter Diagnoses Location Date Discharge - Home - [facility] 01/06/2019 11:23 am EST - 02/23/2019 02:15 pm EDT Immunizations Vaccine Date Influenza 08/29/2018 12:00 am EDT TB 2 Step Mantoux Skin Test 01/13/2019 0 1:00 pm EST TB 2 Step [place]oux Skin Test 01/06/2019 0 1:50 pm EST PCV13 (Pneumococcal Conjugate)Vaccine 12:00 am EDT Social History
--- OUTSIDE RECORDS SUMMARY | 2025-01-30 17:16 | XMS_ITS ---
Author Organization [facility] Address [address] [place] [address] Care Team Providers Care Staff Sonographer Name Role Phone Rocky Roman Primary Care Provider Prakash Santoyo [phone] REASON FOR VISIT No show Encounters Encounter Location Date Provider Diagnosis [facility] [address] [place] [address] 12/08/2023 Prakash Palacios Plan Of Treatment No Information Progress Notes * Bambi FOXDOB: [birth year] (73 yo F)Acc No.[id number]:12/08/2023 Patient:?FoxWallace ibanezyn :1950???Age:73 Y???Sex:Female Address: [place], [address] * true * Date:? Generated for Percyi best/Avni/eTransmitting on:?01/30/2025 05:16 PM EST
--- OUTSIDE RECORDS SUMMARY | 2025-01-30 17:16 | XMS_ITS | Clinical Summary ---
Author Organization [facility] Address [address] [place] [address] Care Team Providers Care Conservation Science Teacher Name Role Phone Rocky Roman MD Primary Care Provider [phone] Allergies Active Allergy Reactions Criticality Noted Date Comments Adhesives/Tape Rash/Dermatitis Low 02/06/2024 Latex Rash/Dermatitis Low 02/06/2024 Medications Medication Sig Dispensed Refills Start Date End Date Status FLUoxetine (PROzac) 40 MG capsule Take 1 capsule (40 mg total) by mouth every morning. Active amLODIPine (NORVASC) 5 MG tablet Take 1 tablet (5 mg total) by mouth every morning. Active LORazepam (ATIVAN) 1 MG tablet Take 1 tablet (1 mg total) by mouth daily as needed for anxiety. Active atorvastatin (LIPITOR) 40 MG tablet Take 1 tablet (40 mg total) by mouth nightly. Active letrozole (FEMARA) 2.5 MG tablet Take 1 tablet (2.5 mg total) by mouth daily Active lisinopril (PRINIVIL,ZeSTRIL) 5 MG tablet Take 1 tablet (5 mg total) by mouth daily. Active metFORMIN (GLUCOPHAGE) 1000 MG tablet Take 1 tablet (1,000 mg total) by mouth 2 (two) times a day with meals. Active cholecalciferol (CHOLECALCIFEROL) 125 MCG (5000 UT) capsule Take 1 capsule (5,000 Units total) by mouth daily. 02/17/2024 Active cyanocobalamin (VITAMIN B-12) 500 MCG tablet Take 1 tablet (500 mcg total) by mouth daily. 03/05/2024 Active FLUoxetine (PROzac) 20 MG capsule TAKE 1 CAPSULE BY MOUTH DAILY TAKE WITH 40MG DOSE 03/01/2024 Active folic acid (FOLVITE) 400 MCG tablet Take 1 tablet (400 mcg total) by mouth daily. 03/05/2024 Active memantine (NAMENDA XR) 7 MG 24 hr capsule Take 1 capsule (7 mg total) by mouth daily. 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 No 04/11/2024 AUDIT-C Answer Date Recorded Q1: How often do you have a drink containing alcohol? Never 02/06/2024 Q2: How many drinks containi ng alcohol do you have on a typical day when you are drinking? Patient does not drink Q3: How often do you have si x or more drinks on one occasion? Never 02/06/2024 Hunger Vital Sign Answer Date Recorded Within the past 12 months, y ou worried that your food would run out before you got the money to buy more. Never true 04/11/20 24 Within the past 12 months, t he food you bought just didn't last and you didn't have money to get more. Never true 04/11/2024 PRAPARE - Transportation Answer Date Re corded In the past 12 months, has l ack of transportation kept you from medical appointments or from getting medications? No 03/28 In the past 12 months, has l ack of transportation kept you from meetings, work, or from getting things needed for daily living? No 04/11/2024 Housing Stability Vital Sign Answer Saul e Recorded In the last 12 months, was t here a time when you were not able to pay the mortgage or rent on time? No 04/11/2024 In the last 12 months, how many places have you lived? 1 04/11/2024 In the last 12 months, was t here a time when you did not have a steady place to sleep or slept in a custodial (including now)? No 04/11/2024 Sex and Gender Information Value Date Recorded Sex Assigned at Female 02/10/2024 7:29 AM EDT Gender Identity Female 02/10/2024 7:29 AM EDT Sexual Orientation Heterosexual (straight) 04/10 7:22 PM EDT Last Filed Vital Signs Vital Sign Reading Time Taken Comments Blood Pressure 118/60 04/12/2024 3:48 PM EDT Pulse 63 04/12/2024 3:48 PM EDT Temperature 36.9 ??C (98.4 ??F) 04/12/2024 3:48 PM ED T Respiratory Rate 18 04/12/2024 3:48 PM EDT Oxygen Saturation 97% 04/12/2024 3:48 PM EDT Inhaled Oxygen Concentration - - Weight 73 kg (161 lb) 04/11/2024 1:43 AM EDT Height 165.1 cm (5' 5 ) 04/11/2024 1:43 AM EDT Body Mass Index 26.79 04/11/2024 1:43 AM EDT Plan of Treatment Health Maintenance Due Date Last Done Comments Hepatitis C Virus Screening 1950 DTaP/Tdap/Td Vaccines (1 - Tdap) 02/02/1967 Pneumococcal Vaccines 50+ (1 of 1 - PCV) 02/02/1998 Zoster (Shingles) Vaccine (1 of 2) 02/02/1998 DXA Bone Density (Females,Ag es 65 and older) 02/02/2013 RSV Vaccine 60 years and old er and Patients (1 - 1-dose 75+ series) 02/02/2023 Influenza Vaccine 06/28/2024 08/29/2018 COVID-19 Vaccine ( - 2023-2 5 season) 2024 Hepatitis B Vaccines Aged Out No long er eligible based on patient's age to complete this topic Advance Directives * Full Code (Latest Code Status on File) Date Activated Date Inactivated Comments 04/10/2024 10:10 PM * Full Code Date Activated Date Inactivated Comments 02/10/2024 10:30 AM 04/10/2024 6:16 PM * Full Code Date Activated Date Inactivated Comments 02/10/2024 8:39 AM 02/10/2024 10:30 AM Care Teams Conservation Science Teacher Relationship Specialty Start Date End Date Rocky Roman MD [address] [place] [address] [place] [address] PCP - General Internal Medicine 02/10/24
--- OUTSIDE RECORDS SUMMARY | 2025-01-30 17:16 | XMS_ITS ---
Author Organization [facility] Address [address] [facility] [place] [address] Care Team Providers Care Hollow Handle Knife Assembler Name Role Phone Rocky Roman Primary Care Provider Prakash Santoyo Unavailable [phone] Allergies Allergen (clinical drug ingredient) Drug/Non Drug Allergy documented on EMR Reaction Allergy Type Onset Date Status Adhesive Unknown Allergy Active Latex Latex Unknown Allergy Active nickel Nickel Unknown Allergy Active REASON FOR VISIT PCP - 01/2023 Medications Medication SIG (Take, Route, Frequency, Duration) Notes Start Date End Date Status Extra Depth Diabetic Shoes with 3 Pair Custom heat-molded multi-density innersoles for 1 year Dx: Active Metoprolol Succinate 50 MG 1 capsule Ora lly Once a day for 30 day(s) Active Extra Depth Diabetic Shoes with 3 Pair Custom heat-molded multi-density innersoles for 1 year Dx: 12/03/2020 Active metFORMIN HCl 1000 MG 1 tablet with a me al Orally twice a day Active iron infusion Active Glimepiride 4 MG 1 tablet with breakf ast or the first main meal of the day Orally Once a day for 30 day(s) Active Bumetanide Active FLUoxetine HCl 40 MG 1 capsule Orally On ce a day for 30 day(s) Active ARIPiprazole 5 MG 1 tablet Orally Once a day for 30 day(s) Active Atorvastatin Calcium 40 MG 1 tablet Oral ly Once a day for 30 day(s) Active Aleve PRN Active amLODIPine Besylate 5 MG 1 tablet Orally Once a day for 30 day(s) Active Social History Tobacco Use: Social History Observation Description Date Details (start date - stop date) Former Smoker NA - NA Tobacco Use/Smoking Question Answer Notes Are you a: former smoker Additional Findings: Tobacco Non-User Current no n-smoker Alcohol Screen Question Answer Notes Did you have a drink contain ing alcohol in the past year? Yes How often did you have a dri nk containing alcohol in the past year? Monthly or less (1 point) How often did you have 6 or more drinks on one occasion in the past year? Monthly (2 points) Points 3 Interpretation Positive Tobacco use other than smoking: Question Answer Notes Are you an other tobacco user? No Vital Signs Blood pressure systolic 130 mm Hg 09/08/20 23 Blood pressure diastolic 70 mm Hg 023 Height 5ft 5in in 09/08/2023 Weight 190 lbs 09/08/2023 BMI 31.61 kg/m2 09/08/2023 Encounters Encounter Location Date Provider Diagnosis [facility] [address] [address] 09/08/2023 Prakash Palacios Type 2 diabetes mellitus with diabetic polyneuropathy E11.42 ; Pain in right toe(s) M79.674 ; Tinea unguium B35.1 ; Pain in left toe(s) M79.675 ; Primary osteoarthritis, right ankle and foot M19.071 ; Other hammer toe(s) (acquired), left foot M20.42 ; Other hammer toe(s) (acquired), right foot M20.41 ; Non-pressure chronic ulcer of other part of right foot limited to breakdown of skin L97.511 and Xerosis cutis L85.3 Assessments Encounter Date Diagnosis (ICD Code) Assessment Notes Treatment Notes Treatment Clinical Notes Section Notes 09/08/2023 Type 2 diabetes mellitus with diabetic polyneuropathy (ICD-10 - E11.42) 09/08/2023 Pain in right toe(s) (ICD-10 - M79.674) 09/08/2023 Tinea unguium (ICD-10 - B35.1) 09/08/2023 Pain in left toe(s) (ICD-10 - M79.675) 09/08/2023 Primary osteoarthritis, right ankle and foot (ICD-10 - M19.071) 09/08/2023 Other hammer toe(s) (acquired), left foot (ICD-10 - M20.42) 09/08/2023 Other hammer toe(s) (acquired), right foot (ICD-10 - M20.41) 09/08/2023 Non-pressure chronic ulcer of other part of right foot limited to breakdown of skin (ICD-10 - L97.511) 09/08/2023 Xerosis cutis (ICD-10 - L85.3) Plan Of Treatment Medication Medication Name Sig Start Date Stop Date Notes Extra Depth Diabetic Shoes w ith 3 Pair Custom heat-molded multi-density innersoles for 1 year Dx: Next Appt Details Follow Up: 3 Months, Reason: Progress Notes * Bambi FOXDOB: [birth year] (73 yo F)Acc No.[id number]:09/08/2023 Progress Notes Patient:?Bambi Fox Provider:?Prakash Palacios DPM :1950???Age:73 Y???Sex:Female D ate:09/08/2023 Address:[address] [place], [place] [address] [facility] Pcp:Rocky Roman Subjective: * Chief Complaints: * ???PCP - 01/2023 * HPI: ???Painful Nails:?Pt States Last PCP Visit:?Date:?06/01/2023 ???Foot Pain:?Nature:?aching, swelling, stiffness.?Location?Right ankle--and heel.?Duration:?1 year.?Onset/Cause:?fx ankle with orif with Dr. Freire 01/16.?Course:?intermittent.?Aggrevated:?standing, walking.?Treatments:?orif; daily use of yvonne wrap vs comp stockings.?Quality/Severity?moderate.?Skin problems:?Nature:?Ulcer.?Location:?Bottom, Right , 1st.?Course:?improved.? * ROS:?General/Constitutional:?Nausea?denies.?Vomiting?denies.?Hunger Thirst?denies.?Loss appetite?denies.?Chills?denies.?Fatigue?denies.?Fever?denies.?Night Sweats?denies.?Unexplained weight loss?denies.?Unexplained weight gain?denies.?HEENTM:?Dentures?denies.?Dizziness?denies.?Glasses/contacts?admits.?Retinopathy?de nies.?Blurred/double vision?denies.?TMJ?denies.?Discharge/drainage?denies.?Implants?denies.?Sore throat?denies.?Dental implants?denies.?Hard of hearing ?denies.?Difficulty chewing/swallowing/speaking?denies.?Nose bleeds?denies.?Sore mouth?denies.?Respiratory:?On Oxygen?denies.?Pneumonia/pleurisy?denies.?Bronchitis?denies.?Emphysema?denies.?C oughing?denies.?Cough blood?denies.?Shortness of breath?denies.?Wheezing?denies.?Cardiovascular:?Pacemaker?denies.?MVP?denies.?WPW?denies.?CHF?denies.?Heart attack?denies.?Septal defect?denies.?Rapid beat?denies.?Chest pain ?denies.?Atrial Fib.?denies.?Murmur/Palpitations?denies.?Gastrointestinal:?Hemorrhoids?denies.?Stomach/Abdominal pain?denies.?Dark blood stool?denies.?Irritable bowel ?denies.?Constipation?denies.?Diarrhea?denies.?Hematology:?Swelling?denies.?Clots?denies.?Varicose Veins?denies.?Bruising?denies.?Bleeding problem?denies.?Genitourinary:?Blood urine?denies.?Frequent/Painfu/urination/bladder control?denies.?Kidney stones?denies.?Infection (UTI)?denies.?Nephropathy?denies.?sex trans dis (STD)?denies.?Prostate?denies.?Musculoskeletal:?Hammertoes?denies.?Bunions?denies.?Back Pain?admits.?Muscle Cramps/ Resting?denies.?Muscle cramps / walking?denies.?Generalized aches and pains?admits.?Weakness?denies.?Integ.:?Peter?denies.?Scars?denies.?Corns/calluses?admits.?Ingrown nails?denies.?Painful nails?denies.?Open Sores?denies.?Rashes?denies.?Neurologic:?Difficulty sleeping?denies.?Brain disorder?denies.?Numbness?denies.?Balance trouble?denies.?Confusion?denies.?Fainting/blackouts?denies.?Tingling?denies.?Tr emors?denies.? * Medical History:? * Surgical History:?tibia/fibi a/ ankle (right) 12/2017appendectomy 1944arthroscopic knee surgery 2008cataract surgery 07/2016Cataract Surgery 09/08/21Implantes eye 09/2021 * Hospitalization/Major Diagno stic Procedure:?[facility] [facility] [place] leg Pain- test given not blood clot same day 04/2022 * Family History:?Mother: dece ased, cancer, diagnosed with Family history of arthritis, Diabetic - NIDDM, Unspecified essential hypertension.?Father: , foot problems.? * Social History:?Tobacco Use:?Tobacco Use/Smoking?Are you a:?former smoker ?Additional Findings: Tobacco Non-User?Current non-smoker ?Tobacco use other than smoking?Are you an other tobacco user??No ???Drugs/Alcohol:?Drugs?Have you used drugs other than those for medical reasons in the past 12 months??No ?Alcohol Screen?Did you have a drink containing alcohol in the past year??Yes ?How often did you have a drink containing alcohol in the past year??Monthly or less (1 point) ?How often did you have 6 or more drinks on one occasion in the past year??Monthly (2 points) ?Points?3 ?Interpretation?Positive * Medications:?TakingExtra Dep th Diabetic Shoes with 3 Pair Custom heat-molded multi-density innersoles for 1 year Dx:Aleve , Notes: PRNamLODIPine Besylate 5 MG Tablet 1 tablet Orally Once a dayARIPiprazole 5 MG Tablet 1 tablet Orally Once a dayAtorvastatin Calcium 40 MG Tablet 1 tablet Orally Once a dayBumetanide FLUoxetine HCl 40 MG Capsule 1 capsule Orally Once a dayGlimepiride 4 MG Tablet 1 tablet with breakfast or the first main meal of the day Orally Once a dayiron , Notes: infusionmetFORMIN HCl 1000 MG Tablet 1 tablet with a meal Orally twice a dayMetoprolol Succinate 50 MG Capsule ER 24 Hour Sprinkle 1 capsule Orally Once a dayExtra Depth Diabetic Shoes with 3 Pair Custom heat-molded multi-density innersoles for 1 year Dx:Medication List reviewed and reconciled with the patientTaking Extra Depth Diabetic Shoes with 3 Pair Custom heat-molded multi-density innersoles for 1 year Dx:Taking Aleve , Notes: PRNTaking amLODIPine Besylate 5 MG Tablet 1 tablet Orally Once a dayTaking ARIPiprazole 5 MG Tablet 1 tablet Orally Once a dayTaking Atorvastatin Calcium 40 MG Tablet 1 tablet Orally Once a dayTaking Bumetanide Taking FLUoxetine HCl 40 MG Capsule 1 capsule Orally Once a dayTaking Glimepiride 4 MG Tablet 1 tablet with breakfast or the first main meal of the day Orally Once a dayTaking iron , Notes: infusionTaking metFORMIN HCl 1000 MG Tablet 1 tablet with a meal Orally twice a dayTaking Metoprolol Succinate 50 MG Capsule ER 24 Hour Sprinkle 1 capsule Orally Once a dayTaking Extra Depth Diabetic Shoes with 3 Pair Custom heat-molded multi-density innersoles for 1 year Dx:Medication List reviewed and reconciled with the patient * Allergies:?LatexAdhesiveNick sabrina[Allergies Verified] Objective: * Vitals:?Ht: 5ft 5in, Wt:190, BMI:31.61, Shoe size: 8, BP:130/70 mm Hg, BS: 130, Ht-cm: 165.1 cm, Wt-k.18 kg. * ???Past Orders: ???Lab:HEMOGLOBIN A1C (GLYCO HEMOGLOBIN) (Order Date - 02/11/2022) ? Value Reference Range ?HEMOGLOBIN A1C (HH) 6.0 * Examination: ???Ophthalmology Referral: ?DIABETES EYE EXAM?Diabetic Retinopathy Screening:?No ?Findings of Diabetic Eye Exam:?no retinopathy?Neurological: ?SENSORY:?Neurological exam demonstrates, reduced vibration sensation, 5.07 monofilament test performed at plantar aspects of 5 varied sites per foot shows sensation, reduced , B/L, at Forefoot, at Midfoot.?TINEL'S COMPRESSION:?Negative tarsal tunnel, mathew pedis, and medial calcaneal nerves B/L.?BABINSKI REFLEX:?absent.?Vascular: ?DP PULSES:? 1/4, B/L.?PT PULSES:? 2/4, B/L.?CAPILLARY FILL TIME:?3 secs. per digit, B/L.?SKIN TEMPERTURE GRADIENT OF THE LOWER EXTERMITIES:?warm to cool, proximal to distal, B/L.?HAIR GROWTH/TEXTURE/ELASTICITY/TURGOR:?normal, B/L.?PIGMENTATION:?normal, B/L.?EDEMA:? 3/4, Right, Ankle(s).?TELANGECTASIA:?absent.?VARICOSITIES:?absent.?Nails: ?NAILS are:?Elongated, overgrown, dystrophic, lytic, greater than 3mm thick, discolored and friable with crumbly malodorous subungual debris, with dull to no pain on palpation due to neuropathy, 1-5 B/L.?Dermatologic: ?SKIN FINDINGS:?Skin exam reveals Keratotic lesion(s) located at, Dorsal, TA, T5, SUB MTH (s), 1, B/L , Heel(s), B/L , Skin shows sign(s) of, dryness, scaling, in a stocking fashion, no fissure(s) present, B/L.?ULCER:? LOCATION--plantar right hallux? ; healed.?General Examination: ?GENERAL APPEARANCE:?pleasant, alert, well nourished, well developed, well hydrated, with good attention to hygene/body habitus, and in no acute distress.?ORIENTED:?person,place, and time.?FOOT EXAM:?Lower Extremity Neurological Exam performed:?Yes ?Visual exam of foot performed:?Yes ?Date?03/16/2023 ?Sensory testing performed:?sensations diminished ?Pedal pulse taking performed:?1+?Neuroma Pain: ?PALPATION:?No interspace pain noted on palpation.?Orthopedic: ?MUSCLE STRENGTH:?5/5 all groups in a symmetrical fashion , B/L.?GAIT ABNORMALITY:?pronated, abducted, B/L.?FOOT MORPHOLOGY:? Pes Planus structure, B/L--right more severe.?DIGITAL DEFORMITIES:? Digital contracture, PIPJ, 2-5 B/L, incompl- reducable with WB, or to push-up test, no over, nor underlapping.? 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 Plan: * Treatment: * Procedure Codes:? * Preventive Medicine:? ??Counseling:?Discussion:?-13: Office or other outpatient visit for the evaluation and management of an established patient, which required a medically appropriate history and/or examination and LOW level of DECISION MAKING for: 1 STABLE ACUTE UNCOMPLICATED PROBLEM, 2 OR MORE MINOR PROBLEMS, OR 1 STABLE CHRONIC PROBLEM, THAT POSE(S) A LOW RISK FOR MORBIDITY/MORTALITY. The visit on the day of the encounter encompassed interpreting the data and educating the patient as to the nature of their condition, treatment options available according to their individual PMH, meds, allergies, and overall health/living conditions, as well as any potential risks or complications that may occur from a failure to adhere to, and participate in, the recommended course of therapy. The discussion included a complete verbal, and/or written explanation of the examination results, any x-rays taken, the proposed diagnosis, and outline of the treatment plan. A schedule for future care needs was also explained. The patient verbalized an understanding of the instructions at this time and agreed to be an active participant in their treatment. If the patient should think of any questions or concerns after the visit, I have encouraged the patient to call the office.?Xerosis:?The patient was counseled on the diagnosis, potential etiologies, and treatment options for their skin condition. We discussed the risks and benefits of each option from performing no treatment, to utilizing OTC topical skin creams/ointments, to utilizing prescription topical creams/ointments, to utilizing customized compounded topical medications and use of nocturnal occlusion with any/all previously detailed therapies. We discussed the advantages and disadvantages of each possible treatment and importance for adherence to all the recommended therapies for optimum success and avoid potential complications such as open sore/infection/possible hospitalization. We discussed the potential effectiveness of each topical preparation as well as each ones possible side effects and/or patient medication interactions. Patient questions re: use, dosage, successful outcomes, and application consistency were reviewed and the patient verbalized that all answers were clearly understood. The patient has decided to apply Rx skin creams to their feet save the interspaces while paying special attention to the heels. Such was sent to their pharmacy at the time of visit.? * Follow Up:?3 Months * Images: * Sign off status: Completed true * Provider:?Prakash Palacios DPM Date:? 023 Generated for Gee jewell/Avni/Vijay on:?01/30/2025 05:15 PM EST History and Physical Notes * HPI (History of Present Illness) Category Sub-Category Detail Notes Category Not es Painful Nails Pt States Last PCP Visit: Date:: 06/01/2023 Skin problems Nature: Ulcer Location: Bottom, Right , 1st Course: improved Foot Pain Aggrevated: standing, walking Onset/Cause: fx ankle with orif w ith Instrricki 01/16 Course: intermittent Duration: 1 year Nature: aching, swelling, st iffness Treatments: orif ; daily use of yvonne wrap vs comp stockings Quality/Severity moderate Location Right ankle --and heel Examination Category Sub-Category Detail Notes Category Not es Neuroma Pain PALPATION: No interspace pain noted on palpation Neurological SENSORY: Neurological exa m demonstrates, reduced vibration sensation, 5.07 monofilament test performed at plantar aspects of 5 varied sites per foot shows sensation, reduced , B/L, at Forefoot, at Midfoot BABINSKI REFLEX: absent TINEL'S COMPRESSION: Negative tarsal jefe simone, mathew pedis, and medial calcaneal nerves B/L Dermatologic SKIN FINDINGS: Skin exam reveal s Keratotic lesion(s) located at, Dorsal, TA, T5, SUB MTH (s), 1, B/L , Heel(s), B/L , Skin shows sign(s) of, dryness, scaling, in a stocking fashion, no fissure(s) present, B/L ULCER: LOCATION--plantar ri ght hallux ; healed Orthopedic GAIT ABNORMALITY: pronated, abducted, B/L FOOT MORPHOLOGY: Pes Planus structure , B/L--right more severe DIGITAL DEFORMITIES: Digital contracture , PIPJ, 2-5 B/L, incompl-reducable with WB, or to push-up test, no over, nor underlapping MUSCLE STRENGTH: 5/5 all groups in a symmetrical fashion , B/L General Examination GENERAL APPEARANCE: pleasant , alert, well nourished, well developed, well hydrated, with good attention to hygene/body habitus, and in no acute distress FOOT EXAM: Lower Extremity Neurological Exa m performed:: Yes Visual exam of foot performed:: Yes Date: 03/16/2023 Sensory testing performed:: sensations d iminished Pedal pulse taking performed:: 1+ ORIENTED: person,place, and ti me Ophthalmology Referral DIABETES EYE EXAM Diabetic Retinopa thy Screening:: No Findings of Diabetic Eye Exam:: no retin opathy Vascular DP PULSES (B): 1/4, B/L PT PULSES (B): 2/4, B/L CAPILLARY FILL TIME: 3 secs. per digit, B/L TEMPERTURE GRADIENT (C): warm to cool, p roximal to distal, B/L TROPHIC CONDITION-TEXTURE/ELASTICITY/TURGOR/HAIR GROWTH (B): normal, B/L EDEMA (C): 3/4, Right, Ankle(s) TELANGECTASIA: absent VARICOSITIES: absent PIGMENTATION: normal, B/L Nails NAILS are: Elongated, overg rown, dystrophic, lytic, greater than 3mm thick, discolored and friable with crumbly malodorous subungual debris, with dull to no pain on palpation due to neuropathy, 1-5 B/L
--- OUTSIDE RECORDS SUMMARY | 2025-01-30 17:17 | XMS_ITS | Patient Health Record ---
[facility] Address [address] [place] [address] Care Team Providers Care Ship Pilot Dispatcher Name Role Phone Rocky Roman Primary Care Provider Prakash Santoyo Unavailable [phone] Allergies Allergen (clinical drug ingredient) Drug/Non Drug Allergy documented on EMR Reaction Allergy Type Onset Date Status Adhesive Unknown Allergy Active Latex Latex Unknown Allergy Active nickel Nickel Unknown Allergy Active Reason For Referral No Information Medications Medication SIG (Take, Route, Frequency, Duration) Notes Start Date End Date Status Aleve PRN Active Bumetanide Active Atorvastatin Calcium 40 MG 1 tablet Oral ly Once a day for 30 day(s) Active ARIPiprazole 5 MG 1 tablet Orally Once a day for 30 day(s) Active amLODIPine Besylate 5 MG 1 tablet Orally Once a day for 30 day(s) Active metFORMIN HCl 1000 MG 1 tablet with a me al Orally twice a day Active iron infusion Active Glimepiride 4 MG 1 tablet with breakf ast or the first main meal of the day Orally Once a day for 30 day(s) Active FLUoxetine HCl 40 MG 1 capsule Orally On ce a day for 30 day(s) Active Extra Depth Diabetic Shoes with 3 Pair Custom heat-molded multi-density innersoles for 1 year Dx: Active Extra Depth Diabetic Shoes with 3 Pair Custom heat-molded multi-density innersoles for 1 year Dx: 12/03/2020 Active Metoprolol Succinate 50 MG 1 capsule Ora lly Once a day for 30 day(s) Active Immunizations Vaccine Route Administration Date Status Comme nts COVID-19 Moderna Vaccine Unknown 11/19/2021 Administered 1st 02/19/2021 2nd 03/19/2021 Influenza Unknown 09/02/2020 Administered Influenza Unknown 09/21/2021 Administered Influenza Unknown 07/29/2022 Administered Social History Tobacco Use: Social History [...] Are you an other tobacco user? No Problems Problem Type SNOMED Code ICD Code Onset Dates Problem Status W/U Status Risk Notes Problem Localized, primary osteoarthritis of the ankle and/or foot (425019622) Primary osteoarthritis, right ankle and foot (M19.071) Active confirmed Problem Non-pressure chronic ulcer of other part of right foot limited to breakdown of skin (L97.511) Active confirmed Problem Acquired hammer toe of right foot (4775769014690080 ) Other hammer toe(s) (acquired), right foot (M20.41) Active confirmed Problem Acquired hammer toe of left foot (8348694883212459 ) Other hammer toe(s) (acquired), left foot (M20.42) Active confirmed Problem Polyneuropathy due to type 2 diabetes mellitus (526829839) Type 2 diabetes mellitus with diabetic polyneuropathy (E11.42) Active confirmed Problem Polyneuropathy due to diabetes mellitus type I (084013205) Type 1 diabetes mellitus with diabetic polyneuropathy (E10.42) Active confirmed Plan Of Treatment Pending Test Test Name Order Date [id number] SKIN LESIONS, OVER 4 12/03/19 21 [id number] SKIN LESIONS, OVER 4 03/04/20 21 31867-[id number] SKIN LESIONS, OVER 4 06/10/20 21 16227-[id number] SKIN LESIONS, OVER 4 10/01/20 21 29632-[id number] SKIN LESIONS, OVER 4 02/12/20 22 [id number] OF HEMATOMA/FLUID 021 Insurance Providers Payer Name Payer Address Payer Phone Subscriber Number Group Number Insured Name Patient Relationship to Insured Coverage Start Date Coverage End Date Medicare National [facility] [employer] [address] [place] [address] [phone] [id number] Bambi Cox Self - patient is the insured [employer] [address] [place] [address] [id number] Bambi Cox Self - patient is the insured Medical (General) History Medical History History ICD Code Anxiety Arthritis Back,Hip,and Knee pain Broken bones CAD (Cholesterol) Gall bladder problems Chicken pox Hepatitis B High blood pressure Lung disease Psychiatric disorder Pulmonary fibrosis Joint implants/screws Depression type II diabetes Surgical History Surgery Date(Month/Year) tibia/fibia/ ankle (right) 12/2017 appendectomy 1944 arthroscopic knee surgery 2008 cataract surgery 07/2016 Cataract Surgery 09/08/21 Implantes eye 09/2021 Hospitalization History Reason Date(Month/Year) [facility] [place] [facility]- [place] leg Pain- test given not blood clot same day 04/2022 [facility]- Back Pain 08/2021 [facility] [place] [place] breath 2019
--- OUTSIDE RECORDS SUMMARY | 2025-01-30 17:17 | XMS_ITS | Clinical Summary ---
Author Organization [facility] Address [address] [place] [address] Care Team Providers Care Special Trackwork Blacksmith Name Role Phone Kanwal Marsh MD Primary Care Provider Unavailabl e Social History Tobacco Use Types Packs/Day Years Used Date Smoking Tobacco: Never Assessed Comments Unknown Sex and Gender Information Value Date Recorded Sex Assigned at Not on file Legal Sex Female 12:01 PM EST Gender Identity Not on file Sexual Orientation Not on file Plan of Treatment Not on file Care Teams Special Trackwork Blacksmith Relationship Specialty Start Date End Date Kanwal Marsh MD [address] [place] [address] PCP - General Internal Medicine 01/09/24
--- OUTSIDE RECORDS SUMMARY | 2025-01-30 17:17 | XMS_ITS | Encounter Summary ---
Author Organization [facility] Address [address] [place] [address] Care Team Providers Care Auto Service Advisor Name Role Phone Kanwal Marsh MD Primary Care Provider Unavailabl e Encounter Details Date Type Department Care Team (Late st Contact Info) Description 01/12/2024 Orders Only [facility] Department of Emergency Services [address] [place] [address] Savanna Valdez DDS [address] [place] [address] Social History Tobacco Use Types Packs/Day Years Used Date Smoking Tobacco: Never Assessed Comments Unknown Sex and Gender Information Value Date Recorded Sex Assigned at Not on file Legal Sex Female 12:01 PM EST Gender Identity Not on file Sexual Orientation Not on file documented as of this encounter Plan of Treatment Not on file documented as of this encounter Visit Diagnoses Not on filedocumented in this encounter Care Teams Auto Service Advisor Relationship Specialty Start Date End Date Kanwal Marsh MD [address] [place] [id number] PCP - General Internal Medicine 01/09/24 documented as of this encounter
--- OUTSIDE RECORDS SUMMARY | 2025-01-30 17:17 | XMS_ITS ---
Author Organization [facility] Address [address] [place] [address] Care Team Providers Care Resolution Manager Name Role Phone Rocky Roman Primary Care Provider Prakash Santoyo [phone] REASON FOR VISIT PCP - 01/2023 Medications Medication SIG (Take, Route, Frequency, Duration) Notes Start Date End Date Status Bumetanide Active Atorvastatin Calcium 40 MG 1 tablet Oral ly Once a day for 30 day(s) Active ARIPiprazole 5 MG 1 tablet Orally Once a day for 30 day(s) Active amLODIPine Besylate 5 MG 1 tablet Orally Once a day for 30 day(s) Active FLUoxetine HCl 40 MG 1 capsule Orally On ce a day for 30 day(s) Active Aleve PRN Active metFORMIN HCl 1000 MG 1 tablet with a me al Orally twice a day Active Extra Depth Diabetic Shoes with 3 Pair Custom heat-molded multi-density innersoles for 1 year Dx: Active Extra Depth Diabetic Shoes with 3 Pair Custom heat-molded multi-density innersoles for 1 year Dx: 12/03/2020 Active Metoprolol Succinate 50 MG 1 capsule Ora lly Once a day for 30 day(s) Active iron infusion Active Glimepiride 4 MG 1 tablet with breakf ast or the first main meal of the day Orally Once a day for 30 day(s) Active Encounters Encounter Location Date Provider Diagnosis [facility] [address] [place] [address] 12/08/2023 Prakash Palacios Type 2 diabetes mellitus with [...] Treatment Notes Treatment Clinical Notes Section Notes 12/08/2023 Type 2 diabetes mellitus with diabetic polyneuropathy (ICD-10 - E11.42) 12/08/2023 Pain in right toe(s) (ICD-10 - M79.674) 12/08/2023 Tinea unguium (ICD-10 - B35.1) 12/08/2023 Pain in left toe(s) (ICD-10 - M79.675) 12/08/2023 Primary osteoarthritis, right ankle and foot (ICD-10 - M19.071) 12/08/2023 Other hammer toe(s) (acquired), left foot (ICD-10 - M20.42) 12/08/2023 Other hammer toe(s) (acquired), right foot (ICD-10 - M20.41) 12/08/2023 Non-pressure chronic ulcer of other part of right foot limited to breakdown of skin (ICD-10 - L97.511) 12/08/2023 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 PCP - 01/2023. * HPI: ???Painful Nails:?Pt States Last PCP [...] disorder?denies.?Numbness?denies.?Balance trouble?denies.?Confusion?denies.?Fainting/blackouts?denies.?Tingling?denies.?Tr emors?denies.? * Medical History:? * Medications:?Taking Aleve , Notes to Pharmacist: PRN, Taking amLODIPine Besylate 5 MG Tablet 1 tablet Orally Once a day , Taking ARIPiprazole 5 MG Tablet 1 tablet Orally Once a day , Taking Atorvastatin Calcium 40 MG Tablet 1 tablet Orally Once a day , Taking Bumetanide , Taking FLUoxetine HCl 40 MG Capsule 1 capsule Orally Once a day , Taking Glimepiride 4 MG Tablet 1 tablet with breakfast or the first main meal of the day Orally Once a day , Taking iron , Notes to Pharmacist: infusion, Taking metFORMIN HCl 1000 MG Tablet 1 tablet with a meal Orally twice a day , Taking Metoprolol Succinate 50 MG Capsule ER 24 Hour Sprinkle 1 capsule Orally Once a day , Taking Extra Depth Diabetic Shoes with 3 Pair Custom heat-molded multi-density innersoles for 1 year Dx: , Taking Extra Depth Diabetic Shoes with 3 Pair Custom heat- molded multi-density innersoles for 1 year Dx: Objective: * Vitals:? * Examination: ???Ophthalmology Referral: ?DIABETES EYE EXAM?Diabetic Retinopathy Screening:?No ?Findings of Diabetic Eye Exam:?no retinopathy?Neurological: ?SENSORY:?Neurological exam demonstrates, reduced vibration sensation, 5.07 monofilament test performed at plantar aspects of 5 varied sites per foot shows sensation, reduced , B/L, at Forefoot, at Midfoot.?TINEL'S COMPRESSION:?Negative tarsal tunnel, mathew pedis, and medial calcaneal nerves B/L.?BABINSKI REFLEX:?absent.?Vascular: ?DP PULSES (B):? 1/4, B/L.?PT PULSES (B):? 2/4, B/L.?CAPILLARY FILL TIME:?3 secs. per digit, B/L.?TROPHIC CONDITION-TEXTURE/ELASTICITY/TURGOR/HAIR GROWTH (B):?normal, B/L.?TEMPERTURE GRADIENT (C):?warm to cool, proximal to distal, B/L.?PIGMENTATION:?normal, B/L.?EDEMA (C):? 3/4, Right, Ankle(s).?TELANGECTASIA:?absent.?VARICOSITIES:?absent.?Nails: ?NAILS are:?Elongated, overgrown, dystrophic, [...] 2 diabetes mellitus with diabetic polyneuropathy - E11.42???2.?Pain in right toe(s) - M79.674???3.?Tinea unguium - B35.1 (Primary)???4.?Pain in left toe(s) - M79.675???5.?Primary osteoarthritis, right ankle and foot - M19.071???6.?Other hammer toe(s) (acquired), left foot - M20.42???7.?Other hammer toe(s) (acquired), right foot - M20.41???8.?Non-pressure chronic ulcer of other part of right foot limited to breakdown of skin - L97.511? ?9.?Xerosis cutis - L85.3??? Plan: * Treatment: * Follow Up:?3 Months * Images: * The named appointment provid er may or may not be the originator of this progress note, and it is not deemed complete until electronically signed by the appointment provider. Sign off status: Pending * Provider:?Prakash Palacios DPM Date:? 024 Generated for Gee jewell/Avni/Vijay on:?01/30/2025 05:16 PM EST History and Physical Notes * HPI (History of Present Illness) Category Sub-Category Detail Notes Category Not es Painful Nails Pt States Last PCP Visit: Date:: 06/01/2023 Skin problems Nature: Ulcer Location: Bottom, Right , 1st Course: improved Foot Pain Aggrevated: standing, walking Onset/Cause: fx ankle with orif w ith Dr. Freire 01/16 Course: intermittent Duration: 1 year Nature: [...]
== END 2025-01-30 14:18 | disposition home or self-care (01) ==
LOC: HO.MAMMO 14:17
PROVIDERS: PCP Internal Medicine; Visit Provider Surgery
DX: Z85.3 Personal history of malignant neoplasm of breast (principal)
CPT/HCPCS: 77062; 77066

== ENCOUNTER → 2025-01-30 14:30 | Outpatient (BNV) | payer MEDICARE, SELFPAY | PROVIDERS: PCP Internal Medicine; Visit Provider Internal Medicine | DX: N64.59 Other signs and symptoms in breast (principal); Z98.890 Other specified postprocedural states | CPT/HCPCS: 77066; G0279 ==

== ENCOUNTER 2025-03-05 15:25 | Outpatient (AMB) | payer MEDICARE, OTHER, SELFPAY ==
--- NOTE | 2025-03-05 15:35 | A.OFFPC_ITS ---
Vital Signs 03/05/25 15:37 Height 5 ft 4 in Weight 186 lb 2 oz BMI 31.9 BP 130/68 Blood Pressure Location Lt brachial Position Sitting Pulse 91 Pulse Source Pulse Oximeter Temp 97.3 F Temp Source Temporal Artery Scan Pulse Oximetry (%) 93 Oxygen Delivery Method Room Air Intake Visit Reasons: cognitive impairement, DM Intake Note: Patient is here to follow up on Cognitive impairment, DM. Race Relations Professor Required: No [place]: Not Required per policy Accompanied by: Self / Same As Patient Allergies bacitracin [BACITRACIN] Allergy (Intermediate, Verified 03/05/25 15:37) RASH latex [LATEX] Allergy (Intermediate, Verified 03/05/25 15:37) FACIAL SWELLING; RASH nickel [NICKEL] Allergy (Intermediate, Verified 03/05/25 15:37) RASH amlodipine Adverse Reaction (Intermediate, Verified 03/05/25 15:37) leg swelling lisinopril Adverse Reaction (Intermediate, Verified 03/05/25 15:37) Swelling adhesive tape Adverse Reaction (Verified 03/05/25 15:37) Irritable Medication List - Last Reconciled 03/05/25 by Rocky Roman MD albuterol sulfate 90 mcg/actuation (Ventolin HFA) 2 puffs inhalation Q6H PRN cholecalciferol (vitamin D3) (Vitamin D3) 125 mcg PO DAILY fluoxetine 20 mg PO DAILY 90 days letrozole 2.5 mg PO DAILY lorazepam 1 mg PO BID PRN losartan 25 mg PO DAILY memantine 7 mg PO DAILY 30 days metformin 1,000 mg PO BID tramadol 50 mg PO BID Tobacco use date assessed: 03/05/25 Fall risk assessment: No Falls in past year Last assessed Fall Risk: 03/05/25 Dental Screening Dental Screen Date: 03/05/25 Did you have a dental visit in the last 12 months?: Yes Did you have a dental problem in the last 6 months where you did not have access to dental care?: No Was dental information given to patient?: Patient has dentist [facility] Medical History MDD (major depressive disorder), recurrent episode, moderate Arrhythmia Right leg pain Obesity (BMI 30-39.9) Benign essential hypertension Normal colonoscopy (~06/16/21) Medicare annual wellness visit, initial Breast implant in situ Breast cancer screening by mammogram Cataract Cholelithiasis Pelvic fracture Fatty liver Colon cancer screening Hypercholesterolemia Type 2 diabetes mellitus with hyperglycemia Restrictive lung disease Pulmonary fibrosis Surgical History History of lumpectomy of left breast (02/02/24) Left breast mass History of colonoscopy History of cataract surgery History of surgery on lower extremity H/O left wrist surgery History of ankle surgery Family History Mother Lung cancer Father Respiratory failure Sister Lung disease Brother Respiratory failure Son No problems noted. 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 administrator health care facility to a significant other at home: Yes Do you presently have visiting nurse or other home services: No Alcohol intake: former Comment: COUNTS CORRECT Patient Tobacco Use Status: Former Tobacco user Years Smoked: stopped 48 years old e-Cigarette/Vaping Use: Never Used Second Hand Smoke Exposure: Yes Advance Directives Date on File: 01/18/24 service: No Current occupational status: retired Cognitive needs: Yes Hearing needs: No Vision needs: Yes (Glasses) Questionnaire Thrive Questionnaire Date Thrive assessed: 12/03/24 PARTHA-7 AMB Questionnaire PARTHA-7 Date PARTHA - 7 assessed: 12/03/24 Source: Developed by Drs. Angus Roe, Kelly Cade, Robe Hawley and colleagues, with an educational juliana from [employer]. Physical exam (Primary Care) Vital Signs: Last Vital Signs Temp 97.3 F 03/05/25 15:37 Pulse 91 03/05/25 15:37 BP 130/68 03/05/25 15:37 Pulse Ox 93 03/05/25 15:37 Oxygen Delivery Method Room Air 03/05/25 15:37 BMI result Body Mass Index 31.9 Tobacco/Smoking Status: Tobacco use Status Tobacco use date assessed 03/05/25 03/05/25 15:48 Patient Tobacco Use Status Former Tobacco user 03/05/25 15:48 e-Cigarette/Vaping Use Never Used 03/05/25 15:48 Thrive Assessment: Date of Thrive Assessment Date Thrive assessed 12/03/24 03/05/25 15:48 Const General: alert; No acute distress Eyes Conjunctivae: conjunctivae normal Resp Auscultation: clear to auscultation bilaterally Cardio Rate: regular rate Rhythm: regular rhythm GI Inspection: Yes normal to inspection Extrem General: Yes normal to inspection and No edema Results AMB Hemoglobin A1c AMB Hemoglobin A1c 6.3 % Last Edit by JEANNIE Meza on 03/05/25 15:53 Results Reviewed Results Reviewed: Laboratory Last Values Hgb A1c (Clinic) 6.3 % (4.0-6.0) H 03/05/25 15:35 Coding Level of Care Code Est Pt Level 4 (41389) Complex EM visit Add On G2211 Diagnoses Type 2 diabetes mellitus with hyperglycemia, without long-term current use of insulin E11.65 Diabetes mellitus detention insulin use: without chemistry lecturer use Pulmonary fibrosis J84.10 Hypercholesterolemia E78.00 Benign essential hypertension I10 Generalized anxiety disorder F41.1 Breast cancer, left C50.912 Assessment & Plan Assessment & Plan (1) Type 2 diabetes mellitus with hyperglycemia: Comment: Dr. Wiggins Code(s): E11.65 - Type 2 diabetes mellitus with hyperglycemia Category: Medical Qualifiers: Diabetes mellitus detention insulin use: without detention use Qualified Code(s): E11.65 - Type 2 diabetes mellitus with hyperglycemia Plan: Is planned hemoglobin A1c goal of less than 7.0 on metformin a 1000 mg twice. reminded about ophthamology and podaitry (2) Pulmonary fibrosis: Comment: last CT . scan of chest in 2020 is reviewed again , Has minimal degree of peripheral fibrosis in the basilar areas . Not significant . at this time and is not progressive Code(s): J84.10 - Pulmonary fibrosis, unspecified Category: Medical Plan: On Ventolin declined referral to pulmonary (3) Hypercholesterolemia: Code(s): E78.00 - Pure hypercholesterolemia, unspecified Category: Medical Plan: Avoid fried foods, chicken skin, eggs, butter margarine, pastries and meat. Be it pork or beef they have a lot of cholesterol LDL goal of less than 100 last blood work was in June (4) Benign essential hypertension: Code(s): I10 - Essential (primary) hypertension Category: Medical Plan: Continue with blood pressure medication. Decrease salt intake and exercise on losartan 25 (5) Generalized anxiety disorder: Comment: CHD counseling weekly Code(s): F41.1 - Generalized anxiety disorder Category: Medical Plan: Continue with counseling and therapy (6) Breast cancer, left: Comment: Novemberreast, 6 o'clock, biopsy: Invasive ductal carcinoma, MSBR grade 2, left breast lumpectomy Code(s): C50.912 - Malignant neoplasm of unspecified site of left female breast Category: Surgical Plan: Continue follow-up with Hematology-Oncology Plan History of Present Illness The patient is a 75-year-old female presenting for a follow-up visit. She has a history of pulmonary fibrosis, diabetes mellitus with current hemoglobin A1c of 6.3%, and hypercholesterolemia with LDL cholesterol recorded at 79 mg/dL, which requires ongoing management. She is currently managing hypertension with losartan. Her psychological history includes both generalized anxiety disorder and depressive disorder. She also has a breast cancer history with prior lumpectomy and maintains her status with letrozole therapy. Her chronic obstructive pulmonary disease requires regular monitoring. A recent chest X-ray noted interstitial changes consistent with pulmonary fibrosis. Neuropsychiatry has been consulted due to cognitive deficiencies, initiating memantine. Stabilizing her anemia is under hematology's oversight. The patient experienced a disruption in psychiatric support due to the psychiatrist's office closure, affecting her continuity of care. Health Maintenance - Mammogram is current with the next scheduled for November. - Bone density test last performed in January 2024. - Colon screening last completed in 2020. - Regular follow-ups and monitoring with hematology/oncology. - Continuation of letrozole for breast cancer management. Social History - Reports no current engagement in counseling or therapy due to psychiatrist's departure. - Previously considered engaging in a new psychiatric resource in [place]. - Exercises moderately, engaging in walking and home activities including caring for pets. Review of Systems - Psychiatric: Reports memory concerns and cognitive dysfunction. - Respiratory: Denies current symptoms but has a history of shortness of breath due to lung scarring. - Musculoskeletal: Denies seeing a promotions executive producer recently but intends to. Physical Exam - Respiratory- Audible crackles in the lungs. Results - Labs: LDL cholesterol at 79 mg/dL, Hemoglobin A1c at 6.3%, mild anemia noted in January but stable. - Imaging: Chest X-ray from November indicating interstitial pulmonary fibrosis. Plan 1. 3%, and LDL levels show positive control at 79 mg/dL. Anemia, being stable, will continue under hematology?s care. Her pulmonary condition needs no immediate interventions, but continued observations in follow-up appointments. Prescriptions included her usual medications and the required refills for lorazepam and tramadol. Given her psychiatrist's departure, we discussed options for mental health support and she indicated potential future engagement with available services in [place]. Regular mammograms and health check-ups remain part of her comprehensive care plan.: Patient was informed and verbally consented to the use of an ambient scribe for clinic note documentation during this visit. Discussion Notes During the consultation, I reviewed and confirmed the patient's current medication regimen for her chronic conditions. We discussed the importance of maintaining an LDL level below 100 mg/dL and keeping her hemoglobin A1c under the target of 7.0%. I explained the continued need for routine follow-up with specialists, notably in hematology and potential pulmonary assessments, given her history of lung conditions. I addressed her cognitive symptoms, reinforcing current memantine therapy and considering further psychiatric evaluation options. Instructions for medication refills were clarified, ensuring prescription management via [facility]. Additionally, I guided her on health maintenance measures, including proactive planning for upcoming screenings and managing health-related concerns. Patient Instructions - Continue current medications as directed, including metformin, losartan, and letrozole. - Schedule follow-up appointments with specialists as needed. - Maintain regular exercise and a balanced diet, focusing on weight management and blood glucose control. - Monitor any new or worsening symptoms, especially respiratory or cognitive changes, and report as necessary. - Ensure upcoming health screenings, including mammograms, are scheduled and attended. - Follow up with the pharmacy regarding medication delivery and confirm all necessary refills. - Remain consistent with your inhaler use for managing COPD symptoms. - Seek mental health resources available locally if needed. - Stay hydrated and ensure adequate fluid intake daily. Orders: Orders AMB Hemoglobin A1c Today E11.65 - Type 2 diabetes mellitus with hyperglycemia Complete Blood Count Auto Diff 3 Months E11.65 - Type 2 diabetes mellitus with hyperglycemia Microalbumin, Random (w Creat) 3 Months E11.65 - Type 2 diabetes mellitus with hyperglycemia Vitamin B12 and Folate 3 Months E11.65 - Type 2 diabetes mellitus with hyperglycemia Vitamin D 25-OH Total 3 Months E11.65 - Type 2 diabetes mellitus with hyperglycemia Comprehensive Met. Panel 3 Months E11.65 - Type 2 diabetes mellitus with hyperglycemia Creatinine Urine 3 Months E11.65 - Type 2 diabetes mellitus with hyperglycemia Thyroid Stimulating Hormone 3 Months E11.65 - Type 2 diabetes mellitus with hyperglycemia Free T4 (Free Thyroxine) 3 Months E11.65 - Type 2 diabetes mellitus with hyperglycemia Hemoglobin A1c 3 Months E11.65 - Type 2 diabetes mellitus with hyperglycemia Medications: Refilled tramadol 50 mg PO BID 60 tabs 0RF M54.6 - Pain in thoracic spine
[2025-03-05 15:37] VITALS: BP 130/68; PULSE 91; TEMP 36.3; O2SAT 93; BMI 31.9
--- OUTSIDE RECORDS SUMMARY | 2025-03-05 18:20 | XMS_ITS | Clinical Summary ---
Author Organization [facility] Address [address] [place] [address] Care Team Providers Care Shoe Repairer Helper Name Role Phone Rocky Roman MD Primary Care Provider [phone] Allergies Active Allergy Reactions Criticality Noted Date [...] drink = 0.6 oz pur e alcohol) [facility] Utilities Answer Date Recorded In the past 12 months has th e [employer], gas, oil, or water company threatened to [...] place to sleep or slept in a senior care (including now)? No 04/11/2024 Sex and Gender [...] 8:39 AM 02/10/2024 10:30 AM Care Teams Shoe Repairer Helper Relationship Specialty Start Date End Date Rocky Roman MD [address] [place] [address] [place] [address] PCP - General Internal Medicine 02/10/24
--- OUTSIDE RECORDS SUMMARY | 2025-03-05 18:21 | XMS_ITS | Encounter Summary ---
Author Organization [facility] Address [address] [place] [address] Care Team Providers Care Vat Operator Name Role Phone Kanwal Marsh MD Primary Care Provider Unavailabl e Encounter Details Date Type Department Care Team (Late st Contact Info) Description 01/12/2024 Orders Only [facility] Department of Emergency Services [address] [place] [address] Savanna Valdez DDS [address] [place] [address] Social History Tobacco Use Types Packs/Day Years [...] on filedocumented in this encounter Care Teams Vat Operator Relationship Specialty Start Date End Date Kanwal Marsh MD [address] [place] [id number] PCP - General Internal Medicine 01/09/24 documented as of this encounter
--- OUTSIDE RECORDS SUMMARY | 2025-03-05 18:21 | XMS_ITS ---
Author Organization [facility] Address [address] [facility] [place] [address] Care Team Providers Care Peanut Farmer Name Role Phone Abel Lovedana Primary Care Provider Dianna Johnson Unavailable [phone] Prakash Palacios Unavailable [phone] Allergies Allergen (clinical drug ingredient) Drug/Non Drug [...] an other tobacco user? No Vital Signs Height 5ft 5in in 09/08/2023 Weight 190 lbs 09/08/2023 BMI 31.61 kg/m2 09/08/2023 Blood pressure systolic 130 mm Hg 09/08/20 23 Blood pressure diastolic 70 mm Hg 023 Encounters Encounter Location Date Provider Diagnosis [facility] [address] [address] 09/08/2023 Prakash Palacios Type 2 diabetes mellitus [...] Appt Details Follow Up: 3 Months, Reason: Provider Name:Dianna jhaveri, 04/03/2025 10:45:00 AM, [address] [place], [address], Progress Notes * Bambi FOXDOB: [birth year] (73 yo F)Acc No.[id number]:09/08/2023 Progress Notes Patient:?Bambi Fox Provider:?Prakash Palacios DPM :1950???Age:73 Y???Sex:Female D ate:09/08/2023 Address:[address] [place], [place] [address] Pcp:Rocky Roman Subjective: * Chief Complaints: * [...] Hospitalization/Major Diagno stic Procedure:?[facility]- shortness of breath [facility] [place] Pain [facility]- R leg Pain- test given not [...] Custom heat-molded multi-density innersoles for 1 year Dx:Ivonne , Notes: PRNamLODIPine Besylate 5 MG Tablet [...] DPM Date:? 023 Generated for Gee jewell/Avni/Vijay on:?03/05/2025 06:20 PM EDT History and Physical Notes * HPI (History [...] taking performed:: 1+ ORIENTED: person,place, and ti wa Ophthalmology Referral DIABETES EYE EXAM Diabetic Retinopa [...]
--- OUTSIDE RECORDS SUMMARY | 2025-03-05 18:21 | XMS_ITS ---
Author Organization [facility] Address [address] [place] [address] Care Team Providers Care Blood Donor Recruiter Name Role Phone Rocky Roman Primary Care Provider Dianna Johnson Unavailable [phone] Parkash Palacios [phone] REASON FOR VISIT No show Encounters Encounter Location Date Provider Diagnosis [address] [address] 12/08/2023 Prakash Palacios Plan Of Treatment Next Appt Details Provider Name:Dianna jhaveri, 04/03/2025 10:45:00 AM, [address] [place] [address], [id number], Progress Notes * Bambi FOXDOB: [birth year] (73 yo F)Acc No.[id number]:12/08/2023 Patient:?Bambi Fox :1950???Age:73 Y???Sex:Female Address:[address] [place], [address] * true * Date:? Generated for Printi ng/Faxing/eTransmitting on:?03/05/2025 06:20 PM EDT
--- OUTSIDE RECORDS SUMMARY | 2025-03-05 18:21 | XMS_ITS | Patient Health Record ---
Author Organization [facility] Address [address] [place] [address] Care Team Providers Care Quick Mixer Operator Name Role Phone Rocky Roman Primary Care Provider Dianna Johnson Unavailable [phone] Allergies Allergen (clinical drug ingredient) Drug/Non Drug [...] primary osteoarthritis of the ankle and/or foot (087272442) Primary osteoarthritis, right ankle and foot (M19.071) Active confirmed Problem Non-pressure chronic ulcer of other part of right foot limited to breakdown of skin (L97.511) Active confirmed Problem Acquired hammer toe of right foot (3227168355054026 ) Other hammer toe(s) (acquired), right foot (M20.41) Active confirmed Problem Acquired hammer toe of left foot (8464596089836043 ) Other hammer toe(s) (acquired), left foot (M20.42) Active confirmed Problem Polyneuropathy due to type 2 diabetes mellitus (427071864) Type 2 diabetes mellitus with diabetic polyneuropathy (E11.42) Active confirmed Problem Polyneuropathy due to diabetes mellitus type I (988592639) Type 1 diabetes mellitus with diabetic polyneuropathy (E10.42) Active confirmed Plan Of Treatment Pending Test Test Name Order Date 88570-XPVW SKIN LESIONS, OVER 4 12/03/19 21 18431-JVPJ SKIN LESIONS, OVER 4 03/04/20 21 62521-DIIS SKIN LESIONS, OVER 4 06/10/20 21 95544-VXFJ SKIN LESIONS, OVER 4 10/01/20 21 48656-ITOS SKIN LESIONS, OVER 4 02/12/20 22 16240-IMTJGFMS OF HEMATOMA/FLUID 021 Next Appt Details Provider Name:Dianna jhaveri, 04/03/2025 10:45:00 AM, [address] [facility], [place], [address], Insurance Providers Payer Name Payer Address Payer Phone Subscriber Number Group Number Insured Name Patient Relationship to Insured Coverage Start Date Coverage End Date Medicare National [facility] [employer] [address] [place] [address] [id number] Bambi Cox Self - patient is the insured [employer] ([employer]) [address] [place] [address] [phone] [id number] Bambi Cox Self - patient is [...] Implantes eye 09/2021 Hospitalization History Reason Date(Month/Year) [facility] ER- R leg Pain- test given not blood clot same day 04/2022 [facility] ER- Back Pain 08/2021 [facility]- shortness of breath 2019
--- OUTSIDE RECORDS SUMMARY | 2025-03-05 18:21 | XMS_ITS | Data Portability ---
Author Organization [facility], Main Office Address [address] [facility] [address] [place] [address] Care Team Providers Care Smash Piecer Name Role Phone MADELEINE HENRIQUEZ 1ST FLOOR [...] By Organization Details Last Modified Time 02/23/2019 39030 d/c home with meds and services f/u with pcp in 2 weeks f/u with Dr. Mouna loredo Not available 02/23/2019 09:49:54 Reason for Referral None Reported. Problems Name Problem SNOMED Code Status Onset Date Resolution Date Notes Provider Name and Address Organization Details Recorded Time Open reduction of fracture with internal fixation Completed 201801/07/2019 [facility] 9 20:31:22 Hypertens edilia disorder 67869994 Active 2018 Il Swanson [facility] 9 20:21:42 Type 2 diabetes mellitus 06814134 Active 2018 Il Swanson [facility] 9 20:22:04 Open reduction of fracture with internal fixation Active 2018 [facility] 9 20:31:22 Falls 535764317 Active 2018 [facility] 9 20:31:39 Anxiety 49838057 Active 2018 [facility] 9 20:37:17 Essential hypertens ion 78720322 Active 2018 Yina Vidal MD [address], [place], [address], [facility] [employer] [facility] 9 11:49:48 Hyperlipi ludmila 34033995 Active 2018 Yina Vidal MD [address], [place], [address], [facility] [employer] [facility] 9 11:50:41 Closed trimalleo lar fracture of right ankle 362455910268 31944 Active 2018 Yina Vidal MD [address], [place], [address], [facility] [employer] [facility] 9 12:01:53 Problem Notes None recorded. Medical Equipment None Reported. Allergies Allergen ID Allergen Name Allergen Category Reaction Reaction Severity Criticality Documentation Date Start Date Code Code System Note Provider Name and Address Organization Details Recorded Time 65247 bacitraci n medicatio n Not available Not available Not available 01/07/2019 1291 RxNorm Not Available Not Available Not Available 20648 nickel environme nt Not available Not available Not available 01/07/2019 65044 29 RxNorm Not Available Not Available Not Available 57514 latex environme nt,medica tion Not available Not available Not available 01/07/2019 13417 91 RxNorm Not Available Not Available Not Available Vitals None Recorded Social History Question Answer Notes LastModified by Organizat ion Details LastModified Time Tobacco Smoking Status Former Smoker quit in 1998 Not Available [facility] 09/23/2020 03:13:23 Do You Have An Advance Directive? Yes Full Code [id number] Information not available 09/23/2020 What Is Your Level Of Alcohol Consumption? Occasional [id number] Information not available 09/23/2020 How Much Tobacco Do You Chew? None [id number] Information not available 09/23/2020 Do You Have A Medical Power Of Movie Theater Manager? Yes [id number] Information not available 09/23/2020 What Was The Date Of Your Most Recent Tobacco Screening? 01/09/2019 [id number] Information not available 09/23/2020 Has Tobacco Cessation Counseling Been Provided? No [id number] Information not available 09/23/2020 Sex: Unknown Functional Status None recorded. Mental Status None recorded. Family History Nothing Reported. Medical History No medical history recorded. Gynecological HistoryNo gynecological history recorded. Obstetrics History GPAL:G 0 P 0 0 0 0 Past Encounters Encounter ID Performer Location Encounter Start Date Encounter Closed Date Diagnosis/Indication Diagnosis SNOMED-CT Code Diagnosis ICD10 Code Diagnosis Note [id number] Anca HENRIQUEZ [address] [facility] [place] [address] 01/07/2019 20:06:08 01/18/2019 09:32:29 Essential hypertension 40487119 I10 controlled on amlodipine 5mg, coreg vitals stable continue to monitor Hyperlipidemia 53023082 E78.5 cont atorvastat in cardiac/ad a diet Dyspnea 376941945 R06.00 secondary to hypervolem ia, was initiated at hospital will increase lasix for 3 days bmp/mag in morning daily weights, low na diet if dyspnea does not improve will check xray Type 2 ines betes mellitus 16650494 E11.69 continue home meds glimepirid e/januvia/ metformin fs qid, ada/cardia c diet no concentrat ed sweets Falls 418955219 R29.6 s/p fall complicate d by right ankle fracture s/p ORIF non weight bearing right extremity 6 weeks, keep splint clean/dry no showering elevate extremity when in bed f/u ortho 2 weeks fall precaution s pt/ot pain management Anxiety 25723318 F41.9 mood stable [facility], continue duloxetine [id number] Yina Vidal MD [address] [place] [address] 01/09/2019 10:10:31 01/18/2019 09:39:57 Essential hypertension 13092158 I10 Increased today, possibly due to increased pain or increased CHF. Will continue amlodipine 5 mg and carvedilol 6.25 mg, as well as lasix as above. Monitor and adjust as needed. Hyperlipidemia 15633872 E78.2 Continue atorvastat in 40 mg qd and monitor as outpt. Type 2 ines betes mellitus 01373043 E11.69 BS stable on glimepirid e 4 mg qd, januvia 100 mg qd and metformin 1000 mg BID. Currently only getting fingerstic ks 2x/week, will increase to BID due to immobility . Can d/c if stable. Continue CCD. Monitor HgA1C as outpt. Falls 374689525 R29.6 Will need continued PT/OT after ankle heals to work on balance and gait training to help prevent future falls. Anxiety 44529305 F41.1 With moderate baseline anxiety. Continue lorazepam 1 mg qd prn and duloxetine 60 mg qd. Monitor mood and consult NEG prn. Closed tri malleolar fracture of right ankle 3503064116 4412660 S82.851D S/P ORIF, pain well controlled with oxycodone 5 mg q 4 hrs prn. Not on anything for DVT prophylaxi s, discussed with ortho PA and told that they don't usually do AC unless pt. is bedridden. Continue PT/OT for function as tolerated with NWB on right leg. F/U with ortho in 2 weeks. Congestive heart failure 64154115 I50.43 Pt. informs me she has hx of CHF. Had cardiac w/u at [facility] a few months ago . Including echo and possible a medication stimulated stress test. Had been off lasix for a month prior to admission, because sxs had improved. Had lasix increased on admission here, from 20 mg qd to 40 mg BID for 3 days. Labs stable on this dose. SOB worsening. WIll get CXR stat today. Will get records from [facility] on previous testing. [id number] Mery SALVADOR MARTINEZ [address] [place] [address] 01/15/2019 11:00:43 01/18/2019 11:54:03 Essential hypertension 20888873 I10 controlled on amlodipine 5mg, coreg vitals stable continue to monitor Hyperlipidemia 36778517 E78.5 cont atorvastat in cardiac/ad a diet Type 2 ines betes mellitus 03044618 E11.69 continue home meds glimepirid e/januvia/ metformin fs qid, ada/cardia c diet no concentrat ed sweets Falls 774711953 R29.6 s/p fall complicate d by right ankle fracture s/p ORIF non weight bearing right extremity 6 weeks, keep splint clean/dry no showering elevate extremity when in bed f/u ortho 2 weeks fall precaution s pt/ot pain management Anxiety 90879705 F41.9 mood stable provide supportive care ativan qhs prn, continue duloxetine Anemia 592816215 D64.9 ? d/t blood loss.hgb stable at 9 range.cont inue to monitor. [id number] Mery HENRIQUEZ [address] [place] [address] 01/24/2019 11:01:04 01/31/2019 13:55:43 Falls 541152282 R29.6 s/p fall complicate d by right ankle fracture s/p ORIF non weight bearing right extremity 6 weeks, keep cast clean/dry f/u ortho pt/ot pain controlled Essential hypertension 16901511 I10 controlled on amlodipine 5mg, coreg vitals stable continue to monitor Hyperlipidemia 36344233 E78.5 cont atorvastat in cardiac/ad a diet Type 2 ines betes mellitus 46354533 E11.69 continue home meds glimepirid e/januvia/ metformin fs qid, ada/cardia c diet no concentrat ed sweets Anxiety 55030416 F41.9 mood stable provide supportive care ativan qhs prn, continue duloxetine Anemia 568691913 D64.9 ? d/t blood loss.hgb stable at 9 range.cont inue to monitor. [id number] Mery HENRIQUEZ [address] [facility] [place] [address] 01/31/2019 14:58:48 02/05/2019 16:09:48 Falls 232982712 R29.6 s/p fall complicate d by right ankle fracture s/p ORIF non weight bearing right extremity 6 weeks, keep cast clean/dry f/u ortho pt/ot pain controlled Essential hypertension 61901648 I10 controlled on amlodipine 5mg, coreg vitals stable continue to monitor Hyperlipidemia 18205541 E78.5 cont atorvastat in cardiac/ad a diet Type 2 ines betes mellitus 49829786 E11.69 continue home meds glimepirid e/januvia/ metformin ada/cardia c diet Anxiety 58595833 F41.9 mood stable provide supportive care ativan qhs prn, continue duloxetine Anemia 337112067 D64.9 ? d/t blood loss.hgb stable at 9 range.cont inue to monitor. [id number] Mery HENRIQUEZ [address] [place] [address] 02/06/2019 12:16:47 02/09/2019 15:45:58 Falls 087737289 R29.6 s/p fall complicate d by right [...] remains dependent on wheelchair for safe mobility. [id number] Mery [address] [facility] [address] 02/08/2019 10:07:17 02/13/2019 15:27:37 Falls 040646104 R29.6 s/p fall complicate d by right ankle fracture s/p ORIF, pain controlled non weight bearing right extremity 6 weeks, keep cast clean/dry f/u ortho Essential hypertension 51421544 I10 controlled on amlodipine 5mg, coreg vitals stable continue to monitor Hyperlipidemia 75554518 E78.5 cont atorvastat in cardiac/ad a diet Type 2 ines betes mellitus 88081391 E11.69 continue home meds glimepirid e/januvia/ metformin ada/cardia c diet Anxiety 78368112 F41.9 mood stable [facility], continue duloxetine Anemia 316114339 D64.9 ? d/t blood loss.hgb stable at 9 range.cont inue to monitor. [id number] Mery HENRIQUEZ [address] [facility] [place] [address] 02/23/2019 09:38:45 02/27/2019 09:10:22 Falls 690869320 R29.6 s/p fall complicate d by right ankle fracture s/p ORIF, pain controlled -WBAT with boot in place. f/u with Dr. Freire in 3 weeks. Essential hypertension 97856331 I10 controlled on amlodipine 5mg, coreg vitals stable continue to monitor Hyperlipidemia 88622701 E78.5 cont atorvastat in cardiac/ad a diet Type 2 ines betes mellitus 94963510 E11.69 continue home meds glimepirid e/januvia/ metformin ada/cardia c diet Anxiety 70105974 F41.9 mood stable provide supportive care ativan qhs prn, continue duloxetine Anemia 561122226 D64.9 hgb improvedco ntinue to monitor. Health [...] [place] [employer] Bambi L Cox [id number] Bambi Cox 01/31/2019 1 MEDICARE [place] [employer] Bambi L Cox [id number] Bambi Cox 02/06/2019 1 [place] [employer] Bambi L Cox [id number] Bambi Cox 02/08/2019 1 [place] [employer] Bambi Betty Cox [id number] Bambi Cox 02/23/2019 1 [place] [employer] Bambi Betty Cox [id number] Bambi Cox Notes Date Note Type [...] anxiety, depression, arrhythmia, htn, hld Mery meyer [facility] 01/24/2019 17:23:45 01/31/2019 text/html 68yo female who is admitted for rehab after she fell and sustained right trimalleolar fracture of right ankle and s/p successful ORIF of ankle. Has cast in place and is NWB. No c/o today. Anxiety improved. No pain. Doing well with PT/OT. pmhx dm, anxiety, depression, arrhythmia, htn, hld Mery meyer [facility] 01/31/2019 15:02:03 02/06/2019 text/html 68yo female [...] anxiety, depression, arrhythmia, htn, hld Mery meyer [facility] [employer] [facility] 02/06/2019 12:20:17 02/08/2019 text/html 68yo female who [...] anxiety, depression, arrhythmia, htn, hld Mery meyer, [facility] [employer] [facility] 02/08/2019 15:45:36 02/23/2019 text/html 68yo female who [...] anxiety, depression, arrhythmia, htn, hld Mery meyer [facility] [employer] [facility] 03/20/2019 22:06:17 OBGyn Episode No OBEpisode recorded.
--- OUTSIDE RECORDS SUMMARY | 2025-03-05 18:21 | XMS_ITS | Clinical Summary ---
Author Organization Replaced by [facility] Address [address] [place] [address] Care Team Providers Care Anchorman Name Role Phone Kanwal Marsh MD Primary Care Provider Unavailabl e Social History Tobacco Use Types Packs/Day Years Used Date Smoking Tobacco: Never Assessed Comments Unknown Sex and Gender Information Value Date Recorded Sex Assigned at Not on file Legal Sex Female 12:01 PM EST Gender Identity Not on file Sexual Orientation Not on file Plan of Treatment Not on file Care Teams Anchorman Relationship Specialty Start Date End Date Kanwal Marsh MD [address] [place] [address] PCP - General Internal Medicine 01/09/24
--- OUTSIDE RECORDS SUMMARY | 2025-03-05 18:21 | XMS_ITS ---
Author Organization [facility] Care Team Providers Care Cargo Services Coordinator Name Role Phone Adonay Zamora Unavailable Unavailable Yina Vidal Unavailable Unavailable Allergies and adverse reactions Code CodeSystem Substance Reaction Severity StartDate Concern Status nickel Unknown 01/06/2019 active Latex Unknown 01/06/2019 active 1291 RXNORM Bacitracin Unknown 01/06/2019 active Care Team Name Role Address Phone Organization Dates Adonay Zamora PCP [address], [address], [facility] (Office): : [facility] 01/06/2019 - 02/23/2019 Yina Vidal Attending Physician [address], [address], [facility] (Office): [facility] 01/06/2019 - 02/23/2019 Immunizations Immunization Status Vaccine Details Vaccine Code CodeSystem Date Notes Influenza completed Influenza, split virus, trivalent, injectable, contains preservative 141 CVX created date: 01/06/2019 administer ed date: 08/29/2018 TB 2 Step Mantoux Skin Test completed tuberculin skin test; unspecified formulation lotNumber: [id number] expiry: 07/29/2020 Mfg: [employer] Given 0.1 ml Left Forearm subcutaneously Step 2 of Multi-step with next step required 98 CVX created date: 01/13/2019 consent date: 01/13/2019 administer ed date: 01/13/2019 TB 2 Step Mantoux Skin Test completed tuberculin skin test; unspecified formulation lotNumber: [id number] expiry: 06/27/2020 Mfg: [employer] Given 0.1 ml Right Forearm intradermally Step 1 of Multi-step 98 CVX created date: 01/06/2019 consent date: 01/06/2019 administer ed date: 01/06/2019 Educated by kashmir alexandre on 01/06/2019 PCV13 (Pneumococcal Conjugate)Vaccin e completed pneumococcal conjugate vaccine, 13 valent 133 CVX created date: 01/06/2019 administer ed date: 08/30/2018 Mental Status Section Date Assessment Total Score Description 02/23/2019 BIMS 15 cognitively int act CAM 0 No delirium ind icated PHQ-9 07 mild depression 02/17/2019 BIMS 15 cognitively int act PHQ-9 10 moderate depres trini Problems Problem # Description Date of onset Resolved Date Code CodeSystem Concern Status 1 AFTERCARE FOLLOWING JOINT REPLACEMENT SURGERY 01/06/[address] active 2 DISPLACED TRIMALLEOLAR FRACTURE OF RIGHT LOWER LEG, SUBSEQUENT ENCOUNTER FOR CLOSED FRACTURE WITH ROUTINE HEALING 01/06/[address] active 3 ESSENTIAL (PRIMARY) HYPERTENSION 01/06/[address] active 4 GENERALIZED ANXIETY DISORDER 01/06/[address] active 5 MUSCLE WEAKNESS (GENERALIZED) 01/06/[address] active 6 OTHER ABNORMALITIES OF GAIT AND MOBILITY 01/06/[address] active 7 OTHER HYPERLIPIDEMIA 01/06/[address] active 8 OTHER LACK OF COORDINATION 01/06/[address] active 9 RHEUMATOID ARTHRITIS, UNSPECIFIED 01/06/[address] active 10 TYPE 2 DIABETES MELLITUS WITHOUT COMPLICATIONS 01/06/[address] active 11 UNSPECIFIED FALL, SUBSEQUENT ENCOUNTER 01/06/[address] active 12 WEAKNESS 01/06/[address] active Reason for Referral No Reasons for Referral Entered Social History Social History Observation Description Start Date End Date Code Code System Current Smoking Status Tobacco smoking consumption unknown 607818596 SNOMED CT Sex Assigned At Female 1950 [address]3 [facility] Vital Signs Code Code System Vitals Name Values and Units Timing Information 68973-9 LOINC Pain Level Value=0.0 02/23/2019 35448-4 [facility] Weight Syafk=814.0 Units=Lbs 9279-1 [facility] Respiratory Rate Value=18.0 Units=/m in 02/22/2019 8462-4 [facility] Blood Pressure-Diastolic Value=66 Un its=mmHg 02/22/2019 8480-6 [facility] Blood Pressure-Systolic Cvjyh=763 Un its=mmHg 02/22/2019 8310-5 [facility] Body Temperature Value=98.2 Units=?? F 02/22/2019 8867-4 [facility] Heart rate Value=92.0 Units=/min 63338-0 [facility] O2 % BldC Oximetry Value=96.0 Units= % 02/22/2019 2339-0 [facility] Blood Sugar Gjjzp=845.0 Units=mg/dL 02/22/2019 8302-2 [facility] Height Value=66.0 Units=Inches 01/06/2019
--- OUTSIDE RECORDS SUMMARY | 2025-03-05 18:21 | XMS_ITS ---
Author Organization [facility] Address [address] [place] [address] Care Team Providers Care Hvac Estimator Name Role Phone Rocky Roman Primary Care Provider UnavailDianna Munroe Unavailable [phone] Prakash Palacios Unavailable [phone] REASON FOR VISIT PCP - 01/2023 Medications [...] Active Encounters Encounter Location Date Provider Diagnosis [facility] [address] [place] [address] 12/08/2023 Prakash Palacios Type 2 diabetes mellitus [...] Provider Name:Dianna jhaveri, 04/03/2025 10:45:00 AM, [address] [place], [address], Progress Notes * Sukhwinder FOX: [birth year] (75 yo F)Acc No.[id number]:12/08/2023 Progress Note Patient:?Bambi FOX Provider:?Prakash Palacios DPM :1950???Age:73 Y???Sex:Female D ate:12/08/2023 Address: [place], [place] Pcp:Rocky Roman Subjective: * Chief Complaints: * [...] DPM Date:? 024 Generated for Gee jewell/Avni/Vijay on:?03/05/2025 06:21 PM EDT History and Physical Notes * [...]
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
== END 2025-03-05 16:23 | disposition home or self-care (01) ==
LOC: HO.HMCH 15:26
PROVIDERS: PCP Internal Medicine; Visit Provider Internal Medicine
DX: E11.65 Type 2 diabetes mellitus with hyperglycemia (principal); J84.10 Pulmonary fibrosis, unspecified; C50.912 Malignant neoplasm of unspecified site of left female breast; E78.00 Pure hypercholesterolemia, unspecified; I10 Essential (primary) hypertension; F41.1 Generalized anxiety disorder

== ENCOUNTER → 2025-03-05 15:25 | Outpatient (BNVA) | payer MEDICARE, SELFPAY | PROVIDERS: PCP Internal Medicine; Visit Provider Internal Medicine | DX: E11.65 Type 2 diabetes mellitus with hyperglycemia (principal); E78.00 Pure hypercholesterolemia, unspecified; J84.10 Pulmonary fibrosis, unspecified; I10 Essential (primary) hypertension; F41.1 Generalized anxiety disorder; C50.912 Malignant neoplasm of unspecified site of left female breast | CPT/HCPCS: 83036; 99212 ==

== ENCOUNTER 2025-03-12 14:25 | Outpatient (AMB) | payer MEDICARE, SELFPAY ==
--- NOTE | 2025-03-12 14:25 | A.OFFVIS_ITS ---
Vital Signs 03/12/25 14:31 Height 5 ft 4 in Weight 188 lb BMI 32.3 BP 119/58 L Blood Pressure Location Rt brachial Position Sitting Pulse 99 Intake Visit Reasons: Breast exam Intake Note: Patient here for breast exam. Reports no changes in medical hx since last visit. Patient c/o: no concerns. Denies lumps, rash, nipple discharge. Mammogram: 01-30-2025 Precision Instrument And Tool Maker Required: No Accompanied by: Self / Same As Patient Allergies bacitracin [BACITRACIN] Allergy (Intermediate, Verified 03/12/25 14:31) RASH latex [LATEX] Allergy (Intermediate, Verified 03/12/25 14:31) FACIAL SWELLING; RASH nickel [NICKEL] Allergy (Intermediate, Verified 03/12/25 14:31) RASH amlodipine Adverse Reaction (Intermediate, Verified 03/12/25 14:31) leg swelling lisinopril Adverse Reaction (Intermediate, Verified 03/12/25 14:31) Swelling adhesive tape Adverse Reaction (Verified 03/12/25 14:31) Irritable HPI Comments Details: Patient presents for annual breast exam and follow-up status post mammogram. She has no breast issues or complaints. She is unsure she does regular breast exams. But she has no issues a come to mind.Patient presents for follow-up status post left chest tube for recurrent left pleural effusion. Cytology has been negative on this but nonetheless with a history of metastatic melanoma patient underwent pleurodesis. He presents here for follow-up. He has a cough with clear sputum production over the last few days. No yellow or green sputum. No fever or chills. Also being followed by Oncology. [facility] Medical History MDD (major depressive disorder), recurrent episode, moderate Arrhythmia Right leg pain Obesity (BMI 30-39.9) Benign essential hypertension Normal colonoscopy (~06/16/21) Medicare annual wellness visit, initial Breast implant in situ Breast cancer screening by mammogram Cataract Cholelithiasis Pelvic fracture Fatty liver Colon cancer screening Hypercholesterolemia Type 2 diabetes mellitus with hyperglycemia Restrictive lung disease Pulmonary fibrosis Surgical History History of lumpectomy of left breast (02/02/24) Left breast mass History of colonoscopy History of cataract surgery History of surgery on lower extremity H/O left wrist surgery History of ankle surgery Family History Mother Lung cancer Father Respiratory failure Sister Lung disease Brother Respiratory failure Son No problems noted. 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 congregational care pastor to a significant other at home: Yes Do you presently have visiting nurse or other home services: No Alcohol intake: former Comment: COUNTS CORRECT Patient Tobacco Use Status: Former Tobacco user Years Smoked: stopped 48 years old e-Cigarette/Vaping Use: Never Used Second Hand Smoke Exposure: Yes Advance Directives Date on File: 01/18/24 service: No Current occupational status: retired Cognitive needs: Yes Hearing needs: No Vision needs: Yes (Glasses) Physical Exam Vital Signs: Last Vital Signs Pulse 99 03/12/25 14:31 BP 119/58 L 03/12/25 14:31 BMI result Body Mass Index 32.3 Chest Other: Right breast within normal limits. No mass, discharge, periclavicular axillary adenopathy, or skin changes or discharge. Left breast demonstrates postsurgical changes along the infra-areolar area. The area is soft and nontender. Remaining breast exam negative. No periclavicular or axillary adenopathy. Assessment & Plan Assessment & Plan (1) Encounter for follow-up surveillance of breast cancer: Code(s): Z08 - Encounter for follow-up examination after completed treatment for malignant neoplasm; Z85.3 - Personal history of malignant neoplasm of breast Category: Surgical Plan Patient was encouraged to do monthly breast exams. She will see me in 1 year's time preceded by Rochelle Pimentel or p.r.n.. All questions answered. Coding Level of Care Code Est Pt Level 4 (90128) Diagnoses Encounter for follow-up surveillance of breast cancer Z08; Z85.3
[2025-03-12 14:31] VITALS: BP 119/58; PULSE 99; BMI 32.3
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
--- OUTSIDE RECORDS SUMMARY | 2025-03-12 17:37 | XMS_ITS | Clinical Summary ---
Author Organization [facility] Address [address] [place] [address] Care Team Providers Care Volunteer Manager Name Role Phone Rocky Roman MD Primary Care Provider Allergies Active Allergy Reactions Criticality Noted Date [...] drink = 0.6 oz pur e alcohol) [facility] Utilities Answer Date Recorded In the past 12 months has th e [employer], gas, oil, or water company threatened to [...] place to sleep or slept in a intermediate (including now)? No 04/11/2024 Sex and Gender [...] 8:39 AM 02/10/2024 10:30 AM Care Teams Volunteer Manager Relationship Specialty Start Date End Date Rocky Roman MD [address] [place] [address] [place] [address] PCP - General Internal Medicine 02/10/24
--- OUTSIDE RECORDS SUMMARY | 2025-03-12 17:37 | XMS_ITS ---
Author Organization [facility] Address [address] [place] [address] Care Team Providers Care Insurance Account Assistant Name Role Phone Rocky Roman Primary Care Provider Dianna Johnson Unavailable [phone] Prakash Palacios [phone] REASON FOR VISIT No show Encounters Encounter Location Date Provider Diagnosis [address] [address] 12/08/2023 Prakash Palacios Plan Of Treatment Next Appt Details Provider Name:Dianna jhaveri, 04/03/2025 10:45:00 AM, [address] [place] [address], [address], Progress Notes * Bambi FOXDOB: [birth year] (73 yo F)Acc No.[id number]:12/08/2023 Patient:?Bambi Fox :1950???Age:73 Y???Sex:Female Address:[address] [place], [address] * true * Date:? Generated for Printi ng/Faxing/eTransmitting on:?03/12/2025 05:37 PM EDT
--- OUTSIDE RECORDS SUMMARY | 2025-03-12 17:38 | XMS_ITS | Patient Health Record ---
[facility] Address [address] [place] [address] Care Team Providers Care Drop Wire Hanger Name Role Phone Rocky Roman Primary Care Provider Dianna Johnson Unavailable [phone] Allergies Allergen (clinical drug ingredient) Drug/Non Drug [...] primary osteoarthritis of the ankle and/or foot (190034642) Primary osteoarthritis, right ankle and foot (M19.071) Active confirmed Problem Non-pressure chronic ulcer of other part of right foot limited to breakdown of skin (L97.511) Active confirmed Problem Acquired hammer toe of right foot (7093431906416108 ) Other hammer toe(s) (acquired), right foot (M20.41) Active confirmed Problem Acquired hammer toe of left foot (4128991499293924 ) Other hammer toe(s) (acquired), left foot (M20.42) Active confirmed Problem Polyneuropathy due to type 2 diabetes mellitus (334894124) Type 2 diabetes mellitus with diabetic polyneuropathy (E11.42) Active confirmed Problem Polyneuropathy due to diabetes mellitus type I (925384065) Type 1 diabetes mellitus with diabetic polyneuropathy (E10.42) Active confirmed Plan Of Treatment Pending Test Test Name Order Date 66458-ZXIC SKIN LESIONS, OVER 4 12/03/19 21 43827-QKTJ SKIN LESIONS, OVER 4 03/04/20 21 17990-YNYI SKIN LESIONS, OVER 4 06/10/20 21 03870-EFEZ SKIN LESIONS, OVER 4 10/01/20 21 92821-GPBW SKIN LESIONS, OVER 4 02/12/20 22 01004-EFLVEOQS OF HEMATOMA/FLUID 021 Next Appt Details Provider Name:Dianna jhaveri, 04/03/2025 10:45:00 AM, [address] [facility], [place], [address], Insurance Providers Payer Name Payer Address Payer Phone Subscriber Number Group Number Insured Name Patient Relationship to Insured Coverage Start Date Coverage End Date Medicare National [employer] [address] [place] [address] [id number] Bambi Cox Self - patient is the insured [employer]) [address] [place] [address] [id number] Bambi Cox Self - patient is [...] Implantes eye 09/2021 Hospitalization History Reason Date(Month/Year) [facility] ER- R leg Pain- test given not blood clot same day 04/2022 [facility] [place]- Back Pain 08/2021 [facility] shortness of breath 2019
--- OUTSIDE RECORDS SUMMARY | 2025-03-12 17:38 | XMS_ITS | Data Portability ---
Author Organization [facility], Main Office Address [address] [facility] [address] [place] [address] Care Team Providers Care Railroad Cook Name Role Phone MADELEINE HENRIQUEZ 1ST FLOOR OTHER [phone] Assessment No assessment recorded. Plan of Treatment [...] By Organization Details Last Modified Time 02/23/2019 [id number] d/c home with meds and services f/u with pcp in 2 weeks f/u with Dr. Mouna loredo Not available 02/23/2019 09:49:54 Reason for Referral None Reported. Problems Name Problem SNOMED Code Status Onset Date Resolution Date Notes Provider Name and Address Organization Details Recorded Time Open reduction of fracture with internal fixation Completed 201801/07/2019 [facility] 20:[facility]:22 Hypertens edilia disorder 89486620 Active 2018 Nd Swanson [facility] 9 20:21:42 Type 2 diabetes mellitus 29299677 Active 2018 Nd Swanson [facility] 9 20:22:04 Open reduction of fracture with internal fixation Active 2018 [facility] 20:31:22 Falls 945563354 Active 2018 [facility] 9 20:31:39 Anxiety 10564735 Active 2018 [facility] 9 20:37:17 Essential hypertens ion 55506984 Active 2018 Yina Vidal MD [address], [address], [place], [address], [facility] Social Median [facility] 9 11:49:48 Hyperlipi ludmila 03654166 Active 2018 Yina Vidal MD [address], [address], [place], [address], [facility] Social Median [facility] 9 11:50:41 Closed trimalleo lar fracture of right ankle 194082720224 89759 Active 2018 Yina Vidal MD [address], [address], [place], [address], [facility] Social Median [facility] 9 12:01:53 Problem Notes None recorded. Medical Equipment None Reported. Allergies Allergen ID Allergen Name Allergen Category Reaction Reaction Severity Criticality Documentation Date Start Date Code Code System Note Provider Name and Address Organization Details Recorded Time 43933 bacitraci n medicatio n Not available Not available Not available 01/07/2019 1291 RxNorm Not Available Not Available Not Available 09487 nickel environme nt Not available Not available Not available 01/07/2019 82259 29 RxNorm Not Available Not Available Not Available 35103 latex environme nt,medica tion Not available Not available Not available 01/07/2019 47495 91 RxNorm Not Available Not Available Not Available Vitals None Recorded Social History Question Answer Notes LastModified by Organizat ion Details LastModified Time Tobacco Smoking Status Former [facility]oker [facility] in 1998 [facility] 09/23/2020 03:13:23 Do You Have An Advance Directive? Yes Full Code [id number] Information not available 09/23/2020 What Is Your Level Of Alcohol Consumption? Occasional [id number] Information not available 09/23/2020 How Much Tobacco Do You Chew? None [id number] Information not available 09/23/2020 Do You Have A Medical Power Of Chromium Plater? Yes [id number] Information not available 09/23/2020 What Was The Date Of Your Most Recent Tobacco Screening? 01/09/2019 [id number] Information not available 09/23/2020 Has Tobacco Cessation Counseling Been Provided? No [id number] Information not available 09/23/2020 Sex: Unknown Functional Status None recorded. Mental Status None recorded. Family History Nothing Reported. Medical History No medical history recorded. Gynecological HistoryNo gynecological history recorded. Obstetrics History GPAL:G 0 P 0 0 0 0 Past Encounters Encounter ID Performer Location Encounter Start Date Encounter Closed Date Diagnosis/Indication Diagnosis SNOMED-CT Code Diagnosis ICD10 Code Diagnosis Note [id number] Anca HENRIQUEZ [address] [facility] [place] [address] 01/07/2019 20:06:08 01/18/2019 09:32:29 Essential hypertension 78428724 I10 controlled on amlodipine 5mg, coreg vitals stable continue to monitor Hyperlipidemia 82690574 E78.5 cont atorvastat in cardiac/ad a diet Dyspnea 143971893 R06.00 secondary to hypervolem ia, was initiated at hospital will increase lasix for 3 days bmp/mag in morning daily weights, low na diet if dyspnea does not improve will check xray Type 2 ines betes mellitus 85541993 E11.69 continue home meds glimepirid e/januvia/ metformin fs qid, ada/cardia c diet no concentrat ed sweets [place] 847372307 R29.6 s/p fall complicate d by right ankle fracture s/p ORIF non weight bearing right extremity 6 weeks, keep splint clean/dry no showering elevate extremity when in bed f/u ortho 2 weeks fall precaution s pt/ot pain management Anxiety 79528742 F41.9 mood stable provide supportive [facility], continue duloxetine [id number] Yina Vidal MD [address] [place] [address] 01/09/2019 10:10:31 01/18/2019 09:39:57 Essential hypertension 36140097 I10 Increased today, possibly due to increased pain or increased CHF. Will continue amlodipine 5 mg and carvedilol 6.25 mg, as well as lasix as above. Monitor and adjust as needed. Hyperlipidemia 52121392 E78.2 Continue atorvastat in 40 mg qd and monitor as outpt. Type 2 ines betes mellitus 02257681 E11.69 BS stable on glimepirid e 4 mg qd, januvia 100 mg qd and metformin 1000 mg BID. Currently only getting fingerstic ks 2x/week, will increase to BID due to immobility . Can d/c if stable. Continue CCD. Monitor HgA1C as outpt. Falls 954733562 R29.6 Will need continued PT/OT after ankle heals to work on balance and gait training to help prevent future falls. Anxiety 56140816 F41.1 With moderate baseline anxiety. Continue lorazepam 1 mg qd prn and duloxetine 60 mg qd. Monitor mood and consult NEG prn. Closed tri malleolar fracture of right ankle 4101478496 1063220 S82.851D S/P ORIF, pain well controlled with oxycodone 5 mg q 4 hrs prn. Not on anything for DVT prophylaxi s, discussed with ortho PA and told that they don't usually do AC unless pt. is bedridden. Continue PT/OT for function as tolerated with NWB on right leg. F/U with ortho in 2 weeks. Congestive heart failure 94528079 I50.43 Pt. informs me she has hx of CHF. Had cardiac w/u at [facility] a few months ago . Including echo and possible a medication stimulated stress test. Had been off lasix for a month prior to admission, because sxs had improved. Had lasix increased on admission here, from 20 mg qd to 40 mg BID for 3 days. Labs stable on this dose. SOB worsening. WIll get CXR stat today. Will get records from [facility] on previous testing. [id number] Mery SALVADOR MARTINEZ [address] [place] [address] 01/15/2019 11:00:43 01/18/2019 11:54:03 Essential hypertension 26209856 I10 controlled on amlodipine 5mg, coreg vitals stable continue to monitor Hyperlipidemia 70579282 E78.5 cont atorvastat in cardiac/ad a diet Type 2 ines betes mellitus 08890345 E11.69 continue home meds glimepirid e/januvia/ metformin fs qid, ada/cardia c diet no concentrat ed sweets [place] 680264048 R29.6 s/p fall complicate d by right ankle fracture s/p ORIF non weight bearing right extremity 6 weeks, keep splint clean/dry no showering elevate extremity when in bed f/u ortho 2 weeks fall precaution s pt/ot pain management Anxiety 29328293 F41.9 mood stable provide supportive care ativan qhs prn, continue duloxetine Anemia 981309326 D64.9 ? d/t blood loss.hgb stable at 9 range.cont inue to monitor. [id number] Mery HENRIQUEZ [address] [place] [address] 01/24/2019 11:01:04 01/31/2019 13:55:43 Falls 105377129 R29.6 s/p fall complicate d by right ankle fracture s/p ORIF non weight bearing right extremity 6 weeks, keep cast clean/dry f/u ortho pt/ot pain controlled Essential hypertension 73512419 I10 controlled on amlodipine 5mg, coreg vitals stable continue to monitor Hyperlipidemia 76521406 E78.5 cont atorvastat in cardiac/ad a diet Type 2 ines betes mellitus 34019764 E11.69 continue home meds glimepirid e/januvia/ metformin fs qid, ada/cardia c diet no concentrat ed sweets Anxiety 65759950 F41.9 mood stable provide supportive care ativan qhs prn, continue duloxetine Anemia 187285386 D64.9 ? d/t blood loss.hgb stable at 9 range.cont inue to monitor. [id number] Mery HENRIQUEZ [address] [facility] [place] [address] 01/31/2019 14:58:48 02/05/2019 16:09:48 [place] 211463297 R29.6 s/p fall complicate d by right ankle fracture s/p ORIF non weight bearing right extremity 6 weeks, keep cast clean/dry f/u ortho pt/ot pain controlled Essential hypertension 12069418 I10 controlled on amlodipine 5mg, coreg vitals stable continue to monitor Hyperlipidemia 18193244 E78.5 cont atorvastat in cardiac/ad a diet Type 2 ines betes mellitus 31447974 E11.69 continue home meds glimepirid e/januvia/ metformin ada/cardia c diet Anxiety 51553836 F41.9 mood stable provide supportive care ativan qhs prn, continue duloxetine Anemia 677946382 D64.9 ? d/t blood loss.hgb stable at 9 range.cont inue to monitor. [id number] Mery HENRIQUEZ [address] [facility] [place] [place] [address] 02/06/2019 12:16:47 02/09/2019 15:45:58 Falls 703553263 R29.6 s/p fall complicate d by right [...] remains dependent on wheelchair for safe mobility. [id number] M[address] [place] [address] 02/08/2019 10:07:17 02/13/2019 15:27:37 [place] 566141459 R29.6 s/p fall complicate d by right ankle fracture s/p ORIF, pain controlled non weight bearing right extremity 6 weeks, keep cast clean/dry f/u ortho Essential hypertension 67952266 I10 controlled on amlodipine 5mg, coreg vitals stable continue to monitor Hyperlipidemia 36428473 E78.5 cont atorvastat in cardiac/ad a diet Type 2 ines betes mellitus 09724739 E11.69 continue home meds glimepirid e/januvia/ metformin ada/cardia c diet Anxiety 96370233 F41.9 mood stable provide supportive care [facility], continue duloxetine Anemia 950171141 D64.9 ? d/t blood loss.hgb stable at 9 range.cont inue to monitor. [id number] Mery HENRIQUEZ [address] [facility] [place] [address] 02/23/2019 09:38:45 02/27/2019 09:10:22 Falls 066094224 R29.6 s/p fall complicate d by right ankle fracture s/p ORIF, pain controlled -WBAT with boot in place. f/u with Dr. Freire in 3 weeks. Essential hypertension 84698889 I10 controlled on amlodipine 5mg, coreg vitals stable continue to monitor Hyperlipidemia 98886988 E78.5 cont atorvastat in cardiac/ad a diet Type 2 ines betes mellitus 28919924 E11.69 continue home meds glimepirid e/januvia/ metformin ada/cardia c diet Anxiety 09911050 F41.9 mood stable provide supportive care ativan qhs prn, continue duloxetine Anemia 398703335 D64.9 hgb improvedco ntinue to monitor. Health [...] [place] [employer] Bambi L Cox [id number] Bambi Cox 01/31/2019 1 MEDICARE [place] [employer] Bambi L Cox [id number] Bambi Cox 02/06/2019 1 [place] [employer] Bambi L Cox [id number] Bambi Cox 02/08/2019 1 [place] [employer] Bambi Betty Cox [id number] Bambi Cox 02/23/2019 1 [place] [employer] Bambi Betty Cox [id number] Bambi Cox Notes Date Note Type [...] anxiety, depression, arrhythmia, htn, hld Mery meyer [employer] 01/24/2019 17:23:45 01/31/2019 text/html 68yo female who is admitted for rehab after she fell and sustained right trimalleolar fracture of right ankle and s/p successful ORIF of ankle. Has cast in place and is NWB. No c/o today. Anxiety improved. No pain. Doing well with PT/OT. pmhx dm, anxiety, depression, arrhythmia, htn, hld Mery meyer [employer] [facility] 01/31/2019 15:02:03 02/06/2019 text/html 68yo female [...] anxiety, depression, arrhythmia, htn, hld Mery meyer [facility] Social Median [facility] 02/06/2019 12:20:17 02/08/2019 text/html 68yo female [...] anxiety, depression, arrhythmia, htn, hld Mery meyer, [facility] Social Median [facility] 02/08/2019 15:45:36 02/23/2019 text/html 68yo female [...] anxiety, depression, arrhythmia, htn, hld Mery meyer [facility] Social Median [facility] 03/20/2019 22:06:17 OBGyn Episode No OBEpisode recorded.
--- OUTSIDE RECORDS SUMMARY | 2025-03-12 17:38 | XMS_ITS | Clinical Summary ---
Author Organization [facility] Address [address] [place] [address] Care Team Providers Care Plastic Process Technician Name Role Phone Kanwal Marsh MD Primary Care Provider Unavailabl e Social History Tobacco Use Types Packs/Day Years Used Date Smoking Tobacco: Never Assessed Comments Unknown Sex and Gender Information Value Date Recorded Sex Assigned at Not on file Legal Sex Female 12:01 PM EST Gender Identity Not on file Sexual Orientation Not on file Plan of Treatment Not on file Care Teams Plastic Process Technician Relationship Specialty Start Date End Date Kanwal Marsh MD [address] [place] [address] PCP - General Internal Medicine 01/09/24
--- OUTSIDE RECORDS SUMMARY | 2025-03-12 17:38 | XMS_ITS ---
Author Organization [facility] Address [address] [place] [address] Care Team Providers Care Pediatric Dermatologist Name Role Phone Rocky Roman Primary Care Provider UnavailDianna Munroe Unavailable [phone] Prakash Palacios Unavailable [phone] REASON FOR VISIT PCP - 01/2023 Medications [...] Active Encounters Encounter Location Date Provider Diagnosis [facility] [address] [place] [address] 12/08/2023 Prakash Palacios Type 2 diabetes mellitus [...] Provider Name:Dianna jhaveri, 04/03/2025 10:45:00 AM, [address] [place], [address], Progress Notes * Sukhwinder FOX: [birth year] (75 yo F)Acc No.[id number]:12/08/2023 Progress Note Patient:?Bambi FOX Provider:?Prakash Palacios DPM :1950???Age:73 Y???Sex:Female D ate:12/08/2023 Address: [address] [place], [place] Pcp:Rocky Roman Subjective: * Chief Complaints: * [...] DPM Date:? 024 Generated for Gee jewell/Avni/Vijay on:?03/12/2025 05:37 PM EDT History and Physical Notes * [...]
--- OUTSIDE RECORDS SUMMARY | 2025-03-12 17:38 | XMS_ITS | Encounter Summary ---
Author Organization [facility] Address [address] [place] [address] Care Team Providers Care Regional Marketing Director Name Role Phone Kanwal Marsh MD Primary Care Provider Unavailabl e Encounter Details Date Type Department Care Team (Late st Contact Info) Description 01/12/2024 Orders Only [facility] Department of Emergency Services [address] [place] [address] Savanna Valdez DDS [address] [place] [address] Social History Tobacco Use Types Packs/Day Years [...] on filedocumented in this encounter Care Teams Regional Marketing Director Relationship Specialty Start Date End Date Kanwal Marsh MD [address] [place] [address] PCP - General Internal Medicine 01/09/24 documented as of this encounter
== END 2025-03-12 14:44 | disposition home or self-care (01) ==
LOC: HO.HGS 14:25
PROVIDERS: PCP Internal Medicine; Visit Provider Surgery
DX: Z08 Encounter for follow-up examination after completed treatment for malignant neoplasm (principal); Z85.3 Personal history of malignant neoplasm of breast
CPT/HCPCS: 99214

== ENCOUNTER → 2025-03-12 14:25 | Outpatient (BNVA) | payer MEDICARE, SELFPAY | PROVIDERS: PCP Internal Medicine; Visit Provider Surgery | DX: Z08 Encounter for follow-up examination after completed treatment for malignant neoplasm (principal); Z85.3 Personal history of malignant neoplasm of breast | CPT/HCPCS: 99212 ==

== ENCOUNTER → 2025-03-15 09:03 | Outpatient (REF) | payer MEDICARE, SELFPAY ==
--- NOTE | 2025-03-15 09:05 | CA_ITS ---
Acquisition Time: 2025-03-15 09:25:10 Total Exercise Time: 00:02:00 Test Indications: CP Medications: AMLODIPINE FLUOXETINE LETRROZOLE LORAZAPAM METFORMIN MEMANTINE TRAMADOL Protocol: LEXISCAN Max HR: 104 BPM 72% of Pred: 143 BPM Max BP: 130/68 mmHG Max Work Load: 1.0 METS Pharmacological stress test with Lexiscan while pt marches in her chair, with reports of SOB, headache and nausea, without any arrythmias, with normotensive response to injection. Nondiagnostic EKG for ischemia. In recovery, pt treated with IVP Aminophylline 75mg to reverse Lexiscan after which pt feeling back to baseline. Nuclear images pending. Test reviewed with Dr. Alaniz. Referred By: Rocky Roman Electronically Signed By: Nazario Maldonado
--- OUTSIDE RECORDS SUMMARY | 2025-03-15 09:31 | XMS_ITS ---
Author Organization [facility] Address [address] [place] [address] Care Team Providers Care Cooking Casing And Drying Supervisor Name Role Phone Rocky Roman Primary Care Provider Dianna Johnson Unavailable [phone] Prakash Palacios [phone] REASON FOR VISIT No show Encounters Encounter Location Date Provider Diagnosis [address] [address] 12/08/2023 Prakash Palacios Plan Of Treatment Next Appt Details Provider Name:Dianna jhaveri, 04/03/2025 10:45:00 AM, [address] [place] [address], [address], Progress Notes * Bambi FOXDOB: [birth year] (73 yo F)Acc No.[id number]:12/08/2023 Patient:?Bambi Fox :1950???Age:73 Y???Sex:Female Address:[address] [place], [address] * true * Date:? Generated for Printi ng/Faxing/eTransmitting on:?03/15/2025 09:30 AM EDT
--- OUTSIDE RECORDS SUMMARY | 2025-03-15 09:31 | XMS_ITS | Encounter Summary ---
Author Organization [facility] Address [address] [place] [address] Care Team Providers Care Cattle Killer Name Role Phone Kanwal Marsh MD Primary Care Provider Unavailabl e Encounter Details Date Type Department Care Team (Late st Contact Info) Description 01/12/2024 Orders Only [facility] Department of Emergency Services [address] [place] [address] Savanna Valdez DDS [address] [place] [address] Social History Tobacco Use Types Packs/Day Years [...] on filedocumented in this encounter Care Teams Cattle Killer Relationship Specialty Start Date End Date Kanwal Marsh MD [address] [place] [address] PCP - General Internal Medicine 01/09/24 documented as of this encounter
--- OUTSIDE RECORDS SUMMARY | 2025-03-15 09:31 | XMS_ITS | Patient Health Record ---
Author Organization [facility] Address [address] [place] [address] Care Team Providers Care Interpretive Naturalist Name Role Phone Rocky Roman Primary Care Provider Dianna Johnson Unavailable [phone] Allergies Allergen (clinical drug ingredient) Drug/Non Drug [...] primary osteoarthritis of the ankle and/or foot (366429476) Primary osteoarthritis, right ankle and foot (M19.071) Active confirmed Problem Non-pressure chronic ulcer of other part of right foot limited to breakdown of skin (L97.511) Active confirmed Problem Acquired hammer toe of right foot (2921647073860560 ) Other hammer toe(s) (acquired), right foot (M20.41) Active confirmed Problem Acquired hammer toe of left foot (3708493424714858 ) Other hammer toe(s) (acquired), left foot (M20.42) Active confirmed Problem Polyneuropathy due to type 2 diabetes mellitus (017098977) Type 2 diabetes mellitus with diabetic polyneuropathy (E11.42) Active confirmed Problem Polyneuropathy due to diabetes mellitus type I (194445830) Type 1 diabetes mellitus with diabetic polyneuropathy (E10.42) Active confirmed Plan Of Treatment Pending Test Test Name Order Date 96317-LDHZ SKIN LESIONS, OVER 4 12/03/19 21 13757-XNHP SKIN LESIONS, OVER 4 03/04/20 21 76995-SBBD SKIN LESIONS, OVER 4 06/10/20 21 51745-BCTA SKIN LESIONS, OVER 4 10/01/20 21 55453-AKFB SKIN LESIONS, OVER 4 02/12/20 22 92370-TZONLYEW OF HEMATOMA/FLUID 021 Next Appt Details Provider Name:Dianna jhaveri, 04/03/2025 10:45:00 AM, [address] [facility], [place], [address], Insurance Providers Payer Name Payer Address Payer Phone Subscriber Number Group Number Insured Name Patient Relationship to Insured Coverage Start Date Coverage End Date Medicare [facility] [employer] [address] [place] [address] [id number] Bambi Cox Self - patient is the insured [employer]) [address] [place] [address] [id number] Bambi Cox Self - patient is [...] Implantes eye 09/2021 Hospitalization History Reason Date(Month/Year) [facility]- R leg Pain- test given not blood clot same day 04/2022 [facility]- Back Pain 08/2021 [facility] shortness of breath 2019
--- OUTSIDE RECORDS SUMMARY | 2025-03-15 09:31 | XMS_ITS ---
Author Organization [facility] Address [address] [place] [address] Care Team Providers Care Flame Gouger Name Role Phone Rocky Roman Primary Care Provider UnavailDianna Munroe Unavailable [phone] Prakash Palacios Unavailable [phone] REASON FOR VISIT PCP - 01/2023 Medications [...] Active Encounters Encounter Location Date Provider Diagnosis [facility] [address] [place] [address] 12/08/2023 Prakash Palacios Type 2 diabetes mellitus [...] Provider Name:Dianna jhaveri, 04/03/2025 10:45:00 AM, [address] [place], [address], Progress Notes * Sukhwinder FOX: [birth year] (75 yo F)Acc No.[id number]:12/08/2023 Progress Note Patient:?Bambi FOX Provider:?Prakash Palacios DPM :1950???Age:73 Y???Sex:Female D ate:12/08/2023 Address: [address], [place] Pcp:Rocky Roman Subjective: * Chief Complaints: * [...] DPM Date:? 024 Generated for Gee jewell/Avni/Vijay on:?03/15/2025 09:31 AM EDT History and Physical Notes * HPI [...]
--- OUTSIDE RECORDS SUMMARY | 2025-03-15 09:31 | XMS_ITS | Clinical Summary ---
Author Organization [facility] Address [address] [place] [address] Care Team Providers Care Primary Therapist Name Role Phone Rocky Roman MD Primary Care Provider [phone] Allergies Active Allergy Reactions Criticality Noted Date Comments Adhesives/Tape Rash/Dermatitis Low 02/06/2024 Latex Rash/Dermatitis Low 02/06/2024 Medications FLUoxetine (PROzac) 40 MG capsule Take 1 [...] mg total) by mouth daily Active lisinopril (PRINIVIL,ZeSTR IL) 5 MG tablet Take 1 tablet (5 mg total) by mouth daily. Active metFORMIN (GLUCOPHAGE) 1000 MG tablet Take 1 tablet (1,000 mg total) by mouth 2 (two) times a day with meals. Active cholecalciferol (CHOLECALCIFERO L) 125 MCG (5000 UT) capsule Take 1 [...] drink = 0.6 oz pur e alcohol) [facility] [employer] Answer Date Recorded In the past 12 months has th e [employer], gas, oil, or water [employer] threatened to shut off services in your [...] place to sleep or slept in a snf (including now)? No 04/11/2024 Comments Unknown Sex and Gender Information Value Date Recorded Sex Assigned at Female 02/10/2024 7:29 AM EDT Legal Sex Female 5:52 PM EST Gender Identity Female 02/10/2024 7:29 AM EDT [...] on patient's age to complete this topic Insurance MEDICARE PART A & B [facility] SUPPLEMENT ONLY TRINI ESTRADA [id number] MEDICARE PART A & B Advance Directives * Full Code (Latest Code Status on File) Date Activated Date Inactivated Comments 04/10/2024 10:10 PM * Full Code Date Activated Date Inactivated Comments 02/10/2024 10:30 AM 04/10/2024 6:16 PM * Full Code Date Activated Date Inactivated Comments 02/10/2024 8:39 AM 02/10/2024 10:30 AM Care Teams Primary Therapist Relationship Specialty Start Date End Date Rocky Roman MD [address] [place] [address] Dr Gutierrez TR[place]I [address] PCP - General Internal Medicine 02/10/24
--- OUTSIDE RECORDS SUMMARY | 2025-03-15 09:31 | XMS_ITS | Clinical Summary ---
[facility] Organization [facility] Address [address] [place] [address] Care Team Providers Care Hazmat Cdl A Driver Name Role Phone Kanwal Marsh MD Primary Care Provider Unavailabl e Social History Tobacco Use Types Packs/Day Years Used Date Smoking Tobacco: Never Assessed Comments Unknown Sex and Gender Information Value Date Recorded Sex Assigned at Not on file Legal Sex Female 12:01 PM EST Gender Identity Not on file Sexual Orientation Not on file Plan of Treatment Not on file Care Teams Hazmat Cdl A Driver Relationship Specialty Start Date End Date Kanwal Marsh MD [address] [place] [address] PCP - General Internal Medicine 01/09/24
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
== END ==
LOC: HO.CARD 09:03
PROVIDERS: PCP Internal Medicine; Visit Provider Internal Medicine
DX: R07.9 Chest pain, unspecified (principal)
CPT/HCPCS: 78452; 93017; A9500; J0280; J2785

== ENCOUNTER → 2025-03-15 09:05 | Outpatient (BNV) | payer MEDICARE, SELFPAY | PROVIDERS: PCP Internal Medicine | DX: R06.02 Shortness of breath (principal) | CPT/HCPCS: 78452; 93016; 93018 ==

== ENCOUNTER 2025-06-20 15:33 | Outpatient (AMB) | payer MEDICARE, SELFPAY ==
--- OUTSIDE RECORDS SUMMARY | 2025-04-03 06:45 | XMS_ITS ---
Author Organization [facility] Address [address] [place] [address] Care Team Providers Care Realtime Reporter Name Role Phone Rocky Roman Primary Care Provider Dianna Johnson [phone] Medications Medication SIG (Take, Route, Frequency, Duration) [...] Active Encounters Encounter Location Date Provider Diagnosis [facility] [address] [place] [address] 04/03/2025 Dianna Mancuso Plan Of Treatment No Information Progress Notes * Tracee COXB: [birth year] (75 yo F)Acc No.[id number]:04/03/2025 Progress Note Patient: Bambi FINNEGAN Provider: Oscar Mancuso DPM :1950 A ge:75 Y S ex:Female Date:04/03/2025 Address:[address] [place] [address] [facility] Pcp:Rocky Roman Subjective: * Chief Complaints: * [...] enies. C ardiovascular: Pacemaker d enies. M ELIGIBILITY MANAGER d enies. W PW d enies. C [...] 0 04/03/2025 Generated for Gee jewell/Avni/Vijay on: 06/20/2025 03:36 PM EDT
[2025-06-20 15:34] VITALS: BP 114/50; PULSE 87; RESP 18; TEMP 35.9; O2SAT 95; BMI 32.4
--- NOTE | 2025-06-20 15:34 | A.OFFPC_ITS ---
Vital Signs 06/20/25 15:34 Height 5 ft 4 in Weight 189 lb BMI 32.4 BP 114/50 L Blood Pressure Location Lt brachial Position Sitting Respiration 18 Pulse 87 Pulse Source Pulse Oximeter Temp 96.6 F L Temp Source Temporal Artery Scan Pulse Oximetry (%) 95 Intake Visit Reasons: DM Allergies bacitracin (BACITRACIN) Allergy (Intermediate, Verified 06/20/25 15:35) RASH latex (LATEX) Allergy (Intermediate, Verified 06/20/25 15:35) FACIAL SWELLING; RASH nickel (NICKEL) Allergy (Intermediate, Verified 06/20/25 15:35) RASH amlodipine Adverse Reaction (Intermediate, Verified 06/20/25 15:35) leg swelling lisinopril Adverse Reaction (Intermediate, Verified 06/20/25 15:35) Swelling adhesive tape Adverse Reaction (Verified 06/20/25 15:35) Irritable Medication List - Last Reconciled 06/20/25 by Rocky Roman MD albuterol sulfate 90 mcg/actuation (Ventolin HFA) 2 puffs inhalation Q6H PRN cholecalciferol (vitamin D3) (Vitamin D3) 125 mcg PO DAILY fluoxetine 20 mg PO DAILY 90 days letrozole 2.5 mg PO DAILY lorazepam 1 mg PO BID PRN losartan 25 mg PO DAILY memantine 7 mg PO DAILY 30 days metformin 1,000 mg PO BID tramadol 50 mg PO BID Tobacco use date assessed: 06/20/25 Fall risk assessment: 1 Fall in past year Last assessed Fall Risk: 06/20/25 Dental Screening Dental Screen Date: 06/20/25 Did you have a dental visit in the last 12 months?: Yes Did you have a dental problem in the last 6 months where you did not have access to dental care?: No Was dental information given to patient?: Patient has dentist [facility] Medical History MDD (major depressive disorder), recurrent episode, moderate Arrhythmia Right leg pain Obesity (BMI 30-39.9) Benign essential hypertension Normal colonoscopy (~06/16/21) Medicare annual wellness visit, initial Breast implant in situ Breast cancer screening by mammogram Cataract Cholelithiasis Pelvic fracture Fatty liver Colon cancer screening Hypercholesterolemia Type 2 diabetes mellitus with hyperglycemia Restrictive lung disease Pulmonary fibrosis Surgical History History of lumpectomy of left breast (02/02/24) Left breast mass History of colonoscopy History of cataract surgery History of surgery on lower extremity H/O left wrist surgery History of ankle surgery Family History Mother Lung cancer Father Respiratory failure Sister Lung disease Brother Respiratory failure Son No problems noted. 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 personal care service provider to a significant other at home: Yes Do you presently have visiting nurse or other home services: No Alcohol intake: former Comment: COUNTS CORRECT Patient Tobacco Use Status: Former Tobacco user Years Smoked: stopped 48 years old e-Cigarette/Vaping Use: Never Used Second Hand Smoke Exposure: Yes Advance Directives Date on File: 01/18/24 service: No Current occupational status: retired Cognitive needs: Yes Hearing needs: No Vision needs: Yes (Glasses) Questionnaire PHQ-9 Over the last 2 weeks, how often have you been bothered by any of the following problems? 1. Little interest or pleasure in doing things: nearly every day 2. Feeling down, depressed, or hopeless: nearly every day 3. Trouble falling or staying asleep, or sleeping too much: not at all 4. Feeling tired or having little energy: more than half the days 5. Poor appetite or overeating: not at all 6. Feeling bad about yourself - or that you are a failure or have let yourself or your family down: nearly every day 7. Trouble concentrating on things, such as reading the newspaper or watching television: several days 8. Moving or speaking so slowly that other people could have noticed. Or the opposite - being so fidgety or restless that you have been moving around a lot more than usual: not at all 9. Thoughts that you would be better off or of hurting yourself in some way: several days Total score: 13 Depression Screening Interpretation: Positive Depression Screening Done: Yes Source: Developed by Drs. Angus Roe, Kelly Cade, Robe Hawley and colleagues, with an educational juliana from [employer]. Thrive Questionnaire Date Thrive assessed: 12/03/24 I am a: Patient What is your living situation today?: I have a steady place to live Within the past 12 months, did the food you bought not last and you didn't have the money to get more?: Never true Within the past 12 months, did you worry whether your food would run out before you got money to buy more?: Never true Do you have trouble paying for medicines?: No Do you have trouble getting transportation to medical appointments?: No Do you have trouble paying your heating and electricity bill?: No Do you have trouble taking care of your child, family member or friend?: No Do you have trouble with day-to-day activities such as bathing, preparing meals, shopping, managing finances, etc.?: No Are you currently unemployed and looking for a job?: No Are you interested in more education?: No Currently or been in a relationship where the following occur: No concerns reported THRIVE Score: 0 AUDIT C Alcohol Use Questionnaire (AUDIT-C) 1. How often do you have a drink containing alcohol?: Monthly or less 2. How many drinks containing alcohol do you have on a typical day when you are drinking?: 1 or 2 3. How often do you have six or more drinks on one occasion?: Never Total Score: 1 PARTHA-7 AMB Questionnaire PARTHA-7 Date PARTHA - 7 assessed: 12/03/24 Feeling nervous, anxious, or on edge: 3 = Nearly every day Not being able to stop or control worryin = Several days Worrying too much about different things: 1 = Several days Trouble relaxin = Not at all Being so restless that it is hard to sit still: 0 = Not at all Becoming easily annoyed or irritable: 3 = Nearly every day Feeling afraid as if something awful might happen: 1 = Several days Total PARTHA-7 score (0-4 normal; 5-9 mild; 10-14 moderate; 15-21 severe): 9 Source: Developed by Drs. Angus Roe, Kelly Cade, Robe Hawley and colleagues, with an educational juliana from [employer]. Physical exam (Primary Care) Vital Signs: Last Vital Signs Temp 96.6 F L 06/20/25 15:34 Pulse 87 06/20/25 15:34 Resp 18 06/20/25 15:34 BP 114/50 L 06/20/25 15:34 Pulse Ox 95 06/20/25 15:34 BMI result Body Mass Index 32.4 Tobacco/Smoking Status: Tobacco use Status Tobacco use date assessed 06/20/25 06/20/25 15:50 Patient Tobacco Use Status Former Tobacco user 06/20/25 15:50 e-Cigarette/Vaping Use Never Used 06/20/25 15:50 PHQ-9: PHQ-9 Score PHQ-9: Total score 13 06/20/25 15:50 Depression Screening Interpretation: Positive Thrive Assessment: Date of Thrive Assessment Date Thrive assessed 12/03/24 06/20/25 15:50 Currently or been in a relationship where the following occur: No concerns reported Const General: alert; No acute distress Eyes Conjunctivae: conjunctivae normal Resp Auscultation: clear to auscultation bilaterally Cardio Rate: regular rate Rhythm: regular rhythm GI Inspection: Yes normal to inspection Extrem General: Yes normal to inspection and No edema Results AMB Hemoglobin A1c AMB Hemoglobin A1c 6.5 % Last Edit by Za Rea CMA on 06/20/25 15:52 Coding Level of Care Code Est Pt Level 4 (11931) Complex EM visit Add On G2211 Diagnoses Interstitial lung disease J84.9 COPD (chronic obstructive pulmonary disease) J44.9 Cognitive changes R41.89 Breast cancer, left C50.912 Fatty liver K76.0 Type 2 diabetes mellitus with hyperglycemia, without long-term current use of insulin E11.65 Diabetes mellitus custodial insulin use: without extermination inspector use Hypercholesterolemia E78.00 Benign essential hypertension I10 Generalized anxiety disorder F41.1 Assessment & Plan Assessment & Plan (1) Interstitial lung disease: Comment: November 2024 Code(s): J84.9 - Interstitial pulmonary disease, unspecified Category: Medical Plan: Supportive treatment and stable (2) COPD (chronic obstructive pulmonary disease): Code(s): J44.9 - Chronic obstructive pulmonary disease, unspecified Category: Medical Plan: Patient on albuterol inhaler as needed (3) Cognitive changes: Code(s): R41.89 - Other symptoms and signs involving cognitive functions and awareness Category: Medical Plan: Continue with memantine (4) Breast cancer, left: Comment: Novemberreast, 6 o'clock, biopsy: Invasive ductal carcinoma, MSBR grade 2, left breast lumpectomy Code(s): C50.912 - Malignant neoplasm of unspecified site of left female breast Category: Surgical Plan: Patient is reminded about mammogram (5) Fatty liver: Code(s): K76.0 - Fatty (change of) liver, not elsewhere classified Category: Medical Plan: Low-fat diet and exercise (6) Type 2 diabetes mellitus with hyperglycemia: Comment: Dr. Wiggins Code(s): E11.65 - Type 2 diabetes mellitus with hyperglycemia Category: Medical Qualifiers: Diabetes mellitus custodial insulin use: without custodial use Qualified Code(s): E11.65 - Type 2 diabetes mellitus with hyperglycemia Plan: Decrease the amount of carbohydrate intake, pasta, bread, rice and potatoes are all sugar and that is aside from all the sweet stuff, remember that fruits are good but they are Sweet also. Hemoglobin A1c goal of less than 7.0 patient is on metformin a 1000 mg twice a day (7) Hypercholesterolemia: Code(s): E78.00 - Pure hypercholesterolemia, unspecified Category: Medical Plan: Avoid fried foods, chicken skin, eggs, butter margarine, pastries and meat. Be it pork or beef they have a lot of cholesterol LDL goal of less than 100 and triglyceride of less than 150 (8) Benign essential hypertension: Code(s): I10 - Essential (primary) hypertension Category: Medical Plan: Continue with blood pressure medication. Decrease salt intake and exercise on losartan 25 mg once a day (9) Generalized anxiety disorder: Comment: [facility] counseling weekly Code(s): F41.1 - Generalized anxiety disorder Category: Medical Plan: Continue with counseling and therapy Plan History of Present Illness The patient is a 75-year-old female presenting for a follow-up visit. She has a history of pulmonary fibrosis, which remains stable with supportive treatment and the use of an albuterol inhaler as needed. Her diabetes mellitus is managed with metformin 1000 mg twice a day, and her recent hemoglobin A1c was 6.3 in February, indicating good control. She is advised to maintain a hemoglobin A1c goal of less than 7.0. The patient has hypercholesterolemia, with the last LDL cholesterol level recorded at 79 mg/dL in June 2024. The goal is to maintain an LDL level of less than 100 mg/dL. Hypertension is managed with losartan 25 mg once a day. She has a history of hepatic steatosis and cholelithiasis, but liver function tests are currently normal. The patient experiences generalized anxiety disorder and major depressive disorder, for which she continues with counseling and therapy. She was diagnosed with anemia in January 2025, with hemoglobin levels at 11.3 g/dL. Preventative care measures include a mammogram in January 2025, a colon test in May 2021, and a bone density test in January 2024. Health Maintenance - Mammogram conducted in January 2025 - Colon test conducted in May 2021 - Bone density test conducted in January 2024 - Advised to follow a low-fat diet and exercise regularly - Diabetes management with a hemoglobin A1c goal of less than 7.0 - Cholesterol management with an LDL goal of less than 100 mg/dL - Blood pressure management with losartan 25 mg once a day Social History - The patient plans to use a cane to prevent falls and maintain stability while walking. Review of Systems - Respiratory: Reports scarring in lungs due to pulmonary fibrosis - Musculoskeletal: Denies unsteadiness while walking but plans to use a cane for stability Physical Exam - Respiratory: Scarring in lungs noted, consistent with pulmonary fibrosis Results - Labs: Hemoglobin A1c was 6.3 in February 2025 - Labs: Hemoglobin level was 11.3 g/dL in January 2025, indicating anemia - Labs: LDL cholesterol level was 79 mg/dL in June 2024 - Tests: Cardiac stress test in February showed normal microvascular perfusion, EF 72% Plan The patient will continue supportive treatment for pulmonary fibrosis, including the use of an albuterol inhaler as needed. Diabetes management will include maintaining a hemoglobin A1c goal of less than 7.0, with continued use of metformin 1000 mg twice a day. For hypercholesterolemia, the patient will aim to keep LDL cholesterol below 100 mg/dL, with lifestyle modifications such as a low-fat diet and regular exercise. Hypertension will be managed with losartan 25 mg once a day. The patient will continue counseling and therapy for generalized anxiety disorder and major depressive disorder. Preventative care includes reminders for regular mammograms, colon tests, and bone density assessments. Patient was informed and verbally consented to the use of an ambient scribe for clinic note documentation during this visit. Discussion Notes During the visit, we discussed the importance of maintaining a hemoglobin A1c goal of less than 7.0 for diabetes management and the need for regular monitoring of cholesterol levels to keep LDL below 100 mg/dL. We also emphasized the continuation of supportive treatment for pulmonary fibrosis and the use of an albuterol inhaler as needed. Preventative care measures, including regular mammograms, colon tests, and bone density assessments, were reviewed to ensure ongoing health maintenance. Patient Instructions - Continue using the albuterol inhaler as needed for pulmonary fibrosis. - Take metformin 1000 mg twice a day to manage diabetes. - Follow a low-fat diet and exercise regularly to manage cholesterol levels. - Take losartan 25 mg once a day for hypertension. - Continue with counseling and therapy for anxiety and depression. - Schedule regular mammograms, colon tests, and bone density assessments as part of preventative care. Orders: Orders Comprehensive Met. Panel 3 Months E11.65 - Type 2 diabetes mellitus with hyperglycemia Free T4 (Free Thyroxine) 3 Months E11.65 - Type 2 diabetes mellitus with hyperglycemia Vitamin B12 and Folate 3 Months E11.65 - Type 2 diabetes mellitus with hyperglycemia Thyroid Stimulating Hormone 3 Months E11.65 - Type 2 diabetes mellitus with hyperglycemia Ferritin 3 Months E11.65 - Type 2 diabetes mellitus with hyperglycemia AMB Hemoglobin A1c Today Z13.9 - Encounter for screening, unspecified Complete Blood Count Auto Diff 3 Months E11.65 - Type 2 diabetes mellitus with hyperglycemia Creatinine Urine 3 Months E11.65 - Type 2 diabetes mellitus with hyperglycemia Microalbumin, Random (w Creat) 3 Months E11.65 - Type 2 diabetes mellitus with hyperglycemia Vitamin D 25-OH Total 3 Months E11.65 - Type 2 diabetes mellitus with hyperglycemia Reticulocyte Count 3 Months E11.65 - Type 2 diabetes mellitus with hyperglycemia Hepatitis B,C Profile 3 Months E11.65 - Type 2 diabetes mellitus with hyperglycemia, R79.89 - Other specified abnormal findings of blood chemistry Medications: Refilled lorazepam 1 mg PO BID PRN 30 tabs 2RF anxiety E11.65 - Type 2 diabetes mellitus with hyperglycemia
--- OUTSIDE RECORDS SUMMARY | 2025-06-20 15:36 | XMS_ITS | Data Portability ---
Author Organization [facility], Main Office Address [address] [facility] [address] [place] [address] Care Team Providers Care Mercerizing Range Feeder Name Role Phone MADELEINE HENRIQUEZ 1ST FLOOR [...] By Organization Details Last Modified Time 02/23/2019 [id number] d/c home with meds and services f/u with pcp in 2 weeks f/u with Dr. Freire [email or web address] Not available 02/23/2019 09:49:54 Reason for Referral None Reported. Problems Name Problem SNOMED Code Status Onset Date Resolution Date Notes Provider Name and Address Organization Details Recorded Time Open reduction of fracture with internal fixation Completed 201801/07/2019 [facility] 20:[facility]22 Hypertens edilia disorder 22814706 Active 2018 Vt Swanson [facility] 9 20:21:42 Type 2 diabetes mellitus 63872908 Active 2018 [facility] 20:22:04 Open reduction of fracture with internal fixation Active 2018 [facility] 20:31:22 Falls 620229980 Active 2018 [facility] 9 20:31:39 Anxiety 43400139 Active 2018 [facility] 9 20:37:17 Essential hypertens ion 48354572 Active 2018 Yina Vidal MD [address], [place], [address], [facility] 9 11:49:48 Hyperlipi ludmila 93348450 Active 2018 Yina Vidal MD [address], [address], [place], [address], [facility] 9 11:50:41 Closed trimalleo lar fracture of right ankle [id number] 66847 Active 2018 Yina Vidal MD [address], [address], [place], [address], [facility] 9 12:01:53 Problem Notes None recorded. Medical Equipment None Reported. Allergies Allergen ID Allergen Name Allergen Category Reaction Reaction Severity Criticality Documentation Date Start Date Code Code System Note Provider Name and Address Organization Details Recorded Time 75988 bacitraci n medicatio n Not available Not available Not available 01/07/2019 1291 RxNorm Anca Swanson [facility] 9 20:05:22 58489 nickel environme nt Not available Not available Not available 01/07/2019 73496 29 RxNorm Anca Swanson [facility] 9 20:05:31 53251 latex environme nt,medica tion Not available Not available Not available 01/07/2019 33037 91 RxNorm Anca Swanson [facility] 9 20:05:42 Vitals None Recorded Social History Question Answer Notes LastModified by Organizat ion Details LastModified Time Tobacco Smoking Status Former Smoker quit in 1998 Not Available [employer] 09/23/2020 03:13:23 Do You Have An Advance Directive? Yes Full Code [id number] Information not available 09/23/2020 How Much Tobacco Do You Chew? None [id number] Information not available 09/23/2020 Do You Have A Medical Power Of [employer]? Yes [id number] Information not available 09/23/2020 What Was The Date Of Your Most Recent Tobacco Screening? 01/09/2019 [id number] Information not available 09/23/2020 Has Tobacco Cessation Counseling Been Provided? No [id number] Information not available 09/23/2020 Sex: Unknown Functional Status Question Answer Note LastModified by Organizat ion Details LastModified Time What is your level of alcohol consumption? Occasional [id number] Information not available 09/23/2020 Mental Status None recorded. Family History Nothing Reported. Medical History No medical history recorded. Gynecological HistoryNo gynecological history recorded. Obstetrics History GPAL:G 0 P 0 0 0 0 Past Encounters Encounter ID Performer Location Encounter Start Date Encounter Closed Date Diagnosis/Indication Diagnosis SNOMED-CT Code Diagnosis ICD10 Code Diagnosis Note [id number] Mi JACKSON Swanson, S MADELEINE HENRIQUEZ [address] [place] [address] [place] [address] 01/07/2019 20:06:08 01/18/2019 09:32:29 Essential hypertension 00645280 I10 controlled on amlodipine 5mg, coreg vitals stable continue to monitor Hyperlipidemia 62876350 E78.5 cont atorvastat in cardiac/ad a diet Dyspnea 041240886 R06.00 secondary to hypervolem ia, was initiated at hospital will increase lasix for 3 days bmp/mag in morning daily weights, low na diet if dyspnea does not improve will check xray Type 2 ines betes mellitus 91341668 E11.69 continue home meds glimepirid e/januvia/ metformin fs qid, ada/cardia c diet no concentrat ed sweets Falls 510847619 R29.6 s/p fall complicate d by right ankle fracture s/p ORIF non weight bearing right extremity 6 weeks, keep splint clean/dry no showering elevate extremity when in bed f/u ortho 2 weeks fall precaution s pt/ot pain management Anxiety 53968709 F41.9 mood stable provide supportive care atbanner qhs prn, continue duloxetine [id number] MD MADELEINE Felipe [address] [place] [address] 01/09/2019 10:10:31 01/18/2019 09:39:57 Essential hypertension 46780693 I10 Increased today, possibly due to increased pain or increased CHF. Will continue amlodipine 5 mg and carvedilol 6.25 mg, as well as lasix as above. Monitor and adjust as needed. Hyperlipidemia 64353249 E78.2 Continue atorvastat in 40 mg qd and monitor as outpt. Type 2 ines betes mellitus 13785831 E11.69 BS stable on glimepirid e 4 mg qd, januvia 100 mg qd and metformin 1000 mg BID. Currently only getting fingerstic ks 2x/week, will increase to BID due to immobility . Can d/c if stable. Continue CCD. Monitor HgA1C as outpt. Falls 815373980 R29.6 Will need continued PT/OT after ankle heals to work on balance and gait training to help prevent future falls. Anxiety 10383962 F41.1 With moderate baseline anxiety. Continue lorazepam 1 mg qd prn and duloxetine 60 mg qd. Monitor mood and consult NEG prn. Closed tri malleolar fracture of right ankle [id number] 6999507 S82.851D S/P ORIF, pain well controlled with oxycodone 5 mg q 4 hrs prn. Not on anything for DVT prophylaxi s, discussed with ortho PA and told that they don't usually do AC unless pt. is bedridden. Continue PT/OT for function as tolerated with NWB on right leg. F/U with ortho in 2 weeks. Congestive heart failure 39468220 I50.43 Pt. informs me she has hx of CHF. Had cardiac w/u at [facility] a few months ago . Including echo and possible a medication stimulated stress test. Had been off lasix for a month prior to admission, because sxs had improved. Had lasix increased on admission here, from 20 mg qd to 40 mg BID for 3 days. Labs stable on this dose. SOB worsening. WIll get CXR stat today. Will get records from [facility] on previous testing. [id number] MARCEL LIZARRAGA [address] [place] [address] 01/15/2019 11:00:43 01/18/2019 11:54:03 Essential hypertension 51151283 I10 controlled on amlodipine 5mg, coreg vitals stable continue to monitor Hyperlipidemia 95130052 E78.5 cont atorvastat in cardiac/ad a diet Type 2 ines betes mellitus 91936241 E11.69 continue home meds glimepirid e/januvia/ metformin fs qid, ada/cardia c diet no concentrat ed sweets [place] 415069407 R29.6 s/p fall complicate d by right ankle fracture s/p ORIF non weight bearing right extremity 6 weeks, keep splint clean/dry no showering elevate extremity when in bed f/u ortho 2 weeks fall precaution s pt/ot pain management Anxiety 25367215 F41.9 mood stable provide supportive care ativan qhs prn, continue duloxetine Anemia 454345058 D64.9 ? d/t blood loss.hgb stable at 9 range.cont inue to monitor. [id number] MARCEL [address]ARRAGA [address] [place] [address] 01/24/2019 11:01:04 01/31/2019 13:55:43 Falls 235501720 R29.6 s/p fall complicate d by right ankle fracture s/p ORIF non weight bearing right extremity 6 weeks, keep cast clean/dry f/u ortho pt/ot pain controlled Essential hypertension 58736506 I10 controlled on amlodipine 5mg, coreg vitals stable continue to monitor Hyperlipidemia 40971688 E78.5 cont atorvastat in cardiac/ad a diet Type 2 ines betes mellitus 63474979 E11.69 continue home meds glimepirid e/januvia/ metformin fs qid, ada/cardia c diet no concentrat ed sweets Anxiety 58479719 F41.9 mood stable provide supportive care ativan q prn, continue duloxetine Anemia 759579224 D64.9 ? d/t blood loss.hgb stable at 9 range.cont inue to monitor. [id number] MARCEL LIZARRAGA MARTINEZ [address] [place] [address] 01/31/2019 14:58:48 02/05/2019 16:09:48 Falls 188016192 R29.6 s/p fall complicate d by right ankle fracture s/p ORIF non weight bearing right extremity 6 weeks, keep cast clean/dry f/u ortho pt/ot pain controlled Essential hypertension 58390565 I10 controlled on amlodipine 5mg, coreg vitals stable continue to monitor Hyperlipidemia 30140790 E78.5 cont atorvastat in cardiac/ad a diet Type 2 ines betes mellitus 45250518 E11.69 continue home meds glimepirid e/januvia/ metformin ada/cardia c diet Anxiety 95900995 F41.9 mood stable provide supportive care ativan qhs prn, continue duloxetine Anemia 958751634 D64.9 ? d/t blood loss.hgb stable at 9 range.cont inue to monitor. [id number] MARCEL LIZARRAGA MARTINEZ [address] [place] [address] 02/06/2019 12:16:47 02/09/2019 15:45:58 Falls 113505843 R29.6 s/p fall complicate d by right [...] remains dependent on wheelchair for safe mobility. [id number] MARCEL LIZARRAGA MARTINEZ [address] [place] [address] [place] [address] 02/08/2019 10:07:17 02/13/2019 15:27:37 Falls 003381192 R29.6 s/p fall complicate d by right ankle fracture s/p ORIF, pain controlled non weight bearing right extremity 6 weeks, keep cast clean/dry f/u ortho Essential hypertension 53820773 I10 controlled on amlodipine 5mg, coreg vitals stable continue to monitor Hyperlipidemia 01503539 E78.5 cont atorvastat in cardiac/ad a diet Type 2 ines betes mellitus 23652018 E11.69 continue home meds glimepirid e/januvia/ metformin ada/cardia c diet Anxiety 69334158 F41.9 mood stable provide supportive care ativan qhs prn, continue duloxetine Anemia 079491834 D64.9 ? d/t blood loss.hgb stable at 9 range.cont inue to monitor. [id number] MARCEL LIZARRAGA MARTINEZ [address] [place] [address] 02/23/2019 09:38:45 02/27/2019 09:10:22 Falls [id number] R29.6 s/p fall complicate d by right ankle fracture s/p ORIF, pain controlled -WBAT with boot in place. f/u with Dr. Freire in 3 weeks. Essential hypertension 31922141 I10 controlled on amlodipine 5mg, coreg vitals stable continue to monitor Hyperlipidemia 55103678 E78.5 cont atorvastat in cardiac/ad a diet Type 2 ines betes mellitus 87082365 E11.69 continue home meds glimepirid e/januvia/ metformin ada/cardia c diet Anxiety 14751963 F41.9 mood stable provide supportive care atbanner qhs prn, continue duloxetine Anemia 109593019 D64.9 hgb improvedco ntinue to monitor. Health Concerns Section Related Observation LastModified by Organization Detai ls LastModified Time None Recorded Concern Status LastModified by Organization Details LastModified Time None Recorded Advance Directives Directive Y: full code Payers Insurance Date Sequence Insurance Name Policy Number Policy Moore Covered Member ID Moore Member ID Guarantor Name 03/20/2019 1 MEDICARE [place]: [employer] Bambi Cox [id number] Bambi Cox 03/17/2019 2 [facility] INDEMNITY PLAN - [facility] [id number] Bambi Cox Notes Date Note Type [...] anxiety, depression, arrhythmia, htn, hld Mery meyer [employer] 01/24/2019 17:23:45 01/31/2019 text/html 68yo female who is admitted for rehab after she fell and sustained right trimalleolar fracture of right ankle and s/p successful ORIF of ankle. Has cast in place and is NWB. No c/o today. Anxiety improved. No pain. Doing well with PT/OT. pmhx dm, anxiety, depression, arrhythmia, htn, hld Mery meyer [employer] 01/31/2019 15:02:03 02/06/2019 text/html 68yo female who [...] anxiety, depression, arrhythmia, htn, hld Mery meyer [employer] 02/06/2019 12:20:17 02/08/2019 text/html 68yo female who [...] anxiety, depression, arrhythmia, htn, hld Mery meyer, [employer] 02/08/2019 15:45:36 02/23/2019 text/html 68yo female who [...] anxiety, depression, arrhythmia, htn, hld Mery meyer, [employer] 03/20/2019 22:06:17 OBGyn Episode No OBEpisode recorded.
--- OUTSIDE RECORDS SUMMARY | 2025-06-20 15:36 | XMS_ITS | Clinical Summary ---
Author Organization [facility] Address [address] [place] [address] Care Team Providers Care Dyeing Machine Feeder Name Role Phone Kanwal Marsh MD Primary Care Provider Unavailabl e Social History Tobacco Use Types Packs/Day Years Used Date Smoking Tobacco: Never Assessed Comments Unknown Sex and Gender Information Value Date Recorded Sex Assigned at Not on file Legal Sex Female 12:01 PM EST Gender Identity Not on file Sexual Orientation Not on file Plan of Treatment Not on file Care Teams Dyeing Machine Feeder Relationship Specialty Start Date End Date Kanwal Marsh MD [address] [place] [address] PCP - General Internal Medicine 01/09/24
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
--- OUTSIDE RECORDS SUMMARY | 2025-06-20 15:36 | XMS_ITS | Clinical Summary ---
Author Organization [facility] Address [address] [place] [address] Phone Care Team Providers Care Unified Communications Architect Name Role Phone Unavailable Primary Care Provider Unavailabl e Social History Tobacco Use Types Packs/Day Years Used Date Smoking Tobacco: Never Assessed Education Answer Date Recorded Are you interested in more education? Not on milton e 01/10/2024 Are you concerned about learning? Not on file 01/10/2024 No 01/10/2024 No 01/10/2024 Digital Access Answer Date Recorded No 01/10/2024 No 01/10/2024 Reliable internet access at home? Not on file 01/10/2024 Device with a working camera? Not on file Comments Unknown Sex and Gender Information Value Date Recorded Sex Assigned at Not on file Legal Sex Female 10:37 PM EDT Gender Identity Not on file Sexual Orientation Not on file Plan of Treatment Not on file Medical Devices Not on file Additional Source Comments The information contained in this document represents components of the legal health record. It is not the complete legal health record.[facility]
== END 2025-06-20 16:11 | disposition home or self-care (01) ==
LOC: HO.HMCH 15:33
PROVIDERS: PCP Internal Medicine; Visit Provider Internal Medicine
DX: J84.9 Interstitial pulmonary disease, unspecified (principal); J44.9 Chronic obstructive pulmonary disease, unspecified; C50.912 Malignant neoplasm of unspecified site of left female breast; E11.65 Type 2 diabetes mellitus with hyperglycemia; R41.89 Other symptoms and signs involving cognitive functions and awareness; K76.0 Fatty (change of) liver, not elsewhere classified; E78.00 Pure hypercholesterolemia, unspecified; I10 Essential (primary) hypertension; F41.1 Generalized anxiety disorder

== ENCOUNTER → 2025-06-20 15:33 | Outpatient (BNVA) | payer MEDICARE, SELFPAY | PROVIDERS: PCP Internal Medicine; Visit Provider Internal Medicine | DX: J84.9 Interstitial pulmonary disease, unspecified (principal); J44.9 Chronic obstructive pulmonary disease, unspecified; R41.89 Other symptoms and signs involving cognitive functions and awareness; K76.0 Fatty (change of) liver, not elsewhere classified; E11.65 Type 2 diabetes mellitus with hyperglycemia; E78.00 Pure hypercholesterolemia, unspecified; F41.1 Generalized anxiety disorder; I10 Essential (primary) hypertension; Z85.3 Personal history of malignant neoplasm of breast | CPT/HCPCS: 83036; 99212 ==

== ENCOUNTER 2025-07-23 14:45 | Outpatient (AMB) | payer MEDICARE, SELFPAY ==
--- OUTSIDE RECORDS SUMMARY | 2025-04-03 06:45 | XMS_ITS ---
Author Organization [facility] Address [address] [place] [address] Care Team Providers Care Clinical Psychiatrist Name Role Phone Rocky Roman Primary Care Provider Dianna Johnson [phone] Medications Medication SIG (Take, Route, Frequency, Duration) [...] Active Encounters Encounter Location Date Provider Diagnosis [facility] [address] [place] [address] 04/03/2025 Dianna Mancuso Plan Of Treatment No Information Progress Notes * Tracee COXB: [birth year] (75 yo F)Acc No.[id number]:04/03/2025 Progress Note Patient: Bambi FINNEGAN Provider: Oscar Mancuso DPM :1950 A ge:75 Y S ex:Female Date:04/03/2025 Address:[address] [place] [address] [facility] Pcp:Rocky Roman Subjective: * Chief Complaints: * [...] enies. C ardiovascular: Pacemaker d enies. M ADVERTISING SALES EXECUTIVE d enies. W PW d enies. C [...] 0 04/03/2025 Generated for Gee jewell/Avni/Vijay on: 07/23/2025 03:38 PM EDT
--- NOTE | 2025-07-23 14:49 | A.OFFVIS_ITS ---
Vital Signs 07/23/25 14:50 Height 5 ft 4 in Weight 189 lb 2 oz BMI 32.5 BP 118/70 Blood Pressure Location Rt brachial Position Sitting Pulse 88 Pulse Source Pulse Oximeter Pulse Oximetry (%) 96 Oxygen Delivery Method Room Air Intake Visit Reasons: 6 mo follow up Intake Note: Patient presents follow up Cognitive. VNA discharged. Retail Merchandiser Required: No Accompanied by: Son Allergies bacitracin (BACITRACIN) Allergy (Intermediate, Verified 07/23/25 14:49) RASH latex (LATEX) Allergy (Intermediate, Verified 07/23/25 14:49) FACIAL SWELLING; RASH nickel (NICKEL) Allergy (Intermediate, Verified 07/23/25 14:49) RASH amlodipine Adverse Reaction (Intermediate, Verified 07/23/25 14:49) leg swelling lisinopril Adverse Reaction (Intermediate, Verified 07/23/25 14:49) Swelling adhesive tape Adverse Reaction (Verified 07/23/25 14:49) Irritable Medication List - Last Reconciled 07/23/25 by MARYBETH Mackenzie albuterol sulfate 90 mcg/actuation (Ventolin HFA) 2 puffs inhalation Q6H PRN cholecalciferol (vitamin D3) (Vitamin D3) 125 mcg PO DAILY fluoxetine 20 mg PO DAILY 90 days letrozole 2.5 mg PO DAILY lorazepam 1 mg PO BID PRN losartan 25 mg PO DAILY memantine 7 mg PO DAILY 30 days metformin 1,000 mg PO BID tramadol 50 mg PO BID HPI Comments Details: 75-yr-old female presents for f/u visit of cognitive difficulties, accompanied by her son. Patient denies any significant interval medical history changes. Pt reports her memory is not as good as it was. Ind w/ ADLs. Patient's son continues to live patient to provide assistance, however he notes he was [place] Now using a pill pack- but has been missing doses- states sometimes forgets but other times just states she does not want to take something. She reports she continues on lorazepam 1 mg twice a day and fluoxetine 20 mg daily; however, it is unclear how consistently she is taking these. Son also thinks that she has been recently taking the amlodipine, that was previously discontinued. She does note that when she does not take her medication for a few days, she feels like a ?blob,? where she just sits on the couch and cries. Again, her previous psychiatric prescriber at [facility] left the practice, and she did not care for his replacement, as the patient wanted her to start on lithium. Son states he is confused about which medication she currently has in which medication she has been taking. Son states that going forward, he will not be leaving for extended periods again. Previous workup: Brain MRI 04/06/24: No acute infarct. The GRE sequence is without susceptibility artifact to suggest acute or chronic blood products. No extra-axial fluid collection. Mild global cerebral volume loss. Patchy T2 FLAIR hyperintense foci in the subcortical and periventricular white matter, nonspecific but presumably mild chronic microangiopathy. No abnormal intraparenchymal or leptomeningeal enhancement. No significant mass effect or herniation pattern. The intracranial dural venous sinus and arterial flow voids are preserved. Normal appearance of the midline structures. Lens replacements. Rightward nasal septal deviation with bony spur impinging on the base of the right inferior nasal turbinate. The paranasal sinuses and mastoids are well aerated. Partially imaged cervical spondylosis with severe hypertrophic facet arthropathy. Advanced bilateral TMJ osteoarthrosis. Marrow signal abnormality within the parasymphyseal mandible and infiltration of the submental soft tissues, better characterized on the subsequently performed CT dated 04/10/2024. Otherwise, no suspicious osseous lesions. [facility] Medical History MDD (major depressive disorder), recurrent episode, moderate Arrhythmia Right leg pain Obesity (BMI 30-39.9) Benign essential hypertension Normal colonoscopy (~06/16/21) Medicare annual wellness visit, initial Breast implant in situ Breast cancer screening by mammogram Cataract Cholelithiasis Pelvic fracture Fatty liver Colon cancer screening Hypercholesterolemia Type 2 diabetes mellitus with hyperglycemia Restrictive lung disease Pulmonary fibrosis Surgical History History of lumpectomy of left breast (02/02/24) Left breast mass History of colonoscopy History of cataract surgery History of surgery on lower extremity H/O left wrist surgery History of ankle surgery Family History Mother Lung cancer Father Respiratory failure Sister Lung disease Brother Respiratory failure Son No problems noted. 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 transitions rn care coordinator to a significant other at home: Yes Do you presently have visiting nurse or other home services: No Alcohol intake: former Comment: COUNTS CORRECT Patient Tobacco Use Status: Former Tobacco user Years Smoked: stopped 48 years old e-Cigarette/Vaping Use: Never Used Second Hand Smoke Exposure: Yes Advance Directives Date on File: 01/18/24 service: No Current occupational status: retired Cognitive needs: Yes Hearing needs: No Vision needs: Yes (Glasses) Physical Exam Vital Signs: Last Vital Signs Pulse 88 07/23/25 14:50 BP 118/70 07/23/25 14:50 Pulse Ox 96 07/23/25 14:50 Oxygen Delivery Method Room Air 07/23/25 14:50 BMI result Body Mass Index 32.5 Const General: cooperative and no acute distress Orientation/consciousness: patient oriented x3 Resp Effort & Inspection: normal respiratory effort and able to speak in complete sentences Neuro Other: A&O w/ mild but increased STM lapses. Overall patient responding appropriately. Slight increase difficulty following conversation. Slow, steady gait. General: patient oriented x3 and moves all extremities Psych Appearance: well kempt Speech and movement: Normal speech and movement present Affect: normal affect Attitude: cooperative Assessment & Plan Assessment & Plan (1) Cognitive dysfunction: Comment: MMSE 26. Code(s): F09 - Unspecified mental disorder due to known physiological condition Category: Medical (2) Generalized anxiety disorder: Code(s): F41.1 - Generalized anxiety disorder Category: Medical (3) MDD (major depressive disorder), recurrent episode, moderate: Code(s): F33.1 - Major depressive disorder, recurrent, moderate Category: Medical Plan Continue memantine ER 7 mg q.d. for now. Discussed that the patient's increased memory symptoms may be related to inconsistent medication use. * We will reach out to [facility], to reconcile patient's medication list. * Advised son to double check that patient has taken her medications. * If memory continues to worsen, we will increase memantine ER to 14 mg daily. * Future considerations: automatic medication dispenser and referring for community nurse navigation. We will order outpatient psychiatry/psychology referral, noting that patient prefers in-person visits which are close to home. Request not to return to [facility]. Patient does currently have meals on wheels. Comprehensive neuropsychiatric evaluation-as ordered Will follow-up upon review of above and patient to follow-up in clinic in 6 months or sooner prn. Orders: Referrals Psychiatry Referral F33.1 - Major depressive disorder, recurrent, moderate, F41.1 - Generalized anxiety disorder Psychiatry Referral F33.1 - Major depressive disorder, recurrent, moderate, F41.1 - Generalized anxiety disorder Medications: Refilled memantine 7 mg PO DAILY 30 days 30 ea 6RF memantine 7 mg PO DAILY 30 ea 6RF 30 days Coding Level of Care Code Est Pt Level 4 (01175) Diagnoses Cognitive dysfunction F09 Generalized anxiety disorder F41.1 MDD (major depressive disorder), recurrent episode, moderate F33.1
[2025-07-23 14:50] VITALS: BP 118/70; PULSE 88; O2SAT 96; BMI 32.5
--- OUTSIDE RECORDS SUMMARY | 2025-07-23 15:38 | XMS_ITS | Clinical Summary ---
Author Organization [facility] Address [address] [place] [address] Care Team Providers Care Product Safety Tester Name Role Phone Rocky Roman MD Primary Care Provider [phone] Allergies Active Allergy Reactions Criticality Noted Date [...] drink = 0.6 oz pur e alcohol) [facility] [employer] Answer Date Recorded In the past 12 months has th e [employer], gas, oil, or water [employer] threatened to shut off services in your [...] in a custodial (including now)? No 04/11/2024 Comments Unknown Sex [...] 61 04/12/2024 3:48 PM EDT Temperature 36.9 C (98.4 F) 04/12/2024 3:48 PM EDT Respiratory Rate 18 04/12/2024 3:48 PM EDT [...] Patients (1 - 1-dose 75+ series) 02/02/2023 COVID-19 Vaccine ( - 2023-2 5 season) 2024 Influenza Vaccine 06/28/2025 08/29/2018 Hepatitis B Vaccines Aged Out No long er eligible based on patient's age to complete this topic Insurance MEDICARE PART A & B [facility] SUPPLEMENT ONLY MEDICARE PART A & B Advance Directives * Full Code (Latest Code Status on File) Date Activated Date Inactivated Comments 04/10/2024 10:10 PM * Full Code Date Activated Date Inactivated Comments 02/10/2024 10:30 AM 04/10/2024 6:16 PM * Full Code Date Activated Date Inactivated Comments 02/10/2024 8:39 AM 02/10/2024 10:30 AM Care Teams Product Safety Tester Relationship Specialty Start Date End Date Rocky Roman MD [address] [place] [address] Dr Paulino Broadford [place]I [id number] PCP - General Internal Medicine 02/10/24
--- OUTSIDE RECORDS SUMMARY | 2025-07-23 15:38 | XMS_ITS | Encounter Summary ---
Author Organization [facility] Address [address] [place] [address] Care Team Providers Care Aoc Airspace Control Officer Name Role Phone Kanwal Marsh MD Primary Care Provider Unavailabl e Encounter Details Date Type Department Care Team (Late st Contact Info) Description 01/12/2024 Orders Only [facility] Department of Emergency Services [address] [place] [address] Savanna Valdez DDS [address] [place] [address] Social History Tobacco Use Types Packs/Day Years [...] on filedocumented in this encounter Care Teams Aoc Airspace Control Officer Relationship Specialty Start Date End Date Kanwal Marsh MD [address] [place] [id number] PCP - General Internal Medicine 01/09/24 documented as of this encounter
--- OUTSIDE RECORDS SUMMARY | 2025-07-23 15:38 | XMS_ITS | Clinical Summary ---
Author Organization [facility] Address [address] [place] [address] Care Team Providers Care Forensic Examiner Name Role Phone Kanwal Marsh MD Primary Care Provider Unavailabl e Social History Tobacco Use Types Packs/Day Years Used Date Smoking Tobacco: Never Assessed Comments Unknown Sex and Gender Information Value Date Recorded Sex Assigned at Not on file Legal Sex Female 12:01 PM EST Gender Identity Not on file Sexual Orientation Not on file Plan of Treatment Not on file Care Teams Forensic Examiner Relationship Specialty Start Date End Date Kanwal Marsh MD [address] [place] [address] PCP - General Internal Medicine 01/09/24
--- OUTSIDE RECORDS SUMMARY | 2025-07-23 15:38 | XMS_ITS | Clinical Summary ---
Author Organization [facility] Address [address] [place] [address] Phone Care Team Providers Care Car Escort Name Role Phone Unavailable Primary Care Provider [...] It is not the complete legal health record.[facility]
--- OUTSIDE RECORDS SUMMARY | 2025-07-23 15:38 | XMS_ITS ---
[facility] Name [facility] Unknown Results Test Name/Text Value Interpretation Date Range Source Magnesium SerPl-mCnc 1.9 mg/dL Normal 04/11/2024 1.6 - 2. 7 HHCCT Glucose SerPl-mCnc 144.0 mg/dL Above high normal 04/11/2024 65 - 99 HHCCT BUN/Creat SerPl 22.0 Ratio Normal 04/11/2024 10 - 25 HH CCT GFR/BSA.pred SerPlBld [id number] 66.0 Normal 04/11/2024 59 - HHCCT Potassium SerPl-sCnc 4.4 mmol/L Normal 04/11/2024 3.4 - 5 .3 HHCCT Chloride SerPl-sCnc 101.0 mmol/L Normal 04/11/2024 98 - 1 07 HHCCT BUN SerPl-mCnc 20.0 mg/dL Normal 04/11/2024 8 - [address] Anion Gap Bld-sCnc 12.0 Normal 04/11/2024 7 - 17 HHCCT Sodium SerPl-sCnc 136.0 mmol/L Normal 04/11/2024 136 - 14 5 HHCCT Creat SerPl-mCnc 0.9 mg/dL Normal 04/11/2024 0.4 - 1.1 HH CCT CO2 SerPl-sCnc 23.0 mmol/L Normal 04/11/2024 22 - 33 HH CCT Calcium SerPl-mCnc 9.2 mg/dL Normal 04/11/2024 8.7 - 10.5 HHCCT RDW RBC Auto-Rto 13.8 % Normal 04/11/2024 11.5 - 14.5 HHCCT MCHC RBC Auto-mCnc 33.1 g/dL Normal 04/11/2024 30 - 36 HHCCT PMV Bld Auto 9.6 fL Normal 04/11/2024 7.5 - 12.5 HHCCT RBC num Bld Auto 4.25 Mil/uL Normal 04/11/2024 4 - 5.4 HHCCT Basophils/leuk NFr Bld Auto 0.1 % Normal 04/11/2024 HHCCT Hgb Bld-mCnc 11.7 g/dL Normal 04/11/2024 11.7 - 15.7 HHCC T Basophils num Bld Auto 0.01 Thou/uL Normal 04/11/2024 0 - 0.2 HHCCT Neutrophils/leuk NFr Bld Auto 89.8 % Normal 04/11/2024 HHCCT Eosinophil num Bld Auto 0.0 Thou/uL Normal 04/11/2024 0 - 0.7 HHCCT Hct VFr Bld Auto 35.4 % Normal 04/11/2024 35 - 47 HH CCT Platelet num Bld Auto 325.0 Thou/uL Normal 04/11/2024 150 - 450 HHCCT MCV RBC Auto 83.0 fL Normal 04/11/2024 80 - 100 HHCCT Lymphocytes num Bld Auto 0.74 Thou/uL Below low normal 04/11/2024 1.5 - 4.5 HHCCT Monocytes num Bld Auto 0.12 Thou/uL Below low normal 024 0.2 - 1.5 HHCCT MCH RBC Qn Auto 27.5 pg Normal 04/11/2024 27 - [address] Imm Granulocytes num Bld Auto 0.03 Thou/uL Normal 04/11/2024 0 - 0.1 HHCCT Monocytes/leuk NFr Bld Auto 1.4 % Normal 04/11/2024 HHCCT Eosinophil/leuk NFr Bld Auto 0.0 % Normal 04/11/2024 HHCCT WBC num Bld Auto 8.9 Thou/uL Normal 04/11/2024 4 - 11 HHCCT Neutrophils num Bld Auto 7.96 Thou/uL Above high normal 04/11/2024 2 - 7.5 HHCCT Lymphocytes/leuk NFr Bld Auto 8.4 % Normal 04/11/2024 HHCCT Imm Granulocytes/leuk NFr Bld Auto 0.3 % Normal 04/11/2024 HHCCT Anion Gap Bld-sCnc 13.0 Normal 04/11/2024 7 - 17 HHCCT Sodium SerPl-sCnc 136.0 mmol/L Normal 04/11/2024 136 - 14 5 HHCCT Creat SerPl-mCnc 0.9 mg/dL Normal 04/11/2024 0.4 - 1.1 HH CCT CO2 SerPl-sCnc 22.0 mmol/L Normal 04/11/2024 22 - 33 HH CCT BUN SerPl-mCnc 18.0 mg/dL Normal 04/11/2024 8 - [address] Glucose SerPl-mCnc 151.0 mg/dL Above high normal 04/11/2024 65 - 99 HHCCT Calcium SerPl-mCnc 9.0 mg/dL Normal 04/11/2024 8.7 - 10.5 HHCCT Chloride SerPl-sCnc 101.0 mmol/L Normal 04/11/2024 98 - 1 07 HHCCT Potassium SerPl-sCnc 4.0 mmol/L Normal 04/11/2024 3.4 - 5 .3 HHCCT BUN/Creat SerPl 20.0 Ratio Normal 04/11/2024 10 - 25 HH CCT GFR/BSA.pred SerPlBld [id number] 66.0 Normal 04/11/2024 59 - HHCCT RBC num Bld Auto 4.08 Mil/uL Normal 04/11/2024 4 - 5.4 HHCCT Lymphocytes/leuk NFr Bld Auto 7.2 % Normal 04/11/2024 HHCCT MCV RBC Auto 82.0 fL Normal 04/11/2024 80 - 100 HHCCT Eosinophil/leuk NFr Bld Auto 0.0 % Normal 04/11/2024 HHCCT Hgb Bld-mCnc 11.1 g/dL Below low normal 04/11/2024 11.7 - 15 .7 HHCCT Basophils/leuk NFr Bld Auto 0.2 % Normal 04/11/2024 HHCCT MCH RBC Qn Auto 27.2 pg Normal 04/11/2024 27 - [address] MCHC RBC Auto-mCnc 33.0 g/dL Normal 04/11/2024 30 - 36 HHCCT Imm Granulocytes/leuk NFr Bld Auto 0.3 % Normal 04/11/2024 HHCCT Eosinophil num Bld Auto 0.0 Thou/uL Normal 04/11/2024 0 - 0.7 HHCCT RDW RBC Auto-Rto 13.9 % Normal 04/11/2024 11.5 - 14.5 HHCCT Lymphocytes num Bld Auto 0.63 Thou/uL Below low normal 04/11/2024 1.5 - 4.5 HHCCT Neutrophils/leuk NFr Bld Auto 91.7 % Normal 04/11/2024 HHCCT Imm Granulocytes num Bld Auto 0.03 Thou/uL Normal 04/11/2024 0 - 0.1 HHCCT Hct VFr Bld Auto 33.6 % Below low normal 04/11/2024 35 - 47 HHCCT Monocytes num Bld Auto 0.05 Thou/uL Below low normal 024 0.2 - 1.5 HHCCT Basophils num Bld Auto 0.02 Thou/uL Normal 04/11/2024 0 - 0.2 HHCCT Monocytes/leuk NFr Bld Auto 0.6 % Normal 04/11/2024 HHCCT Platelet num Bld Auto 350.0 Thou/uL Normal 04/11/2024 150 - 450 HHCCT PMV Bld Auto 10.2 fL Normal 04/11/2024 7.5 - 12.5 HHCCT Neutrophils num Bld Auto 8.06 Thou/uL Above high normal 04/11/2024 2 - 7.5 HHCCT WBC num Bld Auto 8.8 Thou/uL Normal 04/11/2024 4 - 11 HHCCT POC Glucose 164.0 mg/dL Above high normal 04/10/2024 65 - 99 HHCCT History of Medication Use Medication Directions Dispensed Refills Start Date End Date Stat us amLODIPine (NORVASC) 5 MG tablet Take 1 tablet (5 mg total) by mouth every morning. active atorvastatin (LIPITOR) 40 MG tablet Take 1 tablet (40 mg total) by mouth nightly. active LORazepam (ATIVAN) 1 MG tablet Take 1 tablet (1 mg total) by mouth 3 times daily (every 8 hours) as needed for anxiety. 

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
--- OUTSIDE RECORDS SUMMARY | 2025-07-23 15:38 | XMS_ITS | Patient Health Record ---
Author [facility] Address [address] [place] [address] Care Team Providers Care Sap Solutions Architect Name Role Phone Rocky Roman Primary Care Provider Dianna Johnson Unavailable [phone] Allergies Allergen (clinical drug ingredient) Drug/Non Drug [...] day; Duration: 30 day(s) Active Bumetanide Active FLUoxetine HCl 40 MG 1 capsule Orally On ce a day; Duration: 30 day(s) Active Glimepiride 4 MG 1 tablet with breakf ast or the first main meal of the day Orally Once a day; Duration: 30 day(s) Active amLODIPine Besylate 5 MG [...] innersoles for 1 year Dx: 12/03/2020 Active Immunizations Vaccine Route Administration Date Status [...] primary osteoarthritis of the ankle and/or foot (512174571) Primary osteoarthritis, right ankle and foot (M19.071) Active confirmed Problem Non-pressure chronic ulcer of other part of right foot limited to breakdown of skin (L97.511) Active confirmed Problem Acquired hammer toe of right foot (8805898112091387 ) Other hammer toe(s) (acquired), right foot (M20.41) Active confirmed Problem Acquired hammer toe of left foot (9766870007485686 ) Other hammer toe(s) (acquired), left foot (M20.42) Active confirmed Problem Polyneuropathy due to type 2 diabetes mellitus (865522106) Type 2 diabetes mellitus with diabetic polyneuropathy (E11.42) Active confirmed Problem Polyneuropathy due to diabetes mellitus type I (895341831) Type 1 diabetes mellitus with diabetic polyneuropathy (E10.42) Active confirmed Encounters Encounter Location Date Provider Diagnosis [facility] [address] [place] [address] 04/03/2025 Dianna Mancuso Plan Of Treatment Pending Test Test Name Order Date 70640-MFHJ SKIN LESIONS, OVER 4 12/03/19 21 69425-[id number] SKIN LESIONS, OVER 4 03/04/20 21 10780-HTJS SKIN LESIONS, OVER 4 06/10/20 21 38718-[id number] SKIN LESIONS, OVER 4 10/01/20 21 39970-[id number] SKIN LESIONS, OVER 4 02/12/20 22 51854-[id number] OF HEMATOMA/FLUID 021 Insurance Providers Payer Name Payer Address Payer Phone Subscriber Number Group Number Insured Name Patient Relationship to Insured Coverage Start Date Coverage End Date Medicare [facility] [employer] [address] [place] [address] [id number] Bambi Cox Self - patient is the insured [employer] [address] [place] [address] [phone] [id number] Bambi Cox Self - patient is [...] Implantes eye 09/2021 Hospitalization History Reason Date(Month/Year) [facility]- R leg Pain- test given not blood clot same day 04/2022 [facility] ER- Back Pain 08/2021 [facility]- shortness of breath 2019
== END 2025-07-23 16:16 | disposition home or self-care (01) ==
LOC: HO.HSMS 14:46
PROVIDERS: PCP Internal Medicine; Visit Provider Nurse Practitioner Family
DX: R41.89 Other symptoms and signs involving cognitive functions and awareness (principal); F41.1 Generalized anxiety disorder; F33.1 Major depressive disorder, recurrent, moderate
CPT/HCPCS: 99214

== ENCOUNTER → 2025-07-23 14:45 | Outpatient (BNVA) | payer MEDICARE, SELFPAY | PROVIDERS: PCP Internal Medicine; Visit Provider Nurse Practitioner Family | DX: F09 Unspecified mental disorder due to known physiological condition (principal); F41.1 Generalized anxiety disorder; F33.1 Major depressive disorder, recurrent, moderate | CPT/HCPCS: 99212 ==

== ENCOUNTER 2025-08-04 11:53 | Emergency (ER) | payer MEDICARE, SELFPAY ==
--- OUTSIDE RECORDS SUMMARY | 2025-04-03 06:45 | XMS_ITS ---
Author Organization [facility] Address [address] [place] [address] Care Team Providers Care Printing Assistant Name Role Phone Rocky Roman Primary Care Provider Dianna Johnson [phone] Medications Medication SIG (Take, Route, Frequency, Duration) [...] Date Provider Diagnosis [facility] [address] [place] [address] 04/03/2025 Dianna Mancuso Plan Of Treatment No Information Progress Notes * Tracee COXB: [birth year] (75 yo F)Acc No.[id number]:04/03/2025 Progress Note Patient: Bambi FINNEGAN Provider: Oscar Mancuso DPM :1950 A ge:75 Y S ex:Female Date:04/03/2025 Address:[address] [place] [address] [facility] Pcp:Rocky Roman Subjective: * Chief Complaints: * [...] enies. C ardiovascular: Pacemaker d enies. M CHIEF HYDROELECTRIC STATION OPERATOR d enies. W PW d enies. C [...] 0 04/03/2025 Generated for Gee jewell/Avni/Vijay on: 08/04/2025 12:33 PM EDT
--- NOTE | ~2025-08-04 | XR_ITS ---
CLINICAL HISTORY: SOB 1 view chest x-ray Comparison: CR/SR - XR CHEST 2 VIEWS - 12/11/24 10:18 EST Findings: There is prominence of interstitial markings within the bilateral lungs. There is no consolidation or pleural effusion. Heart size is normal. No acute fracture. IMPRESSION: Prominence of interstitial markings within the bilateral lungs, compatible with scarring. No obvious infiltrate. This document has been electronically signed by: Marcella Alvarez MD on 08/04/2025 14:14:36
[2025-08-04 12:16] VITALS: BP 159/74; PULSE 92; RESP 22; TEMP 36.4; O2SAT 98; BMI 31.2
--- NOTE | 2025-08-04 12:25 | ED.GENADULT ---
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 Related Data Previous Rx's ?Medication ?Instructions ?Recorded albuterol sulfate 90 mcg/actuation 2 puff inhalation Q6H PRN 07/13/24 aerosol inhaler (Ventolin HFA) shortness of breath or wheezing #8.5 grams letrozole 2.5 mg tablet 2.5 mg PO DAILY #90 tabs 08/17/24 fluoxetine 20 mg capsule 20 mg PO DAILY 90 days #90 caps 12/03/24 metformin 1,000 mg tablet 1,000 mg PO BID #180 caps 01/09/25 cholecalciferol (vitamin D3) 125 125 mcg PO DAILY #90 tabs 03/06/25 mcg (5,000 unit) tablet (Vitamin D3) losartan 25 mg tablet 25 mg PO DAILY #30 tabs 04/30/25 lorazepam 1 mg tablet 1 mg PO BID PRN anxiety #30 tabs 06/20/25 memantine 7 mg capsule 7 mg PO DAILY 30 days #30 ea 07/23/25 sprinkle,extended release 24hr atorvastatin 40 mg tablet 40 mg PO BEDTIME #90 caps 07/25/25 tramadol 50 mg tablet 50 mg PO BID PRN pain #60 tabs 07/25/25 betamethasone dipropionate 0.05 % 1 appl topical BID PRN itching #15 08/04/25 topical cream grams Allergies Allergy/AdvReac Type Severity Reaction Status Date / Time bacitracin (BACITRACIN) Allergy Intermediate RASH Verified 08/04/25 12:16 latex (LATEX) Allergy Intermediate FACIAL Verified 08/04/25 12:16 SWELLING; RASH nickel (NICKEL) Allergy Intermediate RASH Verified 08/04/25 12:16 amlodipine AdvReac Intermediate leg Verified 08/04/25 12:16 swelling lisinopril AdvReac Intermediate Swelling Verified 08/04/25 12:16 adhesive tape AdvReac Irritable Verified 08/04/25 12:16 Review of Systems Constitutional: Constitutional: Reports as per HPI [facility] Past Medical History Medical History MDD (major depressive disorder), recurrent episode, moderate Arrhythmia Right leg pain Obesity (BMI 30-39.9) Benign essential hypertension Normal colonoscopy (~06/16/21) Medicare annual wellness visit, initial Breast implant in situ Breast cancer screening by mammogram Cataract Cholelithiasis Pelvic fracture Fatty liver Colon cancer screening Hypercholesterolemia Type 2 diabetes mellitus with hyperglycemia Restrictive lung disease Pulmonary fibrosis Surgical History History of lumpectomy of left breast (02/02/24) Left breast mass History of colonoscopy History of cataract surgery History of surgery on lower extremity H/O left wrist surgery History of ankle surgery Family History Family History Mother Lung cancer Father Respiratory failure Sister Lung disease Brother Respiratory failure Son No problems noted. 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 intensive care anaesthetist to a significant other at home: Yes Do you presently have visiting nurse or other home services: No Alcohol intake: former Comment: COUNTS CORRECT Patient Tobacco Use Status: Former Tobacco user Years Smoked: stopped 48 years old e-Cigarette/Vaping Use: Never Used Second Hand Smoke Exposure: Yes Advance Directives: Yes Advance Directives on File: Yes Advance Directives Date on File: 01/18/24 service: No Current occupational status: retired Cognitive needs: Yes Hearing needs: No Vision needs: Yes (Glasses) Physical Exam ED Vital Signs: Vital Signs - 24 hr 08/04/25 12:16 08/04/25 13:52 Temperature 97.6 F Pulse Rate 92 81 Respiratory Rate 22 H 14 Blood Pressure 159/74 H 134/64 Pulse Oximetry 98 97 Oxygen Delivery Method Room Air Room Air BMI result Body Mass Index 31.2 Const Other: Gen: ?Overall well-appearing patient HEENT: PERRLA, EOMI, good dentition, floor of the mouth is soft, no lingular lesions, no buccal lesions, she has local irritation to the lower lip with minimal edema, no fluctuance, well-healed submental incisional scar Neck: Supple, no LAD CV: RRR, no obvious murmurs appreciated Resp: ?No wheezing rales rhonchi no stridor moving air well Skin: Warm, dry, intact, no erythema Neuro: ?Alert and oriented x3, moving upper and lower extremities symmetrically, no obvious facial asymmetry noted Course Course Course Narrative: RME: 75-year-old female history of COPD osteomyelitis anemia presents to ED for dry lips on and small rash on chin with shortness of breath on exertion for the past 3 days. Patient states suffering from sepsis in the past from the lip rash and was not antibiotics. Exam lips looks dry no obvious lesion or lips. Questionable small area non fluctuant non Sarah red on chin. Lungs are clear x-ray ordered. EKG labs ordered Medical Decision Making Medical Decision Making [facility] Narrative: Patient here with multiple concerns, mentioned that she is dyspneic giving her age at work her up for pneumonia, does not appear to be in CHF, I will obtain EKG to make sure no ACS however she was more concerned regarding lower lip irritation, it looks irritated and it feels like a looks like patient is itching it quite a bit in his pruritic, however there was no evidence for deep space infection of the neck or oropharyngeal, I suspect I am going to discharge her with some local ointment likely steroid all for her lip but we will perform workup for other considerations as mentioned. Differential Diagnosis Differential Diagnoses: The differential diagnosis associated with the presentation includes (Odontogenic infection, herpangina, angioedema, cellulitis, pneumonia) Admission/Observation Consideration of admission/observation: Escalation of care including admission/observation considered Lab Data [facility] Lab Attestation statement: I reviewed the patient's lab results. 08/04/25 12:44 08/04/25 12:43 Labs: Lab Results 08/04/25 08/04/25 Range/Units 12:43 12:44 WBC 9.4 (4.8-10.8) X10*3/uL RBC 4.06 L (4.20-5.50) X10*6/uL Hgb 11.1 L (12.0-16.0) g/dl Hct 34.2 L (37.0-47.0) % MCV 84.2 (80.0-98.0) fL MCH 27.3 (27.0-33.0) pg MCHC 32.5 (31.0-35.0) g/dl RDW 13.3 (11.0-16.0) % Plt Count 289 (160-400) X10*3/uL MPV Not Reportable Immature Gran % (Auto) 0.2 (0.0-0.4) % Neut % (Auto) 72.2 (45-73) % Lymph % (Auto) 16.7 L (20-40) % [place] % (Auto) 6.7 (2-11) % Eos % (Auto) 3.3 (0-4) % Baso % (Auto) 0.9 (0-2) % Lymph # (Auto) 1.6 (1.2-4.9) X10*3/uL [place] # (Auto) 0.6 (0.1-1.2) X10*3/uL Eos # (Auto) 0.3 (0.0-0.4) X10*3/uL Baso # (Auto) 0.1 (0.0-0.2) X10*3/uL Abs Immat Gran (auto) 0.02 (0.00-0.03) X10*3/uL Absolute Neuts (auto) 6.8 (2.0-8.3) x10*3/uL Absolute Nucleated RBC 0.000 (0.0-0.012) X10*3/uL Nucleated RBC % (auto) 0.0 (0.0-0.2) /100WBC Smear Tech's Comments VERIFIED PT 11.6 (10.9-12.4) SEC INR 1.0 (0.9-1.1) APTT 28.0 (26.7-34.1) SEC Sodium 139 (135-145) mmol/L Potassium 4.0 (3.3-5.1) mmol/L Chloride 101 (96-108) mmol/L Carbon Dioxide 24 (22-29) mmol/L Anion Gap 18 (12-20) BUN 20 H (9-16) mg/dL Creatinine 1.15 (0.5-1.4) mg/dL Estim Creat Clear Calc 44.1 Estimated GFR 46 Random Glucose 82 (60-115) mg/dL Calcium 10.2 D (8.4-10.2) mg/dL Total Bilirubin 0.4 (0.0-1.0) mg/dL AST 30 (5-31) U/L ALT 14 (0-31) U/L Alkaline Phosphatase 65 (39-117) U/L Troponin I High Sens 10.3 (<3.5-17.0) ng/L B-Natriuretic Peptide 21 (<100) pg/mL Total Protein 8.3 H (6.5-8.0) g/dL Albumin 5.0 (3.5-5.0) g/dL Influenza Type A (PCR) NEGATIVE (Negative) Influenza Type B (PCR) NEGATIVE (Negative) RSV RNA Qual (PCR) NEGATIVE (Negative) SARS-CoV-2 RNA (RT-PCR) NEGATIVE (Negative) Independent Interpretation I performed an independent interpretation of an: EKG (80 beats per minute otherwise normal ECG without dysrhythmia, AV melody blocks or ST-T changes to suspect underlying ACS, my independent interpretation) and Plain X-Ray (No new consolidations compared to prior) Radiology Impression Discussion of test interpretation with radiology: I have reviewed the radiologist's reading. External Record Review External record reviewed: Inpatient record and Outpatient record Prescription Management I considered prescription management with: Antibiotic Discharge Plan Discharge Clinical Impression: Chronic breathlessness, Lip-licking eczema Patient Disposition: Home, Self-Care Additional Instructions: You have local irritation of the lip, I suspect because of your prior histor you has been inadvertently rubbing your lip and irritating it because that is what it looks like, you can put some Vaseline your lips and then over the skin area apply the steroid ointment that I prescribed that is stronger use it once or twice daily he will take away the itching and irritation, you also mentioned shortness of breath and you had blood work that was reassuring, EKG and chest x-ray. Any other issues concerns come back to the ER, your exam did not reveal any evidence for infection of the neck area or oropharynx. Prescriptions: New betamethasone dipropionate 0.05 % cream 1 appl topical BID PRN (Reason: itching) Qty: 15 0RF No Action metformin 1,000 mg tablet 1,000 mg PO BID Qty: 180 2RF cholecalciferol (vitamin D3) [Vitamin D3] 125 mcg (5,000 unit) Tablet 125 mcg PO DAILY Qty: 90 4RF losartan 25 mg tablet 25 mg PO DAILY Qty: 30 0RF atorvastatin 40 mg tablet 40 mg PO BEDTIME Qty: 90 2RF tramadol 50 mg tablet 50 mg PO BID PRN (Reason: pain) Qty: 60 0RF letrozole 2.5 mg Tablet 2.5 mg PO DAILY Qty: 90 3RF albuterol sulfate [Ventolin HFA] 90 mcg/actuation HFA aerosol inhaler 2 puff inhalation Q6H PRN (Reason: shortness of breath or wheezing) Qty: 8.5 0RF fluoxetine 20 mg capsule 20 mg PO DAILY 90 Days Qty: 90 0RF memantine 7 mg capsule,sprinkle,ER 24hr 7 mg PO DAILY 30 Days Qty: 30 6RF lorazepam 1 mg tablet 1 mg PO BID PRN (Reason: anxiety) Qty: 30 2RF Interventions: ED Discharge Assessment Last Done: 08/04/25 14:56 Discharge Date/Time: 08/04/25 15:09 Print Language: Nam[place]
--- NOTE | 2025-08-04 12:26 | ECG_ITS ---
Test Reason : dyspnea Blood Pressure : */* mmHG Vent. Rate : 80 BPM Atrial Rate : 80 BPM P-R Int : 172 ms QRS Dur : 66 ms QT Int : 358 ms P-R-T Axes : 19 10 3 degrees QTcB Int : 412 ms Normal sinus rhythm Minimal voltage criteria for LVH, may be normal variant ( R in aVL ) Borderline ECG When compared with ECG of 10-Apr-2024 10:46, No significant change was found Referred By: Lai Butts Electronically Signed By: CHANO CAMPO MD
--- OUTSIDE RECORDS SUMMARY | 2025-08-04 12:33 | XMS_ITS | Clinical Summary ---
Author Organization [facility] Address [address] [place] [address] Care Team Providers Care Commissioned Security Officer Name Role Phone Kanwal Marsh MD [...] of Treatment Not on file Care Teams Commissioned Security Officer Relationship Specialty Start Date End Date Kanwal Marsh MD [address] [place] [address] PCP - General Internal Medicine 01/09/24
--- OUTSIDE RECORDS SUMMARY | 2025-08-04 12:33 | XMS_ITS | Clinical Summary ---
Author Organization [facility] Address [address] [place] [address] Care Team Providers Care Fence Setter Name Role Phone Rocky Roman MD Primary Care Provider [phone] Allergies Active Allergy Reactions Criticality Noted Date [...] drink = 0.6 oz pur e alcohol) [facility] [employer] Answer Date Recorded In the past 12 months has th e [employer], gas, oil, or water [employer] threatened to shut off services in your [...] place to sleep or slept in a residential (including now)? No 04/11/2024 Comments Unknown Sex [...] Health Maintenance Due Date Last Done Comments Advance Care Planning 1950 Hepatitis C Virus Screening 1950 DTaP/Tdap/Td Vaccines (1 - Tdap) 02/02/1967 Pneumococcal Vaccines 50+ (1 of 1 - PCV) 02/02/1998 Zoster (Shingles) Vaccine (1 of 2) 02/02/1998 DXA Bone Density (Females,Ag es 65 and older) 02/02/2013 RSV Vaccine 60 years and old er and Patients (1 - 1-dose 75+ series) 02/02/2023 COVID-19 Vaccine (2023-2 5 season) 2024 Influenza Vaccine 06/28/2025 08/29/2018 Hepatitis B Vaccines Aged Out No long er eligible based on patient's age to complete this topic Insurance MEDICARE PART A & B [facility] SUPPLEMENT ONLY TRINI ESTRADA [id number] MEDICARE PART A & B Advance Directives * Full Code (Latest Code Status on File) Date Activated Date Inactivated Comments 04/10/2024 10:10 PM * Full Code Date Activated Date Inactivated Comments 02/10/2024 10:30 AM 04/10/2024 6:16 PM * Full Code Date Activated Date Inactivated Comments 02/10/2024 8:39 AM 02/10/2024 10:30 AM Care Teams Fence Setter Relationship Specialty Start Date End Date Rocky Roman MD [address] [place] [address] [place] [address] PCP - General Internal Medicine 02/10/24
--- OUTSIDE RECORDS SUMMARY | 2025-08-04 12:33 | XMS_ITS | Clinical Summary ---
Author Organization [facility] Address [address] [place] [address] Phone Care Team Providers Care Mechanical Design Engineer Facilities Name Role Phone Unavailable Primary Care Provider [...] It is not the complete legal health record.[facility]
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
--- OUTSIDE RECORDS SUMMARY | 2025-08-04 12:34 | XMS_ITS | Patient Health Record ---
Author Organization [facility] Address [address] [place] [address] Care Team Providers Care Glazier Apprentice Name Role Phone Rocky Roman Primary Care Provider Dianna Johnson Unavailable [phone] Allergies Allergen (clinical drug ingredient) Drug/Non Drug [...] Administration Date Status Comme nts Influenza Unknown 09/02/2020 Administered Influenza Unknown 09/21/2021 Administered Influenza Unknown 07/29/2022 Administered COVID-19 Moderna Vaccine Unknown 11/19/2021 Administered 1st 02/19/2021 2nd 03/19/2021 Social History Tobacco Use: Social History Observation [...] primary osteoarthritis of the ankle and/or foot (409473270) Primary osteoarthritis, right ankle and foot (M19.071) Active confirmed Problem Non-pressure chronic ulcer of other part of right foot limited to breakdown of skin (L97.511) Active confirmed Problem Acquired hammer toe of right foot (5358639011635643 ) Other hammer toe(s) (acquired), right foot (M20.41) Active confirmed Problem Acquired hammer toe of left foot (3121586374226236 ) Other hammer toe(s) (acquired), left foot (M20.42) Active confirmed Problem Polyneuropathy due to type 2 diabetes mellitus (365455030) Type 2 diabetes mellitus with diabetic polyneuropathy (E11.42) Active confirmed Problem Polyneuropathy due to diabetes mellitus type I (593222126) Type 1 diabetes mellitus with diabetic polyneuropathy (E10.42) Active confirmed Encounters Encounter Location Date Provider Diagnosis [facility] [place] [address] [place] [address] 04/03/2025 Dianna Mancuso Plan Of Treatment Pending Test Test Name Order Date 20497-CLQL SKIN LESIONS, OVER 4 12/03/19 21 76679-THNV SKIN LESIONS, OVER 4 03/04/20 21 32926-HOJP SKIN LESIONS, OVER 4 06/10/20 21 68472-SYEL SKIN LESIONS, OVER 4 10/01/20 21 36491-CVUD SKIN LESIONS, OVER 4 02/12/20 22 90398-UDFQWRNC OF HEMATOMA/FLUID 021 Insurance Providers Payer Name Payer Address Payer Phone Subscriber Number Group Number Insured Name Patient Relationship to Insured Coverage Start Date Coverage End Date Medicare [facility] [employer] [address] [place] [address] [id number] Bambi Cox Self - patient is the insured [employer] [address] [place] [address] [id number] Bambi Cox Self - patient is [...] Implantes eye 09/2021 Hospitalization History Reason Date(Month/Year) [facility] [place] Pain- test given not blood clot same day 04/2022 [facility] [facility] Back Pain 08/2021 [facility] [place] shortness of breath 2019
--- OUTSIDE RECORDS SUMMARY | 2025-08-04 12:34 | XMS_ITS | Encounter Summary ---
Author Organization [facility] Address [address] [place] [address] Care Team Providers Care Core Shaper Top Name Role Phone Kanwal Marsh MD Primary Care Provider Unavailabl e Encounter Details Date Type Department Care Team (Late st Contact Info) Description 01/12/2024 Orders Only [facility] Department of Emergency Services [address] [place] [address] Savanna Valdez DDS [address] [place] [address] Social History Tobacco Use Types Packs/Day Years [...] on filedocumented in this encounter Care Teams Core Shaper Top Relationship Specialty Start Date End Date Kanwal Marsh MD [address] [place] [address] PCP - General Internal Medicine 01/09/24 documented as of this encounter
[2025-08-04 12:57] LABS: INTERNATIONAL NORM RATIO 1.0 (0.9-1.1); Prothrombin Time 11.6 SEC (10.9-12.4)
[2025-08-04 12:59] LABS: Partial Thromboplastin Time 28.0 SEC (26.7-34.1)
[2025-08-04 13:02] LABS: Hematocrit 34.2 % (37.0-47.0); Hemoglobin 11.1 g/dl (12.0-16.0); Imm Gran Abs Auto 0.02 X10*3/uL (0.00-0.03); Imm Gran Pct Auto 0.2 % (0.0-0.4); Lymphocytes Absolute Auto 1.6 X10*3/uL (1.2-4.9); Mean Corpuscular HGB Conc 32.5 g/dl (31.0-35.0); Mean Corpuscular Hemoglobin 27.3 pg (27.0-33.0); Mean Corpuscular Volume 84.2 fL (80.0-98.0); NRBC Abs Auto 0.000 X10*3/uL (0.0-0.012); NRBC Pct Auto 0.0 /100WBC (0.0-0.2); PLT CLUMP 1; Red Blood Count 4.06 X10*6/uL (4.20-5.50)
[2025-08-04 13:03] LABS: MANUAL DIFF FLAG SCAN; SCAN SMEAR FLAG 1
[2025-08-04 13:04] LABS: White Blood Count 9.4 X10*3/uL (4.8-10.8)
[2025-08-04 13:07] LABS: Alanine Aminotransferase 14 U/L (0-31); Albumin Level 5.0 g/dL (3.5-5.0); Alkaline Phosphatase 65 U/L (39-117); Anion Gap 18 (12-20); Aspartate Amino Transferase 30 U/L (5-31); Blood Urea Nitrogen 20 mg/dL (9-16); Calcium 10.2 mg/dL (8.4-10.2); Carbon Dioxide 24 mmol/L (22-29); Chloride 101 mmol/L (96-108); Creatinine Clr Calc Pharmacy 44.1; Estimated Glomerular Filt Rate 46; Potassium 4.0 mmol/L (3.3-5.1); Sodium 139 mmol/L (135-145); Total Protein 8.3 g/dL (6.5-8.0)
[2025-08-04 13:10] LABS: B Type Natriuretic Peptide 21 pg/mL (<100)
[2025-08-04 13:12] LABS: Platelet Count 289 X10*3/uL (160-400)
[2025-08-04 13:14] LABS: Troponin-I High Sensitivity 10.3 ng/L (<3.5-17.0)
[2025-08-04 13:34] LABS: Resp Syncy Virus RNA Qual PCR NEGATIVE (Negative); SARS COV2 PCR INHOUSE NEGATIVE (Negative)
[2025-08-04 13:52] VITALS: BP 134/64; PULSE 81; RESP 14; O2SAT 97
[2025-08-04 14:56] VITALS: BP 110/86; PULSE 82; RESP 16; TEMP 36.6; O2SAT 96
== END 2025-08-04 15:09 | disposition home or self-care (01) ==
PROVIDERS: Physician Assistant; Emergency Provider Emergency Medicine; PCP Internal Medicine
DX: R21 Rash and other nonspecific skin eruption (principal); R06.09 Other forms of dyspnea; L30.9 Dermatitis, unspecified; D64.9 Anemia, unspecified; J44.9 Chronic obstructive pulmonary disease, unspecified; Z87.39 Personal history of other diseases of the musculoskeletal system and connective tissue; Z79.899 Other long term (current) drug therapy
CPT/HCPCS: 71045; 80053; 83880; 84484; 85025; 85610; 85730; 87637; 93005; 99283; 99284

== ENCOUNTER → 2025-08-04 12:24 | Outpatient (BNV) | payer MEDICARE, SELFPAY | PROVIDERS: Emergency Provider Emergency Medicine; PCP Internal Medicine; Visit Provider Radiology Diagnostic Radiology | DX: J84.9 Interstitial pulmonary disease, unspecified (principal) | CPT/HCPCS: 71045 ==

== ENCOUNTER → 2025-08-04 12:26 | Outpatient (BNV) | payer MEDICARE, SELFPAY | PROVIDERS: Emergency Provider Emergency Medicine; PCP Internal Medicine; Visit Provider Internal Medicine Cardiovascular Disease | DX: R06.00 Dyspnea, unspecified (principal) | CPT/HCPCS: 93010 ==

== ENCOUNTER 2025-09-03 14:11 | Outpatient (AMB) | payer MEDICARE, SELFPAY ==
--- OUTSIDE RECORDS SUMMARY | 2025-04-03 06:45 | XMS_ITS ---
Author Organization [facility] Address [address] [place] [address] Care Team Providers Care School Commissioner Name Role Phone Rocky Roman Primary Care Provider Dianna Johnson [phone] Medications Medication SIG (Take, Route, Frequency, Duration) [...] Active Encounters Encounter Location Date Provider Diagnosis [facility] [address] [place] [address] 04/03/2025 Dianna Mancuso Plan Of Treatment No Information Progress Notes * Tracee COXB: [birth year] (75 yo F)Acc No.[id number]:04/03/2025 Progress Note Patient: Bambi FINNEGAN Provider: Oscar Mancuso DPM :1950 A ge:75 Y S ex:Female Date:04/03/2025 Address:[address] [place] [address] [facility] Pcp:Rocky Roman Subjective: * Chief Complaints: * [...] enies. C ardiovascular: Pacemaker d enies. M INTERIOR DECORATOR PAPERHANGING d enies. W PW d enies. C [...] 0 04/03/2025 Generated for Gee jewell/Avni/Vijay on: 05:26 PM EDT
--- NOTE | 2025-09-03 14:22 | A.OFFVIS_ITS ---
Vital Signs 09/03/25 14:32 Height 5 ft 5 in Weight 184 lb BMI 30.6 BP 119/59 L Blood Pressure Location Lt brachial Position Sitting Pulse 107 H Intake Visit Reasons: 6m breast exam gwen pt Intake Note: Patient is seen in office for 6 month follow up visit, breast exam. Pt c/o: denies any concerns regarding the breast mm:03/12/25 Pcas Required: No Accompanied by: Son Allergies bacitracin (BACITRACIN) Allergy (Intermediate, Verified 09/03/25 14:23) RASH latex (LATEX) Allergy (Intermediate, Verified 09/03/25 14:23) FACIAL SWELLING; RASH nickel (NICKEL) Allergy (Intermediate, Verified 09/03/25 14:23) RASH amlodipine Adverse Reaction (Intermediate, Verified 09/03/25 14:23) leg swelling lisinopril Adverse Reaction (Intermediate, Verified 09/03/25 14:23) Swelling adhesive tape Adverse Reaction (Verified 09/03/25 14:23) Irritable Medication List - Last Reconciled 09/03/25 by Nate Emery MD albuterol sulfate 90 mcg/actuation (Ventolin HFA) 2 puffs inhalation Q6H PRN atorvastatin 40 mg PO BEDTIME betamethasone dipropionate 0.05% 1 appl topical BID PRN cholecalciferol (vitamin D3) (Vitamin D3) 125 mcg PO DAILY fluoxetine 20 mg PO DAILY 90 days letrozole 2.5 mg PO DAILY lorazepam 1 mg PO BID PRN losartan 25 mg PO DAILY memantine 7 mg PO DAILY 30 days metformin 1,000 mg PO BID tramadol 50 mg PO BID PRN HPI Comments Details: 75-year-old female patient, former patient of Dr. Barnes, returning for a breast cancer follow-up appointment. 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 She underwent a left breast lumpectomy with sentinel node biopsy on 02/02/2024. Pathology was confirmed and 1 of 2 sentinel lymph nodes revealed isolated tumor cells (pT1c pN0 (i+)). She was evaluated by Dr. Barbour and started on letrozole 2.5 mg p.o. daily, planned for 5 years. Her most recent mammogram of 01/30/2025 revealed no mammographic evidence of malignancy. Postoperative changes were identified in the left breast (BI-RADS 2). Follow-up mammogram was recommended in 1 year. [facility] Medical History MDD (major depressive disorder), recurrent episode, moderate Arrhythmia Right leg pain Obesity (BMI 30-39.9) Benign essential hypertension Normal colonoscopy (~06/16/21) Medicare annual wellness visit, initial Breast implant in situ Breast cancer screening by mammogram Cataract Cholelithiasis Pelvic fracture Fatty liver Colon cancer screening Hypercholesterolemia Type 2 diabetes mellitus with hyperglycemia Restrictive lung disease Pulmonary fibrosis Surgical History History of lumpectomy of left breast (02/02/24) Left breast mass History of colonoscopy History of cataract surgery History of surgery on lower extremity H/O left wrist surgery History of ankle surgery Family History Mother Lung cancer Father Respiratory failure Sister Lung disease Brother Respiratory failure Son No problems noted. 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 laboratory animal care veterinarian to a significant other at home: Yes Do you presently have visiting nurse or other home services: No Alcohol intake: former Comment: COUNTS CORRECT Patient Tobacco Use Status: Former Tobacco user Years Smoked: stopped 48 years old e-Cigarette/Vaping Use: Never Used Second Hand Smoke Exposure: Yes Advance Directives Date on File: 01/18/24 service: No Current occupational status: retired Cognitive needs: Yes Hearing needs: No Vision needs: Yes (Glasses) Review of Systems Const All systems reviewed & are unremarkable except as noted in HPI and below Physical Exam Const General: no acute distress Nutritional Appearance: well nourished Orientation/consciousness: patient oriented x3 Chest Other: Right breast: No skin change, nipple discharge, nipple retraction, palpable mass, or enlarged lymph nodes Left breast: Well-healed incision in the lower quadrant with scar retraction and downward facing nipple. No palpable mass, new skin change, or enlarged lymph nodes appreciated. No nipple discharge. Resp Effort & Inspection: normal respiratory effort, no audible wheezes, no cough and no respiratory distress GI Inspection: Yes normal to inspection Neuro General: patient oriented x3 Extrem General: Yes no pedal edema Assessment & Plan Assessment & Plan (1) Breast cancer, left: Comment: Novemberreast, 6 o'clock, biopsy: Invasive ductal carcinoma, MSBR grade 2, left breast lumpectomy Code(s): C50.912 - Malignant neoplasm of unspecified site of left female breast Category: Surgical Plan 75-year-old female patient returning 1.5 years following left breast lumpectomy and sentinel node biopsy for invasive ductal carcinoma with DCIS left breast on 02/02/2024. She is scheduled for a follow-up mammogram on 01/23/2026 and returned for follow-up breast examination in approximately 6 months. She is welcome to call sooner for any new concerns. She will continue to follow up with Dr. Barbour as well. Coding Level of Care Code Est Pt Level 3 (01870) Complex EM visit Add On G2211 Diagnoses Breast cancer, left C50.912
[2025-09-03 14:32] VITALS: BP 119/59; PULSE 107; BMI 30.6
--- OUTSIDE RECORDS SUMMARY | 2025-09-03 17:25 | XMS_ITS | Clinical Summary ---
Author Organization [facility] Address [address] [place] [address] Care Team Providers Care Retail Wireless Sales Consultant Name Role Phone Rocky Roman MD Primary Care Provider [phone] Allergies Active Allergy Reactions Criticality Noted Date [...] drink = 0.6 oz pur e alcohol) [facility] [employer] Answer Date Recorded In the past 12 months has th e [employer], gas, oil, or water [employer] threatened to shut off services in your [...] place to sleep or slept in a half-way (including now)? No 04/11/2024 Comments Unknown Sex [...] - 1-dose 75+ series) 02/02/2023 Influenza Vaccine 06/28/2025 08/29/2018 COVID-19 Vaccine ( - 2023-2 5 season) 2025 Hepatitis B Vaccines Aged Out No long er eligible based on patient's age to complete this topic Insurance MEDICARE PART A & B [facility] SUPPLEMENT ONLY TRINI ESTRADA [id number] MEDICARE PART A & B Advance Directives * Full Code (Latest Code Status on File) Date Activated Date Inactivated Comments 04/10/2024 10:10 PM * Full Code Date Activated Date Inactivated Comments 02/10/2024 10:30 AM 04/10/2024 6:16 PM * Full Code Date Activated Date Inactivated Comments 02/10/2024 8:39 AM 02/10/2024 10:30 AM Care Teams Retail Wireless Sales Consultant Relationship Specialty Start Date End Date Rocky Roman MD [address] [place] [address] [place] [address] PCP - General Internal Medicine 02/10/24
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
--- OUTSIDE RECORDS SUMMARY | 2025-09-03 17:26 | XMS_ITS | Patient Health Record ---
[facility] Address [address] [place] [address] Care Team Providers Care Industrial Education Instructor Name Role Phone Rocky Roman Primary Care Provider Dianna Johnson Unavailable [phone] Allergies Allergen (clinical drug ingredient) Drug/Non Drug [...] primary osteoarthritis of the ankle and/or foot (853210827) Primary osteoarthritis, right ankle and foot (M19.071) Active confirmed Problem Non-pressure chronic ulcer of other part of right foot limited to breakdown of skin (L97.511) Active confirmed Problem Acquired hammer toe of right foot (3534760527776024 ) Other hammer toe(s) (acquired), right foot (M20.41) Active confirmed Problem Acquired hammer toe of left foot (5630393332587639 ) Other hammer toe(s) (acquired), left foot (M20.42) Active confirmed Problem Polyneuropathy due to type 2 diabetes mellitus (013463622) Type 2 diabetes mellitus with diabetic polyneuropathy (E11.42) Active confirmed Problem Polyneuropathy due to diabetes mellitus type I (671306717) Type 1 diabetes mellitus with diabetic polyneuropathy (E10.42) Active confirmed Encounters Encounter Location Date Provider Diagnosis [facility] [place] [address] [place] [address] 04/03/2025 Dianna Mancuso Plan Of Treatment Pending Test Test Name Order Date 14500-NFVA SKIN LESIONS, OVER 4 12/03/19 21 61263-VWHR SKIN LESIONS, OVER 4 03/04/20 21 32302-XQZW SKIN LESIONS, OVER 4 06/10/20 21 75462-COLX SKIN LESIONS, OVER 4 10/01/20 21 66820-DVRR SKIN LESIONS, OVER 4 02/12/20 22 00473-[id number] OF HEMATOMA/FLUID 021 Insurance Providers Payer Name Payer Address Payer Phone Subscriber Number Group Number Insured Name Patient Relationship to Insured Coverage Start Date Coverage End Date Medicare [facility] [employer] [address] [place] [address] [id number] Bambi Cox Self - patient is the insured [email or web address] [address] [place] [address] [id number] Bambi Cox Self - patient is [...] Implantes eye 09/2021 Hospitalization History Reason Date(Month/Year) [facility] [place] Pain- test given not blood clot same day 04/2022 [facility] [place] [place] 08/2021 [facility] [place] short[place] breath 2019
--- OUTSIDE RECORDS SUMMARY | 2025-09-03 17:26 | XMS_ITS | Clinical Summary ---
Author Organization [facility] Address [address] [place] [address] Phone Care Team Providers Care Vice President Name Role Phone Unavailable Primary Care Provider [...] It is not the complete legal health record.[facility]
--- OUTSIDE RECORDS SUMMARY | 2025-09-03 17:26 | XMS_ITS | Encounter Summary ---
Author Organization [facility] Address [address] [place] [address] Care Team Providers Care Tube Machine Operator Name Role Phone Kanwal Marsh MD Primary Care Provider Unavailabl e Encounter Details Date Type Department Care Team (Late st Contact Info) Description 01/12/2024 Orders Only [facility] Department of Emergency Services [address] [place] [address] Savanna Valdez DDS [address] [place] [address] Social History Tobacco Use Types Packs/Day Years [...] on filedocumented in this encounter Care Teams Tube Machine Operator Relationship Specialty Start Date End Date Kanwal Marsh MD [address] [place] [address] PCP - General Internal Medicine 01/09/24 documented as of this encounter
--- OUTSIDE RECORDS SUMMARY | 2025-09-03 17:26 | XMS_ITS | Clinical Summary ---
Author Organization [facility] Address [address] [place] [address] Care Team Providers Care Drop Tester Name Role Phone Kanwal Marsh MD Primary Care Provider Unavailabl e Social History Tobacco Use Types Packs/Day Years Used Date Smoking Tobacco: Never Assessed Comments Unknown Sex and Gender Information Value Date Recorded Sex Assigned at Not on file Legal Sex Female 12:01 PM EST Gender Identity Not on file Sexual Orientation Not on file Plan of Treatment Not on file Care Teams Drop Tester Relationship Specialty Start Date End Date Kanwal Marsh MD [address] [place] [address] PCP - General Internal Medicine 01/09/24
--- OUTSIDE RECORDS SUMMARY | 2025-09-03 17:26 | XMS_ITS | Data Portability ---
Author Organization [facility], Main Office Address [address] [facility] [address] [place] [address] Care Team Providers Care Engineering Drafter Name Role Phone MADELEINE HENRIQUEZ 1ST FLOOR [...] By Organization Details Last Modified Time 02/23/2019 [id number] d/c home with meds and services f/u with pcp in 2 weeks f/u with Dr. Freire [email or web address] Not available 02/23/2019 09:49:54 Reason for Referral None Reported. Problems Name Problem SNOMED Code Status Onset Date Resolution Date Notes Provider Name and Address Organization Details Recorded Time Open reduction of fracture with internal fixation Completed 201801/07/2019 [facility] 20:31:22 Hypertens edilia disorder 45192022 Active 2018 Mo Swanson [facility] 9 20:21:42 Type 2 diabetes mellitus 30830134 Active 2018 [facility] 20:22:04 Open reduction of fracture with internal fixation Active 2018 [facility] 20:31:22 Falls 623826841 Active 2018 [facility] 20:31:39 Anxiety 07370847 Active 2018 [facility] 20:37:17 Essential hypertens ion 19006380 Active 2018 Yina Vidal MD [address] , [address], [place], [address], [facility] 9 11:49:48 Hyperlipi ludmila 76706054 Active 2018 Yina Vidal MD [address], [place], [address], [facility] 9 11:50:41 Closed trimalleo lar fracture of right ankle [id number] 57890 Active 2018 Yina Vidal MD [address] [facility], [address], [place], [address], [facility] 9 12:01:53 Problem Notes None recorded. Medical Equipment None Reported. Allergies Allergen ID Allergen Name Allergen Category Reaction Reaction Severity Criticality Documentation Date Start Date Code Code System Note Provider Name and Address Organization Details Recorded Time 71114 bacitraci n medicatio n Not available Not available Not available 01/07/2019 1291 RxNorm Anca Swanson [facility] 9 20:05:22 91700 nickel environme nt Not available Not available Not available 01/07/2019 48220 29 RxNorm Anca Swanson [facility] 9 20:05:31 26471 latex environme nt,medica tion Not available Not available Not available 01/07/2019 76301 91 RxNorm Anca Swanson [facility] 9 20:05:42 Vitals None Recorded Social History Question Answer Notes LastModified by Organizat ion Details LastModified Time Tobacco Smoking Status Former Smoker quit in 1998 Not Available [employer] 09/23/2020 03:13:23 Do You Have An Advance Directive? Yes Full Code [id number] Information not available 09/23/2020 How Much Tobacco Do You Chew? None [id number] Information not available 09/23/2020 Do You Have A Medical Power Of Transplant Rn? Yes [id number] Information not available 09/23/2020 What Was The Date Of Your Most Recent Tobacco Screening? 01/09/2019 [id number] Information not available 09/23/2020 Has Tobacco Cessation Counseling Been Provided? No [id number] Information not available 09/23/2020 Sex: Unknown Functional Status Question Answer Note LastModified by Organizat ion Details LastModified Time What is your level of alcohol consumption? Occasional [id number] Information not available 09/23/2020 Mental Status None recorded. Family History Nothing Reported. Medical History No medical history recorded. Gynecological HistoryNo gynecological history recorded. Obstetrics History GPAL:G 0 P 0 0 0 0 Past Encounters Encounter ID Performer Location Encounter Start Date Encounter Closed Date Diagnosis/Indication Diagnosis SNOMED-CT Code Diagnosis ICD10 Code Diagnosis IMO Codes Diagnosis Note [id number] Anca Swanson NP, S MADELEINE HENRIQUEZ [address] [place] [id number] 01/07/2019 20:06:08 01/18/2019 09:32:29 Essential hypertension 75540924 I10 controlled on amlodipine 5mg, coreg vitals stable continue to monitor Hyperlipidemia 00795223 E78.5 cont atorvastat in cardiac/ad a diet Dyspnea 190898697 R06.00 secondary to hypervolem ia, was initiated at hospital will increase lasix for 3 days bmp/mag in morning daily weights, low na diet if dyspnea does not improve will check xray Type 2 ines betes mellitus 19647661 E11.69 continue home meds glimepirid e/januvia/ metformin fs qid, ada/cardia c diet no concentrat ed sweets [place] 386234300 R29.6 s/p fall complicate d by right ankle fracture s/p ORIF non weight bearing right extremity 6 weeks, keep splint clean/dry no showering elevate extremity when in bed f/u ortho 2 weeks fall precaution s pt/ot pain management Anxiety 87170609 F41.9 mood stable [facility], continue duloxetine [id number] MD MADELEINE Felipe [address] [place] [phone] 01/09/2019 10:10:31 01/18/2019 09:39:57 Essential hypertension 48295498 I10 Increased today, possibly due to increased pain or increased CHF. Will continue amlodipine 5 mg and carvedilol 6.25 mg, as well as lasix as above. Monitor and adjust as needed. Hyperlipidemia 42461872 E78.2 Continue atorvastat in 40 mg qd and monitor as outpt. Type 2 ines betes mellitus 98956454 E11.69 BS stable on glimepirid e 4 mg qd, januvia 100 mg qd and metformin 1000 mg BID. Currently only getting fingerstic ks 2x/week, will increase to BID due to immobility . Can d/c if stable. Continue CCD. Monitor HgA1C as outpt. [place] 858638034 R29.6 Will need continued PT/OT after ankle heals to work on balance and gait training to help prevent future falls. Anxiety 69099573 F41.1 With moderate baseline anxiety. Continue lorazepam 1 mg qd prn and duloxetine 60 mg qd. Monitor mood and consult NEG prn. Closed tri malleolar fracture of right ankle [id number] 6036450 S82.851D S/P ORIF, pain well controlled with oxycodone 5 mg q 4 hrs prn. Not on anything for DVT prophylaxi s, discussed with ortho PA and told that they don't usually do AC unless pt. is bedridden. Continue PT/OT for function as tolerated with NWB on right leg. F/U with ortho in 2 weeks. Congestive heart failure 72781806 I50.43 Pt. informs me she has hx of CHF. Had cardiac w/u at [facility] a few months [...] CXR stat today. Will get records from [facility] on previous testing. [id number] MARCEL LIZARRAGA [address] [address] 01/15/2019 11:00:43 01/18/2019 11:54:03 Essential hypertension 49758744 I10 controlled on amlodipine 5mg, coreg vitals stable continue to monitor Hyperlipidemia 47757363 E78.5 cont atorvastat in cardiac/ad a diet Type 2 ines betes mellitus 27865557 E11.69 continue home meds glimepirid e/januvia/ metformin fs qid, ada/cardia c diet no concentrat ed sweets [place] 738717511 R29.6 s/p fall complicate d by right ankle fracture s/p ORIF non weight bearing right extremity 6 weeks, keep splint clean/dry no showering elevate extremity when in bed f/u ortho 2 weeks fall precaution s pt/ot pain management Anxiety 77363136 F41.9 mood stable provide supportive care ativan qhs prn, continue duloxetine Anemia 818747539 D64.9 ? d/t blood loss.hgb stable at 9 range.cont inue to monitor. [id number] M[address]A [address] [address] 01/24/2019 11:01:04 01/31/2019 13:55:43 [place] 552261094 R29.6 s/p fall complicate d by right ankle fracture s/p ORIF non weight bearing right extremity 6 weeks, keep cast clean/dry f/u ortho pt/ot pain controlled Essential hypertension 07379370 I10 controlled on amlodipine 5mg, coreg vitals stable continue to monitor Hyperlipidemia 05461712 E78.5 cont atorvastat in cardiac/ad a diet Type 2 ines betes mellitus 32945524 E11.69 continue home meds glimepirid e/januvia/ metformin fs qid, ada/cardia c diet no concentrat ed sweets Anxiety 36304224 F41.9 mood stable provide supportive care ativan qhs prn, continue duloxetine Anemia 359751409 D64.9 ? d/t blood loss.hgb stable at 9 range.cont inue to monitor. [id number] MARCEL LIZARRAGA MARTINEZ [address] [place] [phone] 01/31/2019 14:58:48 02/05/2019 16:09:48 [place] 356654075 R29.6 s/p fall complicate d by right ankle fracture s/p ORIF non weight bearing right extremity 6 weeks, keep cast clean/dry f/u ortho pt/ot pain controlled Essential hypertension 89061906 I10 controlled on amlodipine 5mg, coreg vitals stable continue to monitor Hyperlipidemia 35574369 E78.5 cont atorvastat in cardiac/ad a diet Type 2 ines betes mellitus 75535076 E11.69 continue home meds glimepirid e/januvia/ metformin ada/cardia c diet Anxiety 82257405 F41.9 mood stable provide supportive care ativan qhs prn, continue duloxetine Anemia 408177443 D64.9 ? d/t blood loss.hgb stable at 9 range.cont inue to monitor. [id number] MARCEL LIZARRAGA [address] [facility] [address] 02/06/2019 12:16:47 02/09/2019 15:45:58 [place] 440091412 R29.6 s/p fall complicate d by right [...] remains dependent on wheelchair for safe mobility. [id number] MARCEL LIZARRAGA MARTINEZ [address] [place] [address] [place] [address] 02/08/2019 10:07:17 02/13/2019 15:27:37 [place] 453730813 R29.6 s/p fall complicate d by right ankle fracture s/p ORIF, pain controlled non weight bearing right extremity 6 weeks, keep cast clean/dry f/u ortho Essential hypertension 12028759 I10 controlled on amlodipine 5mg, coreg vitals stable continue to monitor Hyperlipidemia 92950564 E78.5 cont atorvastat in cardiac/ad a diet Type 2 ines betes mellitus 59057523 E11.69 continue home meds glimepirid e/januvia/ metformin ada/cardia c diet Anxiety 93954666 F41.9 mood stable provide supportive care ativan qhs prn, continue duloxetine Anemia 436796008 D64.9 ? d/t blood loss.hgb stable at 9 range.cont inue to monitor. [id number] MARCEL LIZARRAGA [address] [facility] [address] 02/23/2019 09:38:45 02/27/2019 09:10:22 [place] 619246091 R29.6 s/p fall complicate d by right ankle fracture s/p ORIF, pain controlled -WBAT with boot in place. f/u with Dr. Freire in 3 weeks. Essential hypertension 96866069 I10 controlled on amlodipine 5mg, coreg vitals stable continue to monitor Hyperlipidemia 41711927 E78.5 cont atorvastat in cardiac/ad a diet Type 2 ines betes mellitus 36856803 E11.69 continue home meds glimepirid e/januvia/ metformin ada/cardia c diet Anxiety 91430643 F41.9 mood stable provide supportive care ativan qhs prn, continue duloxetine Anemia 133754967 D64.9 hgb improvedco ntinue to monitor. Health Concerns Section Related Observation LastModified by Organization Detai ls LastModified Time None Recorded Concern Status LastModified by Organization Details LastModified Time None Recorded Advance Directives Directive Y: full code Payers Insurance Date Sequence Insurance Name Policy Number Policy Moore Covered Member ID Moore Member ID Guarantor Name 03/20/2019 1 MEDICARE B-[place]: [employer] Bambi Betty Cox [id number] Bambi Cox 03/17/2019 2 [facility] INDEMNITY PLAN - [facility] [id number] Bambi Cox Notes Date Note Type [...] anxiety, depression, arrhythmia, htn, hld Mery meyer [employer] 01/24/2019 17:23:45 01/31/2019 text/html 68yo female who is admitted for rehab after she fell and sustained right trimalleolar fracture of right ankle and s/p successful ORIF of ankle. Has cast in place and is NWB. No c/o today. Anxiety improved. No pain. Doing well with PT/OT. pmhx dm, anxiety, depression, arrhythmia, htn, hld Mery meyer [employer] 01/31/2019 15:02:03 02/06/2019 text/html 68yo female who [...] anxiety, depression, arrhythmia, htn, hld Mery meyer [employer] 02/06/2019 12:20:17 02/08/2019 text/html 68yo female who [...] anxiety, depression, arrhythmia, htn, hld Mery meyer, [employer] 02/08/2019 15:45:36 02/23/2019 text/html 68yo female who [...] anxiety, depression, arrhythmia, htn, hld Mery meyer [employer] 03/20/2019 22:06:17 OBGyn Episode No OBEpisode recorded.
== END 2025-09-03 14:44 | disposition home or self-care (01) ==
LOC: HO.HGS 14:12
PROVIDERS: PCP Internal Medicine; Visit Provider Surgery
DX: C50.912 Malignant neoplasm of unspecified site of left female breast (principal)
CPT/HCPCS: 99213; G2211

== ENCOUNTER → 2025-09-03 14:11 | Outpatient (BNVA) | payer MEDICARE, SELFPAY | PROVIDERS: PCP Internal Medicine; Visit Provider Surgery | DX: C50.912 Malignant neoplasm of unspecified site of left female breast (principal); Z87.891 Personal history of nicotine dependence; Z17.32 Human epidermal growth factor receptor 2 negative status | CPT/HCPCS: 99212 ==

== ENCOUNTER 2025-10-08 14:20 | Outpatient (AMB) | payer MEDICARE, SELFPAY ==
--- OUTSIDE RECORDS SUMMARY | 2025-04-03 05:45 | XMS_ITS ---
Author Organization [facility] Address [address] [place] [address] Care Team Providers Care V Belt Coverer Name Role Phone Rocky Roman Primary Care Provider Dianna Johnson [phone] Medications Medication SIG (Take, Route, Frequency, Duration) Notes Start Date End Date Status Atorvastatin Calcium 40 MG 1 tablet Oral ly Once a day; Duration: 30 day(s) Active Bumetanide Active amLODIPine Besylate 5 MG 1 tablet Orally Once a day; Duration: 30 day(s) Active ARIPiprazole 5 MG 1 tablet Orally Once a day; Duration: 30 day(s) Active Aleve PRN Active iron infusion Active metFORMIN HCl 1000 MG 1 tablet with a me al Orally twice a day Active Metoprolol Succinate 50 MG 1 capsule Ora lly Once a day; Duration: 30 day(s) Active Extra Depth Diabetic Shoes with 3 Pair Custom heat-molded multi-density innersoles for 1 year Dx: Active Extra Depth Diabetic Shoes with 3 Pair Custom heat-molded multi-density innersoles for 1 year Dx: 12/03/2020 Active FLUoxetine HCl 40 MG 1 capsule Orally On ce a day; Duration: 30 day(s) Active Glimepiride 4 MG 1 tablet with breakf ast or the first main meal of the day Orally Once a day; Duration: 30 day(s) Active Encounters Encounter Location Date Provider Diagnosis [facility] [address] [place] [address] 04/03/2025 Dianna Mancuso Plan Of Treatment No Information Progress Notes * Tracee COXB: [birth year] (75 yo F)Acc No.[id number]:04/03/2025 Progress Note Patient: Bambi FINNEGAN Provider: Oscar Mancuso DPM :1950 A ge:75 Y S ex:Female Date:04/03/2025 Address:[address] [place] [address] [facility] Pcp:Rocky Roman Subjective: * Chief Complaints: * * ROS: G eneral/Constitutional: Nausea d enies. V omiting d enies. H lauren Thirst d enies. L oss appetite d enies. C hills d enies. F atigue d enies.?Fever d enies. N ight Sweats d enies. U nexplained weight loss d enies. U nexplained weight gain d enies. H EENTM: Dentures d enies. D izziness d enies. G lasses/contacts a dmits. R etinopathy d enies. B lurred/double vision d enies. T MJ?denies. D ischarge/drainage d enies. I mplants d enies. S ore throat d enies. D ental implants d enies. H rosmery of hearing d enies. D ifficulty chewing/swallowing/speaking d enies. N ose bleeds d enies. S ore mouth d enies. ? R espiratory: On Oxygen d enies. P neumonia/pleurisy d enies.?Bronchitis d enies. E mphysema d enies. C oughing d enies. C ough blood?denies. S hortness of breath d enies. W heezing d enies. C ardiovascular: Pacemaker d enies. M MANAGER PACKAGE d enies. W PW d enies. C HF d enies. H eart attack d enies. S eptal defect d enies. R apid beat d enies. C hest pain d enies. A trial Fib. d enies. M urmur/Palpitations d enies. G astrointestinal: Hemorrhoids d enies. S tomach/Abdominal pain d enies. D ark blood stool d enies. I rritable bowel d enies. C onstipation d enies. D iarrhea d enies. H ematology: Swelling d enies. C lots d enies. V aricose Veins d enies. B ruising d enies. B leeding problem d enies. G enitourinary: Blood urine d enies. F requent/Painfu/urination/bladder control d enies. K idney stones d enies. I nfection (UTI) d enies. N ephropathy d enies. s ex trans dis (STD) d enies. P rostate d enies. M usculoskeletal: Hammertoes d enies. B unions d enies. B ack Pain a dmits. M uscle Cramps/ Resting d enies. M uscle cramps / walking d enies.?Generalized aches and pains a dmits. W eakness d enies. I nteg.: Peter d enies. S cars d enies. C orns/calluses?admits. I ngrown nails d enies. P ainful nails d enies. O pen Sores d enies. R ashes d enies. N eurologic: Difficulty sleeping d enies. B rain disorder d enies. N umbness d enies. B alance trouble d enies. C onfusion d enies. F ainting/blackouts d enies. T ingling d enies. T remors d enies. * Medical History: * Medications: T aking Extra Depth Diabetic Shoes with 3 Pair Custom heat-molded multi-density innersoles for 1 year Dx: , Taking Aleve , Notes to Pharmacist: PRN, Taking [...] multi-density innersoles for 1 year Dx: , Medication List reviewed and reconciled with the patient Objective: * Vitals: Assessment: Plan: * Treatment: * Images: * The named appointment provid er may or may not be the originator of this progress note, and it is not deemed complete until electronically signed by the appointment provider. Sign off status: Pending * Provider: Oscar Mancuso DPM Date: 0 04/03/2025 Generated for Gee jewell/Avni/Vijay on: 12/08/2024 04:00 PM EST
--- NOTE | 2025-10-08 14:30 | A.OFFPC_ITS ---
Vital Signs 10/08/25 14:31 Height 5 ft 5 in Weight 181 lb 2 oz BMI 30.1 BP 112/62 Blood Pressure Location Lt brachial Position Sitting Pulse 100 Pulse Source Pulse Oximeter Temp 97.0 F Temp Source Temporal Artery Scan Pulse Oximetry (%) 96 Oxygen Delivery Method Room Air Intake Visit Reasons: DM Allergies bacitracin (BACITRACIN) Allergy (Intermediate, Verified 10/08/25 14:37) RASH latex (LATEX) Allergy (Intermediate, Verified 10/08/25 14:37) FACIAL SWELLING; RASH nickel (NICKEL) Allergy (Intermediate, Verified 10/08/25 14:37) RASH amlodipine Adverse Reaction (Intermediate, Verified 10/08/25 14:37) leg swelling lisinopril Adverse Reaction (Intermediate, Verified 10/08/25 14:37) Swelling adhesive tape Adverse Reaction (Verified 10/08/25 14:37) Irritable Medication List - Last Reconciled 10/08/25 by Rocky Roman MD albuterol sulfate 90 mcg/actuation (Ventolin HFA) 2 puffs inhalation Q6H PRN atorvastatin 40 mg PO BEDTIME betamethasone dipropionate 0.05% 1 appl topical BID PRN cholecalciferol (vitamin D3) (Vitamin D3) 125 mcg PO DAILY fluoxetine 20 mg PO DAILY 90 days letrozole 2.5 mg PO DAILY lorazepam 1 mg PO BID PRN losartan 25 mg PO DAILY memantine 7 mg PO DAILY 30 days metformin 1,000 mg PO BID tramadol 50 mg PO BID PRN Tobacco use date assessed: 10/08/25 Fall risk assessment: No Falls in past year Last assessed Fall Risk: 10/08/25 Dental Screening Dental Screen Date: 10/08/25 Did you have a dental visit in the last 12 months?: Yes Did you have a dental problem in the last 6 months where you did not have access to dental care?: No Was dental information given to patient?: Patient has dentist [facility] Medical History MDD (major depressive disorder), recurrent episode, moderate Arrhythmia Right leg pain Obesity (BMI 30-39.9) Benign essential hypertension Normal colonoscopy (~06/16/21) Medicare annual wellness visit, initial Breast implant in situ Breast cancer screening by mammogram Cataract Cholelithiasis Pelvic fracture Fatty liver Colon cancer screening Hypercholesterolemia Type 2 diabetes mellitus with hyperglycemia Restrictive lung disease Pulmonary fibrosis Surgical History History of lumpectomy of left breast (02/02/24) Left breast mass History of colonoscopy History of cataract surgery History of surgery on lower extremity H/O left wrist surgery History of ankle surgery Family History Mother Lung cancer Father Respiratory failure Sister Lung disease Brother Respiratory failure Son No problems noted. 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 rn critical care to a significant other at home: Yes Do you presently have visiting nurse or other home services: No Alcohol intake: former Comment: COUNTS CORRECT Patient Tobacco Use Status: Former Tobacco user Years Smoked: stopped 48 years old e-Cigarette/Vaping Use: Never Used Second Hand Smoke Exposure: Yes Advance Directives Date on File: 01/18/24 service: No Current occupational status: retired Cognitive needs: Yes Hearing needs: No Vision needs: Yes (Glasses) Questionnaire PHQ-9 Over the last 2 weeks, how often have you been bothered by any of the following problems? 1. Little interest or pleasure in doing things: not at all 2. Feeling down, depressed, or hopeless: nearly every day 3. Trouble falling or staying asleep, or sleeping too much: nearly every day 4. Feeling tired or having little energy: nearly every day 5. Poor appetite or overeating: not at all 6. Feeling bad about yourself - or that you are a failure or have let yourself or your family down: nearly every day 7. Trouble concentrating on things, such as reading the newspaper or watching television: nearly every day 8. Moving or speaking so slowly that other people could have noticed. Or the opposite - being so fidgety or restless that you have been moving around a lot more than usual: not at all 9. Thoughts that you would be better off or of hurting yourself in some way: several days Total score: 16 Source: Developed by Drs. Angus Roe, Kelly Cade, Robe Hawley and colleagues, with an educational juliana from [employer]. Thrive Questionnaire Date Thrive assessed: 12/03/24 I am a: Patient What is your living situation today?: I have a steady place to live Within the past 12 months, did the food you bought not last and you didn't have the money to get more?: Never true Within the past 12 months, did you worry whether your food would run out before you got money to buy more?: Sometimes True Do you have trouble paying for medicines?: No Do you have trouble getting transportation to medical appointments?: No Do you have trouble paying your heating and electricity bill?: No Do you have trouble taking care of your child, family member or friend?: No Do you have trouble with day-to-day activities such as bathing, preparing meals, shopping, managing finances, etc.?: No Are you currently unemployed and looking for a job?: No Are you interested in more education?: No Please select the resources that you would like help with: Daily support Currently or been in a relationship where the following occur: No concerns reported THRIVE Score: 1 AUDIT C Alcohol Use Questionnaire (AUDIT-C) 1. How often do you have a drink containing alcohol?: Monthly or less 2. How many drinks containing alcohol do you have on a typical day when you are drinking?: 1 or 2 3. How often do you have six or more drinks on one occasion?: Never Total Score: 1 PARTHA-7 AMB Questionnaire PARTHA-7 Date PARTHA - 7 assessed: 12/03/24 Feeling nervous, anxious, or on edge: 1 = Several days Not being able to stop or control worryin = Several days Worrying too much about different things: 2 = More than half the days Trouble relaxin = Several days Being so restless that it is hard to sit still: 1 = Several days Becoming easily annoyed or irritable: 1 = Several days Feeling afraid as if something awful might happen: 1 = Several days Total PARTHA-7 score (0-4 normal; 5-9 mild; 10-14 moderate; 15-21 severe): 8 Source: Developed by Drs. Angus Roe, Kelly Cade, Robe Hawley and colleagues, with an educational juliana from [employer]. Physical exam (Primary Care) Vital Signs: Last Vital Signs Temp 97.0 F 10/08/25 14:31 Pulse 100 10/08/25 14:31 BP 112/62 10/08/25 14:31 Pulse Ox 96 10/08/25 14:31 Oxygen Delivery Method Room Air 10/08/25 14:31 BMI result Body Mass Index 30.1 Tobacco/Smoking Status: Tobacco use Status Tobacco use date assessed 10/08/25 10/08/25 14:39 Patient Tobacco Use Status Former Tobacco user 10/08/25 14:37 e-Cigarette/Vaping Use Never Used 10/08/25 14:37 PHQ-9: PHQ-9 Score PHQ-9: Total score 16 10/08/25 15:11 Thrive Assessment: Date of Thrive Assessment Date Thrive assessed 12/03/24 10/08/25 14:37 Currently or been in a relationship where the following occur: No concerns reported Const General: alert; No acute distress Eyes Conjunctivae: conjunctivae normal Resp Auscultation: clear to auscultation bilaterally Cardio Rate: regular rate Rhythm: regular rhythm GI Inspection: Yes normal to inspection Extrem General: Yes normal to inspection and No edema Office Procedures Flu Questionnaire Does the patient have a severe egg allergy?: No Does the patient have severe life threatening allergies?: No Does the patient have a fever or illness today?: No Has the patient ever had Guillain-[place] Syndrome?: No Has the patient ever had any past reaction to a flu shot?: No Results AMB Hemoglobin A1c AMB Hemoglobin A1c 6.1 % Last Edit by Za Rea CMA on 10/08/25 14:41 Immunizations Fluarix [id number] (PF) 45 mcg (15 mcg x 3)/0.5 mL IM syringe Performing Provider: Rocky Roman MD [facility] Administered by: Za Rea CMA on 10/08/25 15:11 Dose Route Admin Location Dispensed Lot Number Expiration Date [facility] Slide Forming Machine Tender 0.5 mL IM Right Deltoid 0.5 mL [id number] 05/27/26 [id number] [employer] Red MapacheKLINE VIS Given Date VIS Provided VIS Publication Date 10/08/25 Single Vaccine 24 Eligibility Eligibility Date Funding Source Not [facility] Eligible 10/08/25 Private Results Reviewed Results Reviewed: Laboratory Last Values Hgb A1c (Clinic) 6.1 % (4.0-6.0) H 10/08/25 14:39 Coding Level of Care Code Est Pt Level 4 (70140) Complex EM visit Add On G2211 Diagnoses Type 2 diabetes mellitus with hyperglycemia, without long-term current use of insulin E11.65 Diabetes mellitus care home insulin use: without intermediate school teacher use Benign essential hypertension I10 Hypercholesterolemia E78.00 Generalized anxiety disorder F41.1 Fatty liver K76.0 Breast cancer, left C50.912 Cognitive dysfunction F09 COPD (chronic obstructive pulmonary disease) J44.9 Assessment & Plan Assessment & Plan (1) Type 2 diabetes mellitus with hyperglycemia: Comment: Dr. Wiggins Code(s): E11.65 - Type 2 diabetes mellitus with hyperglycemia Category: Medical Qualifiers: Diabetes mellitus intermediate school teacher insulin use: without intermediate school teacher use Qualified Code(s): E11.65 - Type 2 diabetes mellitus with hyperglycemia Plan: Decrease the amount of carbohydrate intake, pasta, bread, rice and potatoes are all sugar and that is aside from all the sweet stuff, remember that fruits are good but they are Sweet also. Hemoglobin A1c goal of less than 7.0 presently on metformin a 1000 mg twice a day (2) Benign essential hypertension: Code(s): I10 - Essential (primary) hypertension Category: Medical Plan: Continue with blood pressure medication. Decrease salt intake and exercise on losartan 25 mg once a day (3) Hypercholesterolemia: Code(s): E78.00 - Pure hypercholesterolemia, unspecified Category: Medical Plan: Avoid fried foods, chicken skin, eggs, butter margarine, pastries and meat. Be it pork or beef they have a lot of cholesterol LDL goal of less than 100 and triglyceride of less than 150 on atorvastatin 40 mg once a day (4) Generalized anxiety disorder: Code(s): F41.1 - Generalized anxiety disorder Category: Medical Plan: Continue with fluoxetine and lorazepam as needed (5) Fatty liver: Code(s): K76.0 - Fatty (change of) liver, not elsewhere classified Category: Medical Plan: Low-fat diet (6) Breast cancer, left: Comment: Novemberreast, 6 o'clock, biopsy: Invasive ductal carcinoma, MSBR grade 2, left breast lumpectomy Code(s): C50.912 - Malignant neoplasm of unspecified site of left female breast Category: Surgical Plan: Mammogram up-to-date continue follow-up with Hematology-Oncology (7) Cognitive dysfunction: Comment: MMSE 26. Code(s): F09 - Unspecified mental disorder due to known physiological condition Category: Medical Plan: Discussed about problems of cognitive impairment and the need for further workup (8) COPD (chronic obstructive pulmonary disease): Code(s): J44.9 - Chronic obstructive pulmonary disease, unspecified Category: Medical Plan: Patient on albuterol inhaler as needed Plan History of Present Illness The patient is a 75-year-old obese female presenting for a follow-up of multiple chronic medical problems. Her medical history is significant for pulmonary fibrosis diagnosed in 2019, diabetes, menopause, controlled hypercholesterolemia, hypertension, chronic liver disease, COPD, and generalized anxiety disorder. She has a history of left breast cancer diagnosed in November 2023 and osteopenia confirmed by a bone density scan in January 2024. The patient reports that her pre-existing cognitive impairment is worsening, with increased forgetfulness. This has led to concerns about her ability to drive and manage her medications. She has a neurology follow-up scheduled for January. She reports experiencing shortness of breath more frequently, especially with minimal exertion like cleaning, which now requires her to sit down often. She owns an albuterol inhaler for as-needed use, but the current one is old and . She has been using it a couple of times a day and has used it twice in a short period during activity. Recent labs from August 04 showed mild anemia with a hemoglobin of 11.1 and hematocrit of 34.2, normal electrolytes, and a creatinine of 1.15. Her last hemoglobin A1c in May was 6.5%, noted as good control, with a more recent value of 6.1. A lipid panel from June of the previous year was within goal. The patient missed her most recent orders for yearly blood work as she was out of town. Current medications include metformin 1000 mg twice daily, losartan 25 mg daily, atorvastatin 40 mg daily, fluoxetine, and lorazepam as needed. The patient has experienced unintentional weight loss from 191 lbs in January to 181 lbs at this visit, despite reporting a good appetite and regular meals. Health Maintenance An influenza vaccine was administered during the visit. Orders were placed for annual fasting lab work, including a CBC, CMP, and lipid panel, with instructions to fast for 8 hours prior. The patient was advised to schedule her annual ophthalmology exam, which is overdue. She will continue to follow up with hematology/oncology. Social History - Functional Status: The patient reports declining functional status, experiencing increased shortness of breath with simple activities like cleaning, requiring frequent rest. - Living Situation: The patient lives at home and has expressed a desire for assistance with housekeeping. - Medication Management: Family assists with medication administration due to the patient's cognitive impairment. - Driving: The patient has been advised to stop driving due to memory issues and safety concerns, and she has agreed to this. - Diet: The patient reports a good appetite and eats three meals per day. - Weight Management: She has experienced unintentional weight loss from 191 lbs to 181 lbs over several months. Review of Systems - Constitutional: Reports unintentional weight loss. - Respiratory: Reports worsening dyspnea on exertion. - Neurological: Reports worsening memory and forgetfulness. - Neurological: Reports a new onset of intermittent pain inside her head in the last couple of days. - General: Reports sleeping well. Physical Exam - General: The patient is an obese 75-year-old female. - Vitals: Weight is 181 lbs. - Respiratory: Auscultation of the lungs reveals crackles, which are attributed to known pulmonary scarring. Results - Labs (August 04): - CBC: Mild anemia with hemoglobin 11.1 g/dL and hematocrit 34.2%. - CMP: Normal electrolytes, creatinine 1.15 mg/dL. - Liver Function Tests: Fine. - Labs (May): - Hemoglobin A1c: 6.5%. - Labs (Recent): - Hemoglobin A1c: 6.1%. - Labs (June of prior year): - Lipid Panel: LDL reported as 79 mg/dL. - Imaging: - Bone Density (January 2024): Revealed osteopenia. - Chest X-ray (July): Showed scarring. Plan Patient was informed and verbally consented to the use of an ambient scribe for clinic note documentation during this visit. 1. Cognitive Impairment The patient's cognitive impairment appears to be worsening, raising concerns about safety, particularly with driving and medication management. She has also reported new-onset pain inside her head. A CT scan of the head has been ordered to evaluate for underlying pathology. Driving cessation was strongly advised and agreed upon. The potential for more formal neuropsychiatric testing was discussed, but this will be deferred pending her neurology follow-up in January. A referral for home help services will be explored to provide assistance with daily activities. 2. Chronic Obstructive Pulmonary Disease (Copd) The patient reports increased frequency of dyspnea on exertion, requiring use of her rescue albuterol inhaler a couple of times per day, suggesting suboptimal control of her COPD. The prescription for the albuterol inhaler will be refilled. The patient was counseled on the potential need for a daily controller inhaler if her use of the rescue inhaler exceeds 2-3 times per week. The mechanism of a controller inhaler, which is taken regularly twice a day to prevent exacerbations, was explained, including the need to rinse her mouth after use. We will continue to monitor her symptoms and inhaler usage to determine if adding a controller is necessary. 3. Diabetes Mellitus The patient's diabetes is well-controlled with a hemoglobin A1c of 6.1%, which is within the goal of less than 7.0%. She will continue her current regimen of metformin 1000 mg twice a day. 4. Hypercholesterolemia Her cholesterol is well-managed with a goal LDL of less than 100 mg/dL. She will continue taking atorvastatin 40 mg once a day. 5. Hypertension Continue losartan 25 mg once a day for management of hypertension. 6. Generalized Anxiety Disorder The patient will continue to take fluoxetine and lorazepam as needed for anxiety. Discussion Notes I discussed my concerns regarding the patient's worsening cognitive impairment and the associated safety risks, particularly driving. I strongly advised her to cease driving, and she agreed. In light of her new symptom of head pain, I explained the rationale for ordering a CT scan of the head, and she provided consent. We talked about her increased shortness of breath and frequent use of her albuterol inhaler. I explained that if this continues, we would need to add a daily controller inhaler to better manage her COPD and prevent attacks. I detailed the difference between the two types of inhalers and stressed the importance of rinsing her mouth after using a controller inhaler. I reviewed the need for overdue annual lab work and instructed her that it requires an 8-hour fast. We also discussed arranging for home help services to assist with housekeeping, and I explained that an agency would call to assess her needs and determine insurance coverage. Finally, I advised her to schedule her overdue yearly eye exam and offered the influenza vaccine, which she accepted and received during the visit. Patient Instructions - Please stop driving your car for your safety due to your memory problems. - Use your rescue Albuterol inhaler any time you feel short of breath. - Please let us know if you are using your rescue inhaler more than twice a week, as we may need to add a different daily inhaler. - Please go to the lab for your yearly blood tests. - Do not eat or drink anything (except water) for 8 hours before your blood test. - We have ordered a CT scan of your head. - You will need to wait for a phone call to schedule this appointment. - Continue taking your medications for diabetes, high blood pressure, cholesterol, and anxiety as prescribed. - Please call your eye doctor to schedule your yearly eye exam. - Someone will call you to discuss getting help at home. - You received your flu shot today. Orders: Orders CT head/brain wo IV con Today R51.9 - Headache, unspecified Influenza [id number] Immunization Today Z23 - Encounter for immunization AMB Hemoglobin A1c Today Z13.9 - Encounter for screening, unspecified Medications: Refilled albuterol sulfate 90 mcg/actuation (Ventolin HFA) 2 puffs inhalation Q6H PRN 8.5 grams 0RF shortness of breath or wheezing J44.9 - Chronic obstructive pulmonary disease, unspecified
[2025-10-08 14:31] VITALS: BP 112/62; PULSE 100; TEMP 36.1; O2SAT 96; BMI 30.1
--- OUTSIDE RECORDS SUMMARY | 2025-10-08 16:00 | XMS_ITS | Clinical Summary ---
Author Organization [facility] Address [address] [place] [address] Care Team Providers Care Women Specialist Name Role Phone Rocky Roman MD Primary Care Provider [phone] Allergies Active Allergy Reactions Criticality Noted Date [...] drink = 0.6 oz pur e alcohol) [facility] [employer] Answer Date Recorded In the past 12 months has th e [employer], gas, oil, or water [employer] threatened to shut off services in your [...] place to sleep or slept in a fdc (including now)? No 04/11/2024 Comments Unknown Sex [...] Planning 1950 Hepatitis C Virus Screening 1950 COVID-19 Vaccine (#1) 02/02/1953 DTaP/Tdap/Td Vaccines (1 - Tdap) 02/02/1967 Pneumococcal Vaccines 50+ (1 of 1 - PCV) 02/02/1998 Zoster (Shingles) Vaccine (1 of 2) 02/02/1998 DXA Bone Density (Females,Ag es 65 and older) 02/02/2013 RSV Vaccine 50 years and old er and Patients (1 - 1-dose 75+ series) 02/02/2023 Influenza Vaccine 06/28/2025 08/29/2018 Hepatitis B Vaccines Aged Out No long er eligible based on patient's age to complete this topic Insurance MEDICARE PART A & B [facility] SUPPLEMENT ONLY [place]STR[place] [id number] MEDICARE PART A & B Advance Directives * Full Code (Latest Code Status on File) Date Activated Date Inactivated Comments 04/10/2024 10:10 PM * Full Code Date Activated Date Inactivated Comments 02/10/2024 10:30 AM 04/10/2024 6:16 PM * Full Code Date Activated Date Inactivated Comments 02/10/2024 8:39 AM 02/10/2024 10:30 AM Care Teams Women Specialist Relationship Specialty Start Date End Date Rocky Roman MD [address] [place] [address] [place] [address] PCP - General Internal Medicine 02/10/24
--- OUTSIDE RECORDS SUMMARY | 2025-10-08 16:00 | XMS_ITS | Patient Health Record ---
[facility] Address [address] [facility] [address] Care Team Providers Care Assistant Kitchen Manager Name Role Phone Rocky Roman Primary Care Provider Dianna Johnson Unavailable [phone] Allergies Allergen (clinical drug ingredient) Drug/Non Drug [...] primary osteoarthritis of the ankle and/or foot (632335077) Primary osteoarthritis, right ankle and foot (M19.071) Active confirmed Problem Non-pressure chronic ulcer of other part of right foot limited to breakdown of skin (L97.511) Active confirmed Problem Acquired hammer toe of right foot (8495016340734678 ) Other hammer toe(s) (acquired), right foot (M20.41) Active confirmed Problem Acquired hammer toe of left foot (8892612516689157 ) Other hammer toe(s) (acquired), left foot (M20.42) Active confirmed Problem Polyneuropathy due to type 2 diabetes mellitus (884685035) Type 2 diabetes mellitus with diabetic polyneuropathy (E11.42) Active confirmed Problem Polyneuropathy due to diabetes mellitus type I (248106662) Type 1 diabetes mellitus with diabetic polyneuropathy (E10.42) Active confirmed Encounters Encounter Location Date Provider Diagnosis [facility] [address] [place] [address] 04/03/2025 Dianna Mancuso Plan Of Treatment Pending Test Test Name Order Date [id number] SKIN LESIONS, OVER 4 12/03/19 21 [id number] SKIN LESIONS, OVER 4 03/04/20 21 [id number] SKIN LESIONS, OVER 4 06/10/20 21 [id number] SKIN LESIONS, OVER 4 10/01/20 21 [id number] SKIN LESIONS, OVER 4 02/12/20 22 [id number] OF HEMATOMA/FLUID 021 Insurance Providers Payer Name Payer Address Payer Phone Subscriber Number Group Number Insured Name Patient Relationship to Insured Coverage Start Date Coverage End Date Medicare [facility] [employer] [address] [place] [address] [id number] Bambi Cox Self - patient is the insured [employer] ([employer]) [address] [place] [address] [id number] Bambi Cox Self - patient is [...] Implantes eye 09/2021 Hospitalization History Reason Date(Month/Year) [facility]- R leg Pain- test given not blood clot same day 04/2022 [facility]- Back Pain 08/2021 [facility] shortness of breath 2019
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
--- OUTSIDE RECORDS SUMMARY | 2025-10-08 16:00 | XMS_ITS | Encounter Summary ---
Author Organization [facility] Address [address] [place] [address] Care Team Providers Care Buyer Liaison Name Role Phone Kanwal Marsh MD Primary Care Provider Unavailabl e Encounter Details Date Type Department Care Team (Late st Contact Info) Description 01/12/2024 Orders Only [facility] Department of Emergency Services [address] [place] [address] Savanna Valdez DDS [address] [place] [address] Social History Tobacco Use Types Packs/Day Years [...] on filedocumented in this encounter Care Teams Buyer Liaison Relationship Specialty Start Date End Date Kanwal Marsh MD [address] [place] [address] PCP - General Internal Medicine 01/09/24 documented as of this encounter
--- OUTSIDE RECORDS SUMMARY | 2025-10-08 16:00 | XMS_ITS | Clinical Summary ---
Author Organization [facility] Address [address] [place] [address] Phone Care Team Providers Care Ammunition Assembly Laborer Name Role Phone Unavailable Primary Care Provider [...] It is not the complete legal health record.[facility]
--- OUTSIDE RECORDS SUMMARY | 2025-10-08 16:00 | XMS_ITS | Clinical Summary ---
Author Organization [facility] Address [address] [place] [address] Care Team Providers Care Supervisor Machine Setter Name Role Phone Kanwal Marsh MD Primary Care Provider Unavailabl e Social History Tobacco Use Types Packs/Day Years Used Date Smoking Tobacco: Never Assessed Comments Unknown Sex and Gender Information Value Date Recorded Sex Assigned at Not on file Legal Sex Female 12:01 PM EST Gender Identity Not on file Sexual Orientation Not on file Plan of Treatment Not on file Care Teams Supervisor Machine Setter Relationship Specialty Start Date End Date Kanwal Marsh MD [address] [place] [address] PCP - General Internal Medicine 01/09/24
--- OUTSIDE RECORDS SUMMARY | 2025-10-08 16:00 | XMS_ITS | Data Portability ---
Author Organization [facility], Main Office Address [address] [facility] [address] [place] [address] Care Team Providers Care International Account Executive Name Role Phone MADELEINE HENRIQUEZ 1ST FLOOR OTHER [phone] Assessment No assessment recorded. Plan of Treatment [...] By Organization Details Last Modified Time 02/23/2019 [id number] d/c home with meds and services f/u with pcp in 2 weeks f/u with Dr. Freire [email or web address] Not available 02/23/2019 09:49:54 Reason for Referral None Reported. Problems Name Problem SNOMED Code Status Onset Date Resolution Date Notes Provider Name and Address Organization Details Recorded Time Open reduction of fracture with internal fixation Completed 201801/07/2019 [facility] 20:[facility]:22 Hypertens edilia disorder 98768514 Active 2018 Al Swanson [facility] 9 20:21:42 Type 2 diabetes mellitus 66705551 Active 2018 [facility] 9 20:22:04 Open reduction of fracture with internal fixation Active 2018 [facility] 9 20:31:22 Falls 089496957 Active 2018 [facility] 9 20:31:39 Anxiety 41091330 Active 2018 [facility] 9 20:37:17 Essential hypertens ion 60636082 Active 2018 Yina Vidal MD [address], [place], [address], [facility] 9 11:49:48 Hyperlipi ludmila 37944189 Active 2018 Yina Vidal MD [address], [place], [address], [facility] 9 11:50:41 Closed trimalleo lar fracture of right ankle 355440949506 74191 Active 2018 Yina Vidal MD [address] [facility], [address], [place], [address], [facility] 9 12:01:53 Problem Notes None recorded. Medical Equipment None Reported. Allergies Allergen ID Allergen Name Allergen Category Reaction Reaction Severity Criticality Documentation Date Start Date Code Code System Note Provider Name and Address Organization Details Recorded Time 26001 bacitraci n medicatio n Not available Not available Not available 01/07/2019 1291 RxNorm Anca Swanson [facility] 9 20:05:22 05624 nickel environme nt Not available Not available Not available 01/07/2019 73246 29 RxNorm Anca Swanson [facility] 9 20:05:31 86168 latex environme nt,medica tion Not available Not available Not available 01/07/2019 23601 91 RxNorm Anca Swanson [facility] 9 20:05:42 Vitals None Recorded Social History Question Answer Notes LastModified by Organizat ion Details LastModified Time Tobacco Smoking Status Former Smoker quit in 1998 Not Available [employer] 09/23/2020 03:13:23 Do You Have An Advance Directive? Yes Full Code [id number] Information not available 09/23/2020 How Much Tobacco Do You Chew? None [id number] Information not available 09/23/2020 Do You Have A Medical Power Of Drum Worker? Yes [id number] Information not available 09/23/2020 What Was The Date Of Your Most Recent Tobacco Screening? 01/09/2019 [id number] Information not available 09/23/2020 Has Tobacco Cessation Counseling Been Provided? No [id number] Information not available 09/23/2020 Sex: Unknown Functional Status Question Answer Note LastModified by Organizat ion Details LastModified Time What is your level of alcohol consumption? Occasional [id number] Information not available 09/23/2020 Mental Status None recorded. Family History Nothing Reported. Medical History No medical history recorded. Gynecological HistoryNo gynecological history recorded. Obstetrics History GPAL:G 0 P 0 0 0 0 Past Encounters Encounter ID Performer Location Encounter Start Date Encounter Closed Date Diagnosis/Indication Diagnosis SNOMED-CT Code Diagnosis ICD10 Code Diagnosis IMO Codes Diagnosis Note [id number] Anca Swanson NP, S MADELEINE HENRIQUEZ [address] [place] [phone] 01/07/2019 20:06:08 01/18/2019 09:32:29 Essential hypertension 68434220 I10 controlled on amlodipine 5mg, coreg vitals stable continue to monitor Hyperlipidemia 76122251 E78.5 cont atorvastat in cardiac/ad a diet Dyspnea 480021075 R06.00 secondary to hypervolem ia, was initiated at hospital will increase lasix for 3 days bmp/mag in morning daily weights, low na diet if dyspnea does not improve will check xray Type 2 ines betes mellitus 17529660 E11.69 continue home meds glimepirid e/januvia/ metformin fs qid, ada/cardia c diet no concentrat ed sweets Falls 607519579 R29.6 s/p fall complicate d by right ankle fracture s/p ORIF non weight bearing right extremity 6 weeks, keep splint clean/dry no showering elevate extremity when in bed f/u ortho 2 weeks fall precaution s pt/ot pain management Anxiety 28200471 F41.9 mood stable [facility] continue duloxetine [id number] MD MADELEINE Felipe [address] [place] [phone] 01/09/2019 10:10:31 01/18/2019 09:39:57 Essential hypertension 41827862 I10 Increased today, possibly due to increased pain or increased CHF. Will continue amlodipine 5 mg and carvedilol 6.25 mg, as well as lasix as above. Monitor and adjust as needed. Hyperlipidemia 44657858 E78.2 Continue atorvastat in 40 mg qd and monitor as outpt. Type 2 ines betes mellitus 69162386 E11.69 BS stable on glimepirid e 4 mg qd, januvia 100 mg qd and metformin 1000 mg BID. Currently only getting fingerstic ks 2x/week, will increase to BID due to immobility . Can d/c if stable. Continue CCD. Monitor HgA1C as outpt. Falls 531462046 R29.6 Will need continued PT/OT after ankle heals to work on balance and gait training to help prevent future falls. Anxiety 44592818 F41.1 With moderate baseline anxiety. Continue lorazepam 1 mg qd prn and duloxetine 60 mg qd. Monitor mood and consult NEG prn. Closed tri malleolar fracture of right ankle 0366056013 9779612 S82.851D S/P ORIF, pain well controlled with oxycodone 5 mg q 4 hrs prn. Not on anything for DVT prophylaxi s, discussed with ortho PA and told that they don't usually do AC unless pt. is bedridden. Continue PT/OT for function as tolerated with NWB on right leg. F/U with ortho in 2 weeks. Congestive heart failure 63643494 I50.43 Pt. informs me she has hx of CHF. Had cardiac w/u at [facility] a few months ago . Including echo and possible a medication stimulated stress test. Had been off lasix for a month prior to admission, because sxs had improved. Had lasix increased on admission here, from 20 mg qd to 40 mg BID for 3 days. Labs stable on this dose. SOB worsening. WIll get CXR stat today. Will get records from [facility] on previous testing. [id number] MARCEL LIZARRAGA [address] [place] [address] 01/15/2019 11:00:43 01/18/2019 11:54:03 Essential hypertension 25001215 I10 controlled on amlodipine 5mg, coreg vitals stable continue to monitor Hyperlipidemia 67788469 E78.5 cont atorvastat in cardiac/ad a diet Type 2 ines betes mellitus 52510663 E11.69 continue home meds glimepirid e/januvia/ metformin fs qid, ada/cardia c diet no concentrat ed sweets [place] 321587033 R29.6 s/p fall complicate d by right ankle fracture s/p ORIF non weight bearing right extremity 6 weeks, keep splint clean/dry no showering elevate extremity when in bed f/u ortho 2 weeks fall precaution s pt/ot pain management Anxiety 16109583 F41.9 mood stable provide supportive care ativan qhs prn, continue duloxetine Anemia 416995560 D64.9 ? d/t blood loss.hgb stable at 9 range.cont inue to monitor. [id number] [address] [address] 01/24/2019 11:01:04 01/31/2019 13:55:43 Falls 801284468 R29.6 s/p fall complicate d by right ankle fracture s/p ORIF non weight bearing right extremity 6 weeks, keep cast clean/dry f/u ortho pt/ot pain controlled Essential hypertension 75821953 I10 controlled on amlodipine 5mg, coreg vitals stable continue to monitor Hyperlipidemia 69896316 E78.5 cont atorvastat in cardiac/ad a diet Type 2 ines betes mellitus 97402775 E11.69 continue home meds glimepirid e/januvia/ metformin fs qid, ada/cardia c diet no concentrat ed sweets Anxiety 57613240 F41.9 mood stable provide supportive care ativan qhs prn, continue duloxetine Anemia 956338356 D64.9 ? d/t blood loss.hgb stable at 9 range.cont inue to monitor. [id number] MARCEL LIZARRAGA MARTINEZ [address] [place] [phone] 01/31/2019 14:58:48 02/05/2019 16:09:48 Falls 532365847 R29.6 s/p fall complicate d by right ankle fracture s/p ORIF non weight bearing right extremity 6 weeks, keep cast clean/dry f/u ortho pt/ot pain controlled Essential hypertension 24053164 I10 controlled on amlodipine 5mg, coreg vitals stable continue to monitor Hyperlipidemia 82810005 E78.5 cont atorvastat in cardiac/ad a diet Type 2 ines betes mellitus 26626640 E11.69 continue home meds glimepirid e/januvia/ metformin ada/cardia c diet Anxiety 18428398 F41.9 mood stable provide supportive care ativan qhs prn, continue duloxetine Anemia 001119586 D64.9 ? d/t blood loss.hgb stable at 9 range.cont inue to monitor. [id number] MARCEL LIZARRAGA [facility] [facility] [place] [address] 02/06/2019 12:16:47 02/09/2019 15:45:58 Falls 909339894 R29.6 s/p fall complicate d by right [...] remains dependent on wheelchair for safe mobility. [id number] MARCEL LIZARRAAG MARTINEZ [address] [place] [address] [place] [address] 02/08/2019 10:07:17 02/13/2019 15:27:37 Falls 296540336 R29.6 s/p fall complicate d by right ankle fracture s/p ORIF, pain controlled non weight bearing right extremity 6 weeks, keep cast clean/dry f/u ortho Essential hypertension 24918035 I10 controlled on amlodipine 5mg, coreg vitals stable continue to monitor Hyperlipidemia 09006714 E78.5 cont atorvastat in cardiac/ad a diet Type 2 ines betes mellitus 54814255 E11.69 continue home meds glimepirid e/januvia/ metformin ada/cardia c diet Anxiety 82395992 F41.9 mood stable provide supportive care ativan qhs prn, continue duloxetine Anemia 459805651 D64.9 ? d/t blood loss.hgb stable at 9 range.cont inue to monitor. [id number] MARCEL LIZARRAGA Mal[facility] [place] [address] 02/23/2019 09:38:45 02/27/2019 09:10:22 Falls 488951013 R29.6 s/p fall complicate d by right ankle fracture s/p ORIF, pain controlled -WBAT with boot in place. f/u with Dr. Freire in 3 weeks. Essential hypertension 05378854 I10 controlled on amlodipine 5mg, coreg vitals stable continue to monitor Hyperlipidemia 88308919 E78.5 cont atorvastat in cardiac/ad a diet Type 2 ines betes mellitus 35795525 E11.69 continue home meds glimepirid e/januvia/ metformin ada/cardia c diet Anxiety 54664406 F41.9 mood stable provide supportive care ativan qhs prn, continue duloxetine Anemia 166221768 D64.9 hgb improvedco ntinue to monitor. Health Concerns Section Related Observation LastModified by Organization Detai ls LastModified Time None Recorded Concern Status LastModified by Organization Details LastModified Time None Recorded Advance Directives Directive Y: full code Payers Insurance Date Sequence Insurance Name Policy Number Policy Moore Covered Member ID Moore Member ID Guarantor Name 03/20/2019 1 [place]ARE [place] [employer] Bambi Cox [id number] Bambi Cox 03/17/2019 2 [facility]MNITY[facility] [id number] Bambi Cox Notes Date Note Type Note [...] anxiety, depression, arrhythmia, htn, hld Mery meyer [employer] 01/24/2019 17:23:45 01/31/2019 text/html 68yo female who is admitted for rehab after she fell and sustained right trimalleolar fracture of right ankle and s/p successful ORIF of ankle. Has cast in place and is NWB. No c/o today. Anxiety improved. No pain. Doing well with PT/OT. pmhx dm, anxiety, depression, arrhythmia, htn, hld Mery meyer [employer] 01/31/2019 15:02:03 02/06/2019 text/html 68yo female who [...] anxiety, depression, arrhythmia, htn, hld Mery meyer [employer] 02/06/2019 12:20:17 02/08/2019 text/html 68yo female who [...] anxiety, depression, arrhythmia, htn, hld Mery meyer, [employer] 02/08/2019 15:45:36 02/23/2019 text/html 68yo female who [...] anxiety, depression, arrhythmia, htn, hld Mery meyer [employer] 03/20/2019 22:06:17 OBGyn Episode No OBEpisode recorded.
== END 2025-10-08 15:15 | disposition home or self-care (01) ==
LOC: HO.HMCH 14:21
PROVIDERS: PCP Internal Medicine; Visit Provider Internal Medicine
DX: E11.65 Type 2 diabetes mellitus with hyperglycemia (principal); I10 Essential (primary) hypertension; E78.00 Pure hypercholesterolemia, unspecified; F41.1 Generalized anxiety disorder; K76.0 Fatty (change of) liver, not elsewhere classified; C50.912 Malignant neoplasm of unspecified site of left female breast; F09 Unspecified mental disorder due to known physiological condition; J44.9 Chronic obstructive pulmonary disease, unspecified; Z13.9 Encounter for screening, unspecified; Z23 Encounter for immunization

== ENCOUNTER → 2025-10-08 14:20 | Outpatient (BNVA) | payer MEDICARE, SELFPAY | PROVIDERS: PCP Internal Medicine; Visit Provider Internal Medicine | DX: E11.65 Type 2 diabetes mellitus with hyperglycemia (principal); I10 Essential (primary) hypertension; E78.00 Pure hypercholesterolemia, unspecified; F41.1 Generalized anxiety disorder; K76.0 Fatty (change of) liver, not elsewhere classified; C50.912 Malignant neoplasm of unspecified site of left female breast; F09 Unspecified mental disorder due to known physiological condition; J44.9 Chronic obstructive pulmonary disease, unspecified; Z23 Encounter for immunization | CPT/HCPCS: 83036; 90471; 90656; 96127; 99212 ==

== ENCOUNTER 2025-10-09 07:40 | Outpatient (REF) | payer MEDICARE, SELFPAY ==
--- OUTSIDE RECORDS SUMMARY | 2025-04-03 05:45 | XMS_ITS ---
Author Organization [facility] Address [address] [place] [address] Care Team Providers Care Certified Wellness Program Manager Name Role Phone Rocky Roman Primary Care Provider Dianna Johnson [phone] Medications Medication SIG (Take, Route, Frequency, Duration) [...] Active Encounters Encounter Location Date Provider Diagnosis [facility] [address] [place] [address] 04/03/2025 Dianna Mancuso Plan Of Treatment No Information Progress Notes * Tracee COXB: [birth year] (75 yo F)Acc No.[id number]:04/03/2025 Progress Note Patient: Bambi FINNEGAN Provider: Oscar Mancuso DPM :1950 A ge:75 Y S ex:Female Date:04/03/2025 Address:[address] [place] [address] [facility] Pcp:Rocky Roman Subjective: * Chief Complaints: * [...] enies. C ardiovascular: Pacemaker d enies. M TRANSFORMER TESTER d enies. W PW d enies. C [...] 0 04/03/2025 Generated for Gee jewell/Avni/Vijay on: 12/09/2024 07:42 AM EST
--- OUTSIDE RECORDS SUMMARY | 2025-10-09 07:42 | XMS_ITS | Clinical Summary ---
Author Organization [facility] Address [address] [place] [address] Care Team Providers Care Phone Banker Name Role Phone Rocky Roman MD Primary Care Provider [phone] Allergies Active Allergy Reactions Criticality Noted Date [...] 0.6 oz pur e alcohol) [facility] [employer]ities Answer Date Recorded In the past 12 months has th e St[employer], gas, oil, or water [employer] threatened to shut off services in your [...] place to sleep or slept in a retirement (including now)? No 04/11/2024 Comments Unknown Sex [...] topic Insurance MEDICARE PART A & B [facility] SUPPLEMENT ONLY TRINI [id number] [id number] MEDICARE PART A & B Advance Directives * Full Code (Latest Code Status on File) Date Activated Date Inactivated Comments 04/10/2024 10:10 PM * Full Code Date Activated Date Inactivated Comments 02/10/2024 10:30 AM 04/10/2024 6:16 PM * Full Code Date Activated Date Inactivated Comments 02/10/2024 8:39 AM 02/10/2024 10:30 AM Care Teams Phone Banker Relationship Specialty Start Date End Date Rocky Roman MD [address] [place] [address] [place] [address] PCP - General Internal Medicine 02/10/24
--- OUTSIDE RECORDS SUMMARY | 2025-10-09 07:42 | XMS_ITS | Clinical Summary ---
Author Organization [facility] Address [address] [place] [address] Phone Care Team Providers Care Commercial Carpet Installer Name Role Phone Unavailable Primary Care Provider [...] It is not the complete legal health record.[facility]
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
--- OUTSIDE RECORDS SUMMARY | 2025-10-09 07:42 | XMS_ITS | Clinical Summary ---
Author Organization [facility] Address [address] [place] [address] Care Team Providers Care On Site Wastewater Systems Technician Name Role Phone Kanwal Marsh MD [...] of Treatment Not on file Care Teams On Site Wastewater Systems Technician Relationship Specialty Start Date End Date Kanwal Marsh MD [address] [place] [address] PCP - General Internal Medicine 01/09/24
--- OUTSIDE RECORDS SUMMARY | 2025-10-09 07:43 | XMS_ITS | Encounter Summary ---
Author Organization [facility] Address [address] [place] [address] Care Team Providers Care Party Plan Dealer Name Role Phone Kanwal Marsh MD Primary Care Provider Unavailabl e Encounter Details Date Type Department Care Team (Late st Contact Info) Description 01/12/2024 Orders Only [facility] Department of Emergency Services [address] [place] [address] Savanna Valdez DDS [address] [place] [address] Social History Tobacco Use Types Packs/Day Years [...] on filedocumented in this encounter Care Teams Party Plan Dealer Relationship Specialty Start Date End Date Kanwal Marsh MD [address] [place] [address] PCP - General Internal Medicine 01/09/24 documented as of this encounter
--- OUTSIDE RECORDS SUMMARY | 2025-10-09 07:43 | XMS_ITS | Patient Health Record ---
Author Organization [facility] Address [address] [place] [address] Care Team Providers Care Rn Building Name Role Phone Rocky Roman Primary Care Provider Dianna Johnson Unavailable [phone] Allergies Allergen (clinical drug ingredient) Drug/Non Drug [...] primary osteoarthritis of the ankle and/or foot (450249851) Primary osteoarthritis, right ankle and foot (M19.071) Active confirmed Problem Non-pressure chronic ulcer of other part of right foot limited to breakdown of skin (L97.511) Active confirmed Problem Acquired hammer toe of right foot (0351391945129039 ) Other hammer toe(s) (acquired), right foot (M20.41) Active confirmed Problem Acquired hammer toe of left foot (7027483211252586 ) Other hammer toe(s) (acquired), left foot (M20.42) Active confirmed Problem Polyneuropathy due to type 2 diabetes mellitus (139497828) Type 2 diabetes mellitus with diabetic polyneuropathy (E11.42) Active confirmed Problem Polyneuropathy due to diabetes mellitus type I (333170290) Type 1 diabetes mellitus with diabetic polyneuropathy (E10.42) Active confirmed Encounters Encounter Location Date Provider Diagnosis [facility] [address] [place] [address] 04/03/2025 Dianna Mancuso Plan Of Treatment Pending Test Test Name Order Date 43340-VLQT SKIN LESIONS, OVER 4 12/03/19 21 04917-SYTC SKIN LESIONS, OVER 4 03/04/20 21 92424-MNDE SKIN LESIONS, OVER 4 06/10/20 21 66302-GRZQ SKIN LESIONS, OVER 4 10/01/20 21 37817-PDBX SKIN LESIONS, OVER 4 02/12/20 22 57840-YHHNKUGN OF HEMATOMA/FLUID 021 Insurance Providers Payer Name Payer Address Payer Phone Subscriber Number Group Number Insured Name Patient Relationship to Insured Coverage Start Date Coverage End Date Medicare National [facility] [employer] [address] [place] [address] [id number] Bambi Cox Self - patient is the insured [employer] [address] [place] [address] [id number] Bambi Cox Self - patient is [...] Implantes eye 09/2021 Hospitalization History Reason Date(Month/Year) [facility] ER- R leg Pain- test given not blood clot same day 04/2022 [facility] ER- Back Pain 08/2021 [facility]- shortness of breath 2019
[2025-10-09 07:55] LABS: MANUAL DIFF FLAG NO
[2025-10-09 08:03] LABS: Hematocrit 36.3 % (37.0-47.0); Hemoglobin 11.9 g/dl (12.0-16.0); Imm Gran Abs Auto 0.02 X10*3/uL (0.00-0.03); Imm Gran Pct Auto 0.2 % (0.0-0.4); Lymphocytes Absolute Auto 2.1 X10*3/uL (1.2-4.9); Mean Corpuscular HGB Conc 32.8 g/dl (31.0-35.0); Mean Corpuscular Hemoglobin 27.9 pg (27.0-33.0); Mean Corpuscular Volume 85.2 fL (80.0-98.0); NRBC Abs Auto 0.000 X10*3/uL (0.0-0.012); NRBC Pct Auto 0.0 /100WBC (0.0-0.2); Platelet Count 331 X10*3/uL (160-400); Red Blood Count 4.26 X10*6/uL (4.20-5.50); Reticulocytes Absolute 0.070 X10*6/uL (0.026-0.095); White Blood Count 8.2 X10*3/uL (4.8-10.8)
[2025-10-09 08:35] LABS: Alanine Aminotransferase 17 U/L (0-31); Albumin Level 4.6 g/dL (3.5-5.0); Alkaline Phosphatase 67 U/L (39-117); Anion Gap 15 (12-20); Aspartate Amino Transferase 30 U/L (5-31); Blood Urea Nitrogen 20 mg/dL (9-16); Calcium 9.5 mg/dL (8.4-10.2); Carbon Dioxide 26 mmol/L (22-29); Chloride 104 mmol/L (96-108); Estimated Glomerular Filt Rate 46; Potassium 4.1 mmol/L (3.3-5.1); Sodium 141 mmol/L (135-145); Total Protein 7.9 g/dL (6.5-8.0)
[2025-10-09 08:50] LABS: HBS Num1 > 1000.00 mIU/mL (0-7.99); HBc Num1 9.14 S/CO (0.00-0.79); HBsAGNum1 0.33 S/CO (0.00-0.99); Hepatitis B Surface Antigen Negative (Negative); ~HepC Num1 0.14 S/CO (0.00-0.79); ~Hepatitis B Surface Antibody REACTIVE (Nonreactive); ~Hepatitis C Antibody Nonreactive (Nonreactive)
[2025-10-09 08:53] LABS: Ferritin 44 ng/mL (10-250); Free T4 (Free Thyroxine) 1.01 ng/dL (0.71-1.85); Thyroid Stimulating Hormone 3.05 uIU/mL (0.32-4.0)
[2025-10-09 09:04] LABS: Folate 10.9 ng/mL (> or = 4.0); Vitamin B12 1273 pg/mL (200-900)
[2025-10-09 09:35] LABS: HBc Num2 9.11 S/CO
[2025-10-09 09:36] LABS: HBc Num3 8.99 S/CO
[2025-10-09 10:02] LABS: Microalbum/Creatinine Ratio Ur 60.5 ug/mg cr (<30)
== END 2025-10-09 07:41 | disposition home or self-care (01) ==
LOC: HO.LAB 07:40
PROVIDERS: PCP Internal Medicine; Visit Provider Internal Medicine
DX: Z13.21 Encounter for screening for nutritional disorder (principal); E11.65 Type 2 diabetes mellitus with hyperglycemia; R79.89 Other specified abnormal findings of blood chemistry
CPT/HCPCS: 36415; 80053; 82043; 82306; 82570; 82607; 82728; 82746; 83036; 84439; 84443; 85025; 85045; 86704; 86706; 86803; 87340

== ENCOUNTER 2025-10-21 12:25 | Outpatient (REF) | payer MEDICARE, OTHER, SELFPAY ==
[2025-10-21 14:12] LABS: Appearance Urine Clear; Glucose Urine UA Negative (Negative); PH 6.0 (5.0-9.0); Specific Gravity - Urine >= 1.030 (1.005-1.025); UMIC TRIGGER UACC YES
[2025-10-21 14:40] LABS: Other Crystals Urine Present; UACC Culture Trigger YES
--- OUTSIDE RECORDS SUMMARY | 2025-10-21 16:29 | XMS_ITS | Data Portability ---
Author Organization [facility], Main Office Address [address] [place] [address] Care Team Providers Care Human Resources Operations Coordinator Name Role Phone MADELEINE HENRIQUEZ 1ST FLOOR [...] By Organization Details Last Modified Time 02/23/2019 [id number] d/c home with meds and services f/u with pcp in 2 weeks f/u with Dr. Freire [email or web address] Not available 02/23/2019 09:49:54 Reason for Referral None Reported. Problems Name Problem SNOMED Code Status Onset Date Resolution Date Notes Provider Name and Address Organization Details Recorded Time Open reduction of fracture with internal fixation Completed 201801/07/2019 [facility] Hypertens edilia disorder 77186938 Active 2018 Ks Swanson [facility] 9 20:21:42 Type 2 diabetes mellitus 09759042 Active 2018 [facility] 20:22:04 Open reduction of fracture with internal fixation Active 2018 [facility] 20:31:22 Falls 176979792 Active 2018 [facility] 9 20:31:39 Anxiety 39147121 Active 2018 [facility] 9 20:37:17 Essential hypertens ion 26688552 Active 2018 Yina Vidal MD [address], [place], [address], [facility] 9 11:49:48 Hyperlipi ludmila 09777749 Active 2018 Yina Vidal MD [address], [place], [address], [facility] 9 11:50:41 Closed trimalleo lar fracture of right ankle [id number] 37572 Active 2018 Yina Vidal MD [address], [address], [place], [address], [facility] 9 12:01:53 Problem Notes None recorded. Medical Equipment None Reported. Allergies Allergen ID Allergen Name Allergen Category Reaction Reaction Severity Criticality Documentation Date Start Date Code Code System Note Provider Name and Address Organization Details Recorded Time 08310 bacitraci n medicatio n Not available Not available Not available 01/07/2019 1291 RxNorm Anca Swanson [facility] 9 20:05:22 82283 nickel environme nt Not available Not available Not available 01/07/2019 57138 29 RxNorm Anca Swanson [facility] 9 20:05:31 73214 latex environme nt,medica tion Not available Not available Not available 01/07/2019 84398 91 RxNorm Anca Swanson [facility] 9 20:05:42 Vitals None Recorded Social History Question Answer Notes LastModified by Organizat ion Details LastModified Time Tobacco Smoking Status Former Smoker quit in 1998 Not Available [employer] 09/23/2020 03:13:23 Do You Have An Advance Directive? Yes Full Code [id number] Information not available 09/23/2020 How Much Tobacco Do You Chew? None [id number] Information not available 09/23/2020 Do You Have A Medical Power Of Lay Midwife? Yes [id number] Information not available 09/23/2020 What Was The Date Of Your Most Recent Tobacco Screening? 01/09/2019 [id number] Information not available 09/23/2020 Has Tobacco Cessation Counseling Been Provided? No [id number] Information not available 09/23/2020 Sex: Unknown Functional Status Question Answer Note LastModified by Organizat ion Details LastModified Time What is your level of alcohol consumption? Occasional [id number] Information not available 09/23/2020 Mental Status None recorded. Family History Nothing Reported. Medical History No medical history recorded. Gynecological HistoryNo gynecological history recorded. Obstetrics History GPAL:G 0 P 0 0 0 0 Past Encounters Encounter ID Performer Location Encounter Start Date Encounter Closed Date Diagnosis/Indication Diagnosis SNOMED-CT Code Diagnosis ICD10 Code Diagnosis IMO Codes Diagnosis Note [id number] Anca Swanson NP, S MADELEINE HERNIQUEZ [address] [place] [phone] 01/07/2019 20:06:08 01/18/2019 09:32:29 Essential hypertension 84617325 I10 controlled on amlodipine 5mg, coreg vitals stable continue to monitor Hyperlipidemia 21522424 E78.5 cont atorvastat in cardiac/ad a diet Dyspnea 845357042 R06.00 secondary to hypervolem ia, was initiated at hospital will increase lasix for 3 days bmp/mag in morning daily weights, low na diet if dyspnea does not improve will check xray Type 2 ines betes mellitus 12589143 E11.69 continue home meds glimepirid e/januvia/ metformin fs qid, ada/cardia c diet no concentrat ed sweets [place] 230010424 R29.6 s/p fall complicate d by right ankle fracture s/p ORIF non weight bearing right extremity 6 weeks, keep splint clean/dry no showering elevate extremity when in bed f/u ortho 2 weeks fall precaution s pt/ot pain management Anxiety 00351651 F41.9 mood stable [facility] continue duloxetine [id number] MD MADELEINE Felipe [address] [place] [phone] 01/09/2019 10:10:31 01/18/2019 09:39:57 Essential hypertension 85819090 I10 Increased today, possibly due to increased pain or increased CHF. Will continue amlodipine 5 mg and carvedilol 6.25 mg, as well as lasix as above. Monitor and adjust as needed. Hyperlipidemia 85152774 E78.2 Continue atorvastat in 40 mg qd and monitor as outpt. Type 2 ines betes mellitus 36402985 E11.69 BS stable on glimepirid e 4 mg qd, januvia 100 mg qd and metformin 1000 mg BID. Currently only getting fingerstic ks 2x/week, will increase to BID due to immobility . Can d/c if stable. Continue CCD. Monitor HgA1C as outpt. Falls 202404415 R29.6 Will need continued PT/OT after ankle heals to work on balance and gait training to help prevent future falls. Anxiety 47134793 F41.1 With moderate baseline anxiety. Continue lorazepam 1 mg qd prn and duloxetine 60 mg qd. Monitor mood and consult NEG prn. Closed tri malleolar fracture of right ankle [id number] 6334470 S82.851D S/P ORIF, pain well controlled with oxycodone 5 mg q 4 hrs prn. Not on anything for DVT prophylaxi s, discussed with ortho PA and told that they don't usually do AC unless pt. is bedridden. Continue PT/OT for function as tolerated with NWB on right leg. F/U with ortho in 2 weeks. Congestive heart failure 73348603 I50.43 Pt. informs me she has hx of CHF. Had cardiac w/u at [facility] a few months ago . Including echo and possible a medication stimulated stress test. Had been off lasix for a month prior to admission, because sxs had improved. Had lasix increased on admission here, from 20 mg qd to 40 mg BID for 3 days. Labs stable on this dose. SOB worsening. WIll get CXR stat today. Will get records from [facility] on previous testing. [id number] MARCEL LIZARRAGA [address] [place] [address] 01/15/2019 11:00:43 01/18/2019 11:54:03 Essential hypertension 64500580 I10 controlled on amlodipine 5mg, coreg vitals stable continue to monitor Hyperlipidemia 33045783 E78.5 cont atorvastat in cardiac/ad a diet Type 2 ines betes mellitus 79411669 E11.69 continue home meds glimepirid e/januvia/ metformin fs qid, ada/cardia c diet no concentrat ed sweets [place] 255144276 R29.6 s/p fall complicate d by right ankle fracture s/p ORIF non weight bearing right extremity 6 weeks, keep splint clean/dry no showering elevate extremity when in bed f/u ortho 2 weeks fall precaution s pt/ot pain management Anxiety 90700959 F41.9 mood stable provide supportive care ativan qhs prn, continue duloxetine Anemia 443193054 D64.9 ? d/t blood loss.hgb stable at 9 range.cont inue to monitor. [id number] MARCEL [address]ARRAGA [address] [address] 01/24/2019 11:01:04 01/31/2019 13:55:43 Falls 375307774 R29.6 s/p fall complicate d by right ankle fracture s/p ORIF non weight bearing right extremity 6 weeks, keep cast clean/dry f/u ortho pt/ot pain controlled Essential hypertension 15228652 I10 controlled on amlodipine 5mg, coreg vitals stable continue to monitor Hyperlipidemia 92187994 E78.5 cont atorvastat in cardiac/ad a diet Type 2 ines betes mellitus 78020021 E11.69 continue home meds glimepirid e/januvia/ metformin fs qid, ada/cardia c diet no concentrat ed sweets Anxiety 63769247 F41.9 mood stable provide supportive care ativan qhs prn, continue duloxetine Anemia 902800240 D64.9 ? d/t blood loss.hgb stable at 9 range.cont inue to monitor. [id number] MARCEL LIZARRAGA MARTINEZ [address] [place] [phone] 01/31/2019 14:58:48 02/05/2019 16:09:48 [place] 156325801 R29.6 s/p fall complicate d by right ankle fracture s/p ORIF non weight bearing right extremity 6 weeks, keep cast clean/dry f/u ortho pt/ot pain controlled Essential hypertension 57391987 I10 controlled on amlodipine 5mg, coreg vitals stable continue to monitor Hyperlipidemia 40684090 E78.5 cont atorvastat in cardiac/ad a diet Type 2 ines betes mellitus 37903114 E11.69 continue home meds glimepirid e/januvia/ metformin ada/cardia c diet Anxiety 14417299 F41.9 mood stable provide supportive care ativan qhs prn, continue duloxetine Anemia 187758514 D64.9 ? d/t blood loss.hgb stable at 9 range.cont inue to monitor. [id number] MARCEL LIZARRAGA [facility] [place] [address] 02/06/2019 12:16:47 02/09/2019 15:45:58 [place] [id number] R29.6 s/p fall complicate d by right [...] remains dependent on wheelchair for safe mobility. [id number] MARCEL LIZARRAGA MARTINEZ [address] [place] [address] [place] [address] 02/08/2019 10:07:17 02/13/2019 15:27:37 [place] [id number] R29.6 s/p fall complicate d by right ankle fracture s/p ORIF, pain controlled non weight bearing right extremity 6 weeks, keep cast clean/dry f/u ortho Essential hypertension 46284182 I10 controlled on amlodipine 5mg, coreg vitals stable continue to monitor Hyperlipidemia 46884417 E78.5 cont atorvastat in cardiac/ad a diet Type 2 ines betes mellitus 24439725 E11.69 continue home meds glimepirid e/januvia/ metformin ada/cardia c diet Anxiety 08484139 F41.9 mood stable provide supportive care ativan qhs prn, continue duloxetine Anemia 889936657 D64.9 ? d/t blood loss.hgb stable at 9 range.cont inue to monitor. [id number] MARCEL LIZARRAGA [facility] [place] [address] 02/23/2019 09:38:45 02/27/2019 09:10:22 [place] 873576367 R29.6 s/p fall complicate d by right ankle fracture s/p ORIF, pain controlled -WBAT with boot in place. f/u with Dr. Freire in 3 weeks. Essential hypertension 01484493 I10 controlled on amlodipine 5mg, coreg vitals stable continue to monitor Hyperlipidemia 02327809 E78.5 cont atorvastat in cardiac/ad a diet Type 2 ines betes mellitus 37346161 E11.69 continue home meds glimepirid e/januvia/ metformin ada/cardia c diet Anxiety 88895871 F41.9 mood stable provide supportive care ativan qhs prn, continue duloxetine Anemia 107803617 D64.9 hgb improvedco ntinue to monitor. Health Concerns Section Related Observation LastModified by Organization Detai ls LastModified Time None Recorded Concern Status LastModified by Organization Details LastModified Time None Recorded Advance Directives Directive Y: full code Payers Insurance Date Sequence Insurance Name Policy Number Policy Moore Covered Member ID Moore Member ID Guarantor Name 03/20/2019 1 [place]ICARE [place] SEAT 4a SERVICES Bambi Cox [id number] Bambi Cox 03/17/2019 [facility] [id number] Bambi Cox Notes Date Note Type Note [...] anxiety, depression, arrhythmia, htn, hld Mery meyer [facility] 01/24/2019 17:23:45 01/31/2019 text/html 68yo female who is admitted for rehab after she fell and sustained right trimalleolar fracture of right ankle and s/p successful ORIF of ankle. Has cast in place and is NWB. No c/o today. Anxiety improved. No pain. Doing well with PT/OT. pmhx dm, anxiety, depression, arrhythmia, htn, hld Mery meyer [facility] 01/31/2019 15:02:03 02/06/2019 text/html 68yo female who [...] anxiety, depression, arrhythmia, htn, hld Mery meyer [facility] 02/06/2019 12:20:17 02/08/2019 text/html 68yo female who [...] anxiety, depression, arrhythmia, htn, hld Mery meyer, [facility] 02/08/2019 15:45:36 02/23/2019 text/html 68yo female who [...] anxiety, depression, arrhythmia, htn, hld Mery meyer [facility] 03/20/2019 22:06:17 OBGyn Episode No OBEpisode recorded.
== END 2025-10-21 12:26 | disposition home or self-care (01) ==
LOC: HO.LAB 12:25
PROVIDERS: PCP Internal Medicine; Visit Provider Internal Medicine
DX: E11.65 Type 2 diabetes mellitus with hyperglycemia (principal); F09 Unspecified mental disorder due to known physiological condition
CPT/HCPCS: 81001; 81003; 82570; 87086; 87088; 87186